=== PATIENT | female | born 1935 | race Caucasian/White ===

== ENCOUNTER 2020-07-27 14:02 | Outpatient (REF) | payer MEDICARE, SELFPAY ==
[2020-07-27 17:06] LABS: MANUAL DIFF FLAG NO
[2020-07-27 17:10] LABS: Basophils Absolute Auto 0.1 X10*3/uL (0.0-0.2); Eosinophils Absolute Auto 0.6 X10*3/uL (0.0-0.4); Eosinophils Percent Auto 7.6 % (0-4); Hematocrit 37.6 % (37-47); Hemoglobin 11.9 g/dl (12.0-16.0); Imm Gran Abs Auto 0.03 X10*3/uL (0.00-0.03); Imm Gran Pct Auto 0.4 % (0.0-0.4); Lymphocytes Percent Auto 25.4 % (20-40); Mean Corpuscular HGB Conc 31.6 g/dl (31.0-35.0); Mean Corpuscular Hemoglobin 30.4 pg (27.0-33.0); Mean Corpuscular Volume 95.9 fL (80-98); Mean Platelet Volume 11.3 fL (9.4-12.3); Monocytes Absolute Auto 0.5 X10*3/uL (0.1-1.2); Monocytes Percent Auto 6.5 % (2-11); Neutrophils Absolute Auto 4.6 X10*3/uL (2.0-8.3); Neutrophils Percent Auto 59.1 % (45-73); Platelet Count 238 X10*3/uL (160-400); Red Blood Count 3.92 X10*6/uL (4.20-5.50); Red Cell Distribution Width 14.9 % (11.0-16.0); White Blood Count 7.8 X10*3/uL (4.8-10.8)
[2020-07-27 17:48] LABS: Alanine Aminotransferase 14 U/L (0-31); Alkaline Phosphatase 100 U/L (39-117); Anion Gap 16 (12-20); Aspartate Amino Transferase 21 U/L (5-31); Bilirubin Total 0.4 mg/dL (0.0-1.0); Blood Urea Nitrogen 42 mg/dL (9-16); Calcium 9.7 mg/dL (8.4-10.2); Carbon Dioxide 25 mmol/L (22-29); Chloride 103 mmol/L (96-108); Estimated Glomerular Filt Rate 27; Glucose Random 85 mg/dL (60-115); Sodium 139 mmol/L (135-145); Total Protein 6.6 g/dL (6.5-8.0)
== END 2020-07-27 14:03 | disposition home or self-care (01) ==
LOC: HO.HMGCLDS 14:02
PROVIDERS: PCP Internal Medicine; Visit Provider Internal Medicine
DX: I12.9 Hypertensive chronic kidney disease with stage 1 through stage 4 chronic kidney disease, or unspecified chronic kidney disease (principal); N18.9 Chronic kidney disease, unspecified; N39.0 Urinary tract infection, site not specified
CPT/HCPCS: 36415; 80053; 85025

== ENCOUNTER 2020-08-24 08:43 | Outpatient (REF) | payer MEDICARE, SELFPAY ==
--- NOTE | 2020-08-24 10:39 | XR_ITS ---
EXAMINATION: XR CHEST CLINICAL INFORMATION: Pleural effusion COMPARISON: Chest x-ray the 2019 TECHNIQUE: 2 views of the chest were obtained. FINDINGS: Cardiac silhouette is not enlarged. Interval enlargement of now large right-sided pleural effusion. There is good aeration of the left hemithorax without left-sided pleural effusion. No pneumothorax. Surgical clips of the upper abdomen suggesting prior cholecystectomy. Degenerative changes of the spine. XR/XR chest 2V IMPRESSION: Interval enlargement of now large right-sided pleural effusion.
[2020-08-24 11:07] LABS: Prothrombin Time 12.3 SEC (10.8-13.0)
[2020-08-24 11:10] LABS: D Dimer 393 NG/ML
[2020-08-24 11:42] LABS: Alanine Aminotransferase 23 U/L (0-31); Albumin Level 3.9 g/dL (3.5-5.0); Alkaline Phosphatase 115 U/L (39-117); Aspartate Amino Transferase 21 U/L (5-31); Bilirubin Direct < 0.2 mg/dL (0.0-0.5); Bilirubin Total 0.3 mg/dL (0.0-1.0); Total Protein 6.1 g/dL (6.5-8.0)
[2020-08-24 12:03] LABS: Erythrocyte Sedimentation Rate 74 MM/HR (0-20)
[2020-08-24 12:04] LABS: Alanine Aminotransferase 24 U/L (0-31); Albumin Level 3.9 g/dL (3.5-5.0); Alkaline Phosphatase 116 U/L (39-117); Anion Gap 13 (12-20); Aspartate Amino Transferase 22 U/L (5-31); Bilirubin Total 0.3 mg/dL (0.0-1.0); Blood Urea Nitrogen 47 mg/dL (9-16); Calcium 9.4 mg/dL (8.4-10.2); Carbon Dioxide 28 mmol/L (22-29); Chloride 102 mmol/L (96-108); Estimated Glomerular Filt Rate 23; Glucose Random 113 mg/dL (60-115); Potassium 4.5 mmol/l (3.3-5.1); Sodium 138 mmol/L (135-145); Total Protein 6.1 g/dL (6.5-8.0)
[2020-08-24 12:35] LABS: Uric Acid 6.4 mg/dL (2.4-5.7)
[2020-08-25 07:44] LABS: SARS COV2 IgG Negative (Negative)
[2020-08-26 15:06] LABS: Anti Nuclear Antibody Screen POSITIVE (NEGATIVE); Anti Nuclear Antibody Titer 1:40 titer
[2020-08-28 19:10] LABS: Cyclic Citrullinated Peptide <16 UNITS
== END 2020-08-24 08:44 | disposition home or self-care (01) ==
LOC: HO.LAB 08:43
PROVIDERS: Absent Provider Internal Medicine; PCP Internal Medicine; Visit Provider Hospitalist
DX: J90 Pleural effusion, not elsewhere classified (principal); I12.9 Hypertensive chronic kidney disease with stage 1 through stage 4 chronic kidney disease, or unspecified chronic kidney disease; N18.9 Chronic kidney disease, unspecified; K21.9 Gastro-esophageal reflux disease without esophagitis; R06.00 Dyspnea, unspecified; R07.89 Other chest pain; R91.8 Other nonspecific abnormal finding of lung field; Z01.84 Encounter for antibody response examination
CPT/HCPCS: 36415; 71046; 80053; 80076; 82248; 84550; 85379; 85610; 85652; 86038; 86039; 86200; 86769; 99202

== ENCOUNTER 2020-08-25 07:28 | Day surgery (SDC) | payer MEDICARE, SELFPAY ==
--- NOTE | 2020-08-25 | XR_ITS ---
EXAMINATION: XR CHEST CLINICAL INFORMATION: Status post right thoracentesis. COMPARISON: 08/24/2020 TECHNIQUE: Frontal view of the chest was obtained. FINDINGS: Cardiac leads overlie the chest. Significant decrease in size of the right-sided pleural effusion. Small residual right-sided effusion with small amount of fluid tracking along the right minor fissure. The left lung is clear. No pneumothorax. The cardiomediastinal silhouette is normal in size with a calcified aorta. XR/XR chest 1V IMPRESSION: Decrease of the right-sided pleural effusion with small residual effusion. No pneumothorax.
--- NOTE | 2020-08-25 | CT_ITS ---
EXAMINATION: CT CHEST WITHOUT CONTRAST CLINICAL INFORMATION: COMPARISON: Previous chest x-rays most recent from yesterday and CT of the abdomen and pelvis June 2018 TECHNIQUE: Multidetector volumetric CT imaging of the chest was done. Axial MIP volume rendering provided. Sagittal and coronal reformatted images were obtained. This CT examination was performed using dose optimization techniques as appropriate, variously including the following: *Automated exposure control *Adjustment of mA and/or kV according to patient size (this includes techniques or standardized protocols for targeted exams where dose is matched to indication/reason for exam; i.e. extremities or head) *Use of iterative reconstruction technique DLP: 186 mGy-cm FINDINGS: [employer]: Right pleural effusion. LUNGS: There is compressive atelectasis of the right lower lobe due to the effusion. There is right upper lobe subsegmental atelectasis along the minor fissure. The lungs are otherwise clear. No pulmonary nodule is seen. No endobronchial or endotracheal lesion is seen. MEDIASTINUM: The thyroid gland is slightly prominent and lobulated in contour with question of focal nodules. Largest questioned nodule measures 1 x 1.5 cm. There are small mediastinal lymph nodes. There is slight infiltration of the epicardial fat and small right cardiophrenic angle or anterior diaphragmatic lymph nodes, largest measuring 6 mm axial image 43 series 2. The heart does not appear enlarged. There is no pericardial effusion. There is coronary artery calcification. The thoracic aorta is calcified but normal in caliber. Evaluation for hilar adenopathy is limited due to lack of IV contrast. There may be a small right hilar lymph nodes. PLEURA: There is a moderate to large right pleural effusion. There is no left pleural effusion. No pleural mass or thickening is seen. AXILLA: No chest wall mass or enlarged axillary lymph nodes are seen. UPPER ABDOMEN: There is a 1 cm low-attenuation lesion in the lateral segment of the left lobe axial image 52 series 2. Hounsfield units without contrast measure 15. This is similar to previous CT scan from June 2018 suggesting a benign process. The gallbladder has been removed. There is evidence of atherosclerotic disease of the upper abdominal aorta. OSSEOUS STRUCTURES: There is increased soft tissue seen surrounding the bilateral sternomanubrial joints, left greater than right. There is degenerative change seen at the joint spaces with joint space narrowing and osteophyte formation. No bone destruction is seen. There are degenerative changes of the spine. CT/CT chest wo con IMPRESSION: Moderate to large right pleural effusion. Compressive atelectasis of the right lower lobe and subsegmental atelectasis of the right upper lobe adjacent to the minor fissure. Slight infiltration of the right epicardial fat and small right cardiophrenic angle or anterior diaphragmatic lymph nodes. No enlarged lymph nodes. No pericardial effusion. Severe atherosclerotic disease and coronary artery calcification. Slightly enlarged lobulated thyroid gland with question thyroid nodules. This could be better assessed with thyroid ultrasound. 1 cm stable probable cyst in the left lobe of the liver. Increased soft tissue at the sternomanubrial joints. This may be related to arthritis. Clinical correlation recommended.
--- NOTE | 2020-08-25 09:00 | US_ITS ---
EXAMINATION: ULTRASOUND-GUIDED THORACENTESIS CLINICAL INFORMATION: Recurrent right pleural effusion COMPARISON: None TECHNIQUE: Procedure and risks and benefits including bleeding, infection and pneumothorax were discussed with the patient and informed consent was obtained. The right posterior lateral chest was prepped and draped in the usual sterile fashion. The skin and soft tissues were anesthetized with 1% lidocaine plain. Using ultrasound guidance and a 4 Yi rapid centesis catheter, access to the right pleural effusion was obtained. 1.1 L of dark serosanguineous/slightly bloody fluid was removed. Diagnostic specimen was sent. FINDINGS: There is a large right pleural effusion. US/US thoracentesis IMPRESSION: Ultrasound-guided right thoracentesis.
--- NOTE | 2020-08-25 09:33 | HO.RADPN ---
RADIOLOGY Narrative Narrative: Right thoracentesis performed using 4 fr angiocath. 1.1 L dark serosanguinous/slightly bloody fluid removed. Diagnostic specimen sent.
[2020-08-25 10:02] VITALS: BP 133/61; PULSE 70; RESP 16; TEMP 36.6; O2SAT 95
[2020-08-25] MEDS: Lidocaine HCl 1 % MPF 5 ML VIAL SUBCUT (10:04)
[2020-08-25 10:30] VITALS: BP 115/54; PULSE 70; RESP 16; O2SAT 95
[2020-08-25 11:09] VITALS: BP 108/64; PULSE 66; RESP 16; TEMP 36.6; O2SAT 97
[2020-08-25 11:41] LABS: MN% 29.4 %; PMN% 70.6 %
[2020-08-25 11:42] LABS: RBC Pleural Fluid 0.009 X10*3/uL; WBC Pleural Fluid 1.275 X10*3/uL
[2020-08-25 12:28] LABS: Neutrophils Pleural Fluid 70 %
[2020-08-25 12:29] LABS: BF Shift QC OK YES; Lymphocytes Pleural Fluid 6 %; Man Diluent Bkgrd OK YES; Monocytes Pleural Fluid 3 %; Other Cells Plerual Fl 21 %
[2020-08-25 13:51] LABS: pH Pleural Fluid 7.41
[2020-08-25 13:59] LABS: LDH Pleural Fluid 152; Total Protein Pleural Fluid 4.4
[2020-08-25 14:01] LABS: Glucose Pleural Fluid 105
== END 2020-08-25 12:00 | disposition home or self-care (01) ==
LOC: HO.SSS 07:29
PROVIDERS: PCP Internal Medicine; Visit Provider Radiology Diagnostic Radiology
DX: J90 Pleural effusion, not elsewhere classified (principal); J98.11 Atelectasis; Z87.891 Personal history of nicotine dependence; Z79.899 Other long term (current) drug therapy; Z88.7 Allergy status to serum and vaccine; Z91.09 Other allergy status, other than to drugs and biological substances
CPT/HCPCS: 32555; 71045; 71250; 82945; 83615; 83986; 84157; 87071; 87205; 88112; 88305; 88341; 88342; 89051

== ENCOUNTER 2020-08-30 10:47 | Outpatient (REF) | payer MEDICARE, SELFPAY | END 2020-08-30 10:48 | disposition home or self-care (01) | LOC: HO.XRAY 10:47 | PROVIDERS: PCP Internal Medicine; Visit Provider Internal Medicine | DX: J90 Pleural effusion, not elsewhere classified (principal); R06.02 Shortness of breath | CPT/HCPCS: 71046; 99212 ==

== ENCOUNTER → 2020-09-01 08:18 | Outpatient (BNVA) | payer MEDICARE, SELFPAY | PROVIDERS: PCP Internal Medicine; Visit Provider Surgery | DX: R06.00 Dyspnea, unspecified (principal); J90 Pleural effusion, not elsewhere classified | CPT/HCPCS: 99205 ==

== ENCOUNTER 2020-09-14 05:49 | Inpatient (IN) | payer MEDICARE, SELFPAY ==
--- NOTE | 2020-09-11 11:46 | HO.ANESPROP2 ---
HPI - Anesthesia Eval Consult details Narrative: 85yo F for Right VATS recurring R side pleural effusion, s/p thoracentesis x 2 - last 08/25/20 drained 1.1L fluid PMFSH Past Medical History Medical History (Updated 09/15/20 @ 08:40 by DEREK Maradiaga) (atherosclerosis) Chest pain Chronic renal insufficiency Diabetes mellitus Difficulty swallowing Dyspnea Elevated cholesterol GERD (gastroesophageal reflux disease) History of cystocele History of femoral angiogram History of thyroid nodule HTN (hypertension) IBS (irritable bowel syndrome) Lung mass Peripheral neuropathy Pleural effusion Polymyalgia rheumatica Sinusitis Trigeminus neuralgia Family History Family History Father No problems noted. Surgical History Surgical History (Updated 09/11/20 @ 12:21 by Ana Thomas) H/O carpal tunnel repair History of pubovaginal sling History of thoracentesis History of total replacement of right hip Hx of bilateral cataract extraction Hx of cholecystectomy Hx of colonoscopy History of Problems with Anesthesia: No (Reports lip injury after total hip surgery.) Social History Social History (Updated 09/11/20 @ 11:56 by Ana Thomas) Household Members: Family Housing: House Are you a primary director of home care hospice to a significant other at home: No Do you presently have visiting nurse or other home services: No Smoking Status: Former smoker Smoked in Last 30 Days: No Smoking Quit Date: 1969 Patient Interested in Nicotine Replacement: No Patient Given Instructions on How to Stop Smoking: No Second Hand Smoke Exposure: No Use of substances other than those prescribed or required for medical reasons: No Currently Displaying Signs/Symptoms of Drug Intoxication Withdrawal: No Any prior treatment program specific to substance use: No Have you been hit, kicked, punched, or otherwise hurt by someone within the past year? If so, by whom?: No Do you feel safe in your current relationship?: No Current Relationship Is there a partner from a previous relationship who is making you feel unsafe now?: No Are you made to feel afraid or neglected: No Advance Directives: No Advance Directives Information Provided: No Advance Directives on File: No Do you have thoughts of harming others: None Do you have a plan to hurt others: No Plan Recently lost weight without trying: Yes Narrative Narrative: Recent increase in Trigeminal neuralgia symptoms with L side facial numbness (baseline), some difficulty swallowing. +SOB, + cough r/t pleural effusion. Activity very limited. Mostly WC. Meds Allergies Allergy/AdvReac Type Severity Reaction Status Date / Time NSAIDS Allergy Severe kidney Verified 09/11/20 11:52 damage Psudaphed Allergy Severe kidney Verified 09/11/20 11:52 damage influenza virus vaccine, Allergy Intermediate LOCALIZED Verified 09/11/20 11:55 specific REACTION [Influenza Virus Vacc,Specific] thimerosal Allergy Intermediate Itching Verified 09/11/20 11:55 amitriptyline [From Elavil] AdvReac Severe Rash Verified 08/30/20 11:10 Home Medications Medication Instructions Recorded Confirmed Type albuterol sulfate 90 mcg/actuation INHALATION Q4-6H 08/24/20 09/01/20 History aerosol inhaler allopurinol 100 mg tablet 100 mg PO DAILY 08/24/20 09/11/20 History azelastine-fluticasone 137 mcg-50 1 spray INTRANASAL BID 08/24/20 09/14/20 History mcg/spray nasal spray bisoprolol fumarate 5 mg tablet 5 mg PO BID 08/24/20 09/14/20 History colchicine 0.6 mg tablet 0.6 mg PO DAILY PRN 08/24/20 09/11/20 History ezetimibe 10 mg tablet 10 mg PO DAILY 08/24/20 09/11/20 History flu vacc [id number](65yr up)-PF 240 ml IM 08/24/20 09/01/20 History mcg/0.7 mL intramuscular syringe furosemide 20 mg tablet 20 mg PO DAILY 08/24/20 09/11/20 History hydralazine 25 mg tablet 25 mg PO BID@0900,1700 08/24/20 09/14/20 History methylcellulose (laxative) 500 mg 500 mg PO BID 08/24/20 09/11/20 History tablet oxcarbazepine 300 mg tablet 300 mg PO BEDTIME 08/24/20 09/12/20 History losartan 50 mg tablet 50 mg PO BID tab 08/30/20 09/11/20 History acetaminophen 500 mg tablet 500 mg PO QID PRN 09/01/20 09/11/20 History aspirin 81 mg tablet,delayed 81 mg PO DAILY 09/01/20 09/11/20 History release cinnamon bark 500 mg capsule 500 mg PO DAILY 09/01/20 09/11/20 History coenzyme Q10 200 mg/gram oral 200 mg PO DAILY 09/01/20 09/11/20 History powder cranberry 400 mg capsule 400 mg PO DAILY 09/01/20 09/11/20 History diphenhydramine HCl 25 mg capsule 25 mg PO BEDTIME 09/01/20 09/11/20 History echinacea 380 mg capsule 380 mg PO DAILY 09/01/20 09/11/20 History evening primrose oil 500 mg capsule 500 mg PO TID 09/01/20 09/11/20 History flaxseed oil 1,000 mg capsule 1,000 mg PO DAILY 09/01/20 09/11/20 History garlic 1,000 mg capsule 1,000 mg PO DAILY 09/01/20 09/11/20 History loratadine 10 mg tablet 10 mg PO DAILY 09/01/20 09/14/20 History lutein 20 mg capsule 20 mg PO DAILY 09/01/20 09/11/20 History multivitamin 1 tab PO DAILY 09/01/20 09/11/20 History omega-3 fatty acids 1,000 mg 1,000 mg PO DAILY 09/01/20 09/11/20 History capsule selenium 200 mcg capsule 200 mcg PO DAILY 09/01/20 09/11/20 History zinc sulfate 110 mg (25 mg zinc) 110 mg PO DAILY 09/01/20 09/11/20 History tablet Exam Exam Date and Time: September 11, 2020 1146 Pertinent Lab Results Pertinent Lab Results: Laboratory Tests 07/27/20 08/24/20 14:22 10:30 WBC 7.8 Hgb 11.9 L Hct 37.6 Plt Count 238 Sodium 138 Potassium 4.5 Chloride 102 Carbon Dioxide 28 BUN 47 H Creatinine 2.04 H Patient and Renal aware of bump in creatinine. R/t extra doses of lasix recently in attempt to improve SOB, peripheral edema. Will repeat preop. Narrative Narrative: EKG: ECHO 07/20/20: LV size nml. borderline LVH. Over LV sys function is normal with an EF between 60-65%. Gr 1 DD with impaired relax and elevated LA pressures. No RWMA; LA size is upper limits of normal; RV sys function is at the low end of nml; RA area is upper limits of nml; Aoritc valve is trileaflet and appears to be minimally thickened. No or AR; mild MR; mild TR; borderline pulm htn; R pleural effusion; aortic root size is nml; no intracardiac shunt CXR 08/25/2020: Decrease of r-sided pleural effusion with small residual effusion. No pneumothorax CT/CT chest 08/25/20 IMPRESSION: Moderate to large right pleural effusion. Compressive atelectasis of the right lower lobe and subsegmental atelectasis of the right upper lobe adjacent to the minor fissure. Slight infiltration of the right epicardial fat and small right cardiophrenic angle or anterior diaphragmatic lymph nodes. No enlarged lymph nodes. No pericardial effusion. Severe atherosclerotic disease and coronary artery calcification. Slightly enlarged lobulated thyroid gland with question thyroid nodules. This could be better assessed with thyroid ultrasound. 1 cm stable probable cyst in the left lobe of the liver. Increased soft tissue at the sternomanubrial joints. This may be related to arthritis. Clinical correlation recommended. Airway Mallampati Class: I TM Dist: >3cm Neck ROM: Full Partial: Upper and Lower Heart: RRR Lungs: Expiratory wheezes throughout. Dim RUL Assessment and Plan Assessment Anesthesia Assessment: Anesthesia Plan Discussed and PAT Visit
[2020-09-11 12:03] VITALS: BP 161/68; PULSE 64; RESP 16; O2SAT 94; BMI 29.4
[2020-09-11 14:37] LABS: Hematocrit 37.1 % (37-47); Hemoglobin 11.7 g/dl (12.0-16.0); Mean Corpuscular HGB Conc 31.5 g/dl (31.0-35.0); Mean Corpuscular Hemoglobin 29.5 pg (27.0-33.0); Mean Corpuscular Volume 93.7 fL (80-98); Mean Platelet Volume 10.8 fL (9.4-12.3); Platelet Count 266 X10*3/uL (160-400); Red Blood Count 3.96 X10*6/uL (4.20-5.50); Red Cell Distribution Width 14.4 % (11.0-16.0); White Blood Count 7.2 X10*3/uL (4.8-10.8)
[2020-09-11 15:21] LABS: Blood Urea Nitrogen 34 mg/dL (9-16); Creatinine Clr Calc Pharmacy 21.9; Estimated Glomerular Filt Rate 26
[2020-09-14] VITALS (18 sets, daily range): BP systolic 86–171; BP diastolic 42–72; PULSE 65–82; RESP 10–20; TEMP 36.4–36.7; O2SAT 95–99
--- NOTE | 2020-09-14 | ECG_ITS ---
Test Reason : ANESTHESIA Blood Pressure : / mmHG Vent. Rate : 067 BPM Atrial Rate : 067 BPM P-R Int : 170 ms QRS Dur : 084 ms QT Int : 406 ms P-R-T Axes : 034 020 -02 degrees QTc Int : 429 ms Normal sinus rhythm Possible Anterior infarct , age undetermined Abnormal ECG No previous ECGs available Referred By: Nichelle Morrell Electronically Signed By:ALLA GALLEGOS MD
--- NOTE | 2020-09-14 | XR_ITS ---
EXAMINATION: XR CHEST CLINICAL INFORMATION: Pleural biopsy. Pleurx placement. COMPARISON: August 25, 2020 TECHNIQUE: AP portable view of the chest was obtained. FINDINGS: Since previous study a Pleurx catheter has been placed on the right. No significant right pleural effusion is identified. No pneumothorax is seen. There appears to be a small left pleural effusion with basilar disease likely related to atelectasis. Heart normal size. No evidence of pulmonary edema. There is a sclerotic marginated lucent density about the right humeral head with benign appearance. XR/XR chest 1V IMPRESSION: Right Pleurx catheter in place with resolution of right pleural effusion. No pneumothorax identified. Atelectasis with small left pleural effusion.
[2020-09-14 06:51] LABS: COVID-19 Test Negative (Negative); IDNOW Serial# 9DD0AD1C
[2020-09-14 07:01] LABS: Glucose, Whole Blood 92 mg/dL (60-115)
[2020-09-14] MEDS: Lactated Ringers 1,000 ML 50 ML IVCONT (07:11)
--- NOTE | 2020-09-14 07:18 | MHC.SHP ---
Pre-Procedural Eval Section B Chief Complaint: s/p right sided vats Allergies: Allergies Allergy/AdvReac Type Severity Reaction Status Date / Time NSAIDS Allergy Severe kidney Verified 09/11/20 11:52 damage Psudaphed Allergy Severe kidney Verified 09/11/20 11:52 damage influenza virus vaccine, Allergy Intermediate LOCALIZED Verified 09/11/20 11:55 specific REACTION [Influenza Virus Vacc,Specific] thimerosal Allergy Intermediate Itching Verified 09/11/20 11:55 amitriptyline [From Elavil] AdvReac Severe Rash Verified 08/30/20 11:10 Plan Patient has been examined and remains a candidate for the planned procedure. Risks, benefits and alternatives discussed in detail and patient agreed to proceed.
--- NOTE | 2020-09-14 10:26 | P.BOP_ITS ---
Brief Operative Note Date of Service: 09/14/20 Pre-op diagnosis: Recurrent right pleural effusion Post-op diagnosis: same Procedure: R VATS evacuation of pleural effusion, pleural biopsy x 3, partial decortication, Pleurx catheter placement Surgeon: Dr. Sanam Pham Anesthesia: GETA, local and other (multilevel paravertebral intercostal nerve block) Mammography Supervisor: Linsey Tse Estimated blood loss (mL): 10 Condition: stable Disposition: PACU
--- NOTE | 2020-09-14 11:18 | OP_ITS ---
SURGEON: Sanam Pham MD PREOPERATIVE DIAGNOSIS: Recurrent right pleural effusion. POSTOPERATIVE DIAGNOSIS: Recurrent right pleural effusion. PROCEDURE PERFORMED: Right VATS evacuation of pleural effusion, partial decortication, pleural biopsies x3, talc pleurodesis, and placement of PleurX cuffed tunneled catheter. ESTIMATED BLOOD LOSS: 10 mL. COMPLICATIONS: ANESTHESIA: General. ASSISTANTS: DEREK Maradiaga. SPECIMENS: Pleural biopsies and pleural fluid. DESCRIPTION OF PROCEDURE: On the day of the operation, the patient was brought to the operating room, placed supine on the operative table. Anesthesia and monitoring devices were placed. The patient was intubated with a double-lumen endotracheal tube. The tube position was confirmed with the video endotracheal tube. The patient was then turned on her left side with the right chest up and the chest was widely prepped and draped in standard sterile fashion and a time-out was performed confirming the correct patient, site and procedure. After injection of local anesthetic, a 5 mm incision was made over the 7th intercostal space posterior axillary line. The chest was entered without difficulty. First, the suction catheter was placed into the chest and 100 mL was collected and sent for culture, fungus, AFB, and cytology. Once this was sent off, the remainder of the effusion was drained, which we got more than 3 L out. Once the incision was done, we placed a 5 mm port through the incision and a 5 mm 45 degree camera was inserted and the chest was explored. There was a small amount of remaining fluid. There were small right pleural plaques on the chest wall and mediastinal pleura as well as the diaphragmatic pleura. There was also a different appearing yellow mass on the chest wall as well. We first excised several of the pleural plaques with electrocautery, placing them into a specimen bag for removing and sending them for permanent pathology. The pleural mass was also excised off the chest wall completely and sent also for permanent pathology. Next, the bedside bus assistant then did an intercostal paravertebral subpleural nerve block in each intercostal space along the entire length of the chest wall using a mixture of 0.25% Marcaine with epinephrine and Depo-Medrol. This was done under direct vision with thoracoscopy. Next, 4 g of talc was then inserted into the chest toward the apex and the CO2 insufflation was used to distributed evenly in the upper part of the chest. This was repeated toward the diaphragm with 4 g of talc again distributing it with CO2 insufflation evenly. We then under direct vision made a separate incision over the costal margin and the chest was entered under vision. The PleurX catheter was then tunneled from a site anteriorly on the abdomen after injection of local anesthetic and the PleurX catheter was inserted into the chest and directed posteriorly enough toward the apex. The cuff was positioned just distal to the abdominal incision. Once this was in place, it was secured with the nylon suture and connected to an atrium. The lung was then brought up under direct vision and did easily approximate the chest wall. The remaining incisions were closed with deep 0 Vicryl suture, followed by a running 3-0 Vicryl suture and Dermabond glue. The patient tolerated the procedure well, was extubated at the conclusion of the operation, and brought to the recovery room in stable condition. MD VELMA Harper/LYNDSEY / [phone]
[2020-09-14] MEDS: Acetaminophen 325 MG TABLET 975 MG PO ×3 (14:25→21:53)
[2020-09-14] MEDS: Heparin Sodium,Porcine 5,000 UNIT/ML VIAL 5000 UNIT SUBCUT (17:45)
[2020-09-14] MEDS: 0.9 % Sodium Chloride Flush 3 ML SYRINGE IVFLUSH (17:46)
[2020-09-14] MEDS: Docusate Sodium 100 MG CAPSULE PO (21:52)
[2020-09-14] MEDS: Losartan Potassium 50 MG TABLET PO (21:53)
[2020-09-14] MEDS: Bisoprolol Fumarate 5 MG TABLET PO (21:53)
[2020-09-14] MEDS: Famotidine 20 MG TABLET PO (21:54)
[2020-09-15] VITALS (10 sets, daily range): BP systolic 96–139; BP diastolic 52–74; PULSE 70–83; RESP 16–18; TEMP 36.3–37; O2SAT 94–99
[2020-09-15] MEDS: 0.9 % Sodium Chloride Flush 3 ML SYRINGE IVFLUSH ×3 (00:23→15:37)
[2020-09-15] MEDS: Acetaminophen 325 MG TABLET 975 MG PO ×2 (04:14→15:36)
[2020-09-15] MEDS: Heparin Sodium,Porcine 5,000 UNIT/ML VIAL 5000 UNIT SUBCUT ×2 (04:15→10:41)
--- NOTE | 2020-09-15 06:00 | XR_ITS ---
EXAMINATION: XR CHEST CLINICAL INFORMATION: Postop day one status post VATS pleural biopsy, Pleurx placement COMPARISON: 09/14/2020 TECHNIQUE: Frontal view of the chest was obtained. FINDINGS: Redemonstrated right-sided Pleurx catheter. Lung volumes are symmetric. Trace right pleural effusion is suspected. Trace left pleural effusion cannot be excluded, and there is mild retrocardiac opacity which may represent atelectasis. No appreciable pneumothorax. The cardiomediastinal silhouette is stable. Calcification is present at the aortic arch. No acute osseous findings are seen. XR/XR chest 1V IMPRESSION: Trace right pleural effusion. No appreciable pneumothorax. Mild retrocardiac opacity may reflect atelectasis; attention on follow-up recommended.
--- NOTE | 2020-09-15 08:36 | P.PNTS_ITS ---
Subjective Subjective Date of Service: 09/15/20 Interval history: Patient had no issues overnight. This morning she is feeling well other than some minor discomfort over the lateral right chest. Has been taking Tylenol only for pain which has been helping. Has been voiding without issue. Ambulated within the room, but not in hallways as of yet. No F/C, nausea, abdominal pain/distention, SOB, CP/pressure, LE edema/pain. +cough, not productive but feels there is something that needs to come up . Physical Exam Vital Signs: Vital Signs: Last Vital Signs Temp 97.9 F 09/15/20 08:00 Pulse 71 09/15/20 08:00 Resp 18 09/15/20 08:00 BP 139/74 09/15/20 08:00 Pulse Ox 99 09/15/20 08:00 Body Mass Index 29.4 General: No acute distress, resting comfortably in bed, well developed Head: Normocephalic, atraumatic, symmetric Eyes: Sclera anicteric, eyelids without edema or erythema, +EOMS intact ENT: Oral mucosa and tongue are moist without lesions or exudates Neck: Soft, supple, symmetric, trachea midline, no crepitus Cardiovascular: Regular rate and rhythm, no murmur/rubs/gallops, BUE and BLE without edema, no calf tenderness bilaterally Respiratory: Lungs CTA B, breathing nonlabored, speaking in full sentences, on oxygen via NC. No use of accessory muscles. Multiple right sided chest incisions are C/D/I without erythema/drainage/open areas, no crepitus. R Pleurx catheter connected to [facility] on -20 wall suction, serosang drainage, no air leak. Gastrointestinal: Soft, non-tender, non-distended Skin: Warm and dry throughout, no rashes Neurological: Alert and oriented x 3, no focal neurological deficit noted Psychiatric: no agitation, appropriate affect Progress Note: A&P Assessment and plan (1) Pleural effusion: Status: Acute Assessment and Plan: 85 year old female with recurrent right pleural effusion. POD#1 s/p R VATS evacuation of pleural effusion, pleural biopsy x 3, chemical pleurodesis, and Pleurx catheter placement. * Pleurx will remain to At[facility] drainage on continuous wall suction x 48 hours postop to promote lung expansion for pleurodesis. * May be disconnected from suction for ambulation purposes. * Morning CXR ordered. * Pain management as needed. * Pulmonary toilet. * OOB ambulating in hallways at least 4 times daily. * Patient should be OOB to chair for all meals. * Mucinex and throat lozenge ordered. Fall Risk Details Current Medications: Current Medications Generic Name Dose Route Start Last Admin Trade Name Freq PRN Reason Stop Dose Admin Acetaminophen 975 mg 09/14/20 10:15 09/15/20 04:14 Acetaminophen 325 Mg Tablet PO 975 mg Q6H [facility] Administration Albuterol Sulfate 2 puff 09/14/20 10:24 Albuterol Sulfate 90 Mcg 8 Gm Inhaler INHALE RQ4H PRN Shortness of Breath/Wheezing Allopurinol 100 mg 09/15/20 09:00 Allopurinol 100 Mg Tablet PO DAILY [facility] Aspirin 81 mg 09/15/20 09:00 Aspirin Enteric Coated 81 Mg Tablet.Dr PO DAILY [facility] Benzocaine 1 lozenge 09/15/20 08:34 Throat Lozenge, Medicated Lozenge MUCOUS MEM Q2H PRN Sore Throat Bisoprolol Fumarate 5 mg 09/14/20 21:00 09/14/20 21:53 Bisoprolol Fumarate 5 Mg Tablet PO 5 mg BID [facility] Administration Docusate Sodium 100 mg 09/14/20 21:00 09/14/20 21:52 Docusate Sodium 100 Mg Capsule PO 100 mg BID [facility] Administration Ezetimibe 10 mg 09/15/20 09:00 Ezetimibe 10 Mg Tablet PO DAILY [facility] Famotidine 20 mg 09/14/20 21:00 09/14/20 21:54 Famotidine 20 Mg Tablet PO 20 mg BID [facility] Administration Furosemide 20 mg 09/15/20 09:00 Furosemide 20 Mg Tablet PO DAILY [facility] Protocol Guaifenesin 600 mg 09/15/20 09:00 Guaifenesin La 600 Mg Tab.Er.12h PO BID [facility] Heparin Sodium (Porcine) 5,000 unit 09/14/20 11:00 09/15/20 04:15 Heparin Sodium,Porcine 5,000 Unit/Ml Vial SUBCUT 5,000 unit Q8H [facility] Administration Hydralazine HCl 25 mg 09/14/20 17:00 09/14/20 17:44 Hydralazine Hcl 25 Mg Tablet PO Not Given BID@0900,1700 [facility] Protocol Loratadine 10 mg 09/15/20 09:00 Loratadine 10 Mg Tablet PO DAILY [facility] Losartan Potassium 50 mg 09/14/20 21:00 09/14/20 21:53 Losartan Potassium 50 Mg Tablet PO 50 mg BID [facility] Administration Protocol Naloxone HCl 0.04 mg 09/14/20 10:12 Naloxone Hcl 0.4 Mg/Ml Vial IVPUSH Q5M PRN Respiratory Rate < 10 Ondansetron HCl 4 mg 09/14/20 10:12 Ondansetron Hcl 4 Mg/2 Ml Vial IVPUSH Q8H PRN Nausea and Vomiting Oxcarbazepine 300 mg 09/14/20 21:00 09/14/20 22:40 Oxcarbazepine 300 Mg Tablet PO Not Given BEDTIME [facility] Oxycodone HCl 2.5 mg 09/14/20 10:12 Oxycodone Hcl Immed Release 5 Mg Tablet PO Q4H PRN Pain, Moderate (Pain Scale 4-6 Oxycodone HCl 5 mg 09/14/20 10:19 Oxycodone Hcl Immed Release 5 Mg Tablet PO Q4H PRN Pain, Severe (Pain Scale 7-10) Senna 17.2 mg 09/14/20 10:12 Sennosides 8.6 Mg Tablet PO BEDTIME PRN Constipation Sodium Chloride 3 ml 09/14/20 16:00 09/15/20 00:23 0.9 % Sodium Chloride Flush 3 Ml Syringe IVFLUSH 3 ml QSHIFT [facility] Administration Time Spent With Patient Time: Total time spent is greater than 50% in coordination of care (as documented) at patient's floor/unit and/or counseling patient: Time with patient: 15 - 24 minutes
[2020-09-15] MEDS: guaiFENesin LA 600 MG TAB.ER.12H PO ×2 (08:54→20:55)
[2020-09-15] MEDS: Loratadine 10 MG TABLET PO (08:54)
[2020-09-15] MEDS: Aspirin Enteric Coated 81 MG TABLET.DR PO (08:54)
[2020-09-15] MEDS: hydrALAZINE HCl 25 MG TABLET PO ×2 (08:55→17:50)
[2020-09-15] MEDS: Docusate Sodium 100 MG CAPSULE PO ×2 (08:55→20:58)
[2020-09-15] MEDS: Bisoprolol Fumarate 5 MG TABLET PO ×2 (08:55→20:55)
[2020-09-15] MEDS: Losartan Potassium 50 MG TABLET PO ×2 (08:56→20:58)
[2020-09-15] MEDS: Ezetimibe 10 MG TABLET PO (08:56)
[2020-09-15] MEDS: Furosemide 20 MG TABLET PO (08:56)
[2020-09-15] MEDS: allopurinoL 100 MG TABLET PO (08:56)
[2020-09-15] MEDS: Famotidine 20 MG TABLET PO ×2 (08:57→20:57)
--- NOTE | 2020-09-15 09:20 | HO.POSTANES ---
Post Anesthesia Evaluation Post Anesthesia Evaluation Vital Signs: Vital Signs Temp Pulse Resp BP Pulse Ox 09/15/20 08:56 71 139/74 09/15/20 08:55 71 139/74 09/15/20 08:00 97.9 F 71 18 139/74 99 09/15/20 03:45 97.3 F 79 16 119/62 98 09/15/20 00:00 97.8 F 83 16 128/60 97 09/14/20 21:53 80 108/55 L Anesthesia: General Endotracheal-GETA (NATHANIEL) Mental Status: Awake Pain Control: Satisfactory Nausea/Vomiting: None Hydration: Adequate Anesthesia-Related Issues: No Anes. Related Issues
[2020-09-15 09:33] LABS: Anion Gap 14 (12-20); Blood Urea Nitrogen 36 mg/dL (9-16); Calcium 8.4 mg/dL (8.4-10.2); Carbon Dioxide 23 mmol/L (22-29); Chloride 103 mmol/L (96-108); Creatinine Clr Calc Pharmacy 20.9; Estimated Glomerular Filt Rate 25; Glucose Random 148 mg/dL (60-115); Potassium 4.8 mmol/l (3.3-5.1); Sodium 135 mmol/L (135-145)
--- NOTE | 2020-09-15 15:00 | MHC.CM.PN ---
PT REPORTS SHE LIVES AT HOME AND TWO OF HER ADULT CHILDREN LIVE WITH HER AND PROVIDE ASSISTANCE IF NEEDED. SHE REPORTS SHE USES A CANE TO AMBULATE AND DOES NOT REQUIRE ANY OTHER DME. PT DID NOT HAVE HOME SERVICES [facility] BUT WILL NEED A [facility] AT [place]. PT REQUESTS A REFERRAL TO [facility]. CURRENT DC PLAN IS HOME WITH [facility] FAMILY WILL TRANSPORT
[2020-09-15] MEDS: OXcarbazepine 300 MG TABLET PO (20:57)
[2020-09-16] VITALS (12 sets, daily range): BP systolic 109–146; BP diastolic 55–70; PULSE 67–88; RESP 16–18; TEMP 36.4–37.1; O2SAT 95–98
[2020-09-16] MEDS: 0.9 % Sodium Chloride Flush 3 ML SYRINGE IVFLUSH ×3 (01:18→15:53)
[2020-09-16] MEDS: Heparin Sodium,Porcine 5,000 UNIT/ML VIAL 5000 UNIT SUBCUT ×3 (05:37→17:20)
[2020-09-16] MEDS: Acetaminophen 325 MG TABLET 975 MG PO ×2 (05:37→22:13)
--- NOTE | 2020-09-16 06:00 | XR_ITS ---
EXAMINATION: XR CHEST CLINICAL INFORMATION: Postop day 2 status post right VATS pleural biopsy, Pleurx placement COMPARISON: 09/15/2020 TECHNIQUE: Frontal view of the chest was obtained. FINDINGS: Redemonstrated right-sided Pleurx catheter. There is slight elevation of the right hemidiaphragm with adjacent basilar opacity suggesting atelectasis. Small amount of fluid is present along the right minor fissure. No definite pneumothorax. Trace pleural fluid redemonstrated at the right base. Minimal subsegmental atelectasis is suspected in the retrocardiac left lower lobe. No overt pulmonary edema. The cardiomediastinal silhouette is stable. Calcification is present at the aortic arch. Degenerative changes are noted in the spine. XR/XR chest 1V IMPRESSION: New small amount of fluid along the right minor fissure. Trace pleural effusion redemonstrated at the right base.
[2020-09-16] MEDS: Loratadine 10 MG TABLET PO (10:01)
[2020-09-16] MEDS: allopurinoL 100 MG TABLET PO (10:02)
[2020-09-16] MEDS: Aspirin Enteric Coated 81 MG TABLET.DR PO (10:02)
[2020-09-16] MEDS: Ezetimibe 10 MG TABLET PO (10:02)
[2020-09-16] MEDS: Famotidine 20 MG TABLET PO ×2 (10:02→20:49)
[2020-09-16] MEDS: Docusate Sodium 100 MG CAPSULE PO ×2 (10:02→20:49)
[2020-09-16] MEDS: guaiFENesin LA 600 MG TAB.ER.12H PO ×2 (10:02→20:53)
[2020-09-16] MEDS: Furosemide 20 MG TABLET PO (10:05)
--- NOTE | 2020-09-16 10:32 | P.PNTS_ITS ---
Subjective Subjective Date of Service: 09/17/20 Patient reports: no new complaints Interval history: Patient seen and examined this morning. Doing well overall. PleurX catheter remains to -20cm continuous LWS. No complaints. Sylvester respiratory distress, shortness of breath, or chest pains. Reports that Mucinex has been helping with promotion of sputum productive. Reports blood tinged sputum mixed with regular mucus yesterday. Walked x 1 yesterday. I/S up to 1000. Voiding without difficulty. Physical Exam Vital Signs: Vital Signs: Last Vital Signs Temp 97.9 F 09/16/20 08:22 Pulse 67 09/16/20 08:22 Resp 17 09/16/20 08:22 BP 109/55 L 09/16/20 10:08 Pulse Ox 97 09/16/20 08:22 Body Mass Index 29.4 Const: General: cooperative, healthy appearing, comfortable and no acute distress Nutritional Appearance: well nourished Orientation/consciousness: oriented to person, oriented to place, oriented to time and patient oriented x3 Limitations: no limitations HENMT: Head: Yes normal to inspection, Yes normocephalic and Yes atraumatic Mouth: Normal oral and palatal mucosa present Eyes: Visual Mccullough: normal visual mccullough by confrontation Alignment and Position: alignment normal Periorbital: periorbital findings normal Conjunctivae: conjunctivae normal Sclerae: sclerae normal Pupils: Equal, round and reactive pupils present and Pupil accommodation reflex normal EOM: EOMs intact bilaterally Neck: Neck: Yes normal visual inspection, Yes full ROM, Yes no lymphadenopathy, Yes trachea midline, Yes supple, No lymphadenopathy, No tender and No tracheal deviation Lymphatic: no lymphadenopathy noted Chest: Chest palpation & inspection: normal inspection of the chest and no crepitus Resp: Other: Right lateral PleurX chest tube to -20cm continuous LWS. No air leak. drained a total of 550cc serousanguinous drainage. appears to have drained 50cc overnight. Currently on 2L nasal cannula. No usually on home O2. Multiple chest incisions healing well without erythema, edema, or drainage. no chest crepitus. no visible air leak. Chest tube dressing is c/d/i. Effort & Inspection: normal respiratory effort, able to speak in complete sentences, normal respiratory pattern, no audible wheezes, no cough, no pursed lip breathing, no respiratory distress, no stridor, not tachypneic and no tracheal deviation Cardio: Jugular venous distension: no JVD Palpation: normal PMI Rate: regular rate Rhythm: regular rhythm Heart sounds: S1 normal heart sound present, S2 normal heart sound present, no click, no gallops, no murmurs and no rubs GI: Inspection: Yes normal to inspection Auscultation: normal bowel sounds : General: Yes no CVA tenderness Back/Spine/Pelvis: Back: no CVA tenderness Thoracic/Lumbar Spine: thoracic and lumbar spine normal to inspection Skin: General skin exam: no rashes or lesions noted and dry skin Lesions: no lesions Rashes: no rashes Neuro: General: oriented to person, oriented to place, oriented to time, patient oriented x3 and gait normal Cranial nerves: Yes Equal, round and reactive pupils present Extrem: General: Yes normal to inspection, Yes full ROM, Yes capillary refill normal, Yes no clubbing, cyanosis or edema, Yes no pedal edema and Yes normal gait Psych: Appearance: grossly normal and well kempt Mental Status: mental status grossly normal Speech and movement: Normal speech and movement present and Clear speech present Affect: normal affect Attitude: cooperative Thought process: Normal thought process present Thought content: Normal thought content present Progress Note: A&P Assessment and plan (1) Pleural effusion: Status: Acute Assessment and Plan: 85 year old female with recurrent right pleural effusion. POD#2 s/p R VATS evacuation of pleural effusion, pleural biopsy x 3, chemical pleurodesis, and Pleurx catheter placement. * Pleurx will remain to [facility] drainage on continuous wall suction x 48 hours postop to promote lung expansion for pleurodesis. * May be disconnected from suction for ambulation purposes. * Morning CXR showed new small amount of fluid along the right minor fissure. Trace pleural effusion redemonstrated at the right base. * Keep patient to -20cm continuous LWS today and place to waterseal at midnight. Will repeat CXR in am. Anticipate d/c tomorrow am. Will need VNA to assist with PleurX drainage every other day. Case management to set this up. * She will have a post-op appointment in 2 weeks at the [facility] office with Dr. Pham. The office will call her to set up an appointment and she will need a chest x-ray prior to this appointment. During this appointment, her pathology findings will be discussed * Pain management as needed. * Pulmonary toilet. * OOB ambulating in hallways at least 4 times daily. * Patient should be OOB to chair for all meals. * Mucinex and throat lozenge ordered. * CHE- Patient currently on 20mg Lasix. Baseline Cr appears to be between 1.6- 1.8 after reviewing previous labs. Encourage oral fluids. Avoid nephrotoxic medications. Fall Risk Details Current Medications: Current Medications Generic Name Dose Route Start Last Admin Trade Name Freq PRN Reason Stop Dose Admin Acetaminophen 975 mg 09/14/20 10:15 09/16/20 10:02 Acetaminophen 325 Mg Tablet PO Not Given Q6H [facility] Albuterol Sulfate 2 puff 09/14/20 10:24 Albuterol Sulfate 90 Mcg 8 Gm Inhaler INHALE RQ4H PRN Shortness of Breath/Wheezing Allopurinol 100 mg 09/15/20 09:00 09/16/20 10:02 Allopurinol 100 Mg Tablet PO 100 mg DAILY [facility] Administration Aspirin 81 mg 09/15/20 09:00 09/16/20 10:02 Aspirin Enteric Coated 81 Mg Tablet. PO 81 mg DAILY [facility] Administration Benzocaine 1 lozenge 09/15/20 08:34 Throat Lozenge, Medicated Lozenge MUCOUS MEM Q2H PRN Sore Throat Bisoprolol Fumarate 5 mg 09/14/20 21:00 09/16/20 10:07 Bisoprolol Fumarate 5 Mg Tablet PO Not Given BID [facility] Docusate Sodium 100 mg 09/14/20 21:00 09/16/20 10:02 Docusate Sodium 100 Mg Capsule PO 100 mg BID [facility] Administration Ezetimibe 10 mg 09/15/20 09:00 09/16/20 10:02 Ezetimibe 10 Mg Tablet PO 10 mg DAILY [facility] Administration Famotidine 20 mg 09/14/20 21:00 09/16/20 10:02 Famotidine 20 Mg Tablet PO 20 mg BID [facility] Administration Furosemide 20 mg 09/15/20 09:00 09/16/20 10:05 Furosemide 20 Mg Tablet PO 20 mg DAILY [facility] Administration Protocol Guaifenesin 600 mg 09/15/20 09:00 09/16/20 10:02 Guaifenesin La 600 Mg Tab.Er.12h PO 600 mg BID [facility] Administration Heparin Sodium (Porcine) 5,000 unit 09/14/20 11:00 09/16/20 05:37 Heparin Sodium,Porcine 5,000 Unit/Ml Vial SUBCUT 5,000 unit Q8H [facility] Administration Hydralazine HCl 25 mg 09/14/20 17:00 09/16/20 10:08 Hydralazine Hcl 25 Mg Tablet PO Not Given BID@0900,1700 [facility] Protocol Loratadine 10 mg 09/15/20 09:00 09/16/20 10:01 Loratadine 10 Mg Tablet PO 10 mg DAILY [facility] Administration Losartan Potassium 50 mg 09/14/20 21:00 09/16/20 10:08 Losartan Potassium 50 Mg Tablet PO Not Given BID [facility] Protocol Naloxone HCl 0.04 mg 09/14/20 10:12 Naloxone Hcl 0.4 Mg/Ml Vial IVPUSH Q5M PRN Respiratory Rate < 10 Ondansetron HCl 4 mg 09/14/20 10:12 Ondansetron Hcl 4 Mg/2 Ml Vial IVPUSH Q8H PRN Nausea and Vomiting Oxcarbazepine 300 mg 09/14/20 21:00 09/15/20 20:57 Oxcarbazepine 300 Mg Tablet PO 150 mg BEDTIME [facility] Administration Oxycodone HCl 2.5 mg 09/14/20 10:12 Oxycodone Hcl Immed Release 5 Mg Tablet PO Q4H PRN Pain, Moderate (Pain Scale 4-6 Oxycodone HCl 5 mg 09/14/20 10:19 Oxycodone Hcl Immed Release 5 Mg Tablet PO Q4H PRN Pain, Severe (Pain Scale 7-10) Senna 17.2 mg 09/14/20 10:12 Sennosides 8.6 Mg Tablet PO BEDTIME PRN Constipation Sodium Chloride 3 ml 09/14/20 16:00 09/16/20 10:06 0.9 % Sodium Chloride Flush 3 Ml Syringe IVFLUSH 3 ml QSHIFT [facility] Administration Time Spent With Patient Time: Total time spent is greater than 50% in coordination of care (as docum ented) at patient's floor/unit and/or counseling patient: Time with patient: 15 - 24 minutes
[2020-09-16] MEDS: hydrALAZINE HCl 25 MG TABLET PO (17:18)
[2020-09-16] MEDS: OXcarbazepine 300 MG TABLET PO (20:49)
[2020-09-16] MEDS: Losartan Potassium 50 MG TABLET PO (20:52)
[2020-09-16] MEDS: Bisoprolol Fumarate 5 MG TABLET PO (20:53)
[2020-09-17] MEDS: 0.9 % Sodium Chloride Flush 3 ML SYRINGE IVFLUSH ×2 (00:39→07:57)
[2020-09-17 03:52] VITALS: BP 115/63; PULSE 70; RESP 18; TEMP 37.1; O2SAT 94
[2020-09-17] MEDS: Heparin Sodium,Porcine 5,000 UNIT/ML VIAL 5000 UNIT SUBCUT (04:05)
[2020-09-17] MEDS: Acetaminophen 325 MG TABLET 975 MG PO (05:21)
--- NOTE | 2020-09-17 06:00 | XR_ITS ---
EXAMINATION: XR CHEST CLINICAL INFORMATION: Status post right VATS.] No pleural effusion and pleural biopsy. COMPARISON: Chest 09/16/2020 TECHNIQUE: Frontal view of the chest was obtained. FINDINGS: The left lung is expanded and clear. The right lung is hypoexpanded with a small amount of fluid in the right minor fissure. There is a right chest tube overlying the fourth posterior interspace. No visible pneumothorax seen. XR/XR chest 1V IMPRESSION: Hyperexpanded right lung likely postop with a right chest tube in the upper right hemithorax. Minimal fluid in the right minor fissure is stable. Opacity right lung base likely due to loss of right lung volume and elevated right hemidiaphragm. Overall no change from 09/16/2020
[2020-09-17 06:59] VITALS: BP 132/60; PULSE 68; RESP 18; TEMP 36.9; O2SAT 95
[2020-09-17 07:15] LABS: Glucose, Whole Blood 89 mg/dL (60-115)
[2020-09-17] MEDS: allopurinoL 100 MG TABLET PO (07:55)
[2020-09-17] MEDS: Aspirin Enteric Coated 81 MG TABLET.DR PO (07:55)
[2020-09-17] MEDS: guaiFENesin LA 600 MG TAB.ER.12H PO (07:55)
[2020-09-17] MEDS: Loratadine 10 MG TABLET PO (07:55)
[2020-09-17 07:56] VITALS: BP 132/60; PULSE 68
[2020-09-17] MEDS: Losartan Potassium 50 MG TABLET PO (07:56)
[2020-09-17] MEDS: Famotidine 20 MG TABLET PO (07:56)
[2020-09-17] MEDS: Bisoprolol Fumarate 5 MG TABLET PO (07:56)
[2020-09-17] MEDS: hydrALAZINE HCl 25 MG TABLET PO (07:56)
[2020-09-17] MEDS: Ezetimibe 10 MG TABLET PO (07:57)
[2020-09-17] MEDS: Furosemide 20 MG TABLET PO (07:57)
[2020-09-17] MEDS: Docusate Sodium 100 MG CAPSULE PO (07:57)
--- NOTE | 2020-09-17 10:28 | P.DS_ITS ---
DS: Providers Provider Date of admission: 09/14/20 05:49 Primary care physician: Kishor Fisher MD DS: Diagnosis Discharge Diagnosis (1) Pleural effusion: Status: Acute DS: Medications Discharge Medications Home Medications: Home Medications Medication Instructions Recorded Confirmed albuterol sulfate 90 mcg/actuation INHALATION Q4-6H 08/24/20 09/01/20 aerosol inhaler allopurinol 100 mg tablet 100 mg PO DAILY 08/24/20 09/11/20 azelastine-fluticasone 137 mcg-50 1 spray INTRANASAL BID 08/24/20 09/14/20 mcg/spray nasal spray bisoprolol fumarate 5 mg tablet 5 mg PO BID 08/24/20 09/14/20 colchicine 0.6 mg tablet 0.6 mg PO DAILY PRN 08/24/20 09/11/20 ezetimibe 10 mg tablet 10 mg PO DAILY 08/24/20 09/11/20 flu vacc [id number](65yr up)-PF 240 ml IM 08/24/20 09/01/20 mcg/0.7 mL intramuscular syringe furosemide 20 mg tablet 20 mg PO DAILY 08/24/20 09/11/20 hydralazine 25 mg tablet 25 mg PO BID@0900,1700 08/24/20 09/14/20 methylcellulose (laxative) 500 mg 500 mg PO BID 08/24/20 09/11/20 tablet oxcarbazepine 300 mg tablet 300 mg PO BEDTIME 08/24/20 09/12/20 losartan 50 mg tablet 50 mg PO BID tab 08/30/20 09/11/20 acetaminophen 500 mg tablet 500 mg PO QID PRN 09/01/20 09/11/20 aspirin 81 mg tablet,delayed 81 mg PO DAILY 09/01/20 09/11/20 release cinnamon bark 500 mg capsule 500 mg PO DAILY 09/01/20 09/11/20 coenzyme Q10 200 mg/gram oral 200 mg PO DAILY 09/01/20 09/11/20 powder cranberry 400 mg capsule 400 mg PO DAILY 09/01/20 09/11/20 diphenhydramine HCl 25 mg capsule 25 mg PO BEDTIME 09/01/20 09/11/20 echinacea 380 mg capsule 380 mg PO DAILY 09/01/20 09/11/20 evening primrose oil 500 mg capsule 500 mg PO TID 09/01/20 09/11/20 flaxseed oil 1,000 mg capsule 1,000 mg PO DAILY 09/01/20 09/11/20 garlic 1,000 mg capsule 1,000 mg PO DAILY 09/01/20 09/11/20 loratadine 10 mg tablet 10 mg PO DAILY 09/01/20 09/14/20 lutein 20 mg capsule 20 mg PO DAILY 09/01/20 09/11/20 multivitamin 1 tab PO DAILY 09/01/20 09/11/20 omega-3 fatty acids 1,000 mg 1,000 mg PO DAILY 09/01/20 09/11/20 capsule selenium 200 mcg capsule 200 mcg PO DAILY 09/01/20 09/11/20 zinc sulfate 110 mg (25 mg zinc) 110 mg PO DAILY 09/01/20 09/11/20 tablet Previous Rx's Medication Instructions Recorded famotidine 20 mg tablet 20 mg PO BID #180 tab 08/20/20 docusate sodium 100 mg PO BID 14 Days #28 cap 09/17/20 oxycodone 2.5 - 5 mg PO Q4H #30 tab 09/17/20 sennosides [Senna Lax] 17.2 mg PO BEDTIME PRN 14 Days tab 09/17/20 DS: Summary Hospital Course Hospital Course: Patient is a pleasant 85 year old female who was admitted for right loculated effusion. On 09/14/2020 patient had a right VATS evacuation of pleural effusion, partial decortication, pleural biopsies x3, talc pleurodesis, and placement of PleurX cuffed tunneled catheter with Dr. Sanam Pham. Post-operatively, she was extubated and remained stable. She was ultimately transferred to the floor in stable condition. Her right PleurX catheter remained to -20cm continuous LWS for 48 hours and serial CXR's performed. Her total output of drainage in the right PleurX was 570cc. She did have an elevated creatitinine which slowly downtrended. Oral fluids were encouraged and nephrotoxic medications were avoided. Vital signs remained stable and patient to be discharged home with VNA services for PleurX management. She will need every other day drainages until her 2 week post-op appointment at the [facility] office with Dr. Sanam Pham. Status at Discharge Functional status at discharge: independent ambulation Overall status at discharge: patient is back to baseline Time Spent with Patient Time attestation: Total time spent providing and/or coordinating discharge services: Discharge coordination time: Greater than 30 minutes Physical Exam Vital Signs: Vital Signs: Last Vital Signs Temp 98.5 F 09/17/20 06:59 Pulse 68 09/17/20 07:56 Resp 18 09/17/20 06:59 BP 132/60 09/17/20 07:56 Pulse Ox 95 09/17/20 06:59 Body Mass Index 29.4 Const: General: cooperative, healthy appearing, no acute distress, alert and awake Orientation/consciousness: oriented to person, oriented to place, oriented to time and patient oriented x3 HENMT: Head: Yes normal to inspection, Yes normocephalic and Yes atraumatic Eyes: General: appearance normal, both eyes and all related structures Neck: Neck: Yes normal visual inspection, Yes no lymphadenopathy, Yes trachea midline, Yes supple, No tracheal deviation and Yes no JVD Lymphatic: no lymphadenopathy noted Chest: Chest palpation & inspection: normal inspection of the chest and no crepitus Resp: Other: Lungs sounds clear to auscultation bilaterally. Right lateral pleurX in place to waterseal atrium. Placed to waterseal overnight at midnight. Drained 20cc overnight of serousanguinous drainage. Total of 570cc of serousanguinous drainage in atrium. No visible air leak. PleurX removed from atrium and capped. PleurX dressing applied. Multiple surgical incisions healing well without erythema, edema, or drainage. No chest crepitus on exam. Patient is speaking in full sentences on room air. NO respiratory distress noted. Effort & Inspection: normal respiratory effort, able to speak in complete sentences, no cough, no respiratory distress, no retractions, not tachypneic, no tracheal deviation, no use of accessory muscles and symmetric chest movement Auscultation: clear to auscultation bilaterally Cardio: Jugular venous distension: no JVD Palpation: normal PMI Rate: regular rate Rhythm: regular rhythm Heart sounds: S1 normal heart sound present, S2 normal heart sound present, no click, no gallops, no murmurs and no rubs Peripheral pulses: Peripheral pulses 2+ throughout GI: Inspection: Yes normal to inspection and No distended Palpation (GI): Soft to palpation, nontender, no guarding and not rigid Auscultation: normal bowel sounds Skin: General skin exam: no rashes or lesions noted and dry skin Neuro: General: oriented to person, oriented to place, oriented to time and patient oriented x3 Speech: No Abnormal speech present Extrem: General: Yes normal to inspection, Yes capillary refill normal, Yes no clubbing, cyanosis or edema and Yes no pedal edema Psych: Appearance: grossly normal and well kempt Mental Status: mental status grossly normal Speech and movement: Normal speech and movement present Affect: normal affect Attitude: cooperative Thought process: Normal thought process present Insight: Good insight present (Psych) DS: Data Data Completed and Pending Pending studies at discharge: Pending at discharge 09/14/20 08:50 Surgical [PTH] Routine 09/14/20 11:46 Cytology [PTH] Routine Labs on day of discharge: 09/11/20 13:08 Type and Screen Routine 09/11/20 13:32 Blood Urea Nitrogen Routine Complete Blood Count no Diff Routine Creatinine Routine 09/13/20 08:31 Routine Culture w Gram Stain Stat 09/14/20 ECG 12 lead EKG Stat XR chest 1V Stat 09/14/20 06:08 Glucose, blood poc AM PRE-OP 09/14/20 06:15 Lactated Ringers [Lr] 1,000 ml IVCONT 50 mls/hr 09/14/20 06:25 COVID-19 ID NOW (Cardenas) Stat 09/14/20 06:50 ceFAZolin Sodium/Dextrose,Iso [Ancef] 2 gm in 50 ml .ROUTE As directed 09/14/20 06:58 Glucose, Whole Blood Routine 09/14/20 07:02 Lidocaine HCl 2 % MPF [Xylocaine 2 % MPF] 5 ml .ROUTE .STK-MED ONE Phenylephrine HCL 10 mg .ROUTE .STK-MED ONE dexAMETHasone sod phosphate [Decadron] 4 mg .ROUTE .STK-MED ONE ePHEDrine sulfate 50 mg .ROUTE .STK-MED ONE ondansetron HCL [Zofran] 4 mg .ROUTE .STK-MED ONE propofoL [Diprivan] 200 mg IVPUSH .STK-MED ONE 09/14/20 07:11 Bupivacaine MPF 0.25 % [Sensorcaine-MPF 0.25% 10 ML] 10 ml .ROUTE .STK-MED ONE Talc, Sterile [Steritalc] 4 gm INTRAPLEUR .STK-MED ONE methylPREDNISolone acetate [DEPO-MedroL] 80 mg .ROUTE .STK-MED ONE 09/14/20 07:12 Ketamine HCl/NS 50 mg IVPUSH .STK-MED ONE 09/14/20 07:14 fentaNYL citrate/PF [Sublimaze] 50 mcg .ROUTE .STK-MED ONE 09/14/20 07:28 Bupivacaine MPF 0.25 % [Sensorcaine-MPF 0.25% 10 ML] 10 ml .ROUTE .STK-MED ONE 09/14/20 07:30 Lactated Ringers [Lr] 1,000 ml IVCONT 100 mls/hr 09/14/20 07:31 Acetaminophen [Tylenol] 650 mg PO ONCE PRN fentaNYL citrate/PF [Sublimaze] 25 mcg IVPUSH Q5M PRN ondansetron HCL [Zofran] 4 mg IVPUSH ONCE PRN oxyCODONE HCl Immed Release [Roxicodone] 5 mg PO ONCE PRN 09/14/20 07:32 Acetaminophen [Ofirmev] 1,000 mg in 100 ml IV As directed 09/14/20 08:49 Midazolam HCl/PF [Versed] 2 mg .ROUTE .STK-MED ONE 09/14/20 09:28 Talc, Sterile [Steritalc] 4 gm INTRAPLEUR .STK-MED ONE 09/14/20 09:44 Sugammadex Sodium [Bridion] 200 mg IVPUSH .STK-MED ONE 09/14/20 Breakfast NPO Diet 09/14/20 10:07 Intake and Output Q4HR 09/14/20 10:19 Transfer Order Routine 09/14/20 14:30 Acetaminophen [Tylenol] 325 mg .ROUTE .STK-MED ONE 09/15/20 06:00 XR chest 1V Routine 09/15/20 09:04 Basic Metabolic Panel Routine 09/16/20 06:00 XR chest 1V Routine 09/16/20 11:51 Communication Order NOW 09/16/20 13:01 Communication Order NOW 09/17/20 06:00 XR chest 1V Routine 09/17/20 07:05 Glucose, Whole Blood Routine Laboratory Last Values WBC 7.2 X10*3/uL (4.8-10.8) 09/11/20 13:32 RBC 3.96 X10*6/uL (4.20-5.50) L 09/11/20 13:32 Hgb 11.7 g/dl (12.0-16.0) L 09/11/20 13:32 Hct 37.1 % (37-47) 09/11/20 13:32 MCV 93.7 fL (80-98) 09/11/20 13:32 MCH 29.5 pg (27.0-33.0) 09/11/20 13:32 MCHC 31.5 g/dl (31.0-35.0) 09/11/20 13:32 RDW 14.4 % (11.0-16.0) 09/11/20 13:32 Plt Count 266 X10*3/uL (160-400) 09/11/20 13:32 MPV 10.8 fL (9.4-12.3) 09/11/20 13:32 Absolute Nucleated RBC 0.000 X10*3/uL (0.0-0.012) 09/11/20 13:32 Nucleated RBC % (auto) 0.0 /100WBC (0.0-0.2) 09/11/20 13:32 Sodium 135 mmol/L (135-145) 09/15/20 09:04 Potassium 4.8 mmol/l (3.3-5.1) 09/15/20 09:04 Chloride 103 mmol/L (96-108) 09/15/20 09:04 Carbon Dioxide 23 mmol/L (22-29) 09/15/20 09:04 Anion Gap 14 (-20) 09/15/20 09:04 BUN 36 mg/dL (9-16) H 09/15/20 09:04 Creatinine 1.91 mg/dL (0.5-1.4) H 09/15/20 09:04 Estim Creat Clear Calc 20.9 09/15/20 09:04 Estimated GFR 25 09/15/20 09:04 POC Glucose 89 mg/dL (60-115) 09/17/20 07:05 Random Glucose 148 mg/dL (60-115) H 09/15/20 09:04 Calcium 8.4 mg/dL (8.4-10.2) D 09/15/20 09:04 COVID-19 (KLAUDIA) Negative (Negative) 09/14/20 06:25 COVID-19 Clin Com See Note 09/14/20 06:25 Blood Type O Positive 09/11/20 13:08 Antibody Screen NEGATIVE 09/11/20 13:08 Discharge Plan Discharge Anticipated Discharge Date/Time: 09/17/20 10:16 Patient Disposition: Home Health Service Referrals: [facility] [Outside] Kishor Fisher MD [Primary Care Provider] - Discharge Medications: New docusate sodium 100 mg Capsule 100 mg PO BID 14 Days Qty: 28 RF: 0 oxycodone 5 mg Tablet 2.5 - 5 mg PO Q4H Qty: 30 RF: 0 sennosides [Senna Lax] 8.6 mg Tablet 17.2 mg PO BEDTIME PRN (Reason: Constipation) 14 Days RF: 0 oxycodone 5 mg tablet 2.5 mg PO Q4H PRN (Reason: pain) Qty: 30 RF: 0 Continued famotidine 20 mg tablet 20 mg PO BID Qty: 180 RF: 0 bisoprolol fumarate 5 mg tablet 5 mg PO BID RF: 0 allopurinol 100 mg tablet 100 mg PO DAILY RF: 0 furosemide 20 mg tablet 20 mg PO DAILY RF: 0 ezetimibe 10 mg tablet 10 mg PO DAILY RF: 0 hydralazine 25 mg tablet 25 mg PO BID@0900,1700 RF: 0 oxcarbazepine 300 mg tablet 300 mg PO BEDTIME RF: 0 albuterol sulfate 90 mcg/actuation HFA aerosol inhaler inhalation Q4-6H RF: 0 azelastine-fluticasone 137-50 mcg/spray spray,non-aerosol 1 spray intranasal BID RF: 0 Citrucel 500 mg tablet 500 mg PO BID RF: 0 colchicine 0.6 mg tablet 0.6 mg PO DAILY PRN (Reason: Pain) RF: 0 flu vacc [id number](65yr up)-PF 240 mcg/0.7 mL syringe IM RF: 0 losartan 50 mg tablet 50 mg PO BID RF: 0 aspirin [Adult Aspirin Regimen] 81 mg tablet,delayed release (DR/EC) 81 mg PO DAILY RF: 0 diphenhydramine HCl [Benadryl] 25 mg capsule 25 mg PO BEDTIME RF: 0 acetaminophen [Tylenol Extra Strength] 500 mg tablet 500 mg PO QID PRN (Reason: Pain) RF: 0 omega-3 fatty acids [Fish Oil Concentrate] 1,000 mg capsule 1,000 mg PO DAILY RF: 0 flaxseed oil 1,000 mg capsule 1,000 mg PO DAILY RF: 0 loratadine [Allergy Relief (loratadine)] 10 mg tablet 10 mg PO DAILY RF: 0 multivitamin [Daily Multi-Vitamin] Tablet 1 tab PO DAILY RF: 0 evening primrose oil 500 mg capsule 500 mg PO TID RF: 0 selenium 200 mcg capsule 200 mcg PO DAILY RF: 0 cinnamon bark [Cinnamon] 500 mg capsule 500 mg PO DAILY RF: 0 cranberry 400 mg capsule 400 mg PO DAILY RF: 0 lutein 20 mg capsule 20 mg PO DAILY RF: 0 H2Q CoQ10 200 mg/gram powder 200 mg PO DAILY RF: 0 Orazinc 110 mg (25 mg zinc) tablet 110 mg PO DAILY RF: 0 garlic [garlic oil] 1,000 mg capsule 1,000 mg PO DAILY RF: 0 echinacea 380 mg capsule 380 mg PO DAILY RF: 0 Discharge Orders: Discharge Order (Routine); Ordered 09/17/20 Ordered By: Ana Sierra Diet: regular diet Activity on Discharge: As tolerated Activity Restrictions/Additional Instructions: None. Do not drive while on narcotics. See below for further discharge instructions. Visit Report Forms: Patient Portal Discharge page Care Plan Goals: None Health Concerns: None Plan of Treatment: ACTIVITY: * Avoid lifting, pulling, or pushing anything > 10-15lbs * Do not drive until your follow-up appointment in 2 weeks * Continue to ambulate daily to promote lung expansion and avoid post-op deconditioning WOUND CARE: * Keep all incision clean and dry. * You may shower or sponge bath. No baths or soaking. * Assess for any signs of redness, warmth, or drainage from PleurX site. Call if you notice purulent thick drainage. * Assess incision sites daily to ensure they are healing well. Assess for redness, warmth, or pain. Call if this is noted. CHEST TUBE CARE: * VNA to perform PleurX drainage every other day * VNA will perform PleurX dressing changes following each drainage * Be sure to document amount, clarity, and color of drainage PAIN: * You will be sent home with a perscription for Oxycodone 2.5-5mg q4hr for pain. Use only if having severe pain. Otherwise, I encourage you to use Tylenol * No script for Tylenol given. May use home medication. Do not go over 4grams total of Tylenol in 24 hr. May take 1,000mg four times a day as needed. * It is normal to have sharp nerve pain. OTC lidocaine patches may help with this CONSTIPATION: * PRN stool softeners given RESPIRATORY: * Continue to use I/S daily * Perform deep breathing exercises to promote lung expansion * If you notice any severe shortness of breath, respiratory distress, or chest pain please call the office. If there is an emergency, call 911 or go to the Emergency Room FOLLOW-UP: * Follow-up with Dr. Sanam Pham in the [facility] office in 2 weeks: [address] [place] [address] * An appointment has been made for you and the office will call you to inform you of this date * A chest x-ray will be obtained at the time of your appointment.
--- NOTE | 2020-09-17 11:16 | MHC.CM.PN ---
pt being discharged home today with [facility] to manage Pleurx drain. NA requested pt be sent home with 2 or 3 extra Pleurx drains as it will take time for them to order supplies. Request forwarded to pts nurse. pts family will provide transport at [place]
[2020-10-03 14:07] LABS: B Cell IGH Result Negative
== END 2020-09-17 13:08 | disposition home health service (06) | DRG 168 ==
LOC: HO.SSSA 05:52 → HO.IMC 14:38
PROVIDERS: Nurse Practitioner; Physician Assistant; Admitting Provider Surgery; PCP Internal Medicine; Visit Provider Surgery
PROC: 3E0L4GC Introduction of Other Therapeutic Substance into Pleural Cavity, Percutaneous Endoscopic Approach (ICD-10-PCS; principal; 2020-09-14 07:30)
DX: J90 Pleural effusion, not elsewhere classified (principal); I10 Essential (primary) hypertension; M35.3 Polymyalgia rheumatica; K21.9 Gastro-esophageal reflux disease without esophagitis; Z87.891 Personal history of nicotine dependence; Z20.828 Contact with and (suspected) exposure to other viral communicable diseases; Z88.6 Allergy status to analgesic agent; Z79.899 Other long term (current) drug therapy
CPT/HCPCS: 36415; 71045; 80048; 81261; 82565; 82947; 84520; 84999; 85027; 86850; 86900; 86901; 87071; 87102; 87116; 87205; 87635; 88112; 88305; 88341; 88342; 88360; 93005; C1729; J0131; J0690; J1040; J1100; J2250; J2370; J2405; J3010

== ENCOUNTER 2020-09-29 08:51 | Outpatient (REF) | payer MEDICARE, SELFPAY ==
--- NOTE | 2020-09-29 08:57 | XR_ITS ---
EXAMINATION: XR CHEST CLINICAL INFORMATION: J90 - Pleural effusion. Atelectasis. Follow-up. COMPARISON: Chest radiographs 09/17/2020, 09/16/2020, 09/15/2020; CT chest 08/25/2020. TECHNIQUE: 2 views of the chest were obtained. FINDINGS: There is small bore right chest tube again seen. Small right effusion is present. Fluid in the minor fissure and adjacent darcy-fissural right upper lobe atelectasis have resolved since prior exam 09/17/2020. There is airspace opacity or atelectasis right infrahilar region similar to prior studies. There is no pneumothorax. The left lung is clear. The heart is normal in size. Chronic elevation right diaphragm stable. Visualized hilar and mediastinal contours and bony structures are stable. XR/XR chest 2V IMPRESSION: 1. Small right effusion. Fluid minor fissure with right upper lobe darcy-fissural atelectasis resolved. 2. Airspace opacity versus atelectasis right infrahilar region stable. 3. No pneumothorax. 4. Left lung clear.
[2020-09-29 11:37] LABS: Blood Urea Nitrogen 38 mg/dL (9-16); Estimated Glomerular Filt Rate 32
== END 2020-09-29 08:52 | disposition home or self-care (01) ==
LOC: HO.LAB 08:51
PROVIDERS: Absent Provider Surgery; PCP Internal Medicine; Visit Provider Nurse Practitioner Family
DX: J90 Pleural effusion, not elsewhere classified (principal); R07.89 Other chest pain
CPT/HCPCS: 71046; 82565; 84520; 99212

== ENCOUNTER → 2020-10-05 10:08 | Outpatient (BNVA) | payer MEDICARE, SELFPAY | PROVIDERS: PCP Internal Medicine; Visit Provider Nurse Practitioner | DX: Z13.89 Encounter for screening for other disorder (principal) | CPT/HCPCS: Q3014 ==

== ENCOUNTER 2020-10-17 09:39 | Outpatient (REF) | payer MEDICARE, SELFPAY ==
--- NOTE | 2020-10-17 09:05 | PE_ITS ---
EXAMINATION: Fluorine-18 FDG PET/CT Scan CLINICAL INDICATION: Initial treatment management. Mesothelioma, staging. PROCEDURE: 70 minutes following the intravenous administration of 15.9 mCi of fluorine 18 FDG, images from the base of the skull to the mid thighs were obtained using a combined PET/CT scanner with CT scan based attenuation correction. No intravenous contrast was administered. No oral contrast was administered. Transverse, coronal, sagittal, and volume reconstruction projections were obtained. The patient's blood glucose as determined by a finger stick, was 90 mg/dl immediately prior to injection. Total CT exam dose-length product 499.60 mGy-cm * These CT images were obtained using dose optimization techniques as appropriate, variously including the following: Automated exposure control * Adjustment of mA and/or kV according to patient size (this includes techniques or standardized protocols for targeted exams where dose is matched to indication/reason for exam; i.e. extremities or head) * Use of iterative reconstruction technique COMPARISON: No previous PET/CT scan is available for comparison. CT scan of the chest dated 08/25/[address] scan of the abdomen and pelvis dated 07/03/2018 are available for comparison. FINDINGS: (Slice numbers described in this report are numbered superiorly to inferiorly with slice #1 in the head) NECK AND VISUALIZED HEAD: No foci of abnormal FDG activity are noted. The distribution of FDG activity is physiological. There is no cervical lymphadenopathy. The thyroid gland is somewhat heterogeneous, but nodularity in the thyroid gland apparent on the 08/25/2020 CT scan is not as well delineated on these nondiagnostic CT images. There is no abnormal FDG activity in the thyroid gland. THORAX: There is diffuse FDG activity present throughout the right lung pleura. The FDG activity is somewhat heterogeneous with the most intense focus showing SUVmax 7.1, slice 61/267, in a focus laterally in the right lung apex adjacent to the right second rib. There is associated pleural thickening and pleural fluid some of which appears loculated. The pleural fluid shows only weak FDG activity in the moderately sized effusion which is significantly smaller than on the 08/25/2020 CT scan. A right-sided chest tube passes laterally through the right seventh interspace, new since 08/25/2020. No definite pulmonary nodules are visualized. There is some minimal scarring or atelectasis in the lung bases bilaterally, no associated abnormal FDG activity. A subcentimeter right costophrenic lymph node visualized on 08/25/2020 is not apparent on the CT images and there is no focal FDG activity in this region. ABDOMEN AND PELVIS: No foci of abnormal FDG activity are present in the abdomen or pelvis. There is a stable 1.7 cm hypodensity in liver Couinaud segment 2 with no associated abnormal FDG activity. The liver is otherwise unremarkable. The gallbladder has been resected and several metallic surgical clips are present in the gallbladder bed. The spleen is unremarkable. Some cortical thinning is probably present in the kidneys but these are otherwise unremarkable. The adrenal glands are unremarkable. There is some atrophy of the pancreas but this is otherwise unremarkable. There is mild FDG activity in the gastrointestinal tract without a suspicious focal component. There is diverticulosis without evidence of diverticulitis. The hollow viscera are otherwise unremarkable. There is a 5.6 cm hypodense right adnexal cyst which is markedly FDG photopenic. This does not appear significantly changed from 07/03/2018 CT scan. The pelvic organs are otherwise unremarkable. There is no retroperitoneal, mesenteric, pelvic or inguinal lymphadenopathy. MUSCULOSKELETAL: No foci of abnormal FDG activity are present in the osseous structures. There is a minimal thoracolumbar scoliosis with lumbar convexity to the right. There are degenerative changes in the spine but no suspicious sclerotic or lytic lesions are visualized. A right total hip prosthesis is present with no associated abnormal FDG activity. VASCULAR: Diffuse vascular calcifications including coronary are noted. PET/PET CT fusion skull to thigh IMPRESSION: 1. Diffuse abnormal FDG activity throughout the right pleura is consistent with the known diagnosis of mesothelioma. 2. A moderately sized right pleural effusion is present with weak FDG activity. This is significantly smaller than on 08/25/2020. A right-sided chest tube is in place, new since that date. 3. No additional abnormalities suspicious for other metastatic or malignant lesions are noted. 4. Diffuse vascular calcifications including coronary.
== END 2020-10-17 09:40 | disposition home or self-care (01) ==
LOC: HO.PET 09:39
PROVIDERS: Visit Provider Internal Medicine Medical Oncology
DX: Z13.89 Encounter for screening for other disorder (principal)

== ENCOUNTER 2020-10-27 08:22 | Outpatient (REF) | payer MEDICARE, SELFPAY ==
--- NOTE | 2020-10-27 08:29 | XR_ITS ---
EXAMINATION: XR CHEST CLINICAL INFORMATION: History of mesothelioma COMPARISON: PET CT imaging from 10/17/2020. CXR from 09/29/2020. TECHNIQUE: 2 views of the chest were obtained. FINDINGS: The tip of the right pleural drainage catheter projects over the upper third of the hemithorax. Small amount of pleural fluid is present at the base. The pleural effusion is increased in size compared to 09/29/2020. Passive/compressive atelectasis in the right lung base. Linear opacity of atelectasis is present in the left lateral base. No pulmonary edema or pneumothorax. No evidence of pulmonary nodules. Cardiac silhouette is normal in size. The hilar contours are normal. The visualized bones are intact. Multilevel discovertebral degenerative change of the spine. Cholecystectomy clips in the right upper abdomen. XR/XR chest 2V IMPRESSION: In this patient with history of mesothelioma, the right pleural effusion is small, but has increased in size compared to 09/29/2020.
== END 2020-10-27 08:23 | disposition home or self-care (01) ==
LOC: HO.XRAY 08:22
PROVIDERS: Visit Provider Surgery
DX: C45.0 Mesothelioma of pleura (principal); R91.8 Other nonspecific abnormal finding of lung field; I12.9 Hypertensive chronic kidney disease with stage 1 through stage 4 chronic kidney disease, or unspecified chronic kidney disease; E11.22 Type 2 diabetes mellitus with diabetic chronic kidney disease; N18.9 Chronic kidney disease, unspecified; Z87.891 Personal history of nicotine dependence; Z79.899 Other long term (current) drug therapy
CPT/HCPCS: 71046; 99212

== ENCOUNTER 2020-10-30 12:43 | Outpatient (REF) | payer MEDICARE, SELFPAY ==
--- NOTE | 2020-10-30 12:45 | MR_ITS ---
EXAMINATION: MR CHEST WITHOUT AND WITH CONTRAST CLINICAL INFORMATION: Mesothelioma. COMPARISON: Previous chest CT August 2020 and PET/CT October 2020 and chest x-ray most recent August 2020 TECHNIQUE: Sagittal, axial and coronal sequences through the chest with and without contrast. The patient received 7.5 mL intravenous Gadavist contrast. FINDINGS: There is a tunneled chest tube in the right pleural space. There is a loculated right moderate-sized pleural effusion. This extends along the right major fissure. This is heterogeneous in signal on T1- and T2-weighted sequences. No discrete soft tissue mass is seen. There is mild thin diffuse right pleural enhancement. There is slight infiltration of the right cardiophrenic angle/anterior diaphragmatic region and the fat. For example, axial image 33 series 15. This demonstrates increased enhancement, as well, although a discrete mass is not appreciated. No pulmonary nodule is seen. There is no left pleural effusion. The heart does not appear enlarged. There is no pericardial effusion. There are no enlarged hilar or mediastinal lymph nodes. The visualized thyroid gland is unremarkable. No chest wall mass or enlarged axillary lymph nodes are seen. There is a 2.3 x 1.3 cm cyst in the lateral segment of the left lobe of the liver. There is diverticulosis of the colon. There are degenerative changes of the spine. No bone lesion is seen. MR/MR chest wo/w con IMPRESSION: Moderate-sized heterogeneous in signal loculated right pleural effusion. There is diffuse thin pleural enhancement. A discrete mass is not appreciated. There is infiltration of the fat in the right cardiophrenic angle/anterior diaphragmatic region which demonstrates enhancement. Again, a discrete mass is not appreciated. There is a new tunneled right chest tube. No adenopathy. Small liver cysts. Diverticulosis.
== END 2020-10-30 12:44 | disposition home or self-care (01) ==
LOC: HO.MRI 12:43
PROVIDERS: Visit Provider Internal Medicine Medical Oncology
DX: C45.0 Mesothelioma of pleura (principal)
CPT/HCPCS: 71552; A9585

== ENCOUNTER 2020-11-24 09:05 | Outpatient (REF) | payer MEDICARE, SELFPAY ==
--- NOTE | ~2020-11-24 | XR_ITS ---
EXAMINATION: XR CHEST CLINICAL INFORMATION: Pleural effusion COMPARISON: Chest 10/27/2020 TECHNIQUE: 2 views of the chest were obtained. FINDINGS: There is persistent haziness along the right lung base from right pleural effusion and underlying atelectasis. Rest of lungs are well-expanded and clear. Heart size and vascularity is normal. No gross bony abnormality seen. XR/XR chest 2V IMPRESSION: Small right pleural effusion with underlying atelectasis. It is stable to last exam.
== END 2020-11-24 09:06 | disposition home or self-care (01) ==
LOC: HO.XRAY 09:05
PROVIDERS: PCP Internal Medicine; Visit Provider Surgery
DX: J90 Pleural effusion, not elsewhere classified (principal)
CPT/HCPCS: 71046; 99212

== ENCOUNTER 2020-12-08 14:01 | Outpatient (REF) | payer MEDICARE, SELFPAY ==
[2020-12-08 16:41] LABS: Anion Gap 15 (12-20); Blood Urea Nitrogen 41 mg/dL (9-16); Carbon Dioxide 24 mmol/L (22-29); Chloride 106 mmol/L (96-108); Estimated Glomerular Filt Rate 32; Sodium 141 mmol/L (135-145)
== END 2020-12-08 14:02 | disposition home or self-care (01) ==
LOC: HO.HMGCLDS 14:01
PROVIDERS: PCP Internal Medicine; Visit Provider Internal Medicine Hypertension Specialist
DX: I13.0 Hypertensive heart and chronic kidney disease with heart failure and stage 1 through stage 4 chronic kidney disease, or unspecified chronic kidney disease (principal); N18.30 Chronic kidney disease, stage 3 unspecified; I50.9 Heart failure, unspecified
CPT/HCPCS: 36415; 80051; 82565; 84520

== ENCOUNTER 2020-12-22 09:32 | Outpatient (REF) | payer MEDICARE, SELFPAY ==
--- NOTE | ~2020-12-22 | XR_ITS ---
EXAMINATION: XR CHEST CLINICAL INFORMATION: Pleural effusion. COMPARISON: Prior examinations most recent chest x-ray November 2020 TECHNIQUE: 2 views of the chest were obtained. FINDINGS: There is persistent opacification of the right lower lung compatible with combination of consolidation and effusion similar to prior. Left lung clear. Cardiac silhouette mediastinum and pulmonary vascularity normal. XR/XR chest 2V IMPRESSION: Stable appearance of the chest with persistent pleural-parenchymal opacity
== END 2020-12-22 09:33 | disposition home or self-care (01) ==
LOC: HO.XRAY 09:32
PROVIDERS: PCP Internal Medicine; Visit Provider Surgery
DX: C45.0 Mesothelioma of pleura (principal); J90 Pleural effusion, not elsewhere classified; Z79.899 Other long term (current) drug therapy; Z87.891 Personal history of nicotine dependence
CPT/HCPCS: 71046; 99212

== ENCOUNTER → 2021-01-02 08:39 | Outpatient (BNVA) | payer MEDICARE, SELFPAY | PROVIDERS: PCP Internal Medicine; Visit Provider Nurse Practitioner | DX: Z13.89 Encounter for screening for other disorder (principal) | CPT/HCPCS: Q3014 ==

== ENCOUNTER 2021-01-17 12:49 | Outpatient (REF) | payer MEDICARE, SELFPAY ==
--- NOTE | 2021-01-17 | EEG_ITS ---
The waking background activity consists of a moderate voltage 8-9 hertz posterior alpha frequency that is seen symmetrically and attenuates well with eye opening while low-voltage fast frequencies anteriorly. Photic stimulation is without activation. Hyperventilation was omitted. No sleep stages are identified. No focal, lateralizing, or paroxysmal discharges seen. IMPRESSION: This waking EEG is within normal limits. MD AMELIA De León/LYNDSEY / [id number]
== END 2021-01-17 12:50 | disposition home or self-care (01) ==
LOC: HO.NEURO 12:49
PROVIDERS: Visit Provider Internal Medicine
DX: R42 Dizziness and giddiness (principal); R41.9 Unspecified symptoms and signs involving cognitive functions and awareness; R25.1 Tremor, unspecified
CPT/HCPCS: 95816

== ENCOUNTER 2021-03-14 13:36 | Outpatient (REF) | payer MEDICARE, SELFPAY ==
[2021-03-14 16:25] LABS: MANUAL DIFF FLAG NO
[2021-03-14 16:27] LABS: Basophils Absolute Auto 0.1 X10*3/uL (0.0-0.2); Basophils Percent Auto 1.2 % (0-2); Eosinophils Absolute Auto 0.6 X10*3/uL (0.0-0.4); Eosinophils Percent Auto 8.2 % (0-4); Hematocrit 39.4 % (37-47); Hemoglobin 12.7 g/dl (12.0-16.0); Imm Gran Abs Auto 0.03 X10*3/uL (0.00-0.03); Imm Gran Pct Auto 0.4 % (0.0-0.4); Lymphocytes Absolute Auto 1.9 X10*3/uL (1.2-4.9); Lymphocytes Percent Auto 25.4 % (20-40); Mean Corpuscular HGB Conc 32.2 g/dl (31.0-35.0); Mean Corpuscular Hemoglobin 30.6 pg (27.0-33.0); Mean Corpuscular Volume 94.9 fL (80-98); Mean Platelet Volume 11.6 fL (9.4-12.3); Monocytes Absolute Auto 0.4 X10*3/uL (0.1-1.2); Monocytes Percent Auto 5.8 % (2-11); Neutrophils Absolute Auto 4.4 X10*3/uL (2.0-8.3); Platelet Count 227 X10*3/uL (160-400); Red Blood Count 4.15 X10*6/uL (4.20-5.50); White Blood Count 7.4 X10*3/uL (4.8-10.8)
[2021-03-14 16:49] LABS: Alanine Aminotransferase 18 U/L (0-31); Albumin Level 4.3 g/dL (3.5-5.0); Alkaline Phosphatase 98 U/L (39-117); Anion Gap 16 (12-20); Aspartate Amino Transferase 22 U/L (5-31); Bilirubin Total 0.5 mg/dL (0.0-1.0); Blood Urea Nitrogen 47 mg/dL (9-16); Calcium 9.4 mg/dL (8.4-10.2); Carbon Dioxide 22 mmol/L (22-29); Chloride 106 mmol/L (96-108); Estimated Glomerular Filt Rate 28; Glucose Random 91 mg/dL (60-115); Potassium 4.4 mmol/L (3.3-5.1); Sodium 140 mmol/L (135-145); Total Protein 6.8 g/dL (6.5-8.0)
== END 2021-03-14 13:37 | disposition home or self-care (01) ==
LOC: HO.HMGCLDS 13:36
PROVIDERS: PCP Internal Medicine; Visit Provider Internal Medicine Medical Oncology
DX: C45.0 Mesothelioma of pleura (principal)
CPT/HCPCS: 36415; 80053; 85025

== ENCOUNTER 2021-03-19 13:31 | Outpatient (REF) | payer MEDICARE, SELFPAY ==
--- NOTE | ~2021-03-19 | CT_ITS ---
EXAMINATION: CT CHEST WITHOUT CONTRAST CLINICAL INFORMATION: Follow-up mesothelioma COMPARISON: Previous chest CT most recent August 2020 and MRI of the chest October 2020 TECHNIQUE: Multidetector volumetric CT imaging of the chest was done. Axial MIP volume rendering provided. Sagittal and coronal reformatted images were obtained. This CT examination was performed using dose optimization techniques as appropriate, variously including the following: *Automated exposure control *Adjustment of mA and/or kV according to patient size (this includes techniques or standardized protocols for targeted exams where dose is matched to indication/reason for exam; i.e. extremities or head) *Use of iterative reconstruction technique DLP: 187 mGy-cm FINDINGS: LUNGS: The lungs are clear with no evidence of inflammation or nodules. MEDIASTINUM: There is a 1 x 1.6 cm lesion in the right tracheoesophageal groove axial image 5 series 3. This is similar in attenuation to the thyroid gland probably represents an exophytic thyroid nodule arising from the lower pole as opposed to a mediastinal lymph node. This appears unchanged. There are small pre and subcarinal mediastinal lymph nodes that appear unchanged. No enlarged hilar or mediastinal lymph nodes are seen. The heart does not appear enlarged. There is coronary artery calcification. There is calcification of the thoracic aorta. There is no pericardial effusion. There is slight infiltration of the right epicardial fat. This does not appear appreciably changed. PLEURA: There is a loculated right pleural effusion. This is partially loculated in the right major fissure. This has some linear areas of high attenuation. This may be related to previous talc pleurodesis. This appears decreased in size from previous chest CT August 2020 and slightly increased from previous chest MRI October 2020. The previously identified right chest tube seen on MRI October 2020 has been removed. There is no left pleural effusion. AXILLA: There is increased soft tissue seen surrounding the sternoclavicular joints. No chest wall mass or enlarged axillary lymph nodes are seen. UPPER ABDOMEN: There is a 2 cm low-attenuation lesion in the lateral segment of the left lobe of the liver that is stable and probably represents a cyst. The gallbladder has been removed. OSSEOUS STRUCTURES: There are degenerative changes of the spine and at the sternoclavicular joints.. CT/CT chest wo con IMPRESSION: Moderate-size loculated right pleural effusion. This is decreased in size compared to previous chest CT August 2020 and increased in size compared to previous chest MRI October 2020.
== END 2021-03-19 13:32 | disposition home or self-care (01) ==
LOC: HO.CT 13:31
PROVIDERS: Visit Provider Internal Medicine Medical Oncology
DX: C45.0 Mesothelioma of pleura (principal)
CPT/HCPCS: 71250

== ENCOUNTER → 2021-05-04 08:23 | Outpatient (BNVA) | payer MEDICARE, SELFPAY | PROVIDERS: PCP Internal Medicine; Visit Provider Surgery | DX: J90 Pleural effusion, not elsewhere classified (principal); C45.0 Mesothelioma of pleura; Z79.899 Other long term (current) drug therapy | CPT/HCPCS: 99212 ==

== ENCOUNTER 2021-05-11 13:09 | Outpatient (REF) | payer MEDICARE, SELFPAY ==
--- NOTE | 2021-05-14 14:07 | MHC.AU.AHA ---
Adult Audiological Evaluation Date of Visit: 05/11/21 Reason for Appointment: History of hearing loss. Patient suspects her hearing has decreased since her last evaluation in 2018. Since her last visit at our clinic, she has been diagnosed with mesothelioma. She is not receiving chemotherapy due to the state of her kidneys. She also reports that her ears have felt blocked because of allergies. Previous Hearing Test Results: At [facility] on 08/14/2018- Normal sloping to profound sensorineural hearing loss bilaterally Ear History: Recent Ear Drainage: None Reported Recent Ear Pain: None Reported Family History of Hearing Loss?: Yes Recent Ear Infections: None Reported Ear Infections in Childhood: None Reported History of Ear Wax Buildup: None Reported Previous Ear Surgery: None Reported Bothersome Tinnitus/Ringing/Noises in Ears: None Reported Blocked/Full Sensation in Ear(s): Both Ears Medical History: Medical History: Mesothelioma, Chronic Renal Insufficiency, Hypertension, GERD, Sinus/Allergy Problems Hearing Instrument History- Right Ear: Material Stress Tester: Model: [employer] Power Battery Size: 13 Repair Warranty: Loss and Damage Warranty: Dispensed By: [facility] Date of Fitting: Unknown Hearing Instrument History- Left Ear: Material Stress Tester: [employer] Model: [employer] Pro BTE Serial Number: [id number] Battery Size: 13 Warranty: Loss and Damage Warranty: Dispensed By: [facility] Date of Fitting: Unknown Otoscopy: Right Ear: Small fluid bubbles visible behind tympanic membrane Left Ear: Small fluid bubbles visible behind tympanic membrane Tympanometry: Tympanometry performed due to: To assess integrity of the middle ear system Right Ear: Non-compliant Middle Ear System (Type B) Left Ear: Non-compliant Middle Ear System (Type B) Hearing Evaluation: Transducer(s) Used: Insert Earphones Method: Conventional Audiometry Stimuli Used: Pure Tones Right Ear: Description of Hearing: Mild to severe sensorineural hearing loss Left Ear: Description of Hearing: Mild to severe sensorineural hearing loss Speech Recognition Threshold (SRT): Method Used: Recorded Lists Stimuli Used: Spondee Words Right Ear: 55 dBHL Left Ear: 50 dBHL Word Discrimination: Method: Recorded Lists Word Lists Used: W-22 Right Ear: 72% at 85 dBHL Left Ear: 84% at 80 dBHL Most Comfortable Level (MCL): Right Ear: 85 dBHL Left Ear: 80 dBHL Comparison: Compared to the most recent evaluation: Thresholds have decreased bilaterally. Recommendations: Audiological re-evaluation in one year. Hearing aid maintenance performed today. Hearing aid(s) reprogrammed with updated test results. Follow-up with PCP or ENT regarding middle ear dysfunction/allergies. Diagnosis: Primary Diagnosis: H90.3 Bilateral Sensorineural Hearing Loss Signature: Provider: Roslyn Watson CCC-A
== END 2021-05-11 13:10 | disposition home or self-care (01) ==
LOC: HO.SH 13:09
PROVIDERS: Visit Provider Internal Medicine
DX: H90.3 Sensorineural hearing loss, bilateral (principal)
CPT/HCPCS: 92557; 92567

== ENCOUNTER 2021-06-11 09:59 | Outpatient (REF) | payer MEDICARE, SELFPAY ==
--- NOTE | ~2021-06-11 | CT_ITS ---
EXAMINATION: CT CHEST WITHOUT CONTRAST CLINICAL INFORMATION: Follow up malignant mesothelioma COMPARISON: Previous chest x-ray most recent April [address] March [address] October 2020 TECHNIQUE: Multidetector volumetric CT imaging of the chest was done. Axial MIP volume rendering provided. Sagittal and coronal reformatted images were obtained. This CT examination was performed using dose optimization techniques as appropriate, variously including the following: *Automated exposure control *Adjustment of mA and/or kV according to patient size (this includes techniques or standardized protocols for targeted exams where dose is matched to indication/reason for exam; i.e. extremities or head) *Use of iterative reconstruction technique DLP: 207 mGy-cm FINDINGS: PRODUCT TRANSFER PUMPER: Loculated right pleural effusion LUNGS: There is a peripheral or subpleural right lower lobe nodule that measures 5 mm axial image 33 series 6 that appears new or increased. There is compressive atelectasis of the right middle and right lower lobe and anterior to the right pleural effusion. The left lung is clear. MEDIASTINUM: The heart does not appear enlarged. There is coronary artery and aortic valve calcification. The thoracic aorta is calcified but normal in caliber. There is no pericardial effusion. There is some infiltration of the right epicardial fat. This does not appear appreciably changed. There are no enlarged hilar or mediastinal lymph nodes. There is probable exophytic thyroid nodule adjacent to the lower pole the right lobe of the tracheoesophageal groove that is unchanged. PLEURA: There is a loculated moderate-sized right pleural effusion. This appears increased in size from March 2021 exam. There are areas of linear increased attenuation along the pleural surface questionable for changes from previous pleurodesis. A discrete pleural-based soft tissue mass is not seen. There is some infiltration of the extrapleural fat. There is eventration of the right hemidiaphragm. AXILLA: There is increased soft tissue seen in the anterior midline upper chest adjacent to the bilateral sternoclavicular joints. This is unchanged. There are small bilateral axillary lymph nodes. UPPER ABDOMEN: There is a 1.5 cm low-attenuation lesion in the left lobe of the liver that is stable and probably represents a small cyst. The gallbladder has been removed. OSSEOUS STRUCTURES: There are degenerative changes of the spine. There is heterogeneous attenuation of the bones, particularly the L1 vertebral body. A focal bone lesion is not appreciated. CT/CT chest wo con IMPRESSION: Interval increase in size in the loculated right pleural effusion. Mild infiltration of the extrapleural fat and right epicardial fat. No pericardial effusion seen. New or increasing peripheral or subpleural 5 mm right lower lobe nodule.
[2021-06-11 11:28] LABS: Alanine Aminotransferase 16 U/L (0-31); Albumin Level 4.2 g/dL (3.5-5.0); Alkaline Phosphatase 88 U/L (39-117); Anion Gap 16 (12-20); Aspartate Amino Transferase 22 U/L (5-31); Bilirubin Total 0.5 mg/dL (0.0-1.0); Blood Urea Nitrogen 45 mg/dL (9-16); Calcium 9.4 mg/dL (8.4-10.2); Carbon Dioxide 22 mmol/L (22-29); Chloride 107 mmol/L (96-108); Estimated Glomerular Filt Rate 25; Glucose Random 103 mg/dL (60-115); Phosphorus 3.9 mg/dL (2.7-4.5); Potassium 4.6 mmol/L (3.3-5.1); Sodium 140 mmol/L (135-145); Total Protein 6.6 g/dL (6.5-8.0)
== END 2021-06-11 10:00 | disposition home or self-care (01) ==
LOC: HO.CT 09:59
PROVIDERS: Absent Provider Surgery; PCP Internal Medicine; Referring Provider Internal Medicine Hypertension Specialist; Visit Provider Internal Medicine Medical Oncology
DX: C45.0 Mesothelioma of pleura (principal); N18.32 Chronic kidney disease, stage 3b
CPT/HCPCS: 36415; 71250; 80053; 84100

== ENCOUNTER 2021-09-12 12:51 | Outpatient (REF) | payer MEDICARE, SELFPAY ==
--- NOTE | ~2021-09-12 | CT_ITS ---
EXAMINATION: CT CHEST WITHOUT CONTRAST CLINICAL INFORMATION: Follow-up pleural effusion COMPARISON: Previous chest CT most recent May 2021 TECHNIQUE: Multidetector volumetric CT imaging of the chest was done. Axial MIP volume rendering provided. Sagittal and coronal reformatted images were obtained. This CT examination was performed using dose optimization techniques as appropriate, variously including the following: *Automated exposure control *Adjustment of mA and/or kV according to patient size (this includes techniques or standardized protocols for targeted exams where dose is matched to indication/reason for exam; i.e. extremities or head) *Use of iterative reconstruction technique DLP: 174 mGy-cm FINDINGS: LUNGS: The 5 mm peripheral or subpleural right lower lobe nodule axial image 34 series 3 is stable. There is compressive atelectasis of the right middle and right lower lobes due to the right pleural effusion. There is new subsegmental atelectasis at the left lung base. MEDIASTINUM: There is question of exophytic right lower pole thyroid nodule in the tracheoesophageal groove axial image 2 series 3 that is stable. There are small mediastinal lymph nodes. No enlarged hilar or mediastinal lymph nodes are seen. The heart does not appear enlarged. There is coronary artery and aortic valve calcification. The thoracic aorta is normal in caliber. There is mild infiltration of the right inferior lateral epicardial fat. Stable. PLEURA: There is a large multiloculated right pleural effusion. This is slightly increased anterior medially adjacent to the right middle lobe. There is right pleural high attenuation suggestive of calcification. No left pleural effusion is seen. AXILLA: There is soft tissue thickening at the bilateral sternomanubrial joints. This is stable. UPPER ABDOMEN: There is a 1.5 cm low-attenuation lesion in the lateral segment of the left lobe of the liver axial image 51 series 3 that is stable. The gallbladder is been removed. There is evidence of severe atherosclerotic disease. There is diverticulosis of the colon. OSSEOUS STRUCTURES: There are degenerative changes of the spine. CT/CT chest wo con IMPRESSION: Minimal increase in the loculated right pleural effusion adjacent to the right middle lobe. Otherwise no change from May 2021 exam. Fleischner guidelines were followed.
== END 2021-09-12 12:52 | disposition home or self-care (01) ==
LOC: HO.CT 12:51
PROVIDERS: Visit Provider Internal Medicine Medical Oncology
DX: Z01.818 Encounter for other preprocedural examination (principal); C45.0 Mesothelioma of pleura
CPT/HCPCS: 36415; 71250; 80053; 80061; 83036; 85025; 85652

== ENCOUNTER → 2021-10-26 09:29 | Outpatient (BNVA) | payer MEDICARE, SELFPAY | PROVIDERS: PCP Internal Medicine; Visit Provider Surgery | DX: C45.0 Mesothelioma of pleura (principal); J90 Pleural effusion, not elsewhere classified; Z79.899 Other long term (current) drug therapy | CPT/HCPCS: 99212 ==

== ENCOUNTER 2021-12-11 11:33 | Outpatient (REF) | payer MEDICARE, SELFPAY ==
[2021-12-11 14:24] LABS: Cholesterol 225 mg/dL; HDL Cholesterol 35 mg/dL; LDL Cholesterol Calculated 114 mg/dl; Triglycerides 384 mg/dL
[2021-12-11 14:29] LABS: Anion Gap 13 (12-20); Blood Urea Nitrogen 36 mg/dL (9-16); Calcium 9.6 mg/dL (8.4-10.2); Carbon Dioxide 23 mmol/L (22-29); Chloride 107 mmol/L (96-108); Estimated Glomerular Filt Rate 29; Sodium 139 mmol/L (135-145)
== END 2021-12-11 11:34 | disposition home or self-care (01) ==
LOC: HO.HMGCLDS 11:33
PROVIDERS: Absent Provider Internal Medicine Cardiovascular Disease; PCP Internal Medicine; Visit Provider Internal Medicine Hypertension Specialist
DX: I12.9 Hypertensive chronic kidney disease with stage 1 through stage 4 chronic kidney disease, or unspecified chronic kidney disease (principal); N18.32 Chronic kidney disease, stage 3b
CPT/HCPCS: 36415; 80051; 80061; 82310; 82565; 84520

== ENCOUNTER 2021-12-12 14:04 | Outpatient (REF) | payer MEDICARE, SELFPAY ==
--- NOTE | ~2021-12-12 | XR_ITS ---
EXAMINATION: XR CHEST CLINICAL INFORMATION: Pleural effusion COMPARISON: May 03, 2021 TECHNIQUE: 2 views of the chest were obtained. FINDINGS: There is again noted to be a loculated right pleural effusion without significant change from prior study of May 03, 2021. Heart normal size. No evidence of pulmonary edema. No pneumothorax. XR/XR chest 2V IMPRESSION: Loculated right pleural effusion without significant change. No acute disease.
== END 2021-12-12 14:05 | disposition home or self-care (01) ==
LOC: HO.HMGCX 14:04
PROVIDERS: PCP Internal Medicine; Visit Provider Surgery
DX: J90 Pleural effusion, not elsewhere classified (principal); C45.0 Mesothelioma of pleura
CPT/HCPCS: 71046

== ENCOUNTER → 2021-12-14 08:58 | Outpatient (BNVA) | payer MEDICARE, SELFPAY | PROVIDERS: PCP Internal Medicine; Visit Provider Surgery | DX: C45.0 Mesothelioma of pleura (principal); J90 Pleural effusion, not elsewhere classified; Z79.899 Other long term (current) drug therapy | CPT/HCPCS: 99212 ==

== ENCOUNTER 2022-01-04 | Outpatient (REF) | payer MEDICARE, SELFPAY | END 2022-01-04 00:01 | LOC: CF | PROVIDERS: PCP Internal Medicine; Visit Provider Surgery | DX: J90 Pleural effusion, not elsewhere classified (principal); C45.9 Mesothelioma, unspecified | CPT/HCPCS: 99212 ==

== ENCOUNTER → 2022-02-08 09:52 | Outpatient (BNVA) | payer MEDICARE, SELFPAY | PROVIDERS: PCP Internal Medicine; Visit Provider Surgery | DX: J90 Pleural effusion, not elsewhere classified (principal); C45.0 Mesothelioma of pleura | CPT/HCPCS: 99212 ==

== ENCOUNTER → 2022-03-08 09:58 | Outpatient (BNVA) | payer MEDICARE, SELFPAY | PROVIDERS: PCP Internal Medicine; Visit Provider Surgery | DX: J90 Pleural effusion, not elsewhere classified (principal) | CPT/HCPCS: 99212 ==

== ENCOUNTER 2022-04-04 14:33 | Outpatient (REF) | payer MEDICARE, SELFPAY ==
--- NOTE | ~2022-04-04 | XR_ITS ---
EXAMINATION: XR CHEST CLINICAL INFORMATION: J90 - Pleural effusion, not elsewhere classified COMPARISON: Chest radiographs 12/12/2021, 05/03/2021, CT chest noncontrast 09/12/2021; remote chest radiographs 11/12/2012. MRI abdomen 06/14/2016. TECHNIQUE: Frontal and lateral views of the chest are obtained. FINDINGS: There is a drainage catheter overlying right lower zone. The right effusion is substantially decreased since prior exam 12/12/2021. There is small residual blunting right lateral costophrenic angle and some trace fluid lateral minor fissure. There is lobular convexity at the right diaphragm which is similar to the remote chest radiograph 2012, MR abdomen 2015, and sagittal CT 2020 suggesting mamillated anterior right diaphragm rather than loculated fluid. Heart is within normal size. The vascularity is normal. There is no pneumothorax. No lobar segmental airspace consolidation. XR/XR chest 2V IMPRESSION: Right effusion substantially decreased since prior study 12/12/2021.
== END 2022-04-04 14:34 | disposition home or self-care (01) ==
LOC: HO.HMGCX 14:33
PROVIDERS: PCP Internal Medicine; Visit Provider Surgery
DX: J90 Pleural effusion, not elsewhere classified (principal)
CPT/HCPCS: 71046

== ENCOUNTER → 2022-04-05 08:44 | Outpatient (BNVA) | payer MEDICARE, SELFPAY | PROVIDERS: PCP Internal Medicine; Visit Provider Surgery | DX: J90 Pleural effusion, not elsewhere classified (principal); C45.0 Mesothelioma of pleura | CPT/HCPCS: 99212 ==

== ENCOUNTER 2022-04-16 10:00 | Outpatient (REF) | payer MEDICARE, SELFPAY ==
--- NOTE | ~2022-04-16 | CT_ITS ---
EXAMINATION: CT CHEST WITHOUT CONTRAST CLINICAL INFORMATION: Pleural effusion COMPARISON: Previous chest x-ray most recent March [address] most recent September 2021 TECHNIQUE: Multidetector volumetric CT imaging of the chest was done. Axial MIP volume rendering provided. Sagittal and coronal reformatted images were obtained. This CT examination was performed using dose optimization techniques as appropriate, variously including the following: *Automated exposure control *Adjustment of mA and/or kV according to patient size (this includes techniques or standardized protocols for targeted exams where dose is matched to indication/reason for exam; i.e. extremities or head) *Use of iterative reconstruction technique DLP: 183 mGy-cm FINDINGS: LUNGS: There is scarring or subsegmental atelectasis at the right lung base in the right middle and right lower lobes. MEDIASTINUM: Small stable right thyroid nodule. Prominent right subcarinal lymph node measuring 1.5 cm in short axis. Prominent right infrahilar lymph node that is upper normal in size measuring 1 cm in short axis. There are additional smaller paratracheal and precarinal mediastinal lymph nodes. Evaluation for hilar adenopathy is limited without contrast. Normal heart size. Coronary artery calcification. There is mild pericardial thickening and infiltration of the epicardial fat. This appears unchanged. PLEURA: There is a tunneled right chest tube. There is diffuse right pleural thickening. There are scattered high attenuation areas questionable for changes from previous pleurodesis. There is a very small right pleural effusion. There is a small oval-shaped cystic or fluid containing structure at the left medial lung base questionable for loculated fluid or cyst axial image 47 series 3 measuring 1 x 1.5 cm that in retrospect is stable.. There is no pneumothorax. AXILLA: There is increased soft tissue seen surrounding the clavicular manubrial joints. This is similar to previous exam. No enlarged axillary lymph nodes are seen. UPPER ABDOMEN: Stable 1 x 2 cm low-attenuation lesion in the lateral segment of the left lobe of the liver. Post: DEXA made. Severe atherosclerotic disease and question small aneurysm. Question mild hydronephrosis. Diverticulosis of the colon. OSSEOUS STRUCTURES: There are degenerative changes of the spine. CT/CT chest wo con IMPRESSION: Tunneled right chest tube. Interval decrease in the right pleural effusion. Diffuse pleural thickening. Prominent mediastinal lymph nodes in the right subcarinal region. Stable pericardial thickening and infiltration of the epicardial fat and the right cardiophrenic angle region. Coronary artery calcification and severe atherosclerotic disease of the aorta. Fleischner guidelines were followed.
== END 2022-04-16 10:01 | disposition home or self-care (01) ==
LOC: HO.CT 10:00
PROVIDERS: Visit Provider Surgery
DX: J90 Pleural effusion, not elsewhere classified (principal)
CPT/HCPCS: 71250

== ENCOUNTER → 2022-05-03 09:30 | Outpatient (BNVA) | payer MEDICARE, SELFPAY | PROVIDERS: PCP Internal Medicine; Visit Provider Surgery | DX: J90 Pleural effusion, not elsewhere classified (principal); C45.0 Mesothelioma of pleura | CPT/HCPCS: 99212 ==

== ENCOUNTER 2022-05-30 14:38 | Outpatient (REF) | payer MEDICARE, SELFPAY ==
--- NOTE | ~2022-05-30 | XR_ITS ---
EXAMINATION: XR CHEST CLINICAL INFORMATION: Pleural effusion. COMPARISON: Multiple prior studies including CT chest 04/16/2022. Chest x-ray 04/04/2022 TECHNIQUE: 2 views of the chest were obtained. FINDINGS: Chronic asymmetric anterior eventration of right diaphragm. Linear atelectasis right lung base. Right-sided chest tube at the right lung base. Slight blunting of right costophrenic angle due to small residual pleural effusion. Significant reduction in volume of the pleural effusion since chest x-ray 12/12/2021.. Small peripheral linear scarring in the right lung.. There is no pneumothorax. No focal consolidation. No pulmonary vascular congestion. XR/XR chest 2V IMPRESSION: Right chest tube remains in place. Small residual pleural effusion blunting costophrenic angle.
== END 2022-05-30 14:39 | disposition home or self-care (01) ==
LOC: HO.HMGCX 14:38
PROVIDERS: PCP Internal Medicine; Visit Provider Surgery
DX: J90 Pleural effusion, not elsewhere classified (principal)
CPT/HCPCS: 71046

== ENCOUNTER → 2022-05-31 08:51 | Outpatient (BNVA) | payer MEDICARE, SELFPAY | PROVIDERS: PCP Internal Medicine; Visit Provider Surgery | DX: Z48.02 Encounter for removal of sutures (principal) | CPT/HCPCS: 99212 ==

== ENCOUNTER → 2022-06-07 09:11 | Outpatient (BNVA) | payer MEDICARE, SELFPAY | PROVIDERS: PCP Internal Medicine; Visit Provider Surgery | DX: Z48.03 Encounter for change or removal of drains (principal); J90 Pleural effusion, not elsewhere classified | CPT/HCPCS: 32552; 99212 ==

== ENCOUNTER 2022-06-18 14:33 | Outpatient (REF) | payer MEDICARE, SELFPAY ==
[2022-06-18 16:30] LABS: Hematocrit 37.1 % (37.0-47.0); Mean Corpuscular HGB Conc 32.3 g/dl (31.0-35.0); Mean Corpuscular Hemoglobin 30.8 pg (27.0-33.0); Mean Corpuscular Volume 95.1 fL (80.0-98.0); Mean Platelet Volume 12.2 fL (9.4-12.3); Platelet Count 194 X10*3/uL (160-400); Red Cell Distribution Width 14.2 % (11.0-16.0); White Blood Count 6.7 X10*3/uL (4.8-10.8)
[2022-06-18 16:48] LABS: Anion Gap 17 (12-20); Blood Urea Nitrogen 49 mg/dL (9-16); Calcium 9.1 mg/dL (8.4-10.2); Carbon Dioxide 20 mmol/L (22-29); Chloride 108 mmol/L (96-108); Estimated Glomerular Filt Rate 33; Potassium 4.8 mmol/L (3.3-5.1); Sodium 140 mmol/L (135-145)
[2022-06-19 14:46] LABS: Calcium (PTHI) 9.5 mg/dL (8.6-10.4); PTHI 75 pg/mL (16-77)
== END 2022-06-18 14:34 | disposition home or self-care (01) ==
LOC: HO.HMGCLDS 14:33
PROVIDERS: PCP Internal Medicine; Visit Provider Internal Medicine Hypertension Specialist
DX: N18.4 Chronic kidney disease, stage 4 (severe) (principal)
CPT/HCPCS: 36415; 80051; 82310; 82565; 83970; 84520; 85027

== ENCOUNTER 2022-08-18 07:47 | Emergency (ER) | payer MEDICARE, SELFPAY ==
--- NOTE | ~2022-08-18 | XR_ITS ---
EXAMINATION: XR CHEST CLINICAL INFORMATION: Complication COMPARISON: Multiple prior examinations including chest x-ray May [address] April 2022 TECHNIQUE: 2 views of the chest were obtained. FINDINGS: Chronic asymmetric anterior eventration right hemidiaphragm unchanged. Persistent blunting of right costophrenic angle compatible with chronic pleural thickening unchanged. Slightly thickened minor fissure unchanged. Calcification of the dorsal aorta. Cardiomediastinal silhouette otherwise unremarkable. Spondylosis of the dorsal spine. XR/XR chest 2V IMPRESSION: 1. No acute disease. 2. Chronic changes as described.
[2022-08-18 07:52] VITALS: BP 207/82; PULSE 80; RESP 20; TEMP 36.6; O2SAT 99; BMI 29.5
--- NOTE | 2022-08-18 07:58 | ECG_ITS ---
Test Reason : HYPERTENSION Blood Pressure : / mmHG Vent. Rate : 071 BPM Atrial Rate : 071 BPM P-R Int : 190 ms QRS Dur : 086 ms QT Int : 384 ms P-R-T Axes : 028 -09 -08 degrees QTc Int : 417 ms Normal sinus rhythm Possible Anterior infarct (cited on or before 14-SEP-2020) Abnormal ECG When compared with ECG of 14-SEP-2020 06:52, Nonspecific T wave abnormality no longer evident in Lateral leads Referred By: Generic ED Physician Electronically Signed By:MARCIA BEDOLLA MD
[2022-08-18 08:17] LABS: MANUAL DIFF FLAG NO
[2022-08-18 08:18] LABS: Basophils Absolute Auto 0.1 X10*3/uL (0.0-0.2); Basophils Percent Auto 1.2 % (0-2); Eosinophils Absolute Auto 0.4 X10*3/uL (0.0-0.4); Eosinophils Percent Auto 8.3 % (0-4); Hematocrit 36.7 % (37.0-47.0); Hemoglobin 11.8 g/dl (12.0-16.0); Imm Gran Abs Auto 0.02 X10*3/uL (0.00-0.03); Imm Gran Pct Auto 0.4 % (0.0-0.4); Lymphocytes Absolute Auto 1.3 X10*3/uL (1.2-4.9); Lymphocytes Percent Auto 24.6 % (20-40); Mean Corpuscular HGB Conc 32.2 g/dl (31.0-35.0); Mean Corpuscular Hemoglobin 30.3 pg (27.0-33.0); Mean Corpuscular Volume 94.3 fL (80.0-98.0); Mean Platelet Volume 10.5 fL (9.4-12.3); Monocytes Absolute Auto 0.3 X10*3/uL (0.1-1.2); Neutrophils Absolute Auto 3.1 x10*3/uL (2.0-8.3); Neutrophils Percent Auto 59.5 % (45-73); Platelet Count 156 X10*3/uL (160-400); Red Blood Count 3.89 X10*6/uL (4.20-5.50); Red Cell Distribution Width 13.5 % (11.0-16.0); White Blood Count 5.2 X10*3/uL (4.8-10.8)
[2022-08-18 08:36] LABS: Troponin-I High Sensitivity 8.7 ng/L (<3.5-17.0)
[2022-08-18 08:41] LABS: Alanine Aminotransferase 16 U/L (0-31); Albumin Level 4.1 g/dL (3.5-5.0); Alkaline Phosphatase 76 U/L (39-117); Anion Gap 17 (12-20); Aspartate Amino Transferase 22 U/L (5-31); Bilirubin Direct < 0.2 mg/dL (0.0-0.5); Bilirubin Total 0.3 mg/dL (0.0-1.0); Blood Urea Nitrogen 54 mg/dL (9-16); Calcium 9.3 mg/dL (8.4-10.2); Carbon Dioxide 21 mmol/L (22-29); Chloride 106 mmol/L (96-108); Creatinine Clr Calc Pharmacy 20.8; Estimated Glomerular Filt Rate 26; Glucose Random 98 mg/dL (60-115); Lipase 31 U/L (8-78); Potassium 4.2 mmol/L (3.3-5.1); Sodium 140 mmol/L (135-145); Total Protein 6.4 g/dL (6.5-8.0)
[2022-08-18 11:02] VITALS: BP 170/69; PULSE 63; RESP 18; TEMP 37; O2SAT 97
== END 2022-08-18 14:04 | disposition left against medical advice (07) ==
LOC: HO.ED 12:38
PROVIDERS: Emergency Provider Emergency Medicine; PCP Internal Medicine
DX: R00.2 Palpitations (principal); Z79.899 Other long term (current) drug therapy
CPT/HCPCS: 36415; 71046; 80048; 80076; 83690; 84484; 85025; 93005; 99282

== ENCOUNTER 2022-08-23 13:11 | Outpatient (REF) | payer MEDICARE, SELFPAY ==
--- NOTE | ~2022-08-23 | XR_ITS ---
EXAMINATION: XR HIP, LEFT CLINICAL INFORMATION: Left hip pain. COMPARISON: PET/CT 10/17/2020. TECHNIQUE: Two views of the left hip. FINDINGS: Some minimal degenerative changes are present in the left hip with some mild supra-acetabular sclerosis and some marginal acetabular osteophytes. No fractures, dislocations or bony destructive lesions are seen. Changes are not significantly different when compared to 10/17/2020. XR/XR hip LT min 2V IMPRESSION: Mild degenerative changes in the left hip.
[2022-08-23 14:19] LABS: C Reactive Protein 2.46 mg/dL (< or = 0.50)
[2022-08-23 14:46] LABS: Erythrocyte Sedimentation Rate 48 MM/HR (0-20)
== END 2022-08-23 13:12 | disposition home or self-care (01) ==
LOC: HO.HMGCX 13:11
PROVIDERS: PCP Internal Medicine; Visit Provider Internal Medicine
DX: M25.552 Pain in left hip (principal)
CPT/HCPCS: 36415; 73502; 85652; 86140

== ENCOUNTER 2022-10-16 10:14 | Outpatient (REF) | payer MEDICARE, SELFPAY ==
--- NOTE | ~2022-10-16 | US_ITS ---
EXAMINATION: NONINVASIVE ASSESSMENT OF THE ARTERIES OF BOTH LOWER EXTREMITIES INCLUDING PVR EXAM AND BILATERAL LOWER EXTREMITY DUPLEX CLINICAL INFORMATION: Atherosclerosis. Technologist notes a history of a left popliteal stent. COMPARISON: Ultrasound 10/26/2019 TECHNIQUE: Ankle pulse volume recordings, ankle pressure measurements and ankle brachial indices were obtained of the lower extremity arterial system bilaterally in addition to duplex Doppler techniques with wave form analysis and measurement of velocities in the common femoral, profunda femoral, superficial femoral, popliteal, tibial and peroneal arteries. The study was performed only at rest. FINDINGS: RIGHT LEG 1. Right Ankle-Brachial Index: 0.93 (higher of the DP/PT) >0.97-1.25 = normal - no significant arterial disease 0.75-0.96 = mild peripheral arterial disease 0.5-0.74 = moderate peripheral arterial disease <0.50 = severe peripheral arterial disease <0.30 = critical arterial disease 2. Segmental Pressures (mmHg): Brachial: 127 Ankle: PT 123, DP 96 3. PVR Waveforms: Ankle: Low amplitude, no dicrotic notch 4. Direct Duplex: Common femoral artery: 163 cm/s, Multiphasic Profunda femoris artery: 112 cm/s, multiphasic Superficial femoral artery (proximal): 136 cm/s, Multiphasic Superficial femoral artery (mid): 116 cm/s, Multiphasic Superficial femoral artery (distal): 69.1 cm/s, Multiphasic There is a collateral vessel of the distal SFA with peak systolic velocity 225 cm/s and a multiphasic waveform. Proximal Popliteal artery: 154 cm/s, Multiphasic Mid posterior tibial artery: 47.1 cm/s, multiphasic Peroneal artery: 37.7 cm/s, Multiphasic Incidental note of a Ivory's cyst which measures 5.7 x 1.3 x 3.8 cm LEFT LE. Left Ankle-Brachial Index: 0.83 (higher of the DP/PT) >0.97-1.25 = normal - no significant arterial disease 0.75-0.96 = mild peripheral arterial disease 0.5-0.74 = moderate peripheral arterial disease <0.50 = severe peripheral arterial disease <0.30 = critical arterial disease 2. Segmental Pressures: Brachial: 132 Ankle: PT 109, DP 94 3. PVR Waveforms: Ankle: Low amplitude, no dicrotic notch 4. Direct Duplex: Common femoral artery: 123 cm/s, Multiphasic Profunda femoris artery: 79.2 cm/s, Multiphasic Superficial femoral artery (proximal): 108 cm/s, Multiphasic Superficial femoral artery (mid): 65.2 cm/s, Multiphasic Superficial femoral artery (distal): 65.6 cm/s, Multiphasic There is a collateral artery at the distal superficial femoral artery with peak systolic velocity 430 cm/s and a multiphasic waveform There is a stent within the popliteal artery. Popliteal artery proximal to stent: 462 cm/s, monophasic Proximal stent: 79.4 cm/s cm/s, monophasic There is narrowing within the proximal stent just distal to this point where peak systolic velocity measures up to 519 cm/s and there is a high resistance monophasic waveform. Visualization of the mid to distal portion of the stent is somewhat limited. At the midportion of the stent peak systolic velocity measures 94.3 cm/s with a monophasic waveform at the distal aspect of the stent peak systolic velocity is 221 cm/s, monophasic waveform. Just distal to the stents, likely at site of anastomosis with the previously noted collateral there is a high resistance waveform with peak systolic velocity 244 cm/s. Mid posterior tibial artery: 29.9 cm/s, monophasic Peroneal artery: 27.3 cm/s, monophasic US/US arterial duplex LE BI IMPRESSION: The right NORMA is 0.93. At the ankle PVR is low amplitude and lacks of dicrotic notch. On Doppler evaluation there is no evidence of inflow disease. The left NORMA is 0.83, previously 0.94. PVR is low amplitude and laxity dicrotic notch. There is a stent within the distal popliteal artery with multifocal severe narrowing along its length. While there is flow within the runoff vessels, waveforms are monophasic.
== END 2022-10-16 10:15 | disposition home or self-care (01) ==
LOC: HO.US 10:14
PROVIDERS: Visit Provider Surgery Vascular Surgery
DX: I70.213 Atherosclerosis of native arteries of extremities with intermittent claudication, bilateral legs (principal)
CPT/HCPCS: 93923; 93925

== ENCOUNTER 2022-10-25 12:52 | Outpatient (REF) | payer MEDICARE, SELFPAY ==
[2022-10-25 14:13] LABS: MANUAL DIFF FLAG NO
[2022-10-25 14:19] LABS: Basophils Absolute Auto 0.1 X10*3/uL (0.0-0.2); Eosinophils Absolute Auto 0.4 X10*3/uL (0.0-0.4); Hematocrit 35.7 % (37.0-47.0); Hemoglobin 11.2 g/dl (12.0-16.0); Imm Gran Abs Auto 0.03 X10*3/uL (0.00-0.03); Imm Gran Pct Auto 0.4 % (0.0-0.4); Lymphocytes Absolute Auto 1.4 X10*3/uL (1.2-4.9); Lymphocytes Percent Auto 19.6 % (20-40); Mean Corpuscular HGB Conc 31.4 g/dl (31.0-35.0); Mean Corpuscular Hemoglobin 30.3 pg (27.0-33.0); Mean Corpuscular Volume 96.5 fL (80.0-98.0); Monocytes Absolute Auto 0.5 X10*3/uL (0.1-1.2); Monocytes Percent Auto 7.2 % (2-11); Neutrophils Absolute Auto 4.6 x10*3/uL (2.0-8.3); Neutrophils Percent Auto 65.8 % (45-73); Platelet Count 233 X10*3/uL (160-400)
[2022-10-25 14:35] LABS: Anion Gap 15 (12-20); Blood Urea Nitrogen 44 mg/dL (9-16); Calcium 9.3 mg/dL (8.4-10.2); Carbon Dioxide 23 mmol/L (22-29); Chloride 107 mmol/L (96-108); Estimated Glomerular Filt Rate 25; Glucose Random 80 mg/dL (60-115); Potassium 4.4 mmol/L (3.3-5.1); Sodium 141 mmol/L (135-145)
== END 2022-10-25 12:53 | disposition home or self-care (01) ==
LOC: HO.HMGCLDS 12:52
PROVIDERS: PCP Internal Medicine; Visit Provider Internal Medicine Hypertension Specialist
DX: N18.32 Chronic kidney disease, stage 3b (principal); C45.0 Mesothelioma of pleura
CPT/HCPCS: 36415; 80048; 85025

== ENCOUNTER 2022-10-31 07:25 | Outpatient (REF) | payer MEDICARE, SELFPAY ==
--- NOTE | ~2022-10-31 | CT_ITS ---
EXAMINATION: CT CHEST WITHOUT CONTRAST CLINICAL INFORMATION: Mesothelioma of pleura. COMPARISON: CT chest dated 04/16/2022. TECHNIQUE: Multidetector volumetric CT imaging of the chest was done. Axial MIP volume rendering provided. Sagittal and coronal reformatted images were obtained. This CT examination was performed using dose optimization techniques as appropriate, variously including the following: *Automated exposure control *Adjustment of mA and/or kV according to patient size (this includes techniques or standardized protocols for targeted exams where dose is matched to indication/reason for exam; i.e. extremities or head) *Use of iterative reconstruction technique DLP: 169 mGy-cm FINDINGS: LUNGS: There is biapical pleural and parenchymal scarring, most pronounced on the left, where there are pleural calcifications. There is slight right apical paraseptal emphysematous change. There is persistent right middle and lower lobe scar/subsegmental atelectasis. MEDIASTINUM: At the lower pole of the right thyroid lobe posteriorly (3:6), a 1.8 x 1.2 cm nodule is seen. There are shotty mediastinal lymph nodes. There are right infrahilar lymph nodes, with short axis diameters of 1.5 cm and 1.1 cm (3:29 and 32). There is a subcarinal lymph node with short axis diameter of 10 mm (3:25). No thoracic aortic aneurysm is seen. There are moderate atherosclerotic calcifications of the great vessel origins and thoracic aorta. CORONARY ARTERY CALCIFICATION: Moderately severe. PLEURA: There is a very small right pleural effusion. There is mild right pleural thickening, with calcifications. No obvious pleural mass is noted. There is a trace pericardial effusion. AXILLA: No lymphadenopathy. Within the lateral left breast (3:32), there is a 9 mm nodule, for which correlation with the patient's most recent mammograms is recommended. UPPER ABDOMEN: Within the left hepatic lobe, a 1.6 cm ovoid cyst is seen, with postcontrast Hounsfield value of 4.9 units. There is a very small amount of perihepatic ascites. OSSEOUS STRUCTURES: There is multi-level thoracolumbar degenerative disc disease and spondylosis. No acute or aggressive osseous abnormality is seen. CT/CT chest wo IV con IMPRESSION: 1. There is persistent right middle and lower lobe scar/subsegmental atelectasis. 2. There is a very small right pleural effusion. There is mild right base pleural thickening, with calcifications. No obvious pleural mass lesion is noted. 3. There is a trace pericardial effusion. 4. There is a very small amount of perihepatic ascites. 5. There are multi-level degenerative changes of the thoracolumbar spine. No aggressive osseous lesion is seen. Fleischner guidelines were followed.
== END 2022-10-31 07:26 | disposition home or self-care (01) ==
LOC: HO.CT 07:25
PROVIDERS: PCP Internal Medicine; Visit Provider Surgery
DX: C45.0 Mesothelioma of pleura (principal); J90 Pleural effusion, not elsewhere classified; R91.8 Other nonspecific abnormal finding of lung field; I73.9 Peripheral vascular disease, unspecified
CPT/HCPCS: 71250; 99212

== ENCOUNTER 2022-12-02 14:52 | Outpatient (REF) | payer MEDICARE, SELFPAY ==
[2022-12-02 16:50] LABS: Anion Gap 17 (12-20); Blood Urea Nitrogen 35 mg/dL (9-16); Calcium 8.9 mg/dL (8.4-10.2); Carbon Dioxide 19 mmol/L (22-29); Chloride 109 mmol/L (96-108); Estimated Glomerular Filt Rate 31; Glucose Random 136 mg/dL (60-115); Potassium 5.1 mmol/L (3.3-5.1); Sodium 140 mmol/L (135-145)
== END 2022-12-02 14:53 | disposition home or self-care (01) ==
LOC: HO.HMGCLDS 14:52
PROVIDERS: PCP Internal Medicine; Visit Provider Internal Medicine Hypertension Specialist
DX: M86.9 Osteomyelitis, unspecified (principal)
CPT/HCPCS: 36415; 80048

== ENCOUNTER 2023-01-06 14:22 | Outpatient (REF) | payer MEDICARE, SELFPAY ==
[2023-01-06 16:40] LABS: MANUAL DIFF FLAG NO
[2023-01-06 16:41] LABS: Basophils Absolute Auto 0.1 X10*3/uL (0.0-0.2); Basophils Percent Auto 0.7 % (0-2); Eosinophils Absolute Auto 0.3 X10*3/uL (0.0-0.4); Eosinophils Percent Auto 3.2 % (0-4); Hematocrit 31.2 % (37.0-47.0); Hemoglobin 9.8 g/dl (12.0-16.0); Imm Gran Abs Auto 0.04 X10*3/uL (0.00-0.03); Imm Gran Pct Auto 0.5 % (0.0-0.4); Lymphocytes Absolute Auto 1.2 X10*3/uL (1.2-4.9); Lymphocytes Percent Auto 14.5 % (20-40); Mean Corpuscular HGB Conc 31.4 g/dl (31.0-35.0); Mean Corpuscular Hemoglobin 29.5 pg (27.0-33.0); Mean Platelet Volume 11.6 fL (9.4-12.3); Monocytes Absolute Auto 0.6 X10*3/uL (0.1-1.2); Monocytes Percent Auto 6.8 % (2-11); Neutrophils Absolute Auto 6.3 x10*3/uL (2.0-8.3); Neutrophils Percent Auto 74.3 % (45-73); Platelet Count 245 X10*3/uL (160-400); Red Blood Count 3.32 X10*6/uL (4.20-5.50); Red Cell Distribution Width 13.5 % (11.0-16.0); White Blood Count 8.5 X10*3/uL (4.8-10.8)
[2023-01-06 16:55] LABS: Estimated Average Glucose 103 mg/dL; Hemoglobin A1c % 5.2 %
[2023-01-06 16:57] LABS: Alanine Aminotransferase 10 U/L (0-31); Albumin Level 3.4 g/dL (3.5-5.0); Alkaline Phosphatase 89 U/L (39-117); Anion Gap 16 (12-20); Aspartate Amino Transferase 17 U/L (5-31); Bilirubin Total 0.4 mg/dL (0.0-1.0); Blood Urea Nitrogen 22 mg/dL (9-16); Calcium 9.2 mg/dL (8.4-10.2); Carbon Dioxide 21 mmol/L (22-29); Chloride 105 mmol/L (96-108); Estimated Glomerular Filt Rate 43; Glucose Random 97 mg/dL (60-115); Potassium 4.2 mmol/L (3.3-5.1); Sodium 138 mmol/L (135-145); Total Protein 5.6 g/dL (6.5-8.0); Uric Acid 5.3 mg/dL (2.4-5.7)
== END 2023-01-06 14:23 | disposition home or self-care (01) ==
LOC: HO.HMGCLDS 14:22
PROVIDERS: PCP Internal Medicine; Visit Provider Internal Medicine
DX: I73.9 Peripheral vascular disease, unspecified (principal); I12.9 Hypertensive chronic kidney disease with stage 1 through stage 4 chronic kidney disease, or unspecified chronic kidney disease; N18.9 Chronic kidney disease, unspecified; R73.03 Prediabetes; M10.9 Gout, unspecified
CPT/HCPCS: 36415; 80053; 83036; 84550; 85025

== ENCOUNTER 2023-01-30 14:25 | Outpatient (REF) | payer MEDICARE, SELFPAY ==
[2023-01-30 16:19] LABS: MANUAL DIFF FLAG NO
[2023-01-30 16:21] LABS: Basophils Absolute Auto 0.1 X10*3/uL (0.0-0.2); Basophils Percent Auto 1.3 % (0-2); Eosinophils Absolute Auto 0.2 X10*3/uL (0.0-0.4); Eosinophils Percent Auto 4.5 % (0-4); Hematocrit 30.7 % (37.0-47.0); Hemoglobin 9.6 g/dl (12.0-16.0); Imm Gran Abs Auto 0.02 X10*3/uL (0.00-0.03); Imm Gran Pct Auto 0.4 % (0.0-0.4); Lymphocytes Percent Auto 17.7 % (20-40); Mean Corpuscular HGB Conc 31.3 g/dl (31.0-35.0); Mean Corpuscular Hemoglobin 29.8 pg (27.0-33.0); Mean Corpuscular Volume 95.3 fL (80.0-98.0); Monocytes Absolute Auto 0.4 X10*3/uL (0.1-1.2); Monocytes Percent Auto 7.6 % (2-11); Neutrophils Absolute Auto 3.7 x10*3/uL (2.0-8.3); Neutrophils Percent Auto 68.5 % (45-73); Platelet Count 256 X10*3/uL (160-400); Red Blood Count 3.22 X10*6/uL (4.20-5.50); Red Cell Distribution Width 14.2 % (11.0-16.0); White Blood Count 5.4 X10*3/uL (4.8-10.8)
[2023-01-30 16:32] LABS: Estimated Average Glucose 100 mg/dL; Hemoglobin A1c % 5.1 %
[2023-01-30 16:57] LABS: Alanine Aminotransferase 9 U/L (0-31); Albumin Level 3.9 g/dL (3.5-5.0); Alkaline Phosphatase 78 U/L (39-117); Anion Gap 15 (12-20); Aspartate Amino Transferase 16 U/L (5-31); Bilirubin Total 0.4 mg/dL (0.0-1.0); Blood Urea Nitrogen 53 mg/dL (9-16); Calcium 9.5 mg/dL (8.4-10.2); Carbon Dioxide 25 mmol/L (22-29); Chloride 109 mmol/L (96-108); Estimated Glomerular Filt Rate 35; Glucose Random 76 mg/dL (60-115); Iron 79 mcg/dL (30-160); Percent Iron Saturation 36 % (15-50); Sodium 144 mmol/L (135-145); Total Iron Binding Capacity 221 mcg/dL (228-428); Unsaturated Iron Binding 142 ug/dL
== END 2023-01-30 14:26 | disposition home or self-care (01) ==
LOC: HO.HMGCLDS 14:25
PROVIDERS: Absent Provider Internal Medicine Hypertension Specialist; PCP Internal Medicine; Visit Provider Internal Medicine
DX: I12.9 Hypertensive chronic kidney disease with stage 1 through stage 4 chronic kidney disease, or unspecified chronic kidney disease (principal); D63.1 Anemia in chronic kidney disease; E11.22 Type 2 diabetes mellitus with diabetic chronic kidney disease; N18.9 Chronic kidney disease, unspecified
CPT/HCPCS: 36415; 80053; 83036; 83540; 85025

== ENCOUNTER → 2023-04-18 09:58 | Outpatient (BNVA) | payer MEDICARE, SELFPAY | PROVIDERS: PCP Internal Medicine; Visit Provider Surgery | DX: J90 Pleural effusion, not elsewhere classified (principal); C45.0 Mesothelioma of pleura | CPT/HCPCS: 99212 ==

== ENCOUNTER 2023-04-30 09:11 | Outpatient (REF) | payer MEDICARE, SELFPAY | END 2023-04-30 09:12 | disposition home or self-care (01) | LOC: HO.SH 09:11 | PROVIDERS: Visit Provider Internal Medicine | DX: H90.3 Sensorineural hearing loss, bilateral (principal) | CPT/HCPCS: 92557; 92567 ==

== ENCOUNTER 2023-04-30 10:41 | Outpatient (REF) | payer SELFPAY ==
--- NOTE | 2023-04-30 11:37 | MHC.AU.HAS ---
Hearing Aid Evaluation Date of Visit: 04/30/23 Historical Information: Description of Hearing: Mild to severe sensorineural hearing loss bilaterally. Current personal amplification information, if applicable: ~2011 [employer] Go Pro BTEs Summary: Dona was seen for an updated hearing evaluation today. She notes that her current hearing aids are no longer working and she has been using [id number] amplifiers. She would like to pursue updated amplification through our clinic. Discussed hearing aid options and pricing today. She decided to go with level 2 technology DEVAN hearing aids with rechargeable batteries and custom earmolds. She opted out of the service agreement. Hearing Aid Prescription: Based on the individual?s shared listening needs, communication environments, dexterity, desire for connectivity, and personal preferences, the following prescription for amplification has been made: Right ear: Building Maintenance Engineer: Phonak Model: Audeo L50-R Battery Size: Rechargeable Color: P5 Poker Manager: Size 2P Type of Mold: Silicone canal lock slim tips Left ear: Left ear prescription to be same as Right Hearing Aid above: Building Maintenance Engineer: Phonak Model: Audeo L50-R Battery Size: Rechargeable Color: P5 Poker Manager: Size 2P Type of Mold: Silicone canal lock slim tips Plan of Care: Patient wishes to purchase hearing aids as prescribed. Earmold Impressions Taken. Hearing Instrument Fitting to be scheduled when materials arrive Comments: Hearing aids were ordered today. She paid the $350 HAE fee today and was quoted $3508.00 due at the time of fitting. Primary Diagnosis: H90.3 Bilateral Sensorineural Hearing Loss Signature: Provider: Augustine Kang, CCC-A
== END 2023-04-30 10:42 | disposition home or self-care (01) ==
LOC: HO.HAP 10:41
PROVIDERS: Visit Provider Internal Medicine
DX: Z46.1 Encounter for fitting and adjustment of hearing aid (principal); H90.3 Sensorineural hearing loss, bilateral
CPT/HCPCS: 92590

== ENCOUNTER 2023-05-28 09:18 | Outpatient (REF) | payer SELFPAY | END 2023-05-28 09:19 | disposition home or self-care (01) | LOC: HO.HAP 09:18 | PROVIDERS: Visit Provider Internal Medicine | DX: H90.3 Sensorineural hearing loss, bilateral (principal) | CPT/HCPCS: 92595; V5011; V5020; V5261; V5264; V5299 ==

== ENCOUNTER 2023-06-17 13:35 | Outpatient (REF) | payer MEDICARE, SELFPAY ==
[2023-06-17 16:00] LABS: MANUAL DIFF FLAG NO
[2023-06-17 16:27] LABS: Basophils Absolute Auto 0.1 X10*3/uL (0.0-0.2); Basophils Percent Auto 1.1 % (0-2); Eosinophils Absolute Auto 0.2 X10*3/uL (0.0-0.4); Eosinophils Percent Auto 4.2 % (0-4); Hemoglobin 11.4 g/dl (12.0-16.0); Imm Gran Abs Auto 0.01 X10*3/uL (0.00-0.03); Imm Gran Pct Auto 0.2 % (0.0-0.4); Lymphocytes Absolute Auto 1.1 X10*3/uL (1.2-4.9); Mean Corpuscular HGB Conc 32.6 g/dl (31.0-35.0); Mean Corpuscular Hemoglobin 30.6 pg (27.0-33.0); Mean Corpuscular Volume 94.1 fL (80.0-98.0); Mean Platelet Volume 11.7 fL (9.4-12.3); Monocytes Absolute Auto 0.5 X10*3/uL (0.1-1.2); Monocytes Percent Auto 7.9 % (2-11); Neutrophils Absolute Auto 3.8 x10*3/uL (2.0-8.3); Neutrophils Percent Auto 67.6 % (45-73); Platelet Count 205 X10*3/uL (160-400); Red Blood Count 3.72 X10*6/uL (4.20-5.50); Red Cell Distribution Width 14.7 % (11.0-16.0); White Blood Count 5.7 X10*3/uL (4.8-10.8)
[2023-06-17 16:31] LABS: Estimated Average Glucose 100 mg/dL; Hemoglobin A1c % 5.1 % (<6.0)
[2023-06-17 17:00] LABS: Alanine Aminotransferase 19 U/L (0-31); Alkaline Phosphatase 76 U/L (39-117); Anion Gap 13 (12-20); Aspartate Amino Transferase 18 U/L (5-31); Bilirubin Total 0.3 mg/dL (0.0-1.0); Blood Urea Nitrogen 55 mg/dL (9-16); Calcium 10.1 mg/dL (8.4-10.2); Carbon Dioxide 21 mmol/L (22-29); Chloride 113 mmol/L (96-108); Estimated Glomerular Filt Rate 24; Glucose Random 104 mg/dL (60-115); Iron 113 mcg/dL (30-160); Percent Iron Saturation 53 % (15-50); Potassium 4.5 mmol/L (3.3-5.1); Sodium 142 mmol/L (135-145); Total Iron Binding Capacity 212 mcg/dL (228-428); Total Protein 6.6 g/dL (6.5-8.0); Unsaturated Iron Binding 99 ug/dL
[2023-06-17 17:01] LABS: Creatinine Urine 88.12 mg/dL; Microalbum/Creatinine Ratio Ur 133.9 ug/mg cr (<30)
[2023-06-17 17:24] LABS: Vitamin B12 > 2000 pg/mL (200-900)
== END 2023-06-17 13:36 | disposition home or self-care (01) ==
LOC: HO.HMGCLDS 13:35
PROVIDERS: Absent Provider Internal Medicine Hypertension Specialist; PCP Internal Medicine; Visit Provider Internal Medicine
DX: I12.9 Hypertensive chronic kidney disease with stage 1 through stage 4 chronic kidney disease, or unspecified chronic kidney disease (principal); E11.22 Type 2 diabetes mellitus with diabetic chronic kidney disease; N18.9 Chronic kidney disease, unspecified; D64.9 Anemia, unspecified; K21.9 Gastro-esophageal reflux disease without esophagitis
CPT/HCPCS: 36415; 80053; 82043; 82570; 82607; 83036; 83540; 85025

== ENCOUNTER 2023-07-25 13:46 | Outpatient (AMB) | payer MEDICARE, SELFPAY ==
[2023-07-25 14:00] VITALS: PULSE 89; O2SAT 96; BMI 28.3
--- NOTE | 2023-07-25 14:00 | MHC.OFFVIS ---
Intake Vital Signs 07/25/23 14:00 Height 5 ft 3 in Weight 159 lb 13.362 oz BMI 28.3 Pulse 89 Pulse Source Pulse Oximeter Pulse Oximetry (%) 96 Oxygen Delivery Method Room Air Intake Visit Reasons: COPD School Principal Required: No Allergies NSAIDS (Non-Steroidal Anti-Inflamma Allergy (Severe, Verified 07/25/23 14:01) Kidney damage Psudaphed Allergy (Severe, Verified 07/25/23 14:01) kidney damage thimerosal Allergy (Intermediate, Verified 07/25/23 14:) Itching lansoprazole [From Prevacid] Allergy (Verified 07/25/23 14:) Rash amitriptyline [From Elavil] Adverse Reaction (Severe, Verified 07/25/23 14:01) Rash influenza virus vaccine, specific [Influenza Virus Vacc,Specific] Adverse Reaction (Intermediate, Verified 07/25/23 14:) LOCALIZED REACTION HPI HPI Comments History of Present Illness Details The patient is an 88-year-old woman with a known history hypertension in addition to 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 At the time she did have a chest x-ray demonstrating small pleural effusions bilaterally. The patient was treated at that time with antibiotics and she subsequently felt better. It was not until June when her symptoms started getting worse. She started developing with significant shortness of breath with minimal activity moderate severity. She also complained of pleuritic discomfort primarily to the right chest area. The patient was evaluated again and had a chest x-ray demonstrating a moderate pleural effusion. Subsequently she was set up to have a thoracentesis at [facility] which she had more than a L of fluid removed. The fluid appeared to be transudative in nature. Pathology and microbiology were both negative. The patient after the procedure if complained of some pleuritic discomfort. It took couple days for the symptoms to relief. After she felt better but then started developing shortness of breath again. Therefore she was referred to Pulmonary. On further questioning she denies any night sweats denies any weight loss. She has been complaining of significant shortness of breath. For that reason we have her go for 6 minutes walk test. The patient could not walk too far, but, she maintain a pulse ox in the low 90s. The patient did not qualify for oxygen. In the office we had her undergo blood work in addition to a repeat x-ray. It appears that now she has a large pleural effusion. I am concerned that she has some degree of lung entrapment/trapped lung. Also to note when she had the thoracentesis there was a question of masslike opacity on her x-ray. This is likely related to the event duration of the diaphragm although a malignancy is a concern at this time with recurrent pleural effusion. 07/25/2023 the patient is here for a pulmonary follow-up visit. Since we last spoke the patient has been following closely with thoracic surgery in addition to [facility]. She has a diagnosis of mesothelioma. She is status post surgery in a PleurX catheter that was removed in May 2022. she now has a residual small right-sided pleural effusion. Her breathing seems to be able to same. Denies any significant chest discomfort. After she met with [facility] They did not provide her with any therapies at this time. Right now is watching waiting. She develops any worsening symptoms prior to the next visit she is to call the office for an earlier assessment otherwise will follow-up after her CT scan in October. [facility] Medical History (atherosclerosis) Chest pain Chest tube in place Chronic renal insufficiency Diabetes mellitus Difficulty swallowing Dyspnea Elevated cholesterol GERD (gastroesophageal reflux disease) History of cystocele History of thyroid nodule HTN (hypertension) IBS (irritable bowel syndrome) Mesothelioma (pleural) Osteopenia (~2013) Peripheral neuropathy Pleural effusion Polymyalgia rheumatica Sinusitis Trigeminus neuralgia Surgical History H/O carpal tunnel repair History of bunionectomy (~2014) History of colonoscopy (~06/2012) History of femoral angiogram (~2013) History of pubovaginal sling History of thoracentesis History of total replacement of right hip (~01/2019) Hx of bilateral cataract extraction Hx of chest tube placement (~09/2020) Hx of cholecystectomy Family History Father Myocardial infarct Brother Skin cancer Heart problem Mother Congestive heart failure Kidney failure Skin cancer Maternal Grandfather Stomach cancer Paternal Uncle Stroke Daughter Uterine polyp Social History Household Members: Family and Children Housing: House Are you a primary home child care provider to a significant other at home: No Do you presently have visiting nurse or other home services: Yes Alcohol intake: current Alcohol intake frequency: holidays/special occasions only Patient Tobacco Use Status: Former Tobacco user Second Hand Smoke Exposure: No service: No Current occupational status: retired Review of Systems Const Denies night sweats ENT Denies change in voice, Denies lip swelling, Denies mouth pain, Reports nasal congestion, Reports nasal discharge and Denies tongue swelling Card Reports chest pain (right side) and Denies dyspnea on exertion Resp Reports cough, Denies hemoptysis, Denies pain on inspiration and Denies dyspnea on exertion GI Denies abdominal pain Musc Denies no additional complaints Neuro Denies Neuro-related abnormal movements Psych Denies no additional complaints Brandyn/Lymph Denies easy bleeding and Denies lymphadenopathy Aller/Immun Denies lip swelling and Denies tongue swelling Physical Exam Vital Signs: Last Vital Signs Pulse 89 07/25/23 14:00 Pulse Ox 96 07/25/23 14:00 Oxygen Delivery Method Room Air 07/25/23 14:00 BMI result Body Mass Index 28.3 Const General: alert HEENT General nose exam: Abnormal external nose present and Nasal discharge present Eyes Pupils: Equal, round and reactive pupils present Neck Neck: Yes normal visual inspection, Yes full ROM and Yes no lymphadenopathy Chest Chest palpation & inspection: normal inspection of the chest Resp Effort & Inspection: normal respiratory effort Auscultation: diminished lung sounds Cardio Rate: regular rate Rhythm: regular rhythm Heart sounds: S1 normal heart sound present and S2 normal heart sound present GI Palpation (GI): Soft to palpation and nontender Auscultation: normal bowel sounds General: Yes no CVA tenderness Back/Spine/Pelvis Back: no CVA tenderness Skin General skin exam: rashes and/or lesions noted Neuro Cranial nerves: Yes Equal, round and reactive pupils present Assessment & Plan Assessment & Plan (1) Pleural effusion: Comment: (s/p decortication & PleurX 09/14/20, removed on 12/22/2020 - persistent small/mod right-sided loculated pleural effusion. Followed at [facility]) Code(s): J90 - Pleural effusion, not elsewhere classified (2) Mesothelioma (pleural): Comment: (Followed at [facility]) Code(s): C45.0 - Mesothelioma of pleura Plan MACEY as needed repeat CT chest 10/2023 F/U 3-4 months Orders: Orders CT chest wo IV con 10/13/23 C45.0 - Mesothelioma of pleura Coding Level of Care Code Est Pt Level 4 (49882) Diagnoses Pleural effusion J90 Mesothelioma (pleural) C45.0 Time Spent (min) 25
== END 2023-07-25 14:40 | disposition home or self-care (01) ==
PROVIDERS: PCP Internal Medicine; Visit Provider Hospitalist
DX: J90 Pleural effusion, not elsewhere classified (principal); C45.0 Mesothelioma of pleura
CPT/HCPCS: 99214

== ENCOUNTER → 2023-07-25 13:46 | Outpatient (BNVA) | payer MEDICARE, SELFPAY | PROVIDERS: PCP Internal Medicine; Visit Provider Hospitalist | DX: J90 Pleural effusion, not elsewhere classified (principal); C45.0 Mesothelioma of pleura | CPT/HCPCS: 99212 ==

== ENCOUNTER 2023-09-01 08:38 | Outpatient (REF) | payer MEDICARE, SELFPAY ==
[2023-09-01 12:34] LABS: Anion Gap 12 (12-20); Blood Urea Nitrogen 45 mg/dL (9-16); Calcium 9.4 mg/dL (8.4-10.2); Carbon Dioxide 24 mmol/L (22-29); Chloride 109 mmol/L (96-108); Estimated Glomerular Filt Rate 31; Potassium 4.2 mmol/L (3.3-5.1); Sodium 141 mmol/L (135-145); Uric Acid 5.2 mg/dL (2.4-5.7)
[2023-09-03 15:54] LABS: Calcium (PTHI) 9.2 mg/dL (8.6-10.4); PTHI 13 pg/mL (16-77)
== END 2023-09-01 08:39 | disposition home or self-care (01) ==
LOC: HO.HMGCLDS 08:38
PROVIDERS: PCP Internal Medicine; Visit Provider Internal Medicine Hypertension Specialist
DX: N18.9 Chronic kidney disease, unspecified (principal)
CPT/HCPCS: 36415; 80051; 82310; 82565; 83970; 84520; 84550

== ENCOUNTER 2023-09-02 12:20 | Outpatient (AMB) | payer MEDICARE, SELFPAY ==
[2023-09-02 12:21] VITALS: BP 124/62; PULSE 61; O2SAT 99; BMI 27.6
--- NOTE | 2023-09-02 12:21 | HO.NEPHOV ---
HPI HPI Comments History of Present Illness Details 88 yr old woman with a h/o HTN and dyslipidemia , Mesothelioma and CKD is here for follow up She is dealing with multiple issues at present. She has decided to get care locally with rather than go to [place]. [facility] Medical History (Updated 09/10/23 @ 16:54 by Vern Buckley MD) Chest tube in place Osteopenia (~2013) Mesothelioma (pleural) Polymyalgia rheumatica Difficulty swallowing (atherosclerosis) Chronic renal insufficiency History of cystocele Trigeminus neuralgia History of thyroid nodule Peripheral neuropathy Elevated cholesterol HTN (hypertension) Diabetes mellitus IBS (irritable bowel syndrome) GERD (gastroesophageal reflux disease) Sinusitis Chest pain Dyspnea Pleural effusion Surgical History History of colonoscopy (~06/2012) History of bunionectomy (~2014) Hx of chest tube placement (~09/2020) History of femoral angiogram (~2013) Hx of bilateral cataract extraction History of pubovaginal sling Hx of cholecystectomy History of total replacement of right hip (~01/2019) H/O carpal tunnel repair History of thoracentesis Family History Father Myocardial infarct Brother Skin cancer Heart problem Mother Congestive heart failure Kidney failure Skin cancer Maternal Grandfather Stomach cancer Paternal Uncle Stroke Daughter Uterine polyp Social History Household Members: Family and Children Housing: House Are you a primary direct support professional caregiver to a significant other at home: No Do you presently have visiting nurse or other home services: Yes Alcohol intake: current Alcohol intake frequency: holidays/special occasions only Comment: aware of trip hazard Patient Tobacco Use Status: Former Tobacco user Second Hand Smoke Exposure: No service: No Current occupational status: retired Vital Signs 09/02/23 12:21 Height 5 ft 3 in Weight 156 lb BMI 27.6 BP 124/62 Pulse 61 Pulse Source Pulse Oximeter Pulse Oximetry (%) 99 Oxygen Delivery Method Room Air Physical Exam Vital Signs: Last Vital Signs Pulse 61 09/02/23 12:21 BP 124/62 09/02/23 12:21 Pulse Ox 99 09/02/23 12:21 Oxygen Delivery Method Room Air 09/02/23 12:21 BMI result Body Mass Index 27.6 Const General: comfortable; No acute distress Orientation/consciousness: patient oriented x3 Eyes General: appearance normal, both eyes and all related structures Visual Piedra: normal visual piedra by confrontation Neck Neck: Yes supple and Yes no JVD Resp Effort & Inspection: normal respiratory effort and respiratory effort not decreased Auscultation: rhonchi Cardio Palpation: no palpable S3 and no palpable S4 Heart sounds: no rubs GI Inspection: Yes normal to inspection Palpation (GI): Soft to palpation Percussion: Yes normal to percussion Auscultation: normal bowel sounds General: Yes no CVA tenderness Back/Spine/Pelvis Back: no CVA tenderness Skin General skin exam: no petechiae and no purpura Neuro General: patient oriented x3 and no focal motor deficits Extrem General: No clubbing and No edema Results Reviewed Results Reviewed: Labs reveiwed Cr 1.5 Assessment & Plan Assessment & Plan (1) CKD (chronic kidney disease) stage 3, GFR 30-59 ml/min: Code(s): N18.30 - Chronic kidney disease, stage 3 unspecified Plan: Chronic kidney disease in setting of longstanding hypertension. Renal function is stable. Goal is to slow the progression of renal disease Continue to avoid nephrotoxic agents including NSAIDs. (2) PAD (peripheral artery disease): Comment: 2019 left lower extremity endovascular intervention with DCB Code(s): I73.9 - Peripheral vascular disease, unspecified (3) Mesothelioma (pleural): Code(s): C45.0 - Mesothelioma of pleura Plan: Follow with Pulmonary. (4) Pleural effusion: Comment: (s/p decortication & PleurX 09/14/20, removed on 12/22/2020 - persistent small/mod right-sided loculated pleural effusion. Followed at [facility]) Code(s): J90 - Pleural effusion, not elsewhere classified (5) HTN (hypertension): Code(s): I10 - Essential (primary) hypertension Qualifiers: Hypertension type: primary hypertension Qualified Code(s): I10 - Essential (primary) hypertension Plan: Currently blood pressure is better controlled. No changes were made to the medication Will increase her to stand low-sodium diet. Orders: Orders Blood Urea Nitrogen 4 Months N18.30 - Chronic kidney disease, stage 3 unspecified Calcium 4 Months N18.30 - Chronic kidney disease, stage 3 unspecified Complete Blood Count no Diff 4 Months N18.30 - Chronic kidney disease, stage 3 unspecified Electrolytes 4 Months N18.30 - Chronic kidney disease, stage 3 unspecified Creatinine 4 Months N18.30 - Chronic kidney disease, stage 3 unspecified Coding Level of Care Code Est Pt Level 4 (79560) Diagnoses CKD (chronic kidney disease) stage 3, GFR 30-59 ml/min N18.30 PAD (peripheral artery disease) I73.9 Mesothelioma (pleural) C45.0 Pleural effusion J90 Primary hypertension I10 Hypertension type: primary hypertension
== END 2023-09-02 12:57 | disposition home or self-care (01) ==
PROVIDERS: PCP Internal Medicine; Visit Provider Internal Medicine Hypertension Specialist
DX: N18.30 Chronic kidney disease, stage 3 unspecified (principal); I73.9 Peripheral vascular disease, unspecified; C45.0 Mesothelioma of pleura; J90 Pleural effusion, not elsewhere classified; I10 Essential (primary) hypertension
CPT/HCPCS: 99214

== ENCOUNTER → 2023-09-02 12:20 | Outpatient (BNVA) | payer MEDICARE, SELFPAY | PROVIDERS: PCP Internal Medicine; Visit Provider Internal Medicine Hypertension Specialist | DX: I12.9 Hypertensive chronic kidney disease with stage 1 through stage 4 chronic kidney disease, or unspecified chronic kidney disease (principal); N18.30 Chronic kidney disease, stage 3 unspecified; I73.9 Peripheral vascular disease, unspecified; J90 Pleural effusion, not elsewhere classified; C45.0 Mesothelioma of pleura | CPT/HCPCS: 99212 ==

== ENCOUNTER 2023-10-03 13:34 | Outpatient (REF) | payer MEDICARE, SELFPAY ==
--- NOTE | ~2023-10-03 | US_ITS ---
EXAMINATION: US VENOUS ULTRASOUND WITH DOPPLER LOWER EXTREMITY, RIGHT CLINICAL INFORMATION: Right leg swelling COMPARISON: None available. TECHNIQUE: Ultrasound of the deep veins is performed from the hip to the calf with compression sonography and color and pulse Doppler assessment. Spectral analysis with color-flow imaging is performed. FINDINGS: There is normal venous compression and respiratory variation and augmented flow. The visualized common femoral vein, superficial femoral vein, profunda femoral vein, popliteal vein, and the trifurcation region shows no evidence of deep venous thrombosis. 5.5 x 1.4 x 4.0 cm avascular fluid collection seen. If the patient's symptoms persist, followup ultrasound in 5 days 7 days might be of value to exclude proximal propagation from a non-visualized calf vein. US/US venous duplex LE RT IMPRESSION: No DVT demonstrated in the right lower extremity. 5.5 cm Ivory's cyst.
== END 2023-10-03 13:35 | disposition home or self-care (01) ==
LOC: HO.HMGCX 13:34
PROVIDERS: PCP Internal Medicine; Visit Provider Internal Medicine
DX: R22.41 Localized swelling, mass and lump, right lower limb (principal); Z96.641 Presence of right artificial hip joint
CPT/HCPCS: 73502; 93971

== ENCOUNTER 2023-10-15 12:37 | Outpatient (REF) | payer MEDICARE, SELFPAY ==
--- NOTE | ~2023-10-15 | CT_ITS ---
EXAMINATION: CT CHEST WITHOUT CONTRAST CLINICAL INFORMATION: Mesothelioma of pleura. COMPARISON: 10/31/2022. TECHNIQUE: Multidetector volumetric CT imaging of the chest was done. Axial MIP volume rendering provided. Sagittal and coronal reformatted images were obtained. This CT examination was performed using dose optimization techniques as appropriate, variously including the following: *Automated exposure control *Adjustment of mA and/or kV according to patient size (this includes techniques or standardized protocols for targeted exams where dose is matched to indication/reason for exam; i.e. extremities or head) *Use of iterative reconstruction technique DLP: 178 mGy-cm FINDINGS: LUNGS AND PLEURA: No consolidation or worrisome lung masses. There is a rind of pleural thickening present in the right hemithorax which appears thicker than previously noted. For example, at the right lung base laterally, this had measured 0.6 cm and currently measures 1.4 cm (8:147 compare prior 5:415). There is pleural fluid present as well with the most at the right lung base in a subpulmonic position with associated extensive calcifications. No definite solid pleural mass is seen. This also appears increased in volume when compared to the prior study. Bibasilar scarring is present with some traction bronchiectasis on the left. No right-sided effusion. MEDIASTINUM: A precarinal 1.6 cm cluster of lymph nodes is unchanged. There are some hilar and infrahilar lymph nodes seen on the right, not optimally visualized because of lack of IV contrast, which appear about the same with the largest measuring 1.9 cm in the right infrahilar region (8:104 compare prior 3:29). No pericardial effusion. CORONARY ARTERY CALCIFICATION: Extensive. AXILLA: No lymphadenopathy. UPPER ABDOMEN: Status post cholecystectomy. Marked calcific atherosclerotic change present in the aorta. OSSEOUS STRUCTURES: Degenerative changes are present in the spine. No bony destructive lesions. CT/CT chest wo IV con IMPRESSION: 1. There is a rind of pleural thickening in the right hemithorax which appears thicker than previously noted along with pleural fluid with the most at the right lung base in a subpulmonic position with associated extensive calcifications. No definite solid pleural mass is seen. Given history of mesothelioma, worsening cannot be excluded. 2. Stable mediastinal and right hilar lymph nodes. 3. Other incidental findings, as described above. Fleischner guidelines were followed.
== END 2023-10-15 12:38 | disposition home or self-care (01) ==
LOC: HO.CT 12:37
PROVIDERS: PCP Internal Medicine; Visit Provider Hospitalist
DX: C45.0 Mesothelioma of pleura (principal)
CPT/HCPCS: 71250

== ENCOUNTER 2023-10-24 11:01 | Outpatient (REF) | payer MEDICARE, SELFPAY ==
[2023-10-24 13:19] LABS: MANUAL DIFF FLAG NO
[2023-10-24 13:29] LABS: Basophils Absolute Auto 0.1 X10*3/uL (0.0-0.2); Eosinophils Absolute Auto 0.3 X10*3/uL (0.0-0.4); Eosinophils Percent Auto 5.8 % (0-4); Hematocrit 37.5 % (37.0-47.0); Imm Gran Abs Auto 0.03 X10*3/uL (0.00-0.03); Imm Gran Pct Auto 0.5 % (0.0-0.4); Lymphocytes Absolute Auto 1.3 X10*3/uL (1.2-4.9); Lymphocytes Percent Auto 22.6 % (20-40); Mean Corpuscular Hemoglobin 30.5 pg (27.0-33.0); Mean Corpuscular Volume 95.2 fL (80.0-98.0); Mean Platelet Volume 11.5 fL (9.4-12.3); Monocytes Absolute Auto 0.4 X10*3/uL (0.1-1.2); Monocytes Percent Auto 6.9 % (2-11); Neutrophils Absolute Auto 3.7 x10*3/uL (2.0-8.3); Neutrophils Percent Auto 63.2 % (45-73); Platelet Count 197 X10*3/uL (160-400); Red Blood Count 3.94 X10*6/uL (4.20-5.50); Red Cell Distribution Width 14.1 % (11.0-16.0); White Blood Count 5.8 X10*3/uL (4.8-10.8)
[2023-10-24 13:59] LABS: Alanine Aminotransferase 18 U/L (0-31); Albumin Level 4.1 g/dL (3.5-5.0); Alkaline Phosphatase 86 U/L (39-117); Anion Gap 13 (12-20); Aspartate Amino Transferase 25 U/L (5-31); Bilirubin Total 0.3 mg/dL (0.0-1.0); Blood Urea Nitrogen 36 mg/dL (9-16); Calcium 9.6 mg/dL (8.4-10.2); Carbon Dioxide 22 mmol/L (22-29); Chloride 109 mmol/L (96-108); Cholesterol 210 mg/dL (<200); Estimated Glomerular Filt Rate 37; Glucose Fasting 104 mg/dL (60-99); HDL Cholesterol 28 mg/dL (>40); Potassium 4.1 mmol/L (3.3-5.1); Sodium 140 mmol/L (135-145); Total Protein 6.9 g/dL (6.5-8.0); Triglycerides 444 mg/dL (<150)
== END 2023-10-24 11:02 | disposition home or self-care (01) ==
LOC: HO.HMGCLDS 11:01
PROVIDERS: PCP Internal Medicine; Visit Provider Internal Medicine
DX: I73.9 Peripheral vascular disease, unspecified (principal); I12.9 Hypertensive chronic kidney disease with stage 1 through stage 4 chronic kidney disease, or unspecified chronic kidney disease; N18.9 Chronic kidney disease, unspecified; K21.9 Gastro-esophageal reflux disease without esophagitis
CPT/HCPCS: 36415; 80053; 80061; 85025

== ENCOUNTER 2023-10-31 14:00 | Outpatient (RCR) | payer MEDICARE, SELFPAY | END 2023-12-22 12:25 | disposition home or self-care (01) | LOC: HO.PT 14:00 | PROVIDERS: PCP Internal Medicine; Visit Provider Internal Medicine | DX: M25.551 Pain in right hip (principal); M54.9 Dorsalgia, unspecified | CPT/HCPCS: 97110; 97162 ==

== ENCOUNTER 2024-01-20 14:35 | Outpatient (AMB) | payer MEDICARE, SELFPAY ==
[2024-01-20 14:53] VITALS: PULSE 75; O2SAT 94; BMI 20.4
--- NOTE | 2024-01-20 14:53 | MHC.OFFVIS ---
Intake Vital Signs 01/20/24 14:53 Height 5 ft 3 in Weight 115 lb BMI 20.4 Pulse 75 Pulse Source Pulse Oximeter Pulse Oximetry (%) 94 Oxygen Delivery Method Room Air Intake Visit Reasons: copd Sizing Sprayer Required: No Allergies NSAIDS (Non-Steroidal Anti-Inflamma Allergy (Severe, Verified 01/20/24 14:54) Kidney damage Psudaphed Allergy (Severe, Verified 01/20/24 14:54) kidney damage thimerosal Allergy (Intermediate, Verified 01/20/24 14:54) Itching lansoprazole [From Prevacid] Allergy (Verified 01/20/24 14:54) Rash amitriptyline [From Elavil] Adverse Reaction (Severe, Verified 01/20/24 14:54) Rash influenza virus vaccine, specific [Influenza Virus Vacc,Specific] Adverse Reaction (Intermediate, Verified 01/20/24 14:54) LOCALIZED REACTION HPI HPI Comments History of Present Illness Details The patient is an 88-year-old woman with a known history hypertension in addition to 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 At the time she did have a chest x-ray demonstrating small pleural effusions bilaterally. The patient was treated at that time with antibiotics and she subsequently felt better. It was not until June when her symptoms started getting worse. She started developing with significant shortness of breath with minimal activity moderate severity. She also complained of pleuritic discomfort primarily to the right chest area. The patient was evaluated again and had a chest x-ray demonstrating a moderate pleural effusion. Subsequently she was set up to have a thoracentesis at [facility] which she had more than a L of fluid removed. The fluid appeared to be transudative in nature. Pathology and microbiology were both negative. The patient after the procedure if complained of some pleuritic discomfort. It took couple days for the symptoms to relief. After she felt better but then started developing shortness of breath again. Therefore she was referred to Pulmonary. On further questioning she denies any night sweats denies any weight loss. She has been complaining of significant shortness of breath. For that reason we have her go for 6 minutes walk test. The patient could not walk too far, but, she maintain a pulse ox in the low 90s. The patient did not qualify for oxygen. In the office we had her undergo blood work in addition to a repeat x-ray. It appears that now she has a large pleural effusion. I am concerned that she has some degree of lung entrapment/trapped lung. Also to note when she had the thoracentesis there was a question of masslike opacity on her x-ray. This is likely related to the event duration of the diaphragm although a malignancy is a concern at this time with recurrent pleural effusion. 07/25/2023 the patient is here for a pulmonary follow-up visit. Since we last spoke the patient has been following closely with thoracic surgery in addition to [facility]. She has a diagnosis of mesothelioma. She is status post surgery in a PleurX catheter that was removed in May 2022. she now has a residual small right-sided pleural effusion. Her breathing seems to be able to same. Denies any significant chest discomfort. After she met with [facility] They did not provide her with any therapies at this time. Right now is watching waiting. She develops any worsening symptoms prior to the next visit she is to call the office for an earlier assessment otherwise will follow-up after her CT scan in October. 01/20/2024 the patient is here for a pulmonary follow-up visit. She feels that she is having more dyspnea on exertion. Moderate severity. She is concerned about additional fluid buildup in the chest area. She did have a CT scan of the chest sometime in October 2023. We did review together and compared to her last CT scan there appears to be a progression of the pleural thickening which is concerning for progression of the mesothelioma. Although these CT scans are year part therefore whatever is going on is fairly slow. She does have some lymphadenopathy but has not changed in size. Again, the patient does carry a diagnosis of mesothelioma. She did not want to do any immune therapy. She really did want to do any interventions at all. The patient is aware that this condition will continue to progress. During the office visit we did go for a walking oximetry the patient did not qualify for oxygen although she was feeling dyspneic. Will go ahead and start her on a maintenance inhaler in order to see if we can improve her airway capacity. Her dyspnea may indeed be multifactorial. Will have her repeat a chest x-ray since already being a few months to make sure there has no fluid buildup. If there is any concerns fluid buildup we can always have her do an ultrasound or thoracentesis. I doubt that this can be the case. She likely has some degree of self pleurodesis after the PleurX catheter. The patient is still very active she still drives and fairly independent. [facility] [place] Medical History (Updated 09/10/23 @ 16:54 by Vern Buckley MD) Chest tube in place Osteopenia (~2013) Mesothelioma (pleural) Polymyalgia rheumatica Difficulty swallowing (atherosclerosis) Chronic renal insufficiency History of cystocele Trigeminus neuralgia History of thyroid nodule Peripheral neuropathy Elevated cholesterol HTN (hypertension) Diabetes mellitus IBS (irritable bowel syndrome) GERD (gastroesophageal reflux disease) Sinusitis Chest pain Dyspnea Pleural effusion Surgical History History of colonoscopy (~06/2012) History of bunionectomy (~2014) Hx of chest tube placement (~09/2020) History of femoral angiogram (~2013) Hx of bilateral cataract extraction History of pubovaginal sling Hx of cholecystectomy History of total replacement of right hip (~01/2019) H/O carpal tunnel repair History of thoracentesis Family History Father Myocardial infarct Brother Skin cancer Heart problem Mother Congestive heart failure Kidney failure Skin cancer Maternal Grandfather Stomach cancer Paternal Uncle Stroke Daughter Uterine polyp Social History Household Members: Family and Children Housing: House Are you a primary career guidance technician to a significant other at home: No Do you presently have visiting nurse or other home services: Yes Alcohol intake: current Alcohol intake frequency: holidays/special occasions only Comment: aware of trip hazard Patient Tobacco Use Status: Former Tobacco user Second Hand Smoke Exposure: No service: No Current occupational status: retired Review of Systems Const Denies night sweats ENT Denies change in voice, Denies lip swelling, Denies mouth pain, Reports nasal congestion, Reports nasal discharge and Denies tongue swelling Card Reports chest pain (right side) and Denies dyspnea on exertion Resp Reports cough, Denies hemoptysis, Denies pain on inspiration and Denies dyspnea on exertion GI Denies abdominal pain Musc Denies no additional complaints Neuro Denies Neuro-related abnormal movements Psych Denies no additional complaints Brandyn/Lymph Denies easy bleeding and Denies lymphadenopathy Aller/Immun Denies lip swelling and Denies tongue swelling Physical Exam Vital Signs: Last Vital Signs Pulse 75 01/20/24 14:53 Pulse Ox 94 01/20/24 14:53 Oxygen Delivery Method Room Air 01/20/24 14:53 BMI result Body Mass Index 20.4 Const General: alert HEENT General nose exam: Abnormal external nose present and Nasal discharge present Eyes Pupils: Equal, round and reactive pupils present Neck Neck: Yes normal visual inspection, Yes full ROM and Yes no lymphadenopathy Chest Chest palpation & inspection: normal inspection of the chest Resp Effort & Inspection: normal respiratory effort Auscultation: diminished lung sounds Cardio Rate: regular rate Rhythm: regular rhythm Heart sounds: S1 normal heart sound present and S2 normal heart sound present GI Palpation (GI): Soft to palpation and nontender Auscultation: normal bowel sounds General: Yes no CVA tenderness Back/Spine/Pelvis Back: no CVA tenderness Skin General skin exam: rashes and/or lesions noted Neuro Cranial nerves: Yes Equal, round and reactive pupils present Assessment & Plan Assessment & Plan (1) Pleural effusion: Comment: (s/p decortication & PleurX 09/14/20, removed on 12/22/2020 - persistent small/mod right-sided loculated pleural effusion. Followed at [facility]) Code(s): J90 - Pleural effusion, not elsewhere classified (2) Mesothelioma (pleural): Code(s): C45.0 - Mesothelioma of pleura Plan MACEY as needed start Anoro daily repeat CXR to monitor pleural effusion F/U 3-4 months Orders: Orders XR chest 2V Today J90 - Pleural effusion, not elsewhere classified Medications: New umeclidinium-vilanterol 62.5-25 mcg/actuation (Anoro Ellipta) 1 inh inhalation DAILY 60 ea 11RF J44.89 - Other specified chronic obstructive pulmonary disease Changed From albuterol sulfate 90 mcg/actuation 90 mcg inhalation Q4-6H To albuterol sulfate 90 mcg/actuation 90 mcg inhalation Q6H 8.5 grams 4RF 30 days Coding Level of Care Code Est Pt Level 4 (30678) Diagnoses Pleural effusion J90 Mesothelioma (pleural) C45.0 Time Spent (min) 17
== END 2024-01-20 15:33 | disposition home or self-care (01) ==
PROVIDERS: PCP Internal Medicine; Visit Provider Hospitalist
DX: J90 Pleural effusion, not elsewhere classified (principal); C45.0 Mesothelioma of pleura
CPT/HCPCS: 99214

== ENCOUNTER → 2024-01-20 14:35 | Outpatient (BNVA) | payer MEDICARE, SELFPAY | PROVIDERS: PCP Internal Medicine; Visit Provider Hospitalist | DX: J90 Pleural effusion, not elsewhere classified (principal); C45.0 Mesothelioma of pleura | CPT/HCPCS: 99212 ==

== ENCOUNTER 2024-01-27 11:37 | Outpatient (REF) | payer MEDICARE, SELFPAY ==
--- NOTE | ~2024-01-27 | XR_ITS ---
EXAMINATION: XR CHEST CLINICAL INFORMATION: Pleural effusion. COMPARISON: Multiple priors, most recent CT chest dated 10/15/2023. TECHNIQUE: 2 views of the chest were obtained. FINDINGS: Right-sided pleural thickening and subpleural scarring is redemonstrated, similar when compared to the most recent chest CT. A trace overlying right-sided pleural effusion cannot be excluded. No left-sided pleural effusion. No pneumothorax. Stable cardiomediastinal silhouette. No new airspace consolidation. XR/XR chest 2V IMPRESSION: Right-sided pleural thickening and subpleural scarring, similar when compared to the most recent chest CT. A trace overlying right-sided pleural effusion cannot be excluded.
[2024-01-27 14:01] LABS: Hematocrit 35.9 % (37.0-47.0); Hemoglobin 11.5 g/dl (12.0-16.0); Mean Corpuscular Hemoglobin 30.7 pg (27.0-33.0); Mean Corpuscular Volume 95.7 fL (80.0-98.0); Mean Platelet Volume 11.1 fL (9.4-12.3); Platelet Count 240 X10*3/uL (160-400); Red Blood Count 3.75 X10*6/uL (4.20-5.50); Red Cell Distribution Width 13.7 % (11.0-16.0); White Blood Count 7.4 X10*3/uL (4.8-10.8)
[2024-01-27 14:32] LABS: Anion Gap 14 (12-20); Blood Urea Nitrogen 43 mg/dL (9-16); Calcium 9.6 mg/dL (8.4-10.2); Carbon Dioxide 21 mmol/L (22-29); Chloride 107 mmol/L (96-108); Estimated Glomerular Filt Rate 27; Potassium 4.2 mmol/L (3.3-5.1); Sodium 138 mmol/L (135-145)
== END 2024-01-27 11:38 | disposition home or self-care (01) ==
LOC: HO.HMGCX 11:37
PROVIDERS: PCP Internal Medicine; Referring Provider Hospitalist; Visit Provider Internal Medicine Hypertension Specialist
DX: J90 Pleural effusion, not elsewhere classified (principal); N18.30 Chronic kidney disease, stage 3 unspecified
CPT/HCPCS: 36415; 71046; 80051; 82310; 82565; 84520; 85027

== ENCOUNTER 2024-02-03 13:07 | Outpatient (AMB) | payer MEDICARE, SELFPAY ==
[2024-02-03 13:13] VITALS: BP 152/52; PULSE 74; O2SAT 96; BMI 27.3
--- NOTE | 2024-02-03 13:13 | HO.NEPHOV ---
Vital Signs 02/03/24 13:13 02/03/24 13:35 Height 5 ft 3 in Weight 154 lb BMI 27.3 BP 152/52 H 150/50 H Blood Pressure Location Lt brachial Lt brachial Position Sitting Sitting Pulse 74 Pulse Source Pulse Oximeter Pulse Oximetry (%) 96 Oxygen Delivery Method Room Air Intake Visit Reasons: f/u from 09/02/23 visit/ LVM [employer] Required: No Accompanied by: Self / Same As Patient Allergies NSAIDS (Non-Steroidal Anti-Inflamma Allergy (Severe, Verified 02/03/24 13:15) Kidney damage Psudaphed Allergy (Severe, Verified 02/03/24 13:15) kidney damage thimerosal Allergy (Intermediate, Verified 02/03/24 13:15) Itching lansoprazole [From Prevacid] Allergy (Verified 02/03/24 13:15) Rash amitriptyline [From Elavil] Adverse Reaction (Severe, Verified 02/03/24 13:15) Rash influenza virus vaccine, specific [Influenza Virus Vacc,Specific] Adverse Reaction (Intermediate, Verified 02/03/24 13:15) LOCALIZED REACTION HPI Comments Details: 88 yr old woman with a h/o HTN and dyslipidemia , Mesothelioma and CKD is here for follow up She is dealing with multiple issues at present. She has decided to get care locally with rather than go to [place]. Still has dyspnea CXR unchanged Anoro has been added [facility] Medical History (Updated 09/10/23 @ 16:54 by Venr Buckley MD) Chest tube in place Osteopenia (~2013) Mesothelioma (pleural) Polymyalgia rheumatica Difficulty swallowing (atherosclerosis) Chronic renal insufficiency History of cystocele Trigeminus neuralgia History of thyroid nodule Peripheral neuropathy Elevated cholesterol HTN (hypertension) Diabetes mellitus IBS (irritable bowel syndrome) GERD (gastroesophageal reflux disease) Sinusitis Chest pain Dyspnea Pleural effusion Surgical History History of colonoscopy (~06/2012) History of bunionectomy (~2014) Hx of chest tube placement (~09/2020) History of femoral angiogram (~2013) Hx of bilateral cataract extraction History of pubovaginal sling Hx of cholecystectomy History of total replacement of right hip (~01/2019) H/O carpal tunnel repair History of thoracentesis Family History Father Myocardial infarct Brother Skin cancer Heart problem Mother Congestive heart failure Kidney failure Skin cancer Maternal Grandfather Stomach cancer Paternal Uncle Stroke Daughter Uterine polyp Social History Household Members: Family and Children Housing: House Are you a primary pet care worker to a significant other at home: No Do you presently have visiting nurse or other home services: Yes Alcohol intake: current Alcohol intake frequency: holidays/special occasions only Comment: aware of trip hazard Patient Tobacco Use Status: Former Tobacco user Second Hand Smoke Exposure: No service: No Current occupational status: retired Physical Exam Vital Signs: Last Vital Signs Pulse 74 02/03/24 13:13 BP 150/50 H 02/03/24 13:35 Pulse Ox 96 02/03/24 13:13 Oxygen Delivery Method Room Air 02/03/24 13:13 BMI result Body Mass Index 27.3 Const General: comfortable; No acute distress Orientation/consciousness: patient oriented x3 Eyes General: appearance normal, both eyes and all related structures Visual Piedra: normal visual piedra by confrontation Neck Neck: Yes supple and Yes no JVD Resp Effort & Inspection: normal respiratory effort and respiratory effort not decreased Auscultation: rhonchi Cardio Palpation: no palpable S3 and no palpable S4 Heart sounds: no rubs GI Inspection: Yes normal to inspection Palpation (GI): Soft to palpation Percussion: Yes normal to percussion Auscultation: normal bowel sounds General: Yes no CVA tenderness Back/Spine/Pelvis Back: no CVA tenderness Skin General skin exam: no petechiae and no purpura Neuro General: patient oriented x3 and no focal motor deficits Extrem General: No clubbing and No edema Results Reviewed Nephrology Results: Hgb 11.5 g/dl (12.0-16.0) L 01/27/24 WBC 7.4 X10*3/uL (4.8-10.8) 01/27/24 Plt Count 240 X10*3/uL (160-400) 01/27/24 Sodium 138 mmol/L (135-145) 01/27/24 Potassium 4.2 mmol/L (3.3-5.1) 01/27/24 Chloride 107 mmol/L (96-108) 01/27/24 Carbon Dioxide 21 mmol/L (22-29) L 01/27/24 BUN 43 mg/dL (9-16) H 01/27/24 Creatinine 1.75 mg/dL (0.5-1.4) H 01/27/24 Calcium 9.6 mg/dL (8.4-10.2) 01/27/24 PTH Intact 13 pg/mL (16-77) L 09/01/23 Assessment & Plan Assessment & Plan (1) CKD (chronic kidney disease) stage 3, GFR 30-59 ml/min: Code(s): N18.30 - Chronic kidney disease, stage 3 unspecified Category: Medical Plan: Chronic kidney disease in setting of longstanding hypertension. Renal function has been stable. Mild bump in creatinine to 1.7 Goal is to slow the progression of renal disease Continue to avoid nephrotoxic agents including NSAIDs. (2) PAD (peripheral artery disease): Comment: 2019 left lower extremity endovascular intervention with DCB Code(s): I73.9 - Peripheral vascular disease, unspecified Category: Medical Plan: Management per Dr. Bond (3) Mesothelioma (pleural): Code(s): C45.0 - Mesothelioma of pleura Category: Medical Plan: Follow with Pulmonary. (4) Pleural effusion: Comment: (s/p decortication & PleurX 09/14/20, removed on 12/22/2020 - persistent small/mod right-sided loculated pleural effusion. Followed at [facility]) Code(s): J90 - Pleural effusion, not elsewhere classified Category: Medical Plan: Management per Dr. Petersen (5) HTN (hypertension): Code(s): I10 - Essential (primary) hypertension Category: Medical Qualifiers: Hypertension type: primary hypertension Qualified Code(s): I10 - Essential (primary) hypertension Plan: No changes were made to the medication Encouraged her to stay low-sodium diet. Orders: Orders Comprehensive Met. Panel 4 Months N18.9 - Chronic kidney disease, unspecified Complete Blood Count Auto Diff 4 Months N18.30 - Chronic kidney disease, stage 3 unspecified Coding Level of Care Code Est Pt Level 4 (90334) Diagnoses CKD (chronic kidney disease) stage 3, GFR 30-59 ml/min N18.30 PAD (peripheral artery disease) I73.9 Mesothelioma (pleural) C45.0 Pleural effusion J90 Primary hypertension I10 Hypertension type: primary hypertension
[2024-02-03 13:35] VITALS: BP 150/50
== END 2024-02-03 13:52 | disposition home or self-care (01) ==
PROVIDERS: PCP Internal Medicine; Visit Provider Internal Medicine Hypertension Specialist
DX: N18.30 Chronic kidney disease, stage 3 unspecified (principal); I73.9 Peripheral vascular disease, unspecified; C45.0 Mesothelioma of pleura; J90 Pleural effusion, not elsewhere classified; I10 Essential (primary) hypertension
CPT/HCPCS: 99214

== ENCOUNTER → 2024-02-03 13:07 | Outpatient (BNVA) | payer MEDICARE, SELFPAY | PROVIDERS: PCP Internal Medicine; Visit Provider Internal Medicine Hypertension Specialist | DX: I12.9 Hypertensive chronic kidney disease with stage 1 through stage 4 chronic kidney disease, or unspecified chronic kidney disease (principal); E78.5 Hyperlipidemia, unspecified; C45.0 Mesothelioma of pleura; J90 Pleural effusion, not elsewhere classified; I73.9 Peripheral vascular disease, unspecified; N18.30 Chronic kidney disease, stage 3 unspecified | CPT/HCPCS: 99212 ==

== ENCOUNTER 2024-02-19 09:08 | Outpatient (AMB) | payer MEDICARE, SELFPAY ==
--- NOTE | 2024-02-19 09:12 | A.OFFVIS_ITS ---
Vital Signs 02/19/24 09:13 Height 5 ft 3 in Weight 154 lb 5.177 oz BMI 27.3 BP 176/72 H Blood Pressure Location Rt brachial Position Sitting Pulse 65 Intake Visit Reasons: Irritable bowel syndrome Intake Note: Patient presents to in office visit today for IBS. CC: Patient states that she undergo several surgeries since last visit in 2020. Patient states that she believes that the multiple anesthesias caused her IBS to flare up. She c/o nausea sometimes and feels like she is not emptying her bowels completely and her stools are pasty. She also c/o shortness of breath. Emergency Medical Dispatcher Required: No Accompanied by: Self / Same As Patient Allergies NSAIDS (Non-Steroidal Anti-Inflamma Allergy (Severe, Verified 02/19/24 09:25) Kidney damage Psudaphed Allergy (Severe, Verified 02/19/24 09:25) kidney damage thimerosal Allergy (Intermediate, Verified 02/19/24 09:25) Itching amitriptyline [From Elavil] Adverse Reaction (Severe, Verified 02/19/24 09:25) Rash influenza virus vaccine, specific [Influenza Virus Vacc,Specific] Adverse Reaction (Intermediate, Verified 02/19/24 09:25) LOCALIZED REACTION HPI HPI Irritable bowel syndrome: Details: Assessment & Plan (1) Chronic diarrhea: Code(s): K52.9 - Noninfective gastroenteritis and colitis, unspecified Category: Medical Plan - SAL Jaimes: She tells me that she feels well; but her test showed that she has mesothelioma and not lymphoma. She was referred by our oncology dept to [place] due to the rareness of the dx. They decided she was not a surgical candidate. Also, her renal fxn would not tolerate the chemotherapy. She just had her chest tube out. There is a test in the blood for this Ca-125 and Mesothelin (?). These were both high for her. There was some pet enhancement in the abdomen, but this was not a conclusive finding. She had some [facility] She has had trouble getting her bowels moving after surgery. She did not take any narcotics so she thinks it was the anesthesia. Her lower abdomen is puffy and she was told that it was from the surgery - she also has worsening neuralgia - and she was told this is r/t the nerve fxn. She still has trouble walking w/o a limp r/t her hip problems, she has a torn muscle in her hip with partial repair that is part of her stabilization of the hip. She feel she may have torn it again with all of the test and PT. She now uses a cane for balance. She tells me her bowels have been more irritable but she knows how to handle and has all the tools and does not feel she needs any additional help with this at this time. She continues on her Citrucel, senna, and famotidine with good control of these conditions. She did want keep the appointment because in case she needs more help she wanted me to have the full background context of what is going on with her. I totally appreciate that. Right now because she has so many medical things going on she would like to see me on a p.r.n. basis which is fine. (2) GERD (gastroesophageal reflux disease): Code(s): K21.9 - Gastro-esophageal reflux disease without esophagitis Category: Medical TODAY'S VISIT This patient has been lost to follow-up since 12/2020 She developed severe dyspnea and had surgery for mesothelioma. She had chest tubes a couple of times. Her renal system will not tolerate chemotherapy and surgery is not an option (pleurectomy) r/t her age. Her fluid is not loculated so tubes likely will not help. She was seen in [place] for a while, but nothing more is being done so she is seeing Dr. Petersen. She developed osteomyelitis of a foot bone and needed surgery to remove 2 bones on the right foot. She is using a walker now. She also has an orthotic brace. She also had a popliteal stent in the left leg r/t PAD and this has occluded and needs to be reopened. She is taking Citrucel now and in the past she used to take Activia for her loose stools but the fiber is possibly constipating her. She had a point where she thought she had a blockage as she has bloating and discomfort. She feel zenobia bowels are very sluggish. She is taking bisacodyl, prunes, colace and Miralax but she is still sluggish with all of this. We will start Linzess 145mcg and titrate. She fears peristalsis has quit and if this is the case we will consider Movantik. ROV 2 weeks. [facility] Medical History Chest tube in place Osteopenia (~2013) Mesothelioma (pleural) Polymyalgia rheumatica Difficulty swallowing (atherosclerosis) Chronic renal insufficiency History of cystocele Trigeminus neuralgia History of thyroid nodule Peripheral neuropathy Elevated cholesterol HTN (hypertension) Diabetes mellitus IBS (irritable bowel syndrome) GERD (gastroesophageal reflux disease) Sinusitis Chest pain Dyspnea Pleural effusion Surgical History History of colonoscopy (~06/2012) History of bunionectomy (~2014) Hx of chest tube placement (~09/2020) History of femoral angiogram (~2013) Hx of bilateral cataract extraction History of pubovaginal sling Hx of cholecystectomy History of total replacement of right hip (~01/2019) H/O carpal tunnel repair History of thoracentesis Family History Father Myocardial infarct Brother Skin cancer Heart problem Mother Congestive heart failure Kidney failure Skin cancer Maternal Grandfather Stomach cancer Paternal Uncle Stroke Daughter Uterine polyp Social History Household Members: Family and Children Housing: House Are you a primary home health care case manager to a significant other at home: No Do you presently have visiting nurse or other home services: Yes Alcohol intake: current Alcohol intake frequency: holidays/special occasions only Comment: aware of trip hazard Patient Tobacco Use Status: Former Tobacco user Second Hand Smoke Exposure: No service: No Current occupational status: retired Review of Systems Const Denies fatigue, Denies fever(s), Denies night sweats, Reports poor appetite and Reports weight loss Eyes Details: glasses Reports requires corrective lenses ENT Reports Normal hearing present, Denies dental pain, Denies dysphagia, Denies hearing loss, Denies mouth pain, Denies odynophagia, Denies throat swelling, Denies tongue swelling and Reports other (Dentition adequate) Card Reports no additional complaints Resp Reports no additional complaints GI Details: Denies abdominal pain, Denies melena, Reports bloating, Denies hematochezia, Reports constipation, Denies GI cramping, Denies dysphagia, Denies excessive flatus, Denies early satiety, Reports heartburn, Denies diarrhea, Denies nausea, Denies odynophagia, Denies vomiting and Denies hematemesis Musc Reports deformity and Reports arthralgias Skin/Breast Denies pruritus, Denies lesions, Denies rash and Denies jaundice Neuro Reports Normal hearing present and Denies Abnormal speech present Endo Denies fatigue Aller/Immun Denies throat swelling and Denies tongue swelling Physical Exam Vital Signs: Last Vital Signs Pulse 65 02/19/24 09:13 BP 176/72 H 02/19/24 09:13 BMI result Body Mass Index 27.3 Const General: cooperative, no acute distress, well developed and well groomed Nutritional Appearance: average body habitus and well nourished Orientation/consciousness: oriented to person, oriented to place and oriented to time Limitations: No language barrier and ambulation with walker HEENT Head: Yes normocephalic and Yes atraumatic Eyes General: appearance normal, both eyes and all related structures Pupils: Equal, round and reactive pupils present Neck Neck: Yes normal visual inspection and Yes no lymphadenopathy Thyroid: Thyroid normal Resp Effort & Inspection: normal respiratory effort and able to speak in complete sentences Auscultation: clear to auscultation bilaterally Cardio Rate: regular rate Rhythm: regular rhythm Heart sounds: Normal, physiologic split S2 sound present Peripheral pulses: radial pulses present and posterior tibial pulses present GI Inspection: Yes distended, No Abdominal panniculus present, Yes obesity and Yes striae Palpation (GI): Soft to palpation, nontender, no guarding, not rigid and No hepatosplenomegaly present Percussion: Yes normal to percussion Auscultation: normal bowel sounds Rectal Exam - Female: deferred Skin General skin exam: no rashes or lesions noted, turgor normal, skin not dry, no jaundice, No spider nevi and no striae Rashes: no rashes Nails: normal Neuro General: oriented to person, oriented to place and oriented to time Cranial nerves: Yes Equal, round and reactive pupils present and Yes Normal hearing present Speech: No Abnormal speech present Extrem General: Yes normal to inspection, No clubbing, No cyanosis and No edema Psych Appearance: grossly normal and well kempt Mental Status: mental status grossly normal Speech and movement: Normal speech and movement present Affect: normal affect Attitude: cooperative Thought process: Normal thought process present and not confabulating Thought content: Normal thought content present Insight: Fair insight present (Psych) Judgement: Fair judgement present (Psych) Assessment & Plan Assessment & Plan (1) GERD (gastroesophageal reflux disease): Code(s): K21.9 - Gastro-esophageal reflux disease without esophagitis Category: Medical (2) Chronic diarrhea: Code(s): K52.9 - Noninfective gastroenteritis and colitis, unspecified Category: Medical Plan This patient has been lost to follow-up since 12/2020 She developed severe dyspnea and had surgery for mesothelioma. She had chest tubes a couple of times. Her renal system will not tolerate chemotherapy and surgery is not an option (pleurectomy) r/t her age. Her fluid is not loculated so tubes likely will not help. She was seen in [place] for a while, but nothing more is being done so she is seeing Dr. Petersen. She developed osteomyelitis of a foot bone and needed surgery to remove 2 bones on the right foot. She is using a walker now. She also has an orthotic brace. She also had a popliteal stent in the left leg r/t PAD and this has occluded and needs to be reopened. She is taking Citrucel now and in the past she used to take Activia for her loose stools but the fiber is possibly constipating her. She had a point where she thought she had a blockage as she has bloating and discomfort. She feels her bowels are very sluggish. She is taking bisacodyl, prunes, colace and Miralax but she is still sluggish with all of this. We will start Linzess 145mcg and titrate. She fears peristalsis has quit and if this is the case we will consider Movantik. ROV 2 weeks. Medications: New linaclotide (Linzess) Take first thing in the morning with a full glass of water. 145 mcg PO QAM 30 caps 6RF K58.1 - Irritable bowel syndrome with constipation Coding Level of Care Code Est Pt Level 3 (06449) Diagnoses GERD (gastroesophageal reflux disease) K21.9 Chronic diarrhea K52.9
[2024-02-19 09:13] VITALS: BP 176/72; PULSE 65; BMI 27.3
== END 2024-02-19 10:14 | disposition home or self-care (01) ==
PROVIDERS: PCP Internal Medicine; Referring Provider Internal Medicine; Visit Provider Nurse Practitioner
DX: K21.9 Gastro-esophageal reflux disease without esophagitis (principal); K52.9 Noninfective gastroenteritis and colitis, unspecified
CPT/HCPCS: 99213

== ENCOUNTER → 2024-02-19 09:08 | Outpatient (BNVA) | payer MEDICARE, SELFPAY | PROVIDERS: PCP Internal Medicine; Referring Provider Internal Medicine; Visit Provider Nurse Practitioner | DX: K21.9 Gastro-esophageal reflux disease without esophagitis (principal); K52.9 Noninfective gastroenteritis and colitis, unspecified | CPT/HCPCS: 99212 ==

== ENCOUNTER 2024-03-04 08:30 | Outpatient (AMB) | payer MEDICARE, SELFPAY ==
[2024-03-04 08:38] VITALS: BP 195/79; PULSE 68; BMI 27.7
--- NOTE | 2024-03-04 08:38 | MHC.OFFVIS ---
Vital Signs 03/04/24 08:38 Height 5 ft 3 in Weight 156 lb 8.451 oz BMI 27.7 BP 195/79 H Blood Pressure Location Lt brachial Position Sitting Pulse 68 Intake Visit Reasons: 2 week follow up Intake Note: Dona presents in the office as a 2 week follow up. CC: She states that she is did have some issues with some constipation and changes in her irritable bowel. Allergies NSAIDS (Non-Steroidal Anti-Inflamma Allergy (Severe, Verified 03/04/24 08:38) Kidney damage Psudaphed Allergy (Severe, Verified 03/04/24 08:38) kidney damage thimerosal Allergy (Intermediate, Verified 03/04/24 08:38) Itching amitriptyline [From Elavil] Adverse Reaction (Severe, Verified 03/04/24 08:38) Rash influenza virus vaccine, specific [Influenza Virus Vacc,Specific] Adverse Reaction (Intermediate, Verified 03/04/24 08:38) LOCALIZED REACTION HPI HPI 2 week follow up: Details: Assessment & Plan (1) GERD (gastroesophageal reflux disease): Code(s): K21.9 - Gastro-esophageal reflux disease without esophagitis Category: Medical (2) Chronic diarrhea: Code(s): K52.9 - Noninfective gastroenteritis and colitis, unspecified Category: Medical Plan This patient has been lost to follow-up since 12/2020 She developed severe dyspnea and had surgery for mesothelioma. She had chest tubes a couple of times. Her renal system will not tolerate chemotherapy and surgery is not an option (pleurectomy) r/t her age. Her fluid is not loculated so tubes likely will not help. She was seen in [place] for a while, but nothing more is being done so she is seeing Dr. Petersen. She developed osteomyelitis of a foot bone and needed surgery to remove 2 bones on the right foot. She is using a walker now. She also has an orthotic brace. She also had a popliteal stent in the left leg r/t PAD and this has occluded and needs to be reopened. She is taking Citrucel now and in the past she used to take Activia for her loose stools but the fiber is possibly constipating her. She had a point where she thought she had a blockage as she has bloating and discomfort. She feels her bowels are very sluggish. She is taking bisacodyl, prunes, colace and Miralax but she is still sluggish with all of this. We will start Linzess 145mcg and titrate. She fears peristalsis has quit and if this is the case we will consider Movantik. ROV 2 weeks. Medications: New linaclotide (Linzess) Take first thing in the morning with a full glass of water. 145 mcg PO QAM 30 caps 6RF K58.1 - Irritable bowel syndrome with constipation TODAY'S VISIT She picked up the Linzess but found that it was a bit too strong causing cramping for her. Usually when there is a lot of cramping it means the doses in high enough. However she is unwilling to change the dose at this time because she paid 300 dollars for the prescription! I let her know never to do this I will not let her pay this much for medications on a usual basis. I will look and see if I have any vouchers for Medicare patients she wants to continue the rest of the month to evaluate the Linzess. Return office visit in 5 weeks [facility] Medical History (Updated 03/04/24 @ 16:18 by SAL Jaimes) Chronic diarrhea Chest tube in place Osteopenia (~2013) Mesothelioma (pleural) Polymyalgia rheumatica Difficulty swallowing (atherosclerosis) Chronic renal insufficiency History of cystocele Trigeminus neuralgia History of thyroid nodule Peripheral neuropathy Elevated cholesterol HTN (hypertension) Diabetes mellitus IBS (irritable bowel syndrome) GERD (gastroesophageal reflux disease) Sinusitis Chest pain Dyspnea Pleural effusion Surgical History History of colonoscopy (~06/2012) History of bunionectomy (~2014) Hx of chest tube placement (~09/2020) History of femoral angiogram (~2013) Hx of bilateral cataract extraction History of pubovaginal sling Hx of cholecystectomy History of total replacement of right hip (~01/2019) H/O carpal tunnel repair History of thoracentesis Family History Father Myocardial infarct Brother Skin cancer Heart problem Mother Congestive heart failure Kidney failure Skin cancer Maternal Grandfather Stomach cancer Paternal Uncle Stroke Daughter Uterine polyp Social History Household Members: Family and Children Housing: House Are you a primary workforce investment act career manager to a significant other at home: No Do you presently have visiting nurse or other home services: Yes Alcohol intake: current Alcohol intake frequency: holidays/special occasions only Comment: aware of trip hazard Patient Tobacco Use Status: Former Tobacco user Second Hand Smoke Exposure: No service: No Current occupational status: retired Review of Systems Const Denies fatigue, Denies fever(s), Denies night sweats, Denies poor appetite and Denies weight loss Eyes Details: glasses Reports requires corrective lenses ENT Reports Normal hearing present, Denies dysphagia, Denies odynophagia, Denies throat swelling and Denies tongue swelling Card Reports no additional complaints and Reports dyspnea on exertion Resp Reports dyspnea on exertion GI Details: Denies abdominal pain, Denies melena, Reports bloating, Denies hematochezia, Reports constipation, Denies GI cramping, Denies dysphagia, Denies excessive flatus, Denies early satiety, Denies heartburn, Denies diarrhea, Denies nausea, Denies odynophagia, Denies vomiting and Denies hematemesis Skin/Breast Denies pruritus, Denies lesions, Denies rash and Denies jaundice Neuro Reports Normal hearing present and Denies Abnormal speech present Endo Denies fatigue Aller/Immun Denies throat swelling and Denies tongue swelling Physical Exam Vital Signs: Last Vital Signs Pulse 68 03/04/24 08:38 BP 195/79 H 03/04/24 08:38 BMI result Body Mass Index 27.7 Const General: cooperative, no acute distress, well developed and well groomed Nutritional Appearance: average body habitus and well nourished Orientation/consciousness: oriented to person, oriented to place and oriented to time Limitations: No language barrier and ambulation with walker HEENT Head: Yes normocephalic and Yes atraumatic Eyes General: appearance normal, both eyes and all related structures Pupils: Equal, round and reactive pupils present Neck Neck: Yes normal visual inspection and Yes no lymphadenopathy Thyroid: Thyroid normal Resp Effort & Inspection: normal respiratory effort and able to speak in complete sentences Auscultation: clear to auscultation bilaterally Cardio Rate: regular rate Rhythm: regular rhythm Heart sounds: Normal, physiologic split S2 sound present Peripheral pulses: radial pulses present and posterior tibial pulses present GI Inspection: No distended and No Abdominal panniculus present Palpation (GI): Soft to palpation, nontender, no guarding, not rigid and No hepatosplenomegaly present Percussion: Yes normal to percussion Auscultation: normal bowel sounds Rectal Exam - Female: deferred Skin General skin exam: no rashes or lesions noted, turgor normal, skin not dry, no jaundice, No spider nevi and no striae Rashes: no rashes Nails: normal Neuro General: oriented to person, oriented to place and oriented to time Cranial nerves: Yes Equal, round and reactive pupils present and Yes Normal hearing present Speech: No Abnormal speech present Extrem General: Yes normal to inspection, No clubbing, No cyanosis and No edema Psych Appearance: grossly normal and well kempt Mental Status: mental status grossly normal Speech and movement: Normal speech and movement present Affect: normal affect Attitude: cooperative Thought process: Normal thought process present and not confabulating Thought content: Normal thought content present Insight: Fair insight present (Psych) Judgement: Fair judgement present (Psych) Assessment & Plan Assessment & Plan (1) Chronic idiopathic constipation: Code(s): K59.04 - Chronic idiopathic constipation Category: Medical (2) Abdominal bloating: Code(s): R14.0 - Abdominal distension (gaseous) Category: Medical Plan She picked up the Linzess but found that it was a bit too strong causing cramping for her. Usually when there is a lot of cramping it means the doses in high enough. However she is unwilling to change the dose at this time because she paid 300 dollars for the prescription! I let her know never to do this I will not let her pay this much for medications on a usual basis. I will look and see if I have any vouchers for Medicare patients she wants to continue the rest of the month to evaluate the Linzess. Return office visit in 5 weeks Coding Level of Care Code Est Pt Level 3 (35240) Diagnoses Chronic idiopathic constipation K59.04 Abdominal bloating R14.0
== END 2024-03-04 09:09 | disposition home or self-care (01) ==
PROVIDERS: PCP Internal Medicine; Visit Provider Nurse Practitioner
DX: K59.04 Chronic idiopathic constipation (principal); R14.0 Abdominal distension (gaseous)
CPT/HCPCS: 99213

== ENCOUNTER → 2024-03-04 08:30 | Outpatient (BNVA) | payer MEDICARE, SELFPAY | PROVIDERS: PCP Internal Medicine; Visit Provider Nurse Practitioner | DX: K59.04 Chronic idiopathic constipation (principal); R14.0 Abdominal distension (gaseous) | CPT/HCPCS: 99212 ==

== ENCOUNTER 2024-03-25 09:39 | Outpatient (AMB) | payer MEDICARE, SELFPAY ==
[2024-03-25 09:44] VITALS: BP 160/48; PULSE 77; O2SAT 96; BMI 27.3
--- NOTE | 2024-03-25 09:44 | HO.NEPHOV_ITS ---
Vital Signs 03/25/24 09:44 Height 5 ft 3 in Weight 154 lb BMI 27.3 BP 160/48 H Blood Pressure Location Lt brachial Position Sitting Pulse 77 Pulse Source Pulse Oximeter Pulse Oximetry (%) 96 Oxygen Delivery Method Room Air Intake Visit Reasons: Elevated Blood pressure/ Conf Infection Control Nurse Required: No Accompanied by: Self / Same As Patient Allergies NSAIDS (Non-Steroidal Anti-Inflamma Allergy (Severe, Verified 03/25/24 09:46) Kidney damage Psudaphed Allergy (Severe, Verified 03/25/24 09:46) kidney damage thimerosal Allergy (Intermediate, Verified 03/25/24 09:46) Itching amitriptyline [From Elavil] Adverse Reaction (Severe, Verified 03/25/24 09:46) Rash influenza virus vaccine, specific [Influenza Virus Vacc,Specific] Adverse Re action (Intermediate, Verified 03/25/24 09:46) LOCALIZED REACTION Medication List - Last Reconciled 03/25/24 by Vern Buckley MD acetaminophen (Tylenol Extra Strength) 500 mg PO QID PRN albuterol sulfate 90 mcg/actuation 90 mcg inhalation Q6H 30 days allopurinol 100 mg PO DAILY amlodipine 5 mg PO DAILY aspirin (Adult Aspirin Regimen) 81 mg PO DAILY azelastine 1 spray intranasal BID PRN bisacodyl 10 mg PO BEDTIME bisoprolol fumarate 5 mg PO BID 90 days cinnamon bark (Cinnamon) 500 mg PO DAILY coenzyme Q10 (H2Q CoQ10) 200 mg PO DAILY cranberry 400 mg PO DAILY docusate sodium (Colace) 100 mg PO BID echinacea 380 mg PO DAILY evening primrose oil 500 mg PO DAILY ezetimibe (Zetia) 10 mg PO DAILY famotidine 20 mg PO ONCE flaxseed oil 1,000 mg PO DAILY garlic (garlic oil) 1,000 mg PO DAILY hydralazine 100 mg PO TID linaclotide (Linzess) 145 mcg PO QAM loratadine (Allergy Relief (loratadine)) 10 mg PO DAILY lutein 20 mg PO DAILY methylcellulose (laxative) (Citrucel) 500 mg PO ONCE multivitamin (Daily Multi-Vitamin tablet) 1 tab PO DAILY omega-3 fatty acids (Fish Oil Concentrate) 1,000 mg PO DAILY oxcarbazepine 150 mg PO BEDTIME polyethylene glycol 3350 (Miralax) 17 grams PO DAILY selenium 200 mcg PO DAILY umeclidinium-vilanterol 62.5-25 mcg/actuation (Anoro Ellipta) 1 inh inhalation DAILY zinc sulfate (Orazinc) 110 mg PO DAILY HPI Comments Details: 88 yr old woman with a h/o HTN and dyslipidemia , Mesothelioma and CKD is here for follow up She is dealing with multiple issues at present. She has decided to get care locally with rather than go to [facility]. Still has dyspnea CXR unchanged 03/25/24 BP has been sub optimal She noticed this after changing hydralazine- ? different generic [facility] Medical History (Updated 03/04/24 @ 16:18 by SAL Jaimes) Chronic diarrhea Chest tube in place Osteopenia (~2013) Mesothelioma (pleural) Polymyalgia rheumatica Difficulty swallowing (atherosclerosis) Chronic renal insufficiency History of cystocele Trigeminus neuralgia History of thyroid nodule Peripheral neuropathy Elevated cholesterol HTN (hypertension) Diabetes mellitus IBS (irritable bowel syndrome) GERD (gastroesophageal reflux disease) Sinusitis Chest pain Dyspnea Pleural effusion Surgical History History of colonoscopy (~06/2012) History of bunionectomy (~2014) Hx of chest tube placement (~09/2020) History of femoral angiogram (~2013) Hx of bilateral cataract extraction History of pubovaginal sling Hx of cholecystectomy History of total replacement of right hip (~01/2019) H/O carpal tunnel repair History of thoracentesis Family History Father Myocardial infarct Brother Skin cancer Heart problem Mother Congestive heart failure Kidney failure Skin cancer Maternal Grandfather Stomach cancer Paternal Uncle Stroke Daughter Uterine polyp Social History Household Members: Family and Children Housing: House Are you a primary insurance healthcare consultant to a significant other at home: No Do you presently have visiting nurse or other home services: Yes Alcohol intake: current Alcohol intake frequency: holidays/special occasions only Comment: aware of trip hazard Patient Tobacco Use Status: Former Tobacco user Second Hand Smoke Exposure: No service: No Current occupational status: retired Physical Exam Vital Signs: Last Vital Signs Pulse 77 03/25/24 09:44 BP 160/48 H 03/25/24 09:44 Pulse Ox 96 03/25/24 09:44 Oxygen Delivery Method Room Air 03/25/24 09:44 BMI result Body Mass Index 27.3 Const General: comfortable; No acute distress Orientation/consciousness: patient oriented x3 Eyes General: appearance normal, both eyes and all related structures Visual Piedra: normal visual piedra by confrontation Neck Neck: Yes supple and Yes no JVD Resp Effort & Inspection: normal respiratory effort and respiratory effort not decreased Auscultation: rhonchi Cardio Palpation: no palpable S3 and no palpable S4 Heart sounds: no rubs GI Inspection: Yes normal to inspection Palpation (GI): Soft to palpation Percussion: Yes normal to percussion Auscultation: normal bowel sounds General: Yes no CVA tenderness Back/Spine/Pelvis Back: no CVA tenderness Skin General skin exam: no petechiae and no purpura Neuro General: patient oriented x3 and no focal motor deficits Extrem General: No clubbing and No edema Results Reviewed Nephrology Results: Hgb 11.5 g/dl (12.0-16.0) L 01/27/24 WBC 7.4 X10*3/uL (4.8-10.8) 01/27/24 Plt Count 240 X10*3/uL (160-400) 01/27/24 Sodium 138 mmol/L (135-145) 01/27/24 Potassium 4.2 mmol/L (3.3-5.1) 01/27/24 Chloride 107 mmol/L (96-108) 01/27/24 Carbon Dioxide 21 mmol/L (22-29) L 01/27/24 BUN 43 mg/dL (9-16) H 01/27/24 Creatinine 1.75 mg/dL (0.5-1.4) H 01/27/24 Calcium 9.6 mg/dL (8.4-10.2) 01/27/24 Assessment & Plan Assessment & Plan (1) CKD (chronic kidney disease) stage 3, GFR 30-59 ml/min: Code(s): N18.30 - Chronic kidney disease, stage 3 unspecified Category: Medical Plan: Chronic kidney disease in setting of longstanding hypertension. Mild bump in creatinine to 1.7 Goal is to slow the progression of renal disease Continue to avoid nephrotoxic agents including NSAIDs. (2) PAD (peripheral artery disease): Comment: 2019 left lower extremity endovascular intervention with DCB Code(s): I73.9 - Peripheral vascular disease, unspecified Category: Medical Plan: Management per Dr. Bond (3) Mesothelioma (pleural): Code(s): C45.0 - Mesothelioma of pleura Category: Medical Plan: Follow with Pulmonary. (4) Pleural effusion: Comment: (s/p decortication & PleurX 09/14/20, removed on 12/22/2020 - persistent small/mod right-sided loculated pleural effusion. Followed at [facility]) Code(s): J90 - Pleural effusion, not elsewhere classified Category: Medical Plan: Management per Dr. Petersen (5) HTN (hypertension): Code(s): I10 - Essential (primary) hypertension Category: Medical Qualifiers: Hypertension type: primary hypertension Qualified Code(s): I10 - Essential (primary) hypertension Plan: BP Sub optimal shall Increase Hydralazine to 100mg TID Titrate dose as needed Encouraged her to stay low-sodium diet. Orders: Orders Basic Metabolic Panel 2 Months I10 - Essential (primary) hypertension, N18.30 - Chronic kidney disease, stage 3 unspecified Coding Level of Care Code Est Pt Level 4 (05510) Diagnoses CKD (chronic kidney disease) stage 3, GFR 30-59 ml/min N18.30 PAD (peripheral artery disease) I73.9 Mesothelioma (pleural) C45.0 Pleural effusion J90 Primary hypertension I10 Hypertension type: primary hypertension
== END 2024-03-25 10:08 | disposition home or self-care (01) ==
PROVIDERS: PCP Internal Medicine; Visit Provider Internal Medicine Hypertension Specialist
DX: N18.30 Chronic kidney disease, stage 3 unspecified (principal); I73.9 Peripheral vascular disease, unspecified; C45.0 Mesothelioma of pleura; J90 Pleural effusion, not elsewhere classified; I10 Essential (primary) hypertension
CPT/HCPCS: 99214

== ENCOUNTER → 2024-03-25 09:39 | Outpatient (BNVA) | payer MEDICARE, SELFPAY | PROVIDERS: PCP Internal Medicine; Visit Provider Internal Medicine Hypertension Specialist | DX: I12.9 Hypertensive chronic kidney disease with stage 1 through stage 4 chronic kidney disease, or unspecified chronic kidney disease (principal); N18.30 Chronic kidney disease, stage 3 unspecified; I73.9 Peripheral vascular disease, unspecified; J90 Pleural effusion, not elsewhere classified; C45.0 Mesothelioma of pleura | CPT/HCPCS: 99212 ==

== ENCOUNTER 2024-04-08 09:01 | Outpatient (AMB) | payer MEDICARE, SELFPAY ==
[2024-04-08 09:10] VITALS: BP 183/72; PULSE 61; BMI 27.3
--- NOTE | 2024-04-08 09:10 | MHC.OFFVIS ---
Vital Signs 04/08/24 09:10 Height 5 ft 3 in Weight 153 lb 14.122 oz BMI 27.3 BP 183/72 H Blood Pressure Location Rt brachial Position Sitting Pulse 61 Intake Visit Reasons: 6 week follow up Intake Note: Dona presents to in office today in 6 weeks follow up of [facility]. CC: Patient states that that she can't take the Linzess all of the time because is too aggressive . Per patient she states that she is alternating with the Dulcolax, Miralax, prunes, and Colace. Per patient she is having some BP issues and they believed its related to a generic BP pill. Patient was referred to cardiology. Veterinary Surgery Technician Required: No Accompanied by: Self / Same As Patient Allergies NSAIDS (Non-Steroidal Anti-Inflamma Allergy (Severe, Verified 04/08/24 09:16) Kidney damage Psudaphed Allergy (Severe, Verified 04/08/24 09:16) kidney damage thimerosal Allergy (Intermediate, Verified 04/08/24 09:16) Itching amitriptyline [From Elavil] Adverse Reaction (Severe, Verified 04/08/24 09:16) Rash influenza virus vaccine, specific [Influenza Virus Vacc,Specific] Adverse Reaction (Intermediate, Verified 04/08/24 09:16) LOCALIZED REACTION HPI HPI 6 week follow up: Details: Assessment & Plan (1) Chronic idiopathic constipation: Code(s): K59.04 - Chronic idiopathic constipation Category: Medical (2) Abdominal bloating: Code(s): R14.0 - Abdominal distension (gaseous) Category: Medical Plan She picked up the Linzess but found that it was a bit too strong causing cramping for her. Usually when there is a lot of cramping it means the doses in high enough. However she is unwilling to change the dose at this time because she paid 300 dollars for the prescription! I let her know never to do this I will not let her pay this much for medications on a usual basis. I will look and see if I have any vouchers for Medicare patients she wants to continue the rest of the month to evaluate the Linzess. Return office visit in 5 weeks TODAY'S VISIT She has tried opening the Linzess with variable results. She asks about propulsid, which is currently off of the market. I suggest Motegrity as this is more of a motility agent. She will go back and forth between this and Linzess a decide which is best for her. She is struggled with constipation since her foot surgery and her mesothelioma diagnosis. Return office visit in 3 months [facility] Medical History Chronic diarrhea Chest tube in place Osteopenia (~2013) Mesothelioma (pleural) Polymyalgia rheumatica Difficulty swallowing (atherosclerosis) Chronic renal insufficiency History of cystocele Trigeminus neuralgia History of thyroid nodule Peripheral neuropathy Elevated cholesterol HTN (hypertension) Diabetes mellitus IBS (irritable bowel syndrome) GERD (gastroesophageal reflux disease) Sinusitis Chest pain Dyspnea Pleural effusion Surgical History History of colonoscopy (~06/2012) History of bunionectomy (~2014) Hx of chest tube placement (~09/2020) History of femoral angiogram (~2013) Hx of bilateral cataract extraction History of pubovaginal sling Hx of cholecystectomy History of total replacement of right hip (~01/2019) H/O carpal tunnel repair History of thoracentesis Family History Father Myocardial infarct Brother Skin cancer Heart problem Mother Congestive heart failure Kidney failure Skin cancer Maternal Grandfather Stomach cancer Paternal Uncle Stroke Daughter Uterine polyp Social History Household Members: Family and Children Housing: House Are you a primary healthcare administrator to a significant other at home: No Do you presently have visiting nurse or other home services: Yes Alcohol intake: current Alcohol intake frequency: holidays/special occasions only Comment: aware of trip hazard Patient Tobacco Use Status: Former Tobacco user Second Hand Smoke Exposure: No service: No Current occupational status: retired Review of Systems Const Denies fatigue, Denies fever(s), Denies night sweats, Denies poor appetite and Denies weight loss Eyes Details: Glasses Reports requires corrective lenses ENT Reports Normal hearing present, Denies dental pain, Denies dysphagia, Denies hearing loss, Denies mouth pain, Denies odynophagia, Denies throat swelling, Denies tongue swelling and Reports other (Dentition adequate) Card Reports palpitations and Reports dyspnea on exertion Resp Reports dyspnea on exertion GI Details: Denies abdominal pain, Denies melena, Denies bloating, Denies hematochezia, Reports constipation, Denies GI cramping, Denies dysphagia, Denies excessive flatus, Denies early satiety, Denies heartburn, Denies diarrhea, Denies nausea, Denies odynophagia, Denies vomiting and Denies hematemesis Musc Reports abnormal gait Skin/Breast Denies pruritus, Denies lesions, Denies rash and Denies jaundice Neuro Reports Normal hearing present, Denies Abnormal speech present and Reports abnormal gait Endo Denies fatigue and Reports palpitations Aller/Immun Denies throat swelling and Denies tongue swelling Physical Exam Vital Signs: Last Vital Signs Pulse 61 04/08/24 09:10 BP 183/72 H 04/08/24 09:10 BMI result Body Mass Index 27.3 Const General: cooperative, no acute distress, well developed and well groomed Nutritional Appearance: average body habitus and well nourished Orientation/consciousness: oriented to person, oriented to place and oriented to time Limitations: No language barrier and ambulation with walker HEENT Head: Yes normocephalic and Yes atraumatic Eyes General: appearance normal, both eyes and all related structures Pupils: Equal, round and reactive pupils present Neck Neck: Yes normal visual inspection and Yes no lymphadenopathy Thyroid: Thyroid normal Resp Effort & Inspection: normal respiratory effort and able to speak in complete sentences Auscultation: clear to auscultation bilaterally Cardio Rate: regular rate Rhythm: regular rhythm Heart sounds: Normal, physiologic split S2 sound present Peripheral pulses: radial pulses present and posterior tibial pulses present GI Inspection: No distended and No Abdominal panniculus present Palpation (GI): Soft to palpation, nontender, no guarding, not rigid and No hepatosplenomegaly present Percussion: Yes normal to percussion Auscultation: normal bowel sounds Rectal Exam - Female: deferred Skin General skin exam: no rashes or lesions noted, turgor normal, skin not dry, no jaundice, No spider nevi and no striae Rashes: no rashes Nails: normal Neuro General: oriented to person, oriented to place and oriented to time Cranial nerves: Yes Equal, round and reactive pupils present and Yes Normal hearing present Speech: No Abnormal speech present Extrem General: Yes normal to inspection, No clubbing, No cyanosis and No edema Psych Appearance: grossly normal and well kempt Mental Status: mental status grossly normal Speech and movement: Normal speech and movement present Affect: normal affect Attitude: cooperative Thought process: Normal thought process present and not confabulating Thought content: Normal thought content present Insight: Good insight present (Psych) Judgement: Good judgement present (Psych) Assessment & Plan Assessment & Plan (1) Chronic idiopathic constipation: Code(s): K59.04 - Chronic idiopathic constipation Category: Medical (2) Abdominal bloating: Code(s): R14.0 - Abdominal distension (gaseous) Category: Medical (3) GERD (gastroesophageal reflux disease): Code(s): K21.9 - Gastro-esophageal reflux disease without esophagitis Category: Medical Plan She has tried opening the Linzess with variable results. She asks about propulsid, which is currently off of the market. I suggest Motegrity as this is more of a motility agent. She will go back and forth between this and Linzess a decide which is best for her. She is struggled with constipation since her foot surgery and her mesothelioma diagnosis. Return office visit in 3 months Medications: New prucalopride (Motegrity) 2 mg PO DAILY 30 tabs 6RF K59.04 - Chronic idiopathic constipation On Hold linaclotide (Linzess) Hold Comment: Doctor's Order 145 mcg PO QAM 30 caps 6RF K58.1 - Irritable bowel syndrome with constipation Coding Level of Care Code Est Pt Level 3 (23377) Diagnoses Chronic idiopathic constipation K59.04 Abdominal bloating R14.0 GERD (gastroesophageal reflux disease) K21.9
== END 2024-04-08 10:03 | disposition home or self-care (01) ==
LOC: HO.HGI 09:01
PROVIDERS: PCP Internal Medicine; Visit Provider Nurse Practitioner
DX: K59.04 Chronic idiopathic constipation (principal); R14.0 Abdominal distension (gaseous); K21.9 Gastro-esophageal reflux disease without esophagitis
CPT/HCPCS: 99213

== ENCOUNTER → 2024-04-08 09:01 | Outpatient (BNVA) | payer MEDICARE, SELFPAY | PROVIDERS: PCP Internal Medicine; Visit Provider Nurse Practitioner | DX: K59.04 Chronic idiopathic constipation (principal); R14.0 Abdominal distension (gaseous); K21.9 Gastro-esophageal reflux disease without esophagitis | CPT/HCPCS: 99212 ==

== ENCOUNTER 2024-04-16 13:25 | Outpatient (REF) | payer MEDICARE, SELFPAY ==
[2024-04-16 15:52] LABS: MANUAL DIFF FLAG NO
[2024-04-16 16:12] LABS: Alanine Aminotransferase 12 U/L (0-31); Albumin Level 3.8 g/dL (3.5-5.0); Alkaline Phosphatase 75 U/L (39-117); Anion Gap 12 (12-20); Aspartate Amino Transferase 22 U/L (5-31); Basophils Absolute Auto 0.1 X10*3/uL (0.0-0.2); Basophils Percent Auto 0.8 % (0-2); Bilirubin Total 0.2 mg/dL (0.0-1.0); Blood Urea Nitrogen 43 mg/dL (9-16); Calcium 9.5 mg/dL (8.4-10.2); Carbon Dioxide 23 mmol/L (22-29); Chloride 110 mmol/L (96-108); Eosinophils Absolute Auto 0.2 X10*3/uL (0.0-0.4); Eosinophils Percent Auto 2.3 % (0-4); Estimated Glomerular Filt Rate 29; Glucose Random 107 mg/dL (60-115); Hematocrit 33.4 % (37.0-47.0); Imm Gran Abs Auto 0.03 X10*3/uL (0.00-0.03); Imm Gran Pct Auto 0.5 % (0.0-0.4); Lymphocytes Absolute Auto 0.9 X10*3/uL (1.2-4.9); Lymphocytes Percent Auto 13.8 % (20-40); Mean Corpuscular HGB Conc 32.9 g/dl (31.0-35.0); Mean Corpuscular Hemoglobin 30.9 pg (27.0-33.0); Mean Corpuscular Volume 93.8 fL (80.0-98.0); Monocytes Absolute Auto 0.3 X10*3/uL (0.1-1.2); Monocytes Percent Auto 5.2 % (2-11); Neutrophils Percent Auto 77.4 % (45-73); Platelet Count 187 X10*3/uL (160-400); Potassium 4.7 mmol/L (3.3-5.1); Red Blood Count 3.56 X10*6/uL (4.20-5.50); Red Cell Distribution Width 13.8 % (11.0-16.0); Sodium 140 mmol/L (135-145); Total Protein 6.5 g/dL (6.5-8.0); White Blood Count 6.4 X10*3/uL (4.8-10.8)
[2024-04-16 16:19] LABS: Estimated Average Glucose 108 mg/dL; Hemoglobin A1c % 5.4 % (<6.0)
[2024-04-16 16:25] LABS: Creatinine Urine 65.52 mg/dL; Microalbum/Creatinine Ratio Ur 424.2 ug/mg cr (<30)
== END 2024-04-16 13:26 | disposition home or self-care (01) ==
LOC: HO.HMGCLDS 13:25
PROVIDERS: PCP Internal Medicine; Visit Provider Internal Medicine
DX: I73.9 Peripheral vascular disease, unspecified (principal); E11.22 Type 2 diabetes mellitus with diabetic chronic kidney disease; I12.9 Hypertensive chronic kidney disease with stage 1 through stage 4 chronic kidney disease, or unspecified chronic kidney disease; N18.9 Chronic kidney disease, unspecified
CPT/HCPCS: 36415; 80053; 82043; 82570; 83036; 85025

== ENCOUNTER 2024-05-27 09:05 | Outpatient (REF) | payer MEDICARE, SELFPAY ==
[2024-05-27 13:07] LABS: MANUAL DIFF FLAG NO
[2024-05-27 13:11] LABS: Basophils Absolute Auto 0.1 X10*3/uL (0.0-0.2); Eosinophils Absolute Auto 0.3 X10*3/uL (0.0-0.4); Eosinophils Percent Auto 5.1 % (0-4); Hematocrit 34.3 % (37.0-47.0); Hemoglobin 10.9 g/dl (12.0-16.0); Imm Gran Abs Auto 0.03 X10*3/uL (0.00-0.03); Imm Gran Pct Auto 0.5 % (0.0-0.4); Lymphocytes Percent Auto 16.1 % (20-40); Mean Corpuscular HGB Conc 31.8 g/dl (31.0-35.0); Mean Corpuscular Hemoglobin 30.5 pg (27.0-33.0); Mean Corpuscular Volume 96.1 fL (80.0-98.0); Mean Platelet Volume 11.1 fL (9.4-12.3); Monocytes Absolute Auto 0.4 X10*3/uL (0.1-1.2); Monocytes Percent Auto 6.3 % (2-11); Neutrophils Absolute Auto 4.2 x10*3/uL (2.0-8.3); Platelet Count 194 X10*3/uL (160-400); Red Blood Count 3.57 X10*6/uL (4.20-5.50); Red Cell Distribution Width 14.5 % (11.0-16.0); White Blood Count 5.9 X10*3/uL (4.8-10.8)
[2024-05-27 13:45] LABS: Alanine Aminotransferase 14 U/L (0-31); Albumin Level 3.7 g/dL (3.5-5.0); Alkaline Phosphatase 73 U/L (39-117); Anion Gap 11 (12-20); Aspartate Amino Transferase 23 U/L (5-31); Bilirubin Total 0.3 mg/dL (0.0-1.0); Blood Urea Nitrogen 41 mg/dL (9-16); Calcium 9.4 mg/dL (8.4-10.2); Carbon Dioxide 24 mmol/L (22-29); Chloride 113 mmol/L (96-108); Estimated Glomerular Filt Rate 32; Glucose Random 133 mg/dL (60-115); Potassium 3.9 mmol/L (3.3-5.1); Sodium 144 mmol/L (135-145); Total Protein 6.3 g/dL (6.5-8.0)
[2024-05-27 13:49] LABS: TSH reflex Free T4 1.29 uIU/mL (0.32-4.0)
== END 2024-05-27 09:06 | disposition home or self-care (01) ==
LOC: HO.HMGCLDS 09:05
PROVIDERS: PCP Internal Medicine; Referring Provider Internal Medicine Endocrinology, Diabetes & Metabolism; Visit Provider Internal Medicine Hypertension Specialist
DX: N18.30 Chronic kidney disease, stage 3 unspecified (principal); N18.9 Chronic kidney disease, unspecified; E04.1 Nontoxic single thyroid nodule
CPT/HCPCS: 36415; 80053; 84443; 85025

== ENCOUNTER 2024-06-01 11:42 | Outpatient (AMB) | payer MEDICARE, SELFPAY ==
[2024-06-01 11:52] VITALS: BP 144/50; PULSE 59; O2SAT 98; BMI 26.7
--- NOTE | 2024-06-01 11:52 | HO.NEPHOV ---
Vital Signs 06/01/24 11:52 Height 5 ft 3 in Weight 151 lb BMI 26.7 BP 144/50 H Blood Pressure Location Lt brachial Position Sitting Pulse 59 Pulse Source Pulse Oximeter Pulse Oximetry (%) 98 Oxygen Delivery Method Room Air Intake Visit Reasons: CKD/ Conf Flying I Instructor Required: No Accompanied by: Self / Same As Patient Allergies NSAIDS (Non-Steroidal Anti-Inflamma Allergy (Severe, Verified 06/01/24 11:54) Kidney damage Psudaphed Allergy (Severe, Verified 06/01/24 11:54) kidney damage thimerosal Allergy (Intermediate, Verified 06/01/24 11:54) Itching amitriptyline [From Elavil] Adverse Reaction (Severe, Verified 06/01/24 11:54) Rash influenza virus vaccine, specific [Influenza Virus Vacc,Specific] Adverse Reaction (Intermediate, Verified 06/01/24 11:54) LOCALIZED REACTION Medication List - Last Reconciled 06/01/24 by Vern Buckley MD acetaminophen (Tylenol Extra Strength) 500 mg PO QID PRN albuterol sulfate 90 mcg/actuation 90 mcg inhalation Q6H 30 days allopurinol 100 mg PO DAILY amlodipine 10 mg PO .q PM aspirin (Adult Aspirin Regimen) 81 mg PO DAILY azelastine 1 spray intranasal BID PRN bisacodyl 10 mg PO BEDTIME bisoprolol fumarate 5 mg PO BID 90 days cinnamon bark (Cinnamon) 500 mg PO DAILY coenzyme Q10 (H2Q CoQ10) 200 mg PO DAILY cranberry 400 mg PO DAILY docusate sodium (Colace) 100 mg PO BID echinacea 380 mg PO DAILY evening primrose oil 500 mg PO DAILY ezetimibe (Zetia) 10 mg PO DAILY flaxseed oil 1,000 mg PO DAILY garlic (garlic oil) 1,000 mg PO DAILY loratadine (Allergy Relief (loratadine)) 10 mg PO DAILY lutein 20 mg PO DAILY methylcellulose (laxative) (Citrucel) 500 mg PO ONCE multivitamin (Daily Multi-Vitamin tablet) 1 tab PO DAILY omega-3 fatty acids (Fish Oil Concentrate) 1,000 mg PO DAILY oxcarbazepine 150 mg PO BEDTIME polyethylene glycol 3350 (Miralax) 17 grams PO DAILY prucalopride (Motegrity) 2 mg PO DAILY selenium 200 mcg PO DAILY umeclidinium-vilanterol 62.5-25 mcg/actuation (Anoro Ellipta) 1 inh inhalation DAILY zinc sulfate (Orazinc) 110 mg PO DAILY HPI Comments Details: 88 yr old woman with a h/o HTN and dyslipidemia , Mesothelioma and CKD is here for follow up She is dealing with multiple issues at present. She has decided to get care locally with rather than go to [place]. Still has dyspnea;CXR unchanged 03/25/24 BP has been sub optimal She noticed this after changing hydralazine- ? different generic 06/01/24 Now on Norvasc 10 mg !PM Still has vertigo after stopping Hydralazine Dyspnea on exertion- unchanged; No cough PFSH Medical History Chronic diarrhea Chest tube in place Osteopenia (~2013) Mesothelioma (pleural) Polymyalgia rheumatica Difficulty swallowing (atherosclerosis) Chronic renal insufficiency History of cystocele Trigeminus neuralgia History of thyroid nodule Peripheral neuropathy Elevated cholesterol HTN (hypertension) Diabetes mellitus IBS (irritable bowel syndrome) GERD (gastroesophageal reflux disease) Sinusitis Chest pain Dyspnea Pleural effusion Surgical History History of colonoscopy (~06/2012) History of bunionectomy (~2014) Hx of chest tube placement (~09/2020) History of femoral angiogram (~2013) Hx of bilateral cataract extraction History of pubovaginal sling Hx of cholecystectomy History of total replacement of right hip (~01/2019) H/O carpal tunnel repair History of thoracentesis Family History Father Myocardial infarct Brother Skin cancer Heart problem Mother Congestive heart failure Kidney failure Skin cancer Maternal Grandfather Stomach cancer Paternal Uncle Stroke Daughter Uterine polyp Social History Household Members: Family and Children Housing: House Are you a primary director of home care hospice to a significant other at home: No Do you presently have visiting nurse or other home services: Yes Alcohol intake: current Alcohol intake frequency: holidays/special occasions only Comment: aware of trip hazard Patient Tobacco Use Status: Former Tobacco user Second Hand Smoke Exposure: No service: No Current occupational status: retired Physical Exam Vital Signs: Last Vital Signs Pulse 59 06/01/24 11:52 BP 144/50 H 06/01/24 11:52 Pulse Ox 98 06/01/24 11:52 Oxygen Delivery Method Room Air 06/01/24 11:52 BMI result Body Mass Index 26.7 Const General: comfortable; No acute distress Orientation/consciousness: patient oriented x3 Eyes General: appearance normal, both eyes and all related structures Visual Piedra: normal visual piedra by confrontation Neck Neck: Yes supple and Yes no JVD Resp Effort & Inspection: normal respiratory effort and respiratory effort not decreased Auscultation: rhonchi Cardio Palpation: no palpable S3 and no palpable S4 Heart sounds: no rubs GI Inspection: Yes normal to inspection Palpation (GI): Soft to palpation Percussion: Yes normal to percussion Auscultation: normal bowel sounds General: Yes no CVA tenderness Back/Spine/Pelvis Back: no CVA tenderness Skin General skin exam: no petechiae and no purpura Neuro General: patient oriented x3 and no focal motor deficits Extrem General: No clubbing and No edema Results Reviewed Nephrology Results: Hgb 10.9 g/dl (12.0-16.0) L 05/27/24 WBC 5.9 X10*3/uL (4.8-10.8) 05/27/24 Plt Count 194 X10*3/uL (160-400) 05/27/24 Sodium 144 mmol/L (135-145) 05/27/24 Potassium 3.9 mmol/L (3.3-5.1) 05/27/24 Chloride 113 mmol/L (96-108) H 05/27/24 Carbon Dioxide 24 mmol/L (22-29) 05/27/24 BUN 41 mg/dL (9-16) H 05/27/24 Creatinine 1.54 mg/dL (0.5-1.4) H 05/27/24 Calcium 9.4 mg/dL (8.4-10.2) 05/27/24 Urine Creatinine 65.52 mg/dL 04/16/24 Assessment & Plan Assessment & Plan (1) CKD (chronic kidney disease) stage 3, GFR 30-59 ml/min: Code(s): N18.30 - Chronic kidney disease, stage 3 unspecified Category: Medical Plan: Chronic kidney disease in setting of longstanding hypertension. Mild bump in creatinine to 1.7 and now down to 1.5 Goal is to slow the progression of renal disease Continue to avoid nephrotoxic agents including NSAIDs. (2) PAD (peripheral artery disease): Comment: 2019 left lower extremity endovascular intervention with DCB Code(s): I73.9 - Peripheral vascular disease, unspecified Category: Medical Plan: Management per Dr. Bond (3) Mesothelioma (pleural): Code(s): C45.0 - Mesothelioma of pleura Category: Medical Plan: Follow with Pulmonary. (4) Pleural effusion: Comment: (s/p decortication & PleurX 09/14/20, removed on 12/22/2020 - persistent small/mod right-sided loculated pleural effusion. Was Followed at [facility]- No longer wants to go there) Code(s): J90 - Pleural effusion, not elsewhere classified Category: Medical Plan: Management per Dr. Petersen (5) HTN (hypertension): Code(s): I10 - Essential (primary) hypertension Category: Medical Qualifiers: Hypertension type: primary hypertension Qualified Code(s): I10 - Essential (primary) hypertension Plan: BP better controlled Off Hydralazine On Norvasc 10 mg Q PM Encouraged her to stay low-sodium diet. Medications: Changed From amlodipine 10 mg PO DAILY 90 tabs 4RF To amlodipine 10 mg PO .q PM Coding Level of Care Code Est Pt Level 4 (76053) Diagnoses CKD (chronic kidney disease) stage 3, GFR 30-59 ml/min N18.30 PAD (peripheral artery disease) I73.9 Mesothelioma (pleural) C45.0 Pleural effusion J90 Primary hypertension I10 Hypertension type: primary hypertension
== END 2024-06-01 12:09 | disposition home or self-care (01) ==
PROVIDERS: PCP Internal Medicine; Visit Provider Internal Medicine Hypertension Specialist
DX: N18.30 Chronic kidney disease, stage 3 unspecified (principal); I73.9 Peripheral vascular disease, unspecified; C45.0 Mesothelioma of pleura; J90 Pleural effusion, not elsewhere classified; I10 Essential (primary) hypertension
CPT/HCPCS: 99214

== ENCOUNTER → 2024-06-01 11:42 | Outpatient (BNVA) | payer MEDICARE, SELFPAY | PROVIDERS: PCP Internal Medicine; Visit Provider Internal Medicine Hypertension Specialist | DX: I12.9 Hypertensive chronic kidney disease with stage 1 through stage 4 chronic kidney disease, or unspecified chronic kidney disease (principal); N18.30 Chronic kidney disease, stage 3 unspecified; I73.9 Peripheral vascular disease, unspecified; J90 Pleural effusion, not elsewhere classified; C45.0 Mesothelioma of pleura | CPT/HCPCS: 99212 ==

== ENCOUNTER 2024-06-25 12:45 | Outpatient (AMB) | payer MEDICARE, SELFPAY ==
[2024-06-25 13:02] VITALS: BP 126/60; PULSE 57; O2SAT 96; BMI 26.7
--- NOTE | 2024-06-25 13:02 | A.OFFVIS_ITS ---
Vital Signs 06/25/24 13:02 Height 5 ft 3 in Weight 151 lb BMI 26.7 BP 126/60 Blood Pressure Location Rt brachial Position Sitting Pulse 57 Pulse Source Pulse Oximeter Pulse Oximetry (%) 96 Oxygen Delivery Method Room Air Intake Visit Reasons: COPD Automobile Upholsterer Required: No Allergies NSAIDS (Non-Steroidal Anti-Inflamma Allergy (Severe, Verified 06/25/24 13:04) Kidney damage Psudaphed Allergy (Severe, Verified 06/25/24 13:04) kidney damage thimerosal Allergy (Intermediate, Verified 06/25/24 13:04) Itching amitriptyline [From Elavil] Adverse Reaction (Severe, Verified 06/25/24 13:04) Rash influenza virus vaccine, specific [Influenza Virus Vacc,Specific] Adverse Reaction (Intermediate, Verified 06/25/24 13:04) LOCALIZED REACTION HPI Comments Details: The patient is an 88-year-old woman with a known history hypertension in addition to 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 At the time she did have a chest x-ray demonstrating small pleural effusions bilaterally. The patient was treated at that time with antibiotics and she subsequently felt better. It was not until June when her symptoms started getting worse. She started developing with significant shortness of breath with minimal activity moderate severity. She also complained of pleuritic discomfort primarily to the right chest area. The patient was evaluated again and had a chest x-ray demonstrating a moderate pleural effusion. Subsequently she was set up to have a thoracentesis at [facility] which she had more than a L of fluid removed. The fluid appeared to be transudative in nature. Pathology and microbiology were both negative. The patient after the procedure if complained of some pleuritic discomfort. It took couple days for the symptoms to relief. After she felt better but then started developing shortness of breath again. Therefore she was referred to Pulmonary. On further questioning she denies any night sweats denies any weight loss. She has been complaining of significant shortness of breath. For that reason we have her go for 6 minutes walk test. The patient could not walk too far, but, she maintain a pulse ox in the low 90s. The patient did not qualify for oxygen. In the office we had her undergo blood work in addition to a repeat x-ray. It appears that now she has a large pleural effusion. I am concerned that she has some degree of lung entrapment/trapped lung. Also to note when she had the thoracentesis there was a question of masslike opacity on her x-ray. This is likely related to the event duration of the diaphragm although a malignancy is a concern at this time with recurrent pleural effusion. 07/25/2023 the patient is here for a pulmonary follow-up visit. Since we last spoke the patient has been following closely with thoracic surgery in addition to [facility]. She has a diagnosis of mesothelioma. She is status post surgery in a PleurX catheter that was removed in May 2022. she now has a residual small right-sided pleural effusion. Her breathing seems to be able to same. Denies any significant chest discomfort. After she met with [facility] They did not provide her with any therapies at this time. Right now is watching waiting. She develops any worsening symptoms prior to the next visit she is to call the office for an earlier assessment otherwise will follow-up after her CT scan in October. 01/20/2024 the patient is here for a pulmonary follow-up visit. She feels that she is having more dyspnea on exertion. Moderate severity. She is concerned about additional fluid buildup in the chest area. She did have a CT scan of the chest sometime in October 2023. We did review together and compared to her last CT scan there appears to be a progression of the pleural thickening which is concerning for progression of the mesothelioma. Although these CT scans are year part therefore whatever is going on is fairly slow. She does have some lymphadenopathy but has not changed in size. Again, the patient does carry a diagnosis of mesothelioma. She did not want to do any immune therapy. She really did want to do any interventions at all. The patient is aware that this condition will continue to progress. During the office visit we did go for a walking oximetry the patient did not qualify for oxygen although she was feeling dyspneic. Will go ahead and start her on a maintenance inhaler in order to see if we can improve her airway capacity. Her dyspnea may indeed be multifactorial. Will have her repeat a chest x-ray since already being a few months to make sure there has no fluid buildup. If there is any concerns fluid buildup we can always have her do an ultrasound or thoracentesis. I doubt that this can be the case. She likely has some degree of self pleurodesis after the PleurX catheter. The patient is still very active she still drives and fairly independent. 06/25/2024 the patient is here for a pulmonary follow-up visit. She continues exertion. Moderate severity. The patient has been deconditioned she has not been doing much activity. She denies any significant chest pain. Does not feel like her shortness of breath is related to her underlying cancer. She has had multiple surgeries as x-rays without any significant worsening of disease. She will need an x-ray at this time. Specially to make sure that the effusion does not come back. The patient will undergo pulmonary function studies in order to get to pulmonary rehabilitation. Right now she is not getting any care for the malignancy as there is no therapy that is reasonable for her this time. [facility] Medical History (Reviewed 04/08/24 @ 09:13 by Frank Cornejo [facility] [place]) Chronic diarrhea Chest tube in place Osteopenia (~2013) Mesothelioma (pleural) Polymyalgia rheumatica Difficulty swallowing (atherosclerosis) Chronic renal insufficiency History of cystocele Trigeminus neuralgia History of thyroid nodule Peripheral neuropathy Elevated cholesterol HTN (hypertension) Diabetes mellitus IBS (irritable bowel syndrome) GERD (gastroesophageal reflux disease) Sinusitis Chest pain Dyspnea Pleural effusion Surgical History History of colonoscopy (~06/2012) History of bunionectomy (~2014) Hx of chest tube placement (~09/2020) History of femoral angiogram (~2013) Hx of bilateral cataract extraction History of pubovaginal sling Hx of cholecystectomy History of total replacement of right hip (~01/2019) H/O carpal tunnel repair History of thoracentesis Family History Father Myocardial infarct Brother Skin cancer Heart problem Mother Congestive heart failure Kidney failure Skin cancer Maternal Grandfather Stomach cancer Paternal Uncle Stroke Daughter Uterine polyp Social History Household Members: Family and Children Housing: House Are you a primary nurse behavioral health care to a significant other at home: No Do you presently have visiting nurse or other home services: Yes Alcohol intake: current Alcohol intake frequency: holidays/special occasions only Comment: aware of trip hazard Patient Tobacco Use Status: Former Tobacco user Second Hand Smoke Exposure: No service: No Current occupational status: retired Review of Systems Const Denies night sweats ENT Denies change in voice, Denies lip swelling, Denies mouth pain, Reports nasal congestion, Reports nasal discharge and Denies tongue swelling Card Reports chest pain (right side) and Denies dyspnea on exertion Resp Reports cough, Denies hemoptysis, Denies pain on inspiration and Denies dyspnea on exertion GI Denies abdominal pain Musc Denies no additional complaints Neuro Denies Neuro-related abnormal movements Psych Denies no additional complaints Brandyn/Lymph Denies easy bleeding and Denies lymphadenopathy Aller/Immun Denies lip swelling and Denies tongue swelling Physical Exam Vital Signs: Last Vital Signs Pulse 57 06/25/24 13:02 BP 126/60 06/25/24 13:02 Pulse Ox 96 06/25/24 13:02 Oxygen Delivery Method Room Air 06/25/24 13:02 BMI result Body Mass Index 26.7 Const General: alert HEENT General nose exam: Abnormal external nose present and Nasal discharge present Eyes Pupils: Equal, round and reactive pupils present Neck Neck: Yes normal visual inspection, Yes full ROM and Yes no lymphadenopathy Chest Chest palpation & inspection: normal inspection of the chest Resp Effort & Inspection: normal respiratory effort Auscultation: diminished lung sounds Cardio Rate: regular rate Rhythm: regular rhythm Heart sounds: S1 normal heart sound present and S2 normal heart sound present GI Palpation (GI): Soft to palpation and nontender Auscultation: normal bowel sounds General: Yes no CVA tenderness Back/Spine/Pelvis Back: no CVA tenderness Skin General skin exam: rashes and/or lesions noted Neuro Cranial nerves: Yes Equal, round and reactive pupils present Assessment & Plan Assessment & Plan (1) Pleural effusion: Comment: (s/p decortication & PleurX 09/14/20, removed on 12/22/2020 - persistent small/mod right-sided loculated pleural effusion. Was Followed at [facility]- No longer wants to go there) Code(s): J90 - Pleural effusion, not elsewhere classified Category: Medical (2) Mesothelioma (pleural): Code(s): C45.0 - Mesothelioma of pleura Category: Medical (3) Dyspnea: Code(s): R06.00 - Dyspnea, unspecified Category: Medical Qualifiers: Dyspnea type: dyspnea on exertion Qualified Code(s): R06.00 - Dyspnea, unspecified Plan MACEY as needed Anoro daily repeat CXR to monitor pleural effusion PFTs Pulmonary rehab F/U 3-4 months Orders: Orders PFT pulmonary function test 06/25/24 C45.0 - Mesothelioma of pleura, J90 - Pleural effusion, not elsewhere classified, R91.8 - Other nonspecific abnormal finding of lung field Pulmonary Rehab 06/25/24 C45.0 - Mesothelioma of pleura, J90 - Pleural effusion, not elsewhere classified, R91.8 - Other nonspecific abnormal finding of lung field XR chest 2V 06/25/24 C45.0 - Mesothelioma of pleura, J90 - Pleural effusion, not elsewhere classified, R91.8 - Other nonspecific abnormal finding of lung field Coding Level of Care Code Est Pt Level 4 (95119) Complex EM visit Add On G2211 Diagnoses Pleural effusion J90 Mesothelioma (pleural) C45.0 Dyspnea on exertion R06.00 Dyspnea type: dyspnea on exertion Time Spent (min) 16
== END 2024-06-25 15:53 | disposition home or self-care (01) ==
PROVIDERS: PCP Internal Medicine; Visit Provider Hospitalist
DX: J90 Pleural effusion, not elsewhere classified (principal); C45.0 Mesothelioma of pleura; R06.00 Dyspnea, unspecified
CPT/HCPCS: 99214; G2211

== ENCOUNTER → 2024-06-25 12:45 | Outpatient (BNVA) | payer MEDICARE, SELFPAY | PROVIDERS: PCP Internal Medicine; Visit Provider Hospitalist | DX: J90 Pleural effusion, not elsewhere classified (principal); C45.0 Mesothelioma of pleura; R06.00 Dyspnea, unspecified; R91.8 Other nonspecific abnormal finding of lung field | CPT/HCPCS: 99212 ==

== ENCOUNTER 2024-07-01 10:35 | Outpatient (AMB) | payer MEDICARE, SELFPAY ==
--- NOTE | 2024-07-01 10:45 | MHC.OFFVIS ---
Vital Signs 07/01/24 10:49 Height 5 ft 3 in Weight 147 lb 11.355 oz BMI 26.2 BP 198/80 H Blood Pressure Location Lt brachial Position Sitting Pulse 64 Intake Visit Reasons: 3 month follow up Intake Note: Patient presents to in office 3 months follow up of CIC and GERD. CC: Patient reports doing well and denies having any GI symptoms today. Patient states that she is no longer taking Linzess or Motegrity, she is now taking Lactulose prescribed to Dr. Fisher. Allergies NSAIDS (Non-Steroidal Anti-Inflamma Allergy (Severe, Verified 07/01/24 10:59) Kidney damage Psudaphed Allergy (Severe, Verified 07/01/24 10:59) kidney damage thimerosal Allergy (Intermediate, Verified 07/01/24 10:59) Itching amitriptyline [From Elavil] Adverse Reaction (Severe, Verified 07/01/24 10:59) Rash influenza virus vaccine, specific [Influenza Virus Vacc,Specific] Adverse Reaction (Intermediate, Verified 07/01/24 10:59) LOCALIZED REACTION HPI HPI 3 month follow up: Details: Assessment & Plan (1) Chronic idiopathic constipation: Code(s): K59.04 - Chronic idiopathic constipation Category: Medical (2) Abdominal bloating: Code(s): R14.0 - Abdominal distension (gaseous) Category: Medical (3) GERD (gastroesophageal reflux disease): Code(s): K21.9 - Gastro-esophageal reflux disease without esophagitis Category: Medical Plan She has tried opening the Linzess with variable results. She asks about propulsid, which is currently off of the market. I suggest Motegrity as this is more of a motility agent. She will go back and forth between this and Linzess a decide which is best for her. She is struggled with constipation since her foot surgery and her mesothelioma diagnosis. Return office visit in 3 months Medications: New prucalopride (Motegrity) 2 mg PO DAILY 30 tabs 6RF K59.04 - Chronic idiopathic constipation On Hold linaclotide (Linzess) Hold Comment: Doctor's Order 145 mcg PO QAM 30 caps 6RF K58.1 - Irritable bowel syndrome with constipation TODAY'S VISIT The mottalonrity was too expensive, and she has been trying a variety of OTC's including lactulose which was suggested by Dr. Fisher. We will have to continue with her use and titration of these due to financial constraints. She has been having a lot of personal stress with her family, her son was very ill recently with a bad back wound, new niddm and ETOH and opiate withdrawal. Her dtr also has been ill with joint pain, was using tumeric but then this upset her stomach. She then presented to an ER and was told she had a GB polyp - she was sent to Dr. Lambert who declines surgery. She will call her dtr and see if she wants to see me. She will be going to pulmonary rehab soon. ROV yearly per pt request [facility] Medical History (Reviewed 07/01/24 @ 11:08 by Frank Cornejo [facility]) Chronic renal insufficiency Lung mass Chest pain Pleural effusion Chronic diarrhea Chest tube in place Osteopenia (~2013) Mesothelioma (pleural) Polymyalgia rheumatica Difficulty swallowing (atherosclerosis) History of cystocele Trigeminus neuralgia History of thyroid nodule Peripheral neuropathy Elevated cholesterol HTN (hypertension) Diabetes mellitus IBS (irritable bowel syndrome) GERD (gastroesophageal reflux disease) Sinusitis Dyspnea Surgical History History of colonoscopy (~06/2012) History of bunionectomy (~2014) Hx of chest tube placement (~09/2020) History of femoral angiogram (~2013) Hx of bilateral cataract extraction History of pubovaginal sling Hx of cholecystectomy History of total replacement of right hip (~01/2019) H/O carpal tunnel repair History of thoracentesis Family History Father Myocardial infarct Brother Skin cancer Heart problem Mother Congestive heart failure Kidney failure Skin cancer Maternal Grandfather Stomach cancer Paternal Uncle Stroke Daughter Uterine polyp Social History Household Members: Family and Children Housing: House Are you a primary health care facilities inspector to a significant other at home: No Do you presently have visiting nurse or other home services: Yes Alcohol intake: current Alcohol intake frequency: holidays/special occasions only Comment: aware of trip hazard Patient Tobacco Use Status: Former Tobacco user Second Hand Smoke Exposure: No service: No Current occupational status: retired Review of Systems Const Denies fatigue, Denies fever(s), Denies night sweats, Denies poor appetite and Denies weight loss Eyes Details: glasses Reports requires corrective lenses ENT Reports Normal hearing present, Denies dental pain, Denies dysphagia, Denies hearing loss, Denies mouth pain, Denies odynophagia, Denies throat swelling, Denies tongue swelling and Reports other (Dentition adequate) Card Reports no additional complaints Resp Reports no additional complaints GI Details: Denies abdominal pain, Denies melena, Denies bloating, Denies hematochezia, Reports constipation, Denies GI cramping, Denies dysphagia, Denies excessive flatus, Denies early satiety, Reports heartburn, Denies diarrhea, Denies nausea, Denies odynophagia, Denies vomiting and Denies hematemesis Skin/Breast Denies pruritus, Denies lesions, Denies rash and Denies jaundice Neuro Reports Normal hearing present and Denies Abnormal speech present Psych Reports anxiety Endo Denies fatigue Aller/Immun Denies throat swelling and Denies tongue swelling Physical Exam Vital Signs: Last Vital Signs Pulse 64 07/01/24 10:49 BP 198/80 H 07/01/24 10:49 BMI result Body Mass Index 26.2 Const General: cooperative, no acute distress, well developed and well groomed Nutritional Appearance: average body habitus and well nourished Orientation/consciousness: oriented to person, oriented to place and oriented to time Limitations: No language barrier and ambulation with walker HEENT Head: Yes normocephalic and Yes atraumatic Eyes General: appearance normal, both eyes and all related structures Pupils: Equal, round and reactive pupils present Neck Neck: Yes normal visual inspection and Yes no lymphadenopathy Thyroid: Thyroid normal Resp Effort & Inspection: normal respiratory effort and able to speak in complete sentences Auscultation: clear to auscultation bilaterally Cardio Rate: regular rate Rhythm: regular rhythm Heart sounds: Normal, physiologic split S2 sound present Peripheral pulses: radial pulses present and posterior tibial pulses present GI Inspection: No distended and No Abdominal panniculus present Palpation (GI): Soft to palpation, nontender, no guarding, not rigid and No hepatosplenomegaly present Percussion: Yes normal to percussion Auscultation: normal bowel sounds Rectal Exam - Female: deferred Skin General skin exam: no rashes or lesions noted, turgor normal, skin not dry, no jaundice, No spider nevi and no striae Rashes: no rashes Nails: normal Neuro General: oriented to person, oriented to place and oriented to time Cranial nerves: Yes Equal, round and reactive pupils present and Yes Normal hearing present Speech: No Abnormal speech present Extrem General: Yes normal to inspection, No clubbing, No cyanosis and No edema Psych Appearance: grossly normal and well kempt Mental Status: mental status grossly normal Speech and movement: Normal speech and movement present Affect: normal affect Attitude: cooperative Thought process: Normal thought process present and not confabulating Thought content: Normal thought content present Insight: Fair insight present (Psych) and Limited insight present (Psych) Judgement: Fair judgement present (Psych) and Limited judgement present (Psych) Assessment & Plan Assessment & Plan (1) Chronic idiopathic constipation: Code(s): K59.04 - Chronic idiopathic constipation Category: Medical (2) Abdominal bloating: Code(s): R14.0 - Abdominal distension (gaseous) Category: Medical (3) GERD (gastroesophageal reflux disease): Code(s): K21.9 - Gastro-esophageal reflux disease without esophagitis Category: Medical Plan The motegrity was too expensive, and she has been trying a variety of OTC's including lactulose which was suggested by Dr. Fisher. We will have to continue with her use and titration of these due to financial constraints. She has been having a lot of personal stress with her family, her son was very ill recently with a bad back wound, new niddm and ETOH and opiate withdrawal. Her dtr also has been ill with joint pain, was using tumeric but then this upset her stomach. She then presented to an ER and was told she had a GB polyp - she was sent to Dr. Lambert who declines surgery. She will call her dtr and see if she wants to see me. She will be going to pulmonary rehab soon. ROV yearly per pt request Coding Level of Care Code Est Pt Level 3 (52997) Diagnoses Chronic idiopathic constipation K59.04 Abdominal bloating R14.0 GERD (gastroesophageal reflux disease) K21.9
[2024-07-01 10:49] VITALS: BP 198/80; PULSE 64; BMI 26.2
== END 2024-07-01 12:25 | disposition home or self-care (01) ==
PROVIDERS: PCP Internal Medicine; Visit Provider Nurse Practitioner
DX: K59.04 Chronic idiopathic constipation (principal); R14.0 Abdominal distension (gaseous); K21.9 Gastro-esophageal reflux disease without esophagitis
CPT/HCPCS: 99213

== ENCOUNTER → 2024-07-01 10:35 | Outpatient (BNVA) | payer MEDICARE, SELFPAY | PROVIDERS: PCP Internal Medicine; Visit Provider Nurse Practitioner | DX: K21.9 Gastro-esophageal reflux disease without esophagitis (principal); K58.1 Irritable bowel syndrome with constipation; K59.04 Chronic idiopathic constipation; R14.0 Abdominal distension (gaseous) | CPT/HCPCS: 99212 ==

== ENCOUNTER 2024-07-13 12:33 | Outpatient (AMB) | payer MEDICARE, SELFPAY ==
[2024-07-13 12:57] VITALS: BP 156/56; PULSE 68; BMI 25.9
--- NOTE | 2024-07-13 12:57 | MHC.OFFVIS ---
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 Required: No Accompanied by: Self / Same As Patient Allergies NSAIDS (Non-Steroidal Anti-Inflamma Allergy (Severe, Verified 07/01/24 10:59) Kidney damage Psudaphed Allergy (Severe, Verified 07/01/24 10:59) kidney damage thimerosal Allergy (Intermediate, Verified 07/01/24 10:59) Itching amitriptyline [From Elavil] Adverse Reaction (Severe, Verified 07/01/24 10:59) Rash influenza virus vaccine, specific [Influenza Virus Vacc,Specific] Adverse Reaction (Intermediate, Verified 07/01/24 10:59) LOCALIZED REACTION Medication List - Last Reconciled 07/13/24 by Bautista Tom MD acetaminophen (Tylenol Extra Strength) 500 mg PO QID PRN albuterol sulfate 90 mcg/actuation 90 mcg inhalation Q6H 30 days allopurinol 100 mg PO DAILY amlodipine 10 mg PO .q PM aspirin (Adult Aspirin Regimen) 81 mg PO DAILY azelastine 1 spray intranasal BID PRN bisacodyl 10 mg PO BEDTIME PRN bisoprolol fumarate 5 mg PO BID 90 days cinnamon bark (Cinnamon) 500 mg PO DAILY coenzyme Q10 (H2Q CoQ10) 200 mg PO DAILY cranberry 400 mg PO DAILY docusate sodium (Colace) 100 mg PO BID echinacea 380 mg PO DAILY evening primrose oil 500 mg PO DAILY ezetimibe (Zetia) 10 mg PO DAILY famotidine 20 mg PO DAILY flaxseed oil 1,000 mg PO DAILY garlic (garlic oil) 1,000 mg PO DAILY lactulose PO PRN loratadine (Allergy Relief (loratadine)) 10 mg PO DAILY lutein 20 mg PO DAILY meclizine 25 mg PO BID PRN methylcellulose (laxative) (Citrucel) 500 mg PO DAILY PRN multivitamin (Daily Multi-Vitamin tablet) 1 tab PO DAILY omega-3 fatty acids (Fish Oil Concentrate) 1,000 mg PO DAILY oxcarbazepine 150 mg PO BEDTIME polyethylene glycol 3350 (Miralax) 17 grams PO DAILY prucalopride (Motegrity) 2 mg PO DAILY selenium 200 mcg PO DAILY zinc sulfate (Orazinc) 110 mg PO DAILY HPI Comments Details: Dona has been referred for evaluation of an abnormal EKG. Patient states she has seen Dr. Kaiser many years ago, but not recently. Denies any history of coronary disease but apparently has lower extremity vascular disease. No prior myocardial infarction or cardiomyopathy. She has a history of pleural effusion and mesothelioma. With regard to symptoms, may get short of breath with activity. No clear-cut angina. EKG was performed at primary care physician's office and she was referred here. She states she is told to have PVCs previously. [facility] Medical History Chronic renal insufficiency Lung mass Chest pain Pleural effusion Chronic diarrhea Chest tube in place Osteopenia (~2013) Mesothelioma (pleural) Polymyalgia rheumatica Difficulty swallowing (atherosclerosis) History of cystocele Trigeminus neuralgia History of thyroid nodule Peripheral neuropathy Elevated cholesterol HTN (hypertension) Diabetes mellitus IBS (irritable bowel syndrome) GERD (gastroesophageal reflux disease) Sinusitis Dyspnea Surgical History History of colonoscopy (~06/2012) History of bunionectomy (~2014) Hx of chest tube placement (~09/2020) History of femoral angiogram (~2013) Hx of bilateral cataract extraction History of pubovaginal sling Hx of cholecystectomy History of total replacement of right hip (~01/2019) H/O carpal tunnel repair History of thoracentesis Family History Father Myocardial infarct Brother Skin cancer Heart problem Mother Congestive heart failure Kidney failure Skin cancer Maternal Grandfather Stomach cancer Paternal Uncle Stroke Daughter Uterine polyp Social History Household Members: Family and Children Housing: House Are you a primary prompt care rn to a significant other at home: No Do you presently have visiting nurse or other home services: Yes Alcohol intake: current Alcohol intake frequency: holidays/special occasions only Comment: aware of trip hazard Patient Tobacco Use Status: Former Tobacco user Second Hand Smoke Exposure: No service: No Current occupational status: retired Review of Systems Const Denies chills, Denies fatigue, Denies fever(s), Denies weight gain and Denies weight loss ENT Denies dizziness Card Denies chest pain, Denies leg edema, Denies lightheadedness, Reports palpitations, Reports dyspnea on exertion, Denies orthopnea and Denies other Resp Denies cough and Reports dyspnea on exertion GI Denies hematochezia and Denies change in stool character Musc Denies abnormal gait, Denies muscle weakness, Denies numbness, Denies radiating pain into limb and Denies tingling Neuro Denies abnormal gait, Denies dizziness, Denies numbness and Denies tingling Endo Denies fatigue and Reports palpitations Physical Exam Vital Signs: Last Vital Signs Pulse 68 07/13/24 12:57 BP 156/56 H 07/13/24 12:57 BMI result Body Mass Index 25.9 Const General: comfortable and no acute distress Orientation/consciousness: patient oriented x3 HEENT Other: Unremarkable Head: Yes normal to inspection Neck Neck: Yes normal visual inspection Chest Chest palpation & inspection: normal inspection of the chest Resp Auscultation: clear to auscultation bilaterally Cardio Palpation: normal PMI Heart sounds: S1 normal heart sound present, S2 normal heart sound present, no gallops, Murmur heart sound present systolic II/ and at the right sternal border and no rubs GI Palpation (GI): Soft to palpation Back/Spine/Pelvis Other: unremarkable Skin General skin exam: no rashes or lesions noted Neuro General: patient oriented x3 Extrem General: Yes normal to inspection Psych Mental Status: mental status grossly normal Office Procedures EKG Details: EKG with underlying sinus rhythm at 65/Min; PVCs; cannot exclude old septal infarct; [place] [id number], Complete Assessment & Plan Assessment & Plan (1) SOB (shortness of breath): Code(s): R06.02 - Shortness of breath Category: Medical (2) PVC (premature ventricular contraction): Code(s): I49.3 - Ventricular premature depolarization Category: Medical Plan Essentially her EKG showing some PVCs and possible septal infarct versus related to body habitus. She has some shortness of breath but has known pulmonary issues. We discussed about further workup including echocardiogram and other testing including stress test as well as Holter. However, after a long discussion, she felt that due to her age she would rather hold off on anything. That seems quite reasonable. If she changes her mind at least an echocardiogram is reasonable for cardiac function but she believes that a prior study from [facility] was within acceptable limits and hence should avoid any further testing at this time. She will contact us if she has any other concerns. Coding Level of Care Code New Pt Level 3 (42433) Diagnoses SOB (shortness of breath) R06.02 PVC (premature ventricular contraction) I49.3 CPT Codes EKG - CPT: 25750-[id number], Complete ([id number])
== END 2024-07-13 13:42 | disposition home or self-care (01) ==
PROVIDERS: PCP Internal Medicine; Visit Provider Internal Medicine
DX: R06.02 Shortness of breath (principal); I49.3 Ventricular premature depolarization
CPT/HCPCS: 93010; 99203

== ENCOUNTER → 2024-07-13 12:33 | Outpatient (BNVA) | payer MEDICARE, SELFPAY | PROVIDERS: PCP Internal Medicine; Visit Provider Internal Medicine | DX: R06.02 Shortness of breath (principal); I49.3 Ventricular premature depolarization | CPT/HCPCS: 93005; 99202 ==

== ENCOUNTER 2024-08-16 09:55 | Outpatient (REF) | payer MEDICARE, SELFPAY | END 2024-08-16 09:56 | disposition home or self-care (01) | LOC: HO.HMGCX 09:55 | PROVIDERS: PCP Internal Medicine; Visit Provider Hospitalist | DX: R91.8 Other nonspecific abnormal finding of lung field (principal); J90 Pleural effusion, not elsewhere classified; C45.0 Mesothelioma of pleura | CPT/HCPCS: 71046 ==

== ENCOUNTER 2024-09-23 10:53 | Outpatient (REF) | payer MEDICARE, SELFPAY ==
--- OUTSIDE RECORDS SUMMARY | 2024-09-23 10:57 | XMS_ITS ---
Author Organization [facility] jamia WrenRoly Address [address] [place] [address] Care Team Providers Care Marriage Therapist Name Role Phone Kishor Fisher MD Primary Care Provider Teo Vann Unavailable [phone] Allergies Allergen (clinical drug ingredient) Drug/Non Drug Allergy documented on EMR Reaction Allergy Type Onset Date Status Elavil rash Drug Allergy Active shrimp allergenic extract Shrimp (Diagnostic) itchy Drug Allergy Active Non-steroidal anti-inflammatory agent (FN) NSAIDs kidney problems Drug Allergy Active Shellfish (FN) Shellfish-derived Products itchy Drug Allergy Active REASON FOR VISIT Painful nail(s) aggrevated by shoes and causing difficulty standing/walking. Medications Medication SIG (Take, Route, Frequency, Duration) Notes Start Date End Date Status Physical Therapy . . .post -op edema right foot form surgery 07/13/15 2-3x/week for 3-4 weeks 08/10/2015 Not-Taking Atenolol 50 MG 1 tablet Orally twic e a day Not-Taking Doxycycline (Rosacea) Not-Taking Clindamycin HCl Not- Taking Tylenol Not-Taking Colchicine 0.6 MG Orally PRN No t-Taking metroNIDAZOLE Not-Ta ezra Niacin Not-Taking Losartan Potassium 50 MG 1 tablet Orally Once a day Not-Taking Keflex 500 500 MG 1 capsule Orally every 12 hrs for 10 day(s) 09/11/2022 Not-Taking ProAir HFA Active Selenium Active Trileptal 150 MG Orally Act lyndsey Zetia 10 MG Orally Active Zinc Active Loratadine Active Lutein Active Lasix Active Glucosamine Chondroitin Joint Active hydrALAZINE HCl 50 MG as directed Orally Twice a day 3 times a day Active Evening Glenhaven Oil Active Famotidine Active Fish Oil Active Flaxseed Oil Active Garlic Oil Active Extra Depth Orthopedic Shoes (1 Pair) with Customized Heat Molded Multidensity Innersoles (3 Pair) as directed Dx: NIDDM/Polyneuropathy (E11.42), Hammertoe Foot Deformity (M20.41,M20.42), Preulcerative Skin Lesion(s) (L85.1 Active Cranberry Active CoQ-10 Active Citrucel Active Cinnamon Active Aspirin 81G Orally Once a day Active Astelin Active Biotin Active Bisoprolol Fumarate Active Benadryl Active Allopurinol Active amLODIPine Besylate 5 MG Orally Active Social History Tobacco Use: Social History Observation Description Date Details (start date - stop date) Former Smoker NA - NA Tobacco Use/Smoking Question Answer Notes Are you a: former smoker Additional Findings: Tobacco Non-User Current no n-smoker Alcohol Screen Question Answer Notes Did you have a drink containing alcohol in the p ast year? No Points 0 Interpretation Negative Tobacco use other than smoking: Question Answer Notes Are you an other tobacco user? No Vital Signs Height 5 ft 4 in in 03/22/2024 Weight 155 lbs 03/22/2024 BMI 26.60 kg/m2 03/22/2024 Encounters Encounter Location Date Provider Diagnosis [facility] [address] [address] 03/22/2024 Teo Jaeger Tinea unguium B35.1 ; Pain in left foot M79.672 ; Pain in right foot M79.671 ; Type 2 diabetes mellitus with diabetic polyneuropathy E11.42 ; Pain in right toe(s) M79.674 ; Pain in left toe(s) M79.675 and Metatarsalgia, right foot M77.41 Assessments Encounter Date Diagnosis (ICD Code) Assessment Notes Treatment Notes Treatment Clinical Notes Section Notes 03/22/2024 Tinea unguium (ICD-10 - B35.1) 03/22/2024 Pain in left foot (ICD-10 - M79.672) 03/22/2024 Pain in right foot (ICD-10 - M79.671) 03/22/2024 Type 2 diabetes mellitus with diabetic polyneuropathy (ICD-10 - E11.42) 03/22/2024 Pain in right toe(s) (ICD-10 - M79.674) 03/22/2024 Pain in left toe(s) (ICD-10 - M79.675) 03/22/2024 Metatarsalgia, right foot (ICD-10 - M77.41) Plan Of Treatment Medication Medication Name Sig Start Date Stop Date Notes Extra Depth Orthopedic Shoes (1 Pair) with Customized Heat Molded Multidensity Innersoles (3 Pair) as directed Dx: NIDDM/Polyneuropathy (E11.42), Hammertoe Foot Deformity (M20.41,M20.42), Preulcerative Skin Lesion(s) (L85.1 Next Appt Details Follow Up: 3 Months, 4 Month s, Reason: Procedure Notes * Category Sub-Category Detail [...] as necessary. Patient chooses, no pharmaceutical tx (70147) Keratoma Treatment Parring or Cutting o f Benign Hyperkeratotic Lesion(s) 86635 ( 2-4 Lesions ) - The Benign hyperkeratotic lesions, as described above were pared, and/or cut utilizing a sterile 15 blade, tissue nippers, and/or dremel Progress Notes * SARABurt Nelsonine LDOB:[birth year] (88 yo F)Acc No.[id number]:03/22/2024 Progress Note Patient:?Dona York Provider:?Teo Jaeger DPM :1935???Age:88 Y???Sex:Female D ate:03/22/2024 Address:[address] [place], [place] [id number] Pcp:Kishor Fisher MD Subjective: * Chief Complaints: * ??? Painful nail(s) aggrevat ed by shoes and causing difficulty standing/walking. * HPI: ???Painful Nails:?Pt States Last PCP Visit:?Date:?11/13/2023 ?Misc:?pt being tx for mesothioma.?Foot Pain:?Nature:?dull, aching, sharp.?Location:?Top, Bottom, Forefoot, RIGHT.?Duration:?several years.?Course:?intermittent.?Aggrevated:?standing, walking.?Treatments:?pt had recent angioplasty left leg with Dr. New.?Severity/Quality:?States pain 4 on a scale to max of 10.? * ROS:?General/Constitutional:?Nausea?denies.?Vomiting?denies.?Hunger Thirst?denies.?Loss appetite?denies.?Chills?denies.?Fatigue?denies.?Fever?denies.?Night Sweats?denies.?Unexplained weight loss?denies.?Unexplained weight gain?denies.?HEENTM:?Dentures?denies.?Dizziness?denies.?Glasses/contacts?admits.?Retinopathy?de nies.?Blurred/double vision?denies.?TMJ?denies.?Discharge/drainage?denies.?Implants?denies.?Sore throat?denies.?Dental implants?denies.?Hard of hearing ?denies.?Difficulty chewing/swallowing/speaking?denies.?Nose bleeds?denies.?Sore mouth?denies.?Respiratory:?On Oxygen?denies.?Pneumonia/pleurisy?denies.?Bronchitis?denies.?Emphysema?denies.?C oughing?denies.?Cough blood?denies.?Shortness of breath?admits.?Wheezing?denies.?Cardiovascular:?Pacemaker?denies.?MVP?denies.?WPW?denies.?CHF?denies.?Heart attack?denies.?Septal defect?denies.?Rapid beat?denies.?Chest pain ?denies.?Atrial Fib.?denies.?Murmur/Palpitations?denies.?Gastrointestinal:?Hemorrhoids?denies.?Stomach/Abdominal pain?denies.?Dark blood stool?denies.?Irritable bowel ?denies.?Constipation?denies.?Diarrhea?denies.?Hematology:?Swelling?denies.?Clots?denies.?Varicose Veins?denies.?Bruising?denies.?Bleeding problem?denies.?Genitourinary:?Blood urine?denies.?Frequent/Painfu/urination/bladder control?denies.?Kidney stones?denies.?Infection (UTI)?denies.?Nephropathy?denies.?sex trans dis (STD)?denies.?Prostate?denies.?Musculoskeletal:?Hammertoes?denies.?Bunions?admits.?Back Pain?denies.?Muscle Cramps/ Resting?denies.?Muscle cramps / walking?denies.?Generalized aches and pains?denies.?Weakness?denies.?Integ.:?Carlton?denies.?Scars?denies.?Corns/calluses?admits.?Ingrown nails?denies.?Painful nails?denies.?Open Sores?denies.?Rashes?denies.?Neurologic:?Difficulty sleeping?denies.?Brain disorder?denies.?Numbness?denies.?Balance trouble?denies.?Confusion?denies.?Fainting/blackouts?denies.?Tingling?denies.?Tr emors?denies.? * Medical History:? * Surgical History:?cystocele repair 1997/1999trigeminal neuralgia 1988carpal tunnel right 2004cataracts OU 2007cholecystectomy 2010radio frequency ablation at [facility] thyroid/goiter guided needle biopsy 2004Bun/Exc Sesa/Exc MT head right 07/13/2015Stent popliteal artery 03/2016hip replacement 01/2019lung surgery 09/14/20chest tube drain fluid in lungs 2020,12/2021 * Hospitalization/Major Diagno stic Procedure:?[facility] for Arteriogram 04/08/2016[facility]- Fluid removed from lung 07/2020[facility] - Lung Sx 3 days Fluid in lungs 09/14/20,09/02 * Family History:?Mother: dece ased, diagnosed with Family history of arthritis.?Father: .?Spouse: .?Children: kidney/liver disease, diagnosed with Family history of arthritis, Diabetic - NIDDM.?Maternal Grand Father: diagnosed with Other malignant neoplasm of unspecified site.?Siblings: diagnosed with Other malignant neoplasm of unspecified site.? * Social History:?Tobacco Use:?Tobacco Use/Smoking?Are you a:?former smoker ?Additional Findings: Tobacco Non-User?Current non-smoker ?Tobacco use other than smoking?Are you an other tobacco user??No ???Drugs/Alcohol:?Drugs?Have you used drugs other than those for medical reasons in the past 12 months??No ?Alcohol Screen?Did you have a drink containing alcohol in the past year??No ?Points?0 ?Interpretation?Negative ???Miscellaneous:?Caffeine: yes, frequency: sometimes. ?Children: yes, 5. ?no Exercise. ?Marital status: . ?Occupation: Retired-RN. * Medications:?TakingAllopurin ol amLODIPine Besylate 5 MG Tablet Orally Aspirin 81G Tablet Orally Once a dayAstelin Biotin Bisoprolol Fumarate Benadryl Cinnamon Cranberry CoQ-10 Citrucel Evening Glenhaven Oil Famotidine Fish Oil Flaxseed Oil Garlic Oil Glucosamine Chondroitin Joint hydrALAZINE HCl 50 MG Tablet as directed Orally Twice a day, Notes: 3 times a dayLoratadine Lutein Lasix ProAir HFA Selenium Trileptal 150 MG Tablet Orally Zetia 10 MG Tablet Orally Zinc Extra Depth Orthopedic Shoes (1 Pair) with Customized Heat Molded Multidensity Innersoles (3 Pair) as directed Dx: NIDDM/Polyneuropathy (E11.42), Hammertoe Foot Deformity (M20.41,M20.42), Preulcerative Skin Lesion(s) (L85.1Taking Allopurinol Taking amLODIPine Besylate 5 MG Tablet Orally Taking Aspirin 81G Tablet Orally Once a dayTaking Astelin Taking Biotin Taking Bisoprolol Fumarate Taking Benadryl Taking Cinnamon Taking Cranberry Taking CoQ-10 Taking Citrucel Taking Evening Glenhaven Oil Taking Famotidine Taking Fish Oil Taking Flaxseed Oil Taking Garlic Oil Taking Glucosamine Chondroitin Joint Taking hydrALAZINE HCl 50 MG Tablet as directed Orally Twice a day, Notes: 3 times a dayTaking Loratadine Taking Lutein Taking Lasix Taking ProAir HFA Taking Selenium Taking Trileptal 150 MG Tablet Orally Taking Zetia 10 MG Tablet Orally Taking Zinc Taking Extra Depth Orthopedic Shoes (1 Pair) with Customized Heat Molded Multidensity Innersoles (3 Pair) as directed Dx: NIDDM/Polyneuropathy (E11.42), Hammertoe Foot Deformity (M20.41,M20.42), Preulcerative Skin Lesion(s) (L85.1Not- Taking/PRNKeflex 500 500 MG Capsule 1 capsule Orally every 12 hrsColchicine 0.6 MG Tablet Orally , Notes: PRNmetroNIDAZOLE Niacin Losartan Potassium 50 MG Tablet 1 tablet Orally Once a dayPhysical Therapy . . . .post -op edema right foot form surgery 07/13/15 2-3x/weekAtenolol 50 MG Tablet 1 tablet Orally twice a dayDoxycycline (Rosacea) Clindamycin HCl Tylenol Medication List reviewed and reconciled with the patientNot-Taking/PRN Keflex 500 500 MG Capsule 1 capsule Orally every 12 hrsNot-Taking/PRN Colchicine 0.6 MG Tablet Orally , Notes: PRNNot-Taking/PRN metroNIDAZOLE Not-Taking/PRN Niacin Not-Taking/PRN Losartan Potassium 50 MG Tablet 1 tablet Orally Once a dayNot-Taking/PRN Physical Therapy . . . .post -op edema right foot form surgery 07/13/15 2-3x/weekNot-Taking/PRN Atenolol 50 MG Tablet 1 tablet Orally twice a dayNot-Taking/PRN Doxycycline (Rosacea) Not-Taking/PRN Clindamycin HCl Not-Taking/PRN Tylenol Medication List reviewed and reconciled with the patient * Allergies:?Shrimp (Diagnosti c): itchyShellfish-derived Products: itchyElavil: rashNSAIDs: kidney problemsyes[Allergies Verified] Objective: * Vitals:?Ht: 5 ft 4 in, Wt:15 5, BMI:26.60, Shoe size:9.5, BS:not taken. * Examination: ???Dermatologic: ?SKIN FINDINGS:?Skin exam reveals Keratotic lesion(s) located at , Medial plantar , IPJ , TA , SUB MTH (s) , 1 , Left.?General Examination: ?GENERAL APPEARANCE:?pleasant, alert, well nourished, well developed, well hydrated, with good attention to hygene/body habitus, and in no acute distress.?ORIENTED:?person,place, and time.?FOOT EXAM:?Neurological: ?SENSORY:? Neurological exam demonstrates, reduced light touch sensation, reduced vibration sensation, B/L, at Forefoot, 5.07 monofilament test performed at plantar aspects of 5 varied sites per foot shows sensation, reduced, , Neurological exam demonstrates mild pop right 4th mtpj plantar and dorsum mt.?Vascular: ?DP PULSES:? 0/4, B/L.?PT PULSES:? 0/4, B/L.?CAPILLARY FILL TIME:?3 secs. per digit. B/L .?SKIN TEMPERTURE GRADIENT OF THE LOWER EXTERMITIES:?normal, B/L .?HAIR GROWTH/TEXTURE/ELASTICITY/TURGOR:?normal, B/L .?PIGMENTATION:?normal, B/L .?EDEMA:? 1/4, B/L, Foot, Ankle(s), Leg(s).?TELANGECTASIA:?absent, B/L .?Orthopedic: ?MUSCLE STRENGTH:?5/5 all groups in a symmetrical fashion , B/L.?BUNION:?Medially prominent 1st MPJ, Dorsally prominent 1st MPJ , LEFT, Lateral tracking 1st MPJ incompletely reducable.?Nails: ?NAILS are:?Elongated, overgrown, dystrophic, lytic, greater than 3mm thick, discolored and friable with crumbly malodorous subungual debris, with dull to no pain on palpation due to neuropathy, 1-5 B/L?.?Ophthalmology Referral: ?DIABETES EYE EXAM? Assessment: * Assessment: 1.?Tinea unguium - B35.1 (Pr imary)?2.?Pain in left foot - M79.672?3.?Pain in right foot - M79.671?4.?Type 2 diabetes mellitus with diabetic polyneuropathy - E11.42?5.?Pain in right toe(s) - M79.674?6.?Pain in left toe(s) - M79.675?7.?Metatarsalgia, right foot - M77.41? Plan: * Treatment: * Procedures:?Debride Nail 6-10:?Nail debridement?Nail debridement performed extensively to reduce/remove overall nail length and girth, subungual debris, and necrotic tissue, by manual and electrical means with use of a nail nipper and/or dremel, to more viable healthy nail plate or bed tissue 6-10. Silver nitrate used for any petechial bleeding as necessary. Patient chooses, no pharmaceutical tx (88664).?Keratoma Treatment:?Parring or Cutting of Benign Hyperkeratotic Lesion(s)?31046 ( 2-4 Lesions ) - The Benign hyperkeratotic lesions, as described above were pared, and/or cut utilizing a sterile 15 blade, tissue nippers, and/or dremel.? * Procedure Codes:?73058 DEBRI DE NAIL, 6 OR MORE, Modifiers: XS 05552 TRIM SKIN LESIONS, 2 TO 4, Modifiers: XS * Preventive Medicine:? ??Counseling:?Discussion:?-13: Office or other outpatient visit for the evaluation and management of an established patient, which required a medically appropriate history and/or examination and LOW level of DECISION MAKING for: 1 STABLE ACUTE UNCOMPLICATED PROBLEM, 2 OR MORE MINOR PROBLEMS, OR 1 STABLE CHRONIC PROBLEM, THAT POSE(S) A LOW RISK FOR MORBIDITY/MORTALITY. The visit on the day of the encounter encompassed interpreting the data and educating the patient as to the nature of their condition, treatment options available according to their individual PMH, meds, allergies, and overall health/living conditions, as well as any potential risks or complications that may occur from a failure to adhere to, and participate in, the recommended course of therapy. The discussion included a complete verbal, and/or written explanation of the examination results, any x-rays taken, the proposed diagnosis, and outline of the treatment plan. A schedule for future care needs was also explained. The patient verbalized an understanding of the instructions at this time and agreed to be an active participant in their treatment. If the patient should think of any questions or concerns after the visit, I have encouraged the patient to call the office--pt to conitnue with protected activity level and use of dm shoes and insoles, walker, wheelchair.? * Follow Up:?3 Months, 4 Month s * Images: * Sign off status: Completed true * Provider:?Teo Jaeger DPM Date:? 024 Generated for Marcin hancock/Chanelle/Cashitting on:?09/23/2024 10:57 AM EST History and Physical Notes * HPI (History of Present Illness) Category Sub-Category Detail Notes Category Not es Painful Nails Misc: pt being tx for mesothioma Pt States Last PCP Visit: Date:: 11/13/2023 Foot Pain Nature: dull, aching, sharp Location: Top, Bottom, Forefoo t, RIGHT Duration: several years Course: intermittent Aggravated: standing, walking Treatments: pt had recent angiop lasty left leg with Dr. New Severity/Quality: States pain 4 on a s sundar to max of 10 Examination Category Sub-Category Detail Notes Category Not es Neurological SENSORY: Neurological exa m demonstrates, reduced light touch sensation, reduced vibration sensation, B/L, at Forefoot, 5.07 monofilament test performed at plantar aspects of 5 varied sites per foot shows sensation, reduced, , Neurological exam demonstrates mild pop right 4th mtpj plantar and dorsum mt Dermatologic SKIN FINDINGS: Skin exam reveal s [...] Visual exam of foot performed:: Yes Date: 03/22/2024 Sensory testing performed:: sensations d iminished Pedal pulse taking performed:: absent ORIENTED: person,place, and ti me Ophthalmology Referral DIABETES EYE EXAM Diabeti c Retinopathy Screening:: Yes 08/2022 Findings of Diabetic Eye Exam:: no retin opathy Vascular DP PULSES(B): 0/4, B/L PT PULSES(B): 0/4, B/L CAPILLARY FILL TIME: 3 secs. per digit. B/L TEMPERTURE GRADIENT(C): normal, B/L TROPHIC CONDITION-TEXTURE/EL ASTICITY/TURGOR/HAIR GROWTH(B): normal, B/L EDEMA(C): 1/4, B/L, Foot, Ankl e(s), Leg(s) TELANGECTASIA: absent, B/L PIGMENTATION: normal, B/L Nails NAILS are: Elongated, overg rown, dystrophic, lytic, greater than 3mm thick, discolored and friable with crumbly malodorous subungual debris, with dull to no pain on palpation due to neuropathy, 1-5 B/L
--- OUTSIDE RECORDS SUMMARY | 2024-09-23 10:57 | XMS_ITS ---
Author Organization [facility] Address [address] [place] [address] Care Team Providers Care Knowledge Management Advisor Name Role Phone Kishor Fisher MD Primary Care Provider Teo Vann [phone] REASON FOR VISIT NS 03/10/24 Encounters Encounter Location Date Provider Diagnosis [facility] [address] [place] [address] 03/10/2024 Teo Jaeger Plan Of Treatment No Information Progress Notes * Dona RUIZ LDOB:[birth year] (88 yo F)Acc No.[id number]:03/10/2024 Patient:?Dona Ruiz :1935???Age:88 Y???Sex:Female Address:[address] [place] [id number] * true * Date:? Generated for Printi ng/Fagregoriog/eTransmitting on:?09/23/2024 10:57 AM EST
--- OUTSIDE RECORDS SUMMARY | 2024-09-23 10:57 | XMS_ITS ---
Author Organization [facility] jamia WrenRoly Address [address] [place] [address] Care Team Providers Care Manager Laboratory Name Role Phone Kishor Fisher MD Primary Care Provider Teo Vann Unavailable [phone] Allergies Allergen (clinical drug ingredient) Drug/Non Drug [...] Duration) Notes Start Date End Date Status Doxycycline (Rosacea) Not-Taking Atenolol 50 MG 1 tablet Orally twic e a day Not-Taking Tylenol Not-Taking Clindamycin HCl Not- Taking Physical Therapy . . .post -op edema right foot form surgery 07/13/15 2-3x/week for 3-4 weeks 08/10/2015 Not-Taking Losartan Potassium 50 MG 1 tablet Orally Once a day Not-Taking Niacin Not-Taking Keflex 500 500 MG 1 capsule Orally every 12 hrs for 10 day(s) 09/11/2022 Not-Taking metroNIDAZOLE Not-Ta ezra Colchicine 0.6 MG Orally PRN No t-Taking Selenium Active ProAir HFA Active Zetia 10 MG Orally Active Trileptal 150 MG Orally Act lyndsey Zinc Active Lasix Active Lutein Active Loratadine Active hydrALAZINE HCl 50 MG as directed Orally Twice a day 3 times a day Not-Taking Glucosamine Chondroitin Joint Active Evening [place] Oil Active Fish Oil Active Famotidine Active Garlic Oil Active Flaxseed Oil Active Citrucel Active Cranberry Active Cinnamon Active CoQ-10 Active Benadryl Active Aspirin 81G Orally Once a day Active amLODIPine Besylate 10 MG as directed Orally Once a day Active Biotin Active Astelin Active Bisoprolol Fumarate Active Allopurinol Active Extra Depth Orthopedic Shoes (1 Pair) with Customized Heat Molded Multidensity Innersoles (3 Pair) as directed Dx: NIDDM/Polyneuropathy (E11.42), Hammertoe Foot Deformity (M20.41,M20.42), Preulcerative Skin Lesion(s) (L85.1 Active Social History Tobacco Use: Social History [...] user? No Vital Signs Height 5 ft 3 in in 07/14/2024 Weight 154 lbs 07/14/2024 BMI 27.28 kg/m2 07/14/2024 Blood pressure systolic 126 mm Hg 07/14/20 24 Blood pressure diastolic 70 mm Hg 024 Encounters Encounter Location Date Provider Diagnosis [facility] [address] [address] 07/14/2024 Teo Jaeger Tinea unguium B35.1 ; Pain in left foot M79.672 ; Pain in right foot M79.671 ; Type 2 diabetes mellitus with diabetic polyneuropathy E11.42 ; Pain in right toe(s) M79.674 ; Pain in left toe(s) M79.675 and Metatarsalgia, right foot M77.41 Assessments Encounter Date Diagnosis (ICD Code) Assessment Notes Treatment Notes Treatment Clinical Notes Section Notes 07/14/2024 Tinea unguium (ICD-10 - B35.1) 07/14/2024 Pain in left foot (ICD-10 - M79.672) 07/14/2024 Pain in right foot (ICD-10 - M79.671) 07/14/2024 Type 2 diabetes mellitus with diabetic polyneuropathy (ICD-10 - E11.42) 07/14/2024 Pain in right toe(s) (ICD-10 - M79.674) 07/14/2024 Pain in left toe(s) (ICD-10 - M79.675) 07/14/2024 Metatarsalgia, right foot (ICD-10 - M77.41) Plan [...] as necessary. Patient chooses, no pharmaceutical tx (31343) Keratoma Treatment Parring or Cutting o f Benign Hyperkeratotic Lesion(s) 88328 ( 2-4 Lesions ) - The Benign hyperkeratotic lesions, as described above were pared, and/or cut utilizing a sterile 15 blade, tissue nippers, and/or dremel Progress Notes * Dona RUIZ LDOB:[birth year] (89 yo F)Acc No.[id number]:07/14/2024 Progress Note Patient:?Dona Ruiz Diego Provider:?Teo Jaeger DPM :1935???Age:89 Y???Sex:Female D ate:07/14/2024 Address:[address] [place], [place] [address] Pcp:Kishor Fisher MD Subjective: * Chief Complaints: * ??? Painful nail(s) aggrevat ed by shoes and causing difficulty standing/walking. * HPI: ???Painful Nails:?Pt States Last PCP Visit:?Date:?04/12/2024 ?Misc:?pt being tx for mesothioma.?Foot Pain:?Nature:?dull, aching, sharp.?Location:?Top, Bottom, Forefoot, RIGHT.?Duration:?several years.?Course:?intermittent.?Aggravated:?standing, walking.? * ROS:?General/Constitutional:?Nausea?denies.?Vomiting?denies.?Hunger Thirst?denies.?Loss appetite?denies.?Chills?denies.?Fatigue?denies.?Fever?denies.?Night Sweats?denies.?Unexplained weight loss?denies.?Unexplained weight gain?denies.?HEENTM:?Dentures?denies.?Dizziness?denies.?Glasses/contacts?admits.?Retinopathy?de nies.?Blurred/double vision?denies.?TMJ?denies.?Discharge/drainage?denies.?Implants?denies.?Sore throat?denies.?Dental implants?denies.?Hard of hearing ?denies.?Difficulty chewing/swallowing/speaking?denies.?Nose bleeds?denies.?Sore mouth?denies.?Respiratory:?On Oxygen?denies.?Pneumonia/pleurisy?denies.?Bronchitis?denies.?Emphysema?denies.?C oughing?denies.?Cough blood?denies.?Shortness of breath?admits.?Wheezing?denies.?Cardiovascular:?Pacemaker?denies.?MVP?denies.?WPW?denies.?CHF?denies.?Heart attack?denies.?Septal defect?denies.?Rapid beat?denies.?Chest pain ?denies.?Atrial Fib.?denies.?Murmur/Palpitations?denies.?Gastrointestinal:?Hemorrhoids?denies.?Stomach/Abdominal pain?denies.?Dark blood stool?denies.?Irritable bowel ?denies.?Constipation?denies.?Diarrhea?denies.?Hematology:?Swelling?admits.?Clots?denies.?Varicose Veins?denies.?Bruising?denies.?Bleeding problem?denies.?Genitourinary:?Blood urine?denies.?Frequent/Painfu/urination/bladder control?denies.?Kidney stones?denies.?Infection (UTI)?denies.?Nephropathy?denies.?sex trans dis (STD)?denies.?Prostate?denies.?Musculoskeletal:?Hammertoes?denies.?Bunions?admits.?Back Pain?denies.?Muscle Cramps/ Resting?denies.?Muscle cramps / walking?denies.?Generalized aches and pains?denies.?Weakness?denies.?Integ.:?Carlton?denies.?Scars?denies.?Corns/calluses?admits.?Ingrown nails?denies.?Painful nails?denies.?Open Sores?denies.?Rashes?denies.?Neurologic:?Difficulty sleeping?denies.?Brain disorder?denies.?Numbness?denies.?Balance trouble?denies.?Confusion?denies.?Fainting/blackouts?denies.?Tingling?denies.?Tr emors?denies.? * Medical History:? * Surgical History:?cystocele repair 1997/1999trigeminal neuralgia 1988carpal tunnel right 2004cataracts OU 2007cholecystectomy 2010[facility] ablation at [facility] thyroid/goiter guided needle biopsy 2004Bun/Exc Sesa/Exc MT head right 10/1/2015Stent popliteal artery 03/2016hip replacement 01/2019lung surgery 09/14/20chest tube drain fluid in lungs 2020,12/2021foot surgery- infection -Dr Jericho Jaeger 12/05angioplasty 01/02 * Hospitalization/Major Diagno stic Procedure:?[facility] Fluid [facility] from [...] Exercise. ?Marital status: . ?Occupation: Retired-RN. * Medications:?TakingExtra Dep th Orthopedic Shoes (1 Pair) with Customized Heat Molded Multidensity Innersoles (3 Pair) as directed Dx: NIDDM/Polyneuropathy (E11.42), Hammertoe Foot Deformity (M20.41,M20.42), Preulcerative Skin Lesion(s) (L85.1Allopurinol amLODIPine Besylate 10 MG Tablet as directed Orally Once a dayAspirin 81G Tablet Orally Once a dayAstelin Biotin Bisoprolol Fumarate Benadryl Cinnamon Cranberry CoQ-10 Citrucel Evening [place] Oil Famotidine Fish Oil Flaxseed Oil Garlic Oil Glucosamine Chondroitin Joint Loratadine Lutein Lasix ProAir HFA Selenium Trileptal 150 MG Tablet Orally Zetia 10 MG Tablet Orally Zinc Taking Extra Depth Orthopedic Shoes (1 Pair) with Customized Heat Molded Multidensity Innersoles (3 Pair) as directed Dx: NIDDM/Polyneuropathy (E11.42), Hammertoe Foot Deformity (M20.41,M20.42), Preulcerative Skin Lesion(s) (L85.1Taking Allopurinol Taking amLODIPine Besylate 10 MG Tablet as directed Orally Once a dayTaking Aspirin 81G Tablet Orally Once a dayTaking Astelin Taking Biotin Taking Bisoprolol Fumarate Taking Benadryl Taking Cinnamon Taking Cranberry Taking CoQ-10 Taking Citrucel Taking Evening [place] Oil Taking Famotidine Taking Fish Oil Taking Flaxseed Oil Taking Garlic Oil Taking Glucosamine Chondroitin Joint Taking Loratadine Taking Lutein Taking Lasix Taking ProAir HFA Taking Selenium Taking Trileptal 150 MG Tablet Orally Taking Zetia 10 MG Tablet Orally Taking Zinc Not-Taking/PRNhydrALAZINE HCl 50 MG Tablet as directed Orally Twice a day, Notes: 3 times a dayKeflex 500 500 MG Capsule 1 capsule Orally every 12 hrsColchicine 0.6 MG Tablet Orally , Notes: PRNmetroNIDAZOLE Niacin Losartan Potassium 50 MG Tablet 1 tablet Orally Once a dayPhysical Therapy . . . .post -op edema right foot form surgery 07/13/15 2-3x/weekAtenolol 50 MG Tablet 1 tablet Orally twice a dayDoxycycline (Rosacea) Clindamycin HCl Tylenol Medication List reviewed and reconciled with the patientNot-Taking/PRN hydrALAZINE HCl 50 MG Tablet as directed Orally Twice a day, Notes: 3 times a dayNot-Taking/PRN Keflex 500 500 MG Capsule 1 capsule [...] problemsyes[Allergies Verified] Objective: * Vitals:?Ht: 5 ft 3 in, Wt: 1 54, BMI: 27.28, Shoe size: 9.5, BP: 126/70 mm Hg, BS: not taken, Ht-cm: 160.02 cm, Wt-k.85 kg. * ???Past Orders: ???Lab:HEMOGLOBIN A1C (GLYCO HEMOGLOBIN) (Order Date - 04/12/2024) (Collection Date - 04/12/2024) ? Value Reference Range ?TOTAL HEMOGLOBIN (HGBA1C) 5.3 * Examination: ???Dermatologic: ?SKIN FINDINGS:?Skin exam reveals [...] 4th mtpj plantar and dorsum mt.?Vascular: ?DP PULSES(B):? 0/4, B/L.?PT PULSES(B):? 0/4, B/L.?CAPILLARY FILL TIME:?3 secs. per digit. B/L .?TROPHIC CONDITION-TEXTURE/ELASTICITY/TURGOR/HAIR GROWTH(B):?normal, B/L .?TEMPERTURE GRADIENT(C):?normal, B/L .?PIGMENTATION:?normal, B/L .?EDEMA(C):? 1/4, B/L, Foot, Ankle(s), Leg(s).?TELANGECTASIA:?absent, B/L .?Orthopedic: [...] as necessary. Patient chooses, no pharmaceutical tx (49893).?Keratoma Treatment:?Parring or Cutting of Benign Hyperkeratotic Lesion(s)?64360 ( 2-4 Lesions ) - The Benign hyperkeratotic lesions, as described above were pared, and/or cut utilizing a sterile 15 blade, tissue nippers, and/or dremel.? * Procedure Codes:?45664 DEBRI DE NAIL, 6 OR MORE, Modifiers: XS 11968 TRIM SKIN LESIONS, 2 TO 4, Modifiers: XS * Follow Up:?3 Months, 4 Month s * Images: * Sign off status: Completed true * Provider:?Teo Jaeger DPM Date:? 024 Generated for Marcin hancock/Chanelle/eTransmitting on:?09/23/2024 10:57 AM EST History and Physical Notes * HPI (History of Present Illness) Category Sub-Category Detail Notes Category Not es Painful Nails Misc: pt being tx for mesothioma Pt States Last PCP Visit: Date:: 04/12/2024 Foot Pain Nature: dull, aching, sharp Location: Top, Bottom, Forefoo t, RIGHT Duration: several years Course: intermittent Aggravated: standing, walking Examination Category Sub-Category Detail Notes Category Not [...] ti me Ophthalmology Referral DIABETES EYE EXAM Diabetic Reti nopathy Screening:: Yes 2023 Findings of Diabetic Eye Exam:: no retin [...]
--- OUTSIDE RECORDS SUMMARY | 2024-09-23 10:58 | XMS_ITS | Patient Health Record ---
Author Organization [facility] jamia WrenLinden Address [address] [place] [address] Care Team Providers Care Supervisor Sanding Name Role Phone Kishor Fisher MD Primary Care Provider Teo Vann Unavailable [phone] Allergies Allergen (clinical drug ingredient) Drug/Non Drug Allergy documented on EMR Reaction Allergy Type Onset Date Status Elavil rash Drug Allergy Active shrimp allergenic extract Shrimp (Diagnostic) itchy Drug Allergy Active Non-steroidal anti-inflammatory agent (FN) NSAIDs kidney problems Drug Allergy Active Shellfish (FN) Shellfish-derived Products itchy Drug Allergy Active Results Component Value Reference Range Notes HEMOGLOBIN A1C (GLYCOHEMOGLO BIN) Reviewed date:07/14/2024 01:25:14 PM Interpretation: Performing Lab: Notes/Report: TOTAL HEMOGLOBIN (HGBA1C) 5.3 Reason For Referral No Information Medications Medication SIG (Take, Route, Frequency, Duration) Notes Start Date End Date Status Allopurinol Active Selenium Active ProAir HFA Active Aspirin 81G Orally Once a day Active Zetia 10 MG Orally Active amLODIPine Besylate 10 MG as directed Orally Once a day Active Trileptal 150 MG Orally Act lyndsey Lasix Active Cranberry Active Cinnamon Active Niacin Not-Taking CoQ-10 Active Biotin Active Keflex 500 500 MG 1 capsule Orally every 12 hrs for 10 day(s) 09/11/2022 Not-Taking Astelin Active Zinc Active Benadryl Active metroNIDAZOLE Not-Ta ezra Bisoprolol Fumarate Active Colchicine 0.6 MG Orally PRN No t-Taking Evening [place] Oil Active Doxycycline (Rosacea) Not-Taking Extra Depth Orthopedic Shoes (1 Pair) with Customized Heat Molded Multidensity Innersoles (3 Pair) as directed Dx: NIDDM/Polyneuropathy (E11.42), Hammertoe Foot Deformity (M20.41,M20.42), Preulcerative Skin Lesion(s) (L85.1 Active Citrucel Active Atenolol 50 MG 1 tablet Orally twic e a day Not-Taking Fish Oil Active Tylenol Not-Taking Famotidine Active Clindamycin HCl Not- Taking Physical Therapy . . .post -op edema right foot form surgery 07/13/15 2-3x/week for 3-4 weeks 08/10/2015 Not-Taking Losartan Potassium 50 MG 1 tablet Orally Once a day Not-Taking Lutein Active Loratadine Active Garlic Oil Active Flaxseed Oil Active hydrALAZINE HCl 50 MG as directed Orally Twice a day 3 times a day Not-Taking Glucosamine Chondroitin Joint Active Immunizations Vaccine Route Administration Date Status Comme nts COVID-19 Moderna Vaccine Unknown 07/20/2022 Administere d 1st 12/08/20 4th 01/19/2022 2nd 12/11/20 3rd 08/09/21 Influenza Unknown 07/02/2016 Administered Influenza Unknown 07/03/2016 Administered Influenza Unknown 08/17/2018 Administered Influenza Unknown 05/27/2022 Administered Pneumococcal Unknown 07/27/2020 Administered Social History Tobacco Use: Social History Observation [...] Are you an other tobacco user? No Problems Problem Type SNOMED Code ICD Code Onset Dates Problem Status W/U Status Risk Notes Problem Non-pressure chronic ulcer of other part of right foot with fat layer exposed (L97.512) Active confirmed Problem Type 2 diabetes mellitus with other skin complications (E11.628) Active confirmed Problem Localized, primary osteoarthritis of the ankle and/or foot (262447204) Primary osteoarthritis, right ankle and foot (M19.071) Active confirmed Problem Localized, primary osteoarthritis of the ankle and/or foot (285157598) Primary osteoarthritis, left ankle and foot (M19.072) Active confirmed Problem Acquired hallux valgus (93278784) Hallux valgus (acquired), right foot (M20.11) Active confirmed Problem Polyneuropathy due to type 2 diabetes mellitus (613200793) Type 2 diabetes mellitus with diabetic polyneuropathy (E11.42) Active confirmed Problem Primary gout (27817313) Idiopathic gout, right ankle and foot (M10.071) Active confirmed Vital Signs Blood pressure diastolic 70 mm Hg 07/14/2024 Height 5 ft 3 in in 07/14/2024 Blood pressure systolic 126 mm Hg 07/14/2024 Weight 154 lbs 07/14/2024 BMI 27.28 kg/m2 07/14/2024 Encounters Encounter Location Date Provider Diagnosis [address] [address] 12/11/2023 Teo Jaeger Tinea unguium B35.1 ; Pain in left foot M79.672 ; Pain in right foot M79.671 ; Type 2 diabetes mellitus with diabetic polyneuropathy E11.42 ; Pain in right toe(s) M79.674 ; Pain in left toe(s) M79.675 and Metatarsalgia, right foot M77.[address] [address] 03/22/2024 Teo Jaeger Tinea unguium B35.1 ; Pain in left foot M79.672 ; Pain in right foot M79.671 ; Type 2 diabetes mellitus with diabetic polyneuropathy E11.42 ; Pain in right toe(s) M79.674 ; Pain in left toe(s) M79.675 and Metatarsalgia, right foot M77.[address] [address] 07/14/2024 Teo Jaeger Tinea unguium B35.1 ; Pain in left foot M79.672 ; Pain in right foot M79.671 ; Type 2 diabetes mellitus with diabetic polyneuropathy E11.42 ; Pain in right toe(s) M79.674 ; Pain in left toe(s) M79.675 and Metatarsalgia, right foot M77.[address] [address] 03/10/2024 Teo Jaeger Assessments Encounter Date Diagnosis (ICD Code) Assessment Notes Treatment Notes Treatment Clinical Notes Section Notes 12/11/2023 Tinea unguium (ICD-10 - B35.1) 03/22/2024 Tinea unguium (ICD-10 - B35.1) 03/22/2024 Pain in left foot (ICD-10 - M79.672) 07/14/2024 Tinea unguium (ICD-10 - B35.1) 07/14/2024 Pain in left foot (ICD-10 - M79.672) 07/14/2024 Pain in right foot (ICD-10 - M79.671) 03/22/2024 Pain in right foot (ICD-10 - M79.671) 12/11/2023 Pain in left foot (ICD-10 - M79.672) 12/11/2023 Pain in right foot (ICD-10 - M79.671) 03/22/2024 Type 2 diabetes mellitus with diabetic polyneuropathy (ICD-10 - E11.42) 07/14/2024 Type 2 diabetes mellitus with diabetic polyneuropathy (ICD-10 - E11.42) 07/14/2024 Pain in right toe(s) (ICD-10 - M79.674) 03/22/2024 Pain in right toe(s) (ICD-10 - M79.674) 12/11/2023 Type 2 diabetes mellitus with diabetic polyneuropathy (ICD-10 - E11.42) 12/11/2023 Pain in right toe(s) (ICD-10 - M79.674) 03/22/2024 Pain in left toe(s) (ICD-10 - M79.675) 07/14/2024 Pain in left toe(s) (ICD-10 - M79.675) 07/14/2024 Metatarsalgia, right foot (ICD-10 - M77.41) 03/22/2024 Metatarsalgia, right foot (ICD-10 - M77.41) 12/11/2023 Pain in left toe(s) (ICD-10 - M79.675) 12/11/2023 Metatarsalgia, right foot (ICD-10 - M77.41) Plan Of Treatment Pending Test Test Name Order Date X ray : Foot, left 2V 06/05/2015 X ray : Foot, right 2V 07/17/2015 X ray : Foot, right 2V 07/26/2015 X ray : Foot, right 2V 08/10/2015 X ray : Foot, right 2V 09/13/2015 X ray : Foot, right 2V 12/13/2015 X ray : Foot, right 2V 06/05/2015 *Uric Acid, Serum 02/21/2016 *Uric Acid, Serum 08/18/2015 *CBC With Differential/Platelet 08/18/20 15 *CBC With Differential/Platelet 02/21/20 16 *Sedimentation Rate-Westergren 6 *Sedimentation Rate-Westergren 5 X ray : Foot, left 3V 02/21/2016 X ray : Foot, left 3V 05/13/2016 X ray : Foot, right 3V 08/24/2015 X ray : Foot, right 3V 08/18/2015 X ray : Foot, right 3V 10/21/2022 X ray : Foot, right 3V 06/05/2023 70249-PFFTVQZ NAIL, 6 OR MORE 02/05/2018 03988-OAZYBBA NAIL, 6 OR MORE 05/14/2018 48891-QNPDAPJ NAIL, 6 OR MORE 05/15/2017 90370-WBANFBL NAIL, 6 OR MORE 07/28/2017 77909-USSOROP NAIL, 6 OR MORE 11/06/2017 22790-HJTSGYQ NAIL, 6 OR MORE 08/17/2018 64577-IQYIBGH NAIL, 6 OR MORE 01/26/2016 60985-PBDVLSF NAIL, 6 OR MORE 07/31/2016 04690-HNJHPOR NAIL, 6 OR MORE 10/17/2016 52395-AGQIVNF NAIL, 6 OR MORE 12/23/2016 49624-Nsrc Destruction, -07/31/2016 66579-Kzxj Destruction, -03/25/2016 22360-Hapf Destruction, -08/17/2018 89062-Krpr Destruction, -14 05/15/2017 55841- Debride <25 sq cm 08/26/2016 45997- Debride <25 sq cm 04/11/2016 81711- Debride <25 sq cm 05/29/2016 63104- Debride <25 sq cm 06/12/2016 49181- Debride <25 sq cm 06/21/2016 56333- Debride <25 sq cm 07/04/2016 39969- Debride <25 sq cm 07/31/2016 83466- Debride <25 sq cm 03/25/2016 23036- Debride <25 sq cm 02/12/2016 79913- Debride <25 sq cm 02/21/2016 65873-IRVPRDU SKIN/TISSUE 03/04/2016 55572-OMFIWAY SKIN/TISSUE 01/26/2016 52194-KCCSLTB SKIN/TISSUE 05/02/2016 95796-DPSKCUU SKIN/TISSUE 05/13/2016 16364-FGGVXEU SKIN/TISSUE 09/11/202252199, J0702- INJECT TENDON ORIGIN/INSER T 12/23/2016 59546-GJRQ SKIN LESIONS, OVER 4 11/11/19 19 79401-HNAL SKIN LESIONS, OVER 4 04/18/20 21 56600-XEEE SKIN LESIONS, OVER 4 09/24/20 21 45642-FOUL SKIN LESIONS, OVER 4 01/24/20 22 88776-XMNE SKIN LESIONS, OVER 4 08/17/20 18 20425-GIVH SKIN LESIONS, 2 TO 4 05/14/20 18 39478-SJOM SKIN LESIONS, 2 TO 4 12/14/19 21 52073-XMAC SKIN LESIONS, 2 TO 4 09/11/20 23 96598-HACB SKIN LESIONS, 2 TO 4 03/17/20 19 76421-JICQ SKIN LESIONS, 2 TO 4 06/24/20 19 02959-TXVW SKIN LESIONS, 2 TO 4 09/20/20 19 67760-YQMX SKIN LESIONS, 2 TO 4 12/20/19 20 29045-VLCJ SKIN LESIONS, 2 TO 4 08/14/20 20 88590-UTEU SKIN LESIONS, 2 TO 4 02/25/20 17 33091-QXTH SKIN LESIONS, 2 TO 4 05/15/20 17 98604-ZMSJ SKIN LESIONS, 2 TO 4 07/28/20 17 23735-UELU SKIN LESIONS, 2 TO 4 02/06/20 18 62418-XTPK SKIN LESIONS, 2 TO 4 11/06/19 18 74294-ICNG SKIN LESIONS, 2 TO 4 12/24/19 17 92086-CLQP SKIN LESIONS, 2 TO 4 10/17/19 17 32517-XYIH SKIN LESION 07/31/2016 72698-HRBCHERP OF HEMATOMA/FLUID 020 Insurance Providers Payer Name Payer Address Payer Phone Subscriber Number Group Number Insured Name Patient Relationship to Insured Coverage Start Date Coverage End Date Medicare National [facility] [employer] [address] [place] [address] [id number] Dona York Self - patient is the insured 0 [employer] [address] [place] [address] [id number] Dona York Self - patient is the insured Medical (General) History Medical History History ICD Code osteoarthritis asthma Back,Hip,and Knee pain Cholesterol type II diabetes Diverticulosis High blood pressure keloids Kidney disease Neuropathy Reflux chronic sinusitis Measles Mumps Chicken pox Mesothelioma Surgical History Surgery Date(Month/Year) cystocele repair 1997/1999 trigeminal neuralgia 1988 carpal tunnel right 2003 cataracts OU 2006 cholecystectomy 2009 radio frequency ablation at [facility] thyroid/goiter guided needle biopsy 2004 Bun/Exc Sesa/Exc MT head right 07/13/2015 Stent popliteal artery 03/2016 hip replacement 01/2019 lung surgery 09/14/20 chest tube drain fluid in lungs 2020,12/12 022 foot surgery- infection -Dr Jericho Jaeger 0 12/05 angioplasty 01/02 Hospitalization History Reason Date(Month/Year) [facility] - Lung Sx 3 days Fluid in lungs 09/14,09/02 [facility]- Fluid removed from lung 07/2020 [facility] 04/08/2016
[2024-09-23 13:20] LABS: MANUAL DIFF FLAG NO
[2024-09-23 13:26] LABS: Basophils Absolute Auto 0.1 X10*3/uL (0.0-0.2); Basophils Percent Auto 1.1 % (0-2); Eosinophils Absolute Auto 0.2 X10*3/uL (0.0-0.4); Eosinophils Percent Auto 2.4 % (0-4); Hemoglobin 12.8 g/dl (12.0-16.0); Imm Gran Abs Auto 0.04 X10*3/uL (0.00-0.03); Imm Gran Pct Auto 0.5 % (0.0-0.4); Lymphocytes Absolute Auto 1.2 X10*3/uL (1.2-4.9); Lymphocytes Percent Auto 13.8 % (20-40); Mean Corpuscular Hemoglobin 30.4 pg (27.0-33.0); Mean Platelet Volume 11.2 fL (9.4-12.3); Monocytes Absolute Auto 0.5 X10*3/uL (0.1-1.2); Monocytes Percent Auto 5.7 % (2-11); Neutrophils Absolute Auto 6.5 x10*3/uL (2.0-8.3); Neutrophils Percent Auto 76.5 % (45-73); Platelet Count 229 X10*3/uL (160-400); Red Blood Count 4.21 X10*6/uL (4.20-5.50); Red Cell Distribution Width 13.5 % (11.0-16.0); White Blood Count 8.5 X10*3/uL (4.8-10.8)
[2024-09-23 14:08] LABS: Alanine Aminotransferase 17 U/L (0-31); Alkaline Phosphatase 93 U/L (39-117); Anion Gap 13 (12-20); Aspartate Amino Transferase 27 U/L (5-31); Bilirubin Total 0.4 mg/dL (0.0-1.0); Blood Urea Nitrogen 55 mg/dL (9-16); Carbon Dioxide 25 mmol/L (22-29); Chloride 109 mmol/L (96-108); Estimated Glomerular Filt Rate 25; Glucose Random 95 mg/dL (60-115); Potassium 4.4 mmol/L (3.3-5.1); Sodium 143 mmol/L (135-145); Total Protein 7.1 g/dL (6.5-8.0)
== END 2024-09-23 10:54 | disposition home or self-care (01) ==
LOC: HO.HMGCLDS 10:53
PROVIDERS: PCP Internal Medicine; Referring Provider Internal Medicine Hypertension Specialist; Visit Provider Internal Medicine
DX: N18.9 Chronic kidney disease, unspecified (principal); K21.9 Gastro-esophageal reflux disease without esophagitis
CPT/HCPCS: 36415; 80053; 85025

== ENCOUNTER 2024-09-28 10:36 | Outpatient (AMB) | payer MEDICARE, SELFPAY ==
[2024-09-28 10:38] VITALS: BP 140/52; PULSE 70; O2SAT 97; BMI 26.2
--- NOTE | 2024-09-28 10:38 | HO.NEPHOV_ITS ---
Vital Signs 09/28/24 10:38 Height 5 ft 3 in Weight 148 lb BMI 26.2 BP 140/52 H Blood Pressure Location Lt brachial Position Sitting Pulse 70 Pulse Source Pulse Oximeter Pulse Oximetry (%) 97 Oxygen Delivery Method Room Air Intake Visit Reasons: CKD/ LVM Kinesiotherapist Required: No Accompanied by: Self / Same As Patient Allergies NSAIDS (Non-Steroidal Anti-Inflamma Allergy (Severe, Verified 09/28/24 10:40) Kidney damage Psudaphed Allergy (Severe, Verified 09/28/24 10:40) kidney damage thimerosal Allergy (Intermediate, Verified 09/28/24 10:40) Itching amitriptyline [From Elavil] Adverse Reaction (Severe, Verified 09/28/24 10:40) Rash influenza virus vaccine, specific [Influenza Virus Vacc,Specific] Adverse Reaction (Intermediate, Verified 09/28/24 10:40) LOCALIZED REACTION Medication List - Last Reconciled 09/28/24 by Vern Buckley MD acetaminophen (Tylenol Extra Strength) 500 mg PO QID PRN albuterol sulfate 90 mcg/actuation 90 mcg inhalation Q6H 30 days allopurinol 100 mg PO DAILY amlodipine 10 mg PO .q PM aspirin (Adult Aspirin Regimen) 81 mg PO DAILY azelastine 1 spray intranasal BID PRN bisacodyl 10 mg PO BEDTIME PRN bisoprolol fumarate 5 mg PO BID 90 days cinnamon bark (Cinnamon) 500 mg PO DAILY coenzyme Q10 (H2Q CoQ10) 200 mg PO DAILY cranberry 400 mg PO DAILY docusate sodium (Colace) 100 mg PO BID echinacea 380 mg PO DAILY evening primrose oil 500 mg PO DAILY ezetimibe (Zetia) 10 mg PO DAILY famotidine 20 mg PO DAILY flaxseed oil 1,000 mg PO DAILY garlic (garlic oil) 1,000 mg PO DAILY lactulose PO PRN loratadine (Allergy Relief (loratadine)) 10 mg PO DAILY lutein 20 mg PO DAILY meclizine 25 mg PO BID PRN methylcellulose (laxative) (Citrucel) 500 mg PO DAILY PRN multivitamin (Daily Multi-Vitamin tablet) 1 tab PO DAILY omega-3 fatty acids (Fish Oil Concentrate) 1,000 mg PO DAILY oxcarbazepine 150 mg PO BEDTIME polyethylene glycol 3350 (Miralax) 17 grams PO DAILY prucalopride (Motegrity) 2 mg PO DAILY selenium 200 mcg PO DAILY zinc sulfate (Orazinc) 110 mg PO DAILY HPI Comments Details: 88 yr old woman with a h/o HTN and dyslipidemia , Mesothelioma and CKD is here for follow up She is dealing with multiple issues at present. She has decided to get care locally with rather than go to [place]. Still has dyspnea;CXR unchanged 03/25/24 BP has been sub optimal ;She noticed this after changing hydralazine- ? different generic 06/01/24 Now on Norvasc 10 mg !PM; Still has vertigo after stopping Hydralazine ;Dyspnea on exertion- unchanged; No cough 09/28/24 Seen by cardiology No change in resp status Waiting for pulm rehab [facility] Medical History Chronic renal insufficiency Lung mass Chest pain Pleural effusion Chronic diarrhea Chest tube in place Osteopenia (~2013) Mesothelioma (pleural) Polymyalgia rheumatica Difficulty swallowing (atherosclerosis) History of cystocele Trigeminus neuralgia History of thyroid nodule Peripheral neuropathy Elevated cholesterol HTN (hypertension) Diabetes mellitus IBS (irritable bowel syndrome) GERD (gastroesophageal reflux disease) Sinusitis Dyspnea Surgical History History of colonoscopy (~06/2012) History of bunionectomy (~2014) Hx of chest tube placement (~09/2020) History of femoral angiogram (~2013) Hx of bilateral cataract extraction History of pubovaginal sling Hx of cholecystectomy History of total replacement of right hip (~01/2019) H/O carpal tunnel repair History of thoracentesis Family History Father Myocardial infarct Brother Skin cancer Heart problem Mother Congestive heart failure Kidney failure Skin cancer Maternal Grandfather Stomach cancer Paternal Uncle Stroke Daughter Uterine polyp Social History Household Members: Family and Children Housing: House Are you a primary home care physical therapist to a significant other at home: No Do you presently have visiting nurse or other home services: Yes Alcohol intake: current Alcohol intake frequency: holidays/special occasions only Comment: aware of trip hazard Patient Tobacco Use Status: Former Tobacco user Second Hand Smoke Exposure: No service: No Current occupational status: retired Physical Exam Vital Signs: Last Vital Signs Pulse 70 09/28/24 10:38 BP 140/52 H 09/28/24 10:38 Pulse Ox 97 09/28/24 10:38 Oxygen Delivery Method Room Air 09/28/24 10:38 BMI result Body Mass Index 26.2 Results Reviewed Nephrology Results: Hgb 12.8 g/dl (12.0-16.0) 09/23/24 WBC 8.5 X10*3/uL (4.8-10.8) 09/23/24 Plt Count 229 X10*3/uL (160-400) 09/23/24 Sodium 143 mmol/L (135-145) 09/23/24 Potassium 4.4 mmol/L (3.3-5.1) 09/23/24 Chloride 109 mmol/L (96-108) H 09/23/24 Carbon Dioxide 25 mmol/L (22-29) 09/23/24 BUN 55 mg/dL (9-16) H 09/23/24 Creatinine 1.89 mg/dL (0.5-1.4) H 09/23/24 Calcium 11.0 mg/dL (8.4-10.2) H 09/23/24 Assessment & Plan Assessment & Plan (1) CKD (chronic kidney disease) stage 3, GFR 30-59 ml/min: Code(s): N18.30 - Chronic kidney disease, stage 3 unspecified Category: Medical Plan: Chronic kidney disease in setting of longstanding hypertension. Mild bump in creatinine to 1.8 Goal is to slow the progression of renal disease Continue to avoid nephrotoxic agents including NSAIDs. (2) PAD (peripheral artery disease): Comment: 2019 left lower extremity endovascular intervention with DCB Code(s): I73.9 - Peripheral vascular disease, unspecified Category: Medical Plan: Management per Dr. Bond (3) Mesothelioma (pleural): Code(s): C45.0 - Mesothelioma of pleura Category: Medical Plan: Follow with Pulmonary. (4) Pleural effusion: Comment: (s/p decortication & PleurX 09/14/20, removed on 12/22/2020 - persistent small/mod right-sided loculated pleural effusion. Was Followed at [facility]- No longer wants to go there) Code(s): J90 - Pleural effusion, not elsewhere classified Category: Medical Plan: Management per Dr. Petersen (5) HTN (hypertension): Code(s): I10 - Essential (primary) hypertension Category: Medical Qualifiers: Hypertension type: primary hypertension Qualified Code(s): I10 - Essential (primary) hypertension Plan: BP better controlled Off Hydralazine On Norvasc 10 mg Q PM Encouraged her to stay low-sodium diet. . Orders: Orders Basic Metabolic Panel 4 Months I10 - Essential (primary) hypertension, N18.30 - Chronic kidney disease, stage 3 unspecified Complete Blood Count no Diff 4 Months I10 - Essential (primary) hypertension, N18.30 - Chronic kidney disease, stage 3 unspecified Coding Level of Care Code Est Pt Level 4 (58540) Diagnoses CKD (chronic kidney disease) stage 3, GFR 30-59 ml/min N18.30 PAD (peripheral artery disease) I73.9 Mesothelioma (pleural) C45.0 Pleural effusion J90 Primary hypertension I10 Hypertension type: primary hypertension
--- OUTSIDE RECORDS SUMMARY | 2024-09-28 10:46 | XMS_ITS ---
Author Organization [facility] jamia [facility]ren[facility] Address [address] [place] [address] Care Team Providers Care Devops Name Role Phone Kishor Fisher MD Primary Care Provider Teo Vann Unavailable [phone] Allergies Allergen (clinical drug ingredient) Drug/Non Drug [...] day 3 times a day Active Evening Paradis Oil Active Famotidine Active Fish Oil Active [...] 03/22/2024 Encounters Encounter Location Date Provider Diagnosis [facility] [address] [address] 03/22/2024 Teo Jaeger Tinea unguium B35.1 ; [...] as necessary. Patient chooses, no pharmaceutical tx (53016) Keratoma Treatment Parring or Cutting o f Benign Hyperkeratotic Lesion(s) 89946 ( 2-4 Lesions ) - The Benign hyperkeratotic lesions, as described above were pared, and/or cut utilizing a sterile 15 blade, tissue nippers, and/or dremel Progress Notes * SARABurt Nelsonine LDOB:[birth year] (88 yo F)Acc No.[id number]:03/22/2024 Progress Note Patient:?Dona York Provider:?Teo Jaeger DPM :1935???Age:88 Y???Sex:Female D ate:03/22/2024 Address:[address] [place], [place] [id number] Pcp:Kishor Fisher MD Subjective: * Chief Complaints: [...] in lungs 2020,12/2021 * Hospitalization/Major Diagno stic Procedure:?[facility] Fluid removed from [...] Fumarate Benadryl Cinnamon Cranberry CoQ-10 Citrucel Evening Paradis Oil Famotidine Fish Oil Flaxseed Oil Garlic [...] Cranberry Taking CoQ-10 Taking Citrucel Taking Evening Paradis Oil Taking Famotidine Taking Fish Oil Taking [...] as necessary. Patient chooses, no pharmaceutical tx (67679).?Keratoma Treatment:?Parring or Cutting of Benign Hyperkeratotic Lesion(s)?40908 ( 2-4 Lesions ) - The Benign hyperkeratotic lesions, as described above were pared, and/or cut utilizing a sterile 15 blade, tissue nippers, and/or dremel.? * Procedure Codes:?11528 DEBRI DE NAIL, 6 OR MORE, Modifiers: XS 01099 TRIM SKIN LESIONS, 2 TO 4, Modifiers: [...] DPM Date:? 024 Generated for Marcin hancock/Chanelle/Cashitting on:?09/28/2024 10:46 AM EST History and Physical Notes * [...]
--- OUTSIDE RECORDS SUMMARY | 2024-09-28 10:46 | XMS_ITS ---
Author Organization [facility] Address [address] [place] [address] Care Team Providers Care Car Repairer Apprentice Name Role Phone Kishor Fisher MD Primary Care Provider Teo Vann [phone] REASON FOR VISIT NS 03/10/24 Encounters Encounter Location Date Provider Diagnosis [facility] [address] [place] [address] 03/10/2024 Teo Jaeger Plan Of Treatment No Information Progress Notes * Dona RUIZ LDOB:[birth year] (88 yo F)Acc No.[id number]:03/10/2024 Patient:?Dona Ruiz :1935???Age:88 Y???Sex:Female Address:[address] [place] [address] * true * Date:? Generated for Printi ng/Fagregoriog/eTransmitting on:?09/28/2024 10:46 AM EST
--- OUTSIDE RECORDS SUMMARY | 2024-09-28 10:46 | XMS_ITS ---
Author Organization [facility] jamia WrenRoly Address [address] [place] [address] Care Team Providers Care Tow Boat Captain Name Role Phone Kishor Fisher MD Primary Care Provider Teo Vann Unavailable [phone] Allergies Allergen (clinical drug ingredient) Drug/Non Drug [...] day Not-Taking Glucosamine Chondroitin Joint Active Evening [place] Oil Active Fish Oil Active Famotidine Active [...] 024 Encounters Encounter Location Date Provider Diagnosis [facility] [address] [address] 07/14/2024 Teo Jaeger Tinea unguium B35.1 ; [...] as necessary. Patient chooses, no pharmaceutical tx (49621) Keratoma Treatment Parring or Cutting o f Benign Hyperkeratotic Lesion(s) 47679 ( 2-4 Lesions ) - The Benign hyperkeratotic lesions, as described above were pared, and/or cut utilizing a sterile 15 blade, tissue nippers, and/or dremel Progress Notes * Dona RUIZ LDOB:[birth year] (89 yo F)Acc No.[id number]:07/14/2024 Progress Note Patient:?Dona Ruiz Diego Provider:?eTo Jaeger DPM :1935???Age:89 Y???Sex:Female D ate:07/14/2024 Address:[address] [place], [place] [address] Pcp:Kishor Fisher MD Subjective: * Chief Complaints: [...] 2004cataracts OU 2007cholecystectomy 2010radio frequency ablation at [facility] thyroid/goiter guided needle biopsy 2004Bun/Exc Sesa/Exc MT head right 10/1/2015Stent popliteal artery 03/2016hip replacement 01/2019lung surgery 09/14/20chest tube drain fluid in lungs 2020,12/2021foot surgery- infection -Dr Jericho Jaeger 12/05angioplasty 01/02 * Hospitalization/Major Diagno stic Procedure:?[facility] for Arteriogram [facility]- Fluid removed [...] Fumarate Benadryl Cinnamon Cranberry CoQ-10 Citrucel Evening [place] Oil Famotidine Fish Oil Flaxseed Oil Garlic [...] Cranberry Taking CoQ-10 Taking Citrucel Taking Evening [place] Oil Taking Famotidine Taking Fish Oil Taking [...] as necessary. Patient chooses, no pharmaceutical tx (72728).?Keratoma Treatment:?Parring or Cutting of Benign Hyperkeratotic Lesion(s)?11360 ( 2-4 Lesions ) - The Benign hyperkeratotic lesions, as described above were pared, and/or cut utilizing a sterile 15 blade, tissue nippers, and/or dremel.? * Procedure Codes:?26408 DEBRI DE NAIL, 6 OR MORE, Modifiers: XS 68946 TRIM SKIN LESIONS, 2 TO 4, Modifiers: XS * Follow Up:?3 Months, 4 Month s * Images: * Sign off status: Completed true * Provider:?Teo Jaeger DPM Date:? 024 Generated for Marcin hancock/Chanelle/eTransmitting on:?09/28/2024 10:46 AM EST History and Physical [...]
--- OUTSIDE RECORDS SUMMARY | 2024-09-28 10:47 | XMS_ITS | Patient Health Record ---
Author Organization [facility] jamia WrenGarn[facility] Address [address] [place] [address] Care Team Providers Care Fish Hatchery Manager Name Role Phone Kishor Fisher MD Primary Care Provider Teo Vann Unavailable [phone] Allergies Allergen (clinical drug ingredient) Drug/Non Drug [...] 0.6 MG Orally PRN No t-Taking Evening Delta Oil Active Doxycycline (Rosacea) Not-Taking Extra Depth [...] primary osteoarthritis of the ankle and/or foot (239731240) Primary osteoarthritis, right ankle and foot (M19.071) Active confirmed Problem Localized, primary osteoarthritis of the ankle and/or foot (199186730) Primary osteoarthritis, left ankle and foot (M19.072) Active confirmed Problem Acquired hallux valgus (63342453) Hallux valgus (acquired), right foot (M20.11) Active confirmed Problem Polyneuropathy due to type 2 diabetes mellitus (929437782) Type 2 diabetes mellitus with diabetic polyneuropathy (E11.42) Active confirmed Problem Primary gout (74228105) Idiopathic gout, right ankle and foot (M10.071) Active confirmed Vital Signs Blood pressure diastolic 70 mm Hg 07/14/2024 Height 5 ft 3 in in 07/14/2024 Blood pressure systolic 126 mm Hg 07/14/2024 Weight 154 lbs 07/14/2024 BMI 27.28 kg/m2 07/14/2024 Encounters Encounter Location Date Provider Diagnosis [address] [address] 12/11/2023 Teo Jaeger Tinea unguium B35.1 ; Pain in left foot M79.672 ; Pain in right foot M79.671 ; Type 2 diabetes mellitus with diabetic polyneuropathy E11.42 ; Pain in right toe(s) M79.674 ; Pain in left toe(s) M79.675 and Metatarsalgia, right foot M77.[address] [address] 03/22/2024 Teo Jaeger Tinea unguium B35.1 ; Pain in left foot M79.672 ; Pain in right foot M79.671 ; Type 2 diabetes mellitus with diabetic polyneuropathy E11.42 ; Pain in right toe(s) M79.674 ; Pain in left toe(s) M79.675 and Metatarsalgia, right foot M77.[address] [address] 07/14/2024 Teo Jaeger Tinea unguium B35.1 ; Pain in left foot M79.672 ; Pain in right foot M79.671 ; Type 2 diabetes mellitus with diabetic polyneuropathy E11.42 ; Pain in right toe(s) M79.674 ; Pain in left toe(s) M79.675 and Metatarsalgia, right foot M77.[address] [address] 03/10/2024 Teo Jaeger Assessments Encounter Date Diagnosis [...] X ray : Foot, right 3V 06/05/2023 92168-BZOQMVH NAIL, 6 OR MORE 02/05/2018 61001-YCDGJCY NAIL, 6 OR MORE 05/14/2018 01166-XZQRIQB NAIL, 6 OR MORE 05/15/2017 00168-RDIUOCJ NAIL, 6 OR MORE 07/28/2017 17732-HRPAYOL NAIL, 6 OR MORE 11/06/2017 61990-WRKWYKJ NAIL, 6 OR MORE 08/17/2018 11852-RVZZRYQ NAIL, 6 OR MORE 01/26/2016 60528-AGBTOTO NAIL, 6 OR MORE 07/31/2016 72419-PEUKXBH NAIL, 6 OR MORE 10/17/2016 61955-DRMNSQT NAIL, 6 OR MORE 12/23/2016 02453-Pvao Destruction, -07/31/2016 85628-Kqjz Destruction, -03/25/2016 55158-Kilw Destruction, -08/17/2018 32625-Rgxt Destruction, -14 05/15/2017 25366- Debride <25 sq cm 08/26/2016 40910- Debride <25 sq cm 04/11/2016 15916- Debride <25 sq cm 05/29/2016 93068- Debride <25 sq cm 06/12/2016 77079- Debride <25 sq cm 06/21/2016 74546- Debride <25 sq cm 07/04/2016 33731- Debride <25 sq cm 07/31/2016 22668- Debride <25 sq cm 03/25/2016 15405- Debride <25 sq cm 02/12/2016 10651- Debride <25 sq cm 02/21/2016 83508-PLCCQKY SKIN/TISSUE 03/04/2016 61826-GXOZKAY SKIN/TISSUE 01/26/2016 59421-TRRCCVS SKIN/TISSUE 05/02/2016 36668-BDMQPYO SKIN/TISSUE 05/13/2016 57402-BDBAIUM SKIN/TISSUE 09/11/202238196, J0702- INJECT TENDON ORIGIN/INSER T 12/23/2016 88056-IYML SKIN LESIONS, OVER 4 11/11/19 19 68445-HWDC SKIN LESIONS, OVER 4 04/18/20 21 57484-JXSQ SKIN LESIONS, OVER 4 09/24/20 21 05915-BKVM SKIN LESIONS, OVER 4 01/24/20 22 46686-WXWD SKIN LESIONS, OVER 4 08/17/20 18 26517-RYAS SKIN LESIONS, 2 TO 4 05/14/20 18 27558-FJDV SKIN LESIONS, 2 TO 4 12/14/19 21 97606-YSAQ SKIN LESIONS, 2 TO 4 09/11/20 23 71221-UAIM SKIN LESIONS, 2 TO 4 03/17/20 19 48198-LZNN SKIN LESIONS, 2 TO 4 06/24/20 19 19552-RTBX SKIN LESIONS, 2 TO 4 09/20/20 19 96687-WBCX SKIN LESIONS, 2 TO 4 12/20/19 20 23873-CVQY SKIN LESIONS, 2 TO 4 08/14/20 20 71169-VHVI SKIN LESIONS, 2 TO 4 02/25/20 17 04269-NIUF SKIN LESIONS, 2 TO 4 05/15/20 17 35411-RSZA SKIN LESIONS, 2 TO 4 07/28/20 17 90245-FNFU SKIN LESIONS, 2 TO 4 02/06/20 18 69271-CCTU SKIN LESIONS, 2 TO 4 11/06/19 18 06966-FBVI SKIN LESIONS, 2 TO 4 12/24/19 17 15297-NLGZ SKIN LESIONS, 2 TO 4 10/17/19 17 70715-ZTIS SKIN LESION 07/31/2016 16275-LWLATMSK OF HEMATOMA/FLUID 020 Insurance Providers Payer Name Payer Address Payer Phone Subscriber Number Group Number Insured Name Patient Relationship to Insured Coverage Start Date Coverage End Date Medicare National [facility] [employer] [address] [place] [address] [id number] Dona York Self - patient is the insured 0 [employer] [address] [place] [address] [id number] Dona York Self - patient is the [...] 2006 cholecystectomy 2009 radio frequency ablation at [facility] thyroid/goiter guided needle biopsy 2004 Bun/Exc Sesa/Exc MT head right 07/13/2015 Stent popliteal artery 03/2016 hip replacement 01/2019 lung surgery 09/14/20 chest tube drain fluid in lungs 2020,12/12 022 foot surgery- infection -Dr Jericho Jaeger 0 12/05 angioplasty 01/02 Hospitalization History Reason Date(Month/Year) [facility] - Lung Sx 3 days Fluid in lungs 09/14,09/02 [facility]- Fluid removed from lung 07/2020 [facility] for Arteriogram 04/08/2016
== END 2024-09-28 10:55 | disposition home or self-care (01) ==
PROVIDERS: PCP Internal Medicine; Visit Provider Internal Medicine Hypertension Specialist
DX: I12.9 Hypertensive chronic kidney disease with stage 1 through stage 4 chronic kidney disease, or unspecified chronic kidney disease (principal); N18.30 Chronic kidney disease, stage 3 unspecified; I73.9 Peripheral vascular disease, unspecified; C45.0 Mesothelioma of pleura; J90 Pleural effusion, not elsewhere classified
CPT/HCPCS: 99214

== ENCOUNTER → 2024-09-28 10:36 | Outpatient (BNVA) | payer MEDICARE, SELFPAY | PROVIDERS: PCP Internal Medicine; Visit Provider Internal Medicine Hypertension Specialist | DX: I12.9 Hypertensive chronic kidney disease with stage 1 through stage 4 chronic kidney disease, or unspecified chronic kidney disease (principal); N18.30 Chronic kidney disease, stage 3 unspecified; C45.0 Mesothelioma of pleura; J90 Pleural effusion, not elsewhere classified; I73.9 Peripheral vascular disease, unspecified; E78.5 Hyperlipidemia, unspecified | CPT/HCPCS: 99212 ==

== ENCOUNTER 2025-01-21 14:42 | Outpatient (REF) | payer MEDICARE, OTHER, SELFPAY ==
--- OUTSIDE RECORDS SUMMARY | 2025-01-21 14:57 | XMS_ITS | Clinical Summary ---
Author Organization [facility] Address [address] [place] [address] Phone Care Team Providers Care Sketch Artist Name Role Phone Kishor Fisher MD Primary Care Provider [phone] Allergies Active Allergy Reactions Criticality Noted Date Comments Amitriptyline Rash Low 11/01/2020 Hydrochlorothiazide Other (see comments) 02/12/2016 Lansoprazole Rash Low 11/01/2020 Nsaids Other (see comments) 11/01/2020 Kidney damage Pseudoephedrine Other (see comments) 11/01/2020 Kidney damage Shellfish-Derived Products Other (see comments) 09/24/2021 Shrimp (Diagnostic) Other (see comments) 09/24/2021 Thimerosal (Thiomersal) Itching 11/01/2020 Medications Cranberry 475 MG capsule Take 1 capsule by mouth 1 (one) time each day Active Mountainside-3 Fatty Acids (Fish Oil Concentrate) 1000 MG capsule Take 1 capsule by mouth 2 (two) times a day Active Garlic Oil 1000 MG capsule Take 1 capsule by mouth 1 (one) time each day Active Glucosamine-Chondr oit-Vit C-Mn (GLUCOSAMINE 1500 COMPLEX PO) Take 1 capsule by mouth 2 (two) times a day Active Multiple Vitamin (Multivitamin) tablet Take 1 tablet by mouth 1 (one) time each day Active Evening [place] Oil 1000 MG capsule Take by mouth 1 (one) time each day Active Selenium 200 MCG capsule Take 1 capsule by mouth 1 (one) time each day Active Zinc 50 MG tablet Take 1 tablet by mouth 1 (one) time each day Active acetaminophen (TYLENOL) 500 MG tablet Take 1 tablet by mouth every night Active albuterol HFA (PROVENTIL HFA;VENTOLIN HFA) 108 (90 Base) MCG/ACT inhaler Acti ve aspirin (ST SHERRY) 81 MG EC tablet Take 1 tablet by mouth 1 (one) time each day Active bismuth subsalicylate (Pepto-Bismol) 262 MG/15ML suspension if needed Active cinnamon 500 MG capsule Take 500 mg by mouth 1 (one) time each day Active diphenhydrAMINE (BENADRYL) 25 MG capsule Take 1 capsule by mouth 1 (one) time each day Active ezetimibe (ZETIA) 10 MG tablet Take 1 tablet by mouth 1 (one) time each day 6 Active famotidine (PEPCID) 20 MG tablet Take 20 mg by mouth every night 0 Active Flaxseed, Linseed, (Flax Seed Oil) 1000 MG capsule Take 1 capsule by mouth 2 (two) times a day Active loperamide (IMODIUM A-D) 2 MG tablet Take 1 tablet by mouth if needed Active loratadine (CLARITIN) 10 MG tablet Take 1 tablet by mouth 1 (one) time each day 4 Active Lutein 6 MG capsule Take 1 capsule by mouth 1 (one) time each day Active Methylcellulose, Laxative, (Citrucel) 500 MG tablet Take 1 tablet by mouth in the morning and 1 tablet in the evening. Active niacin 250 MG tablet Take 1 tablet by mouth 1 (one) time each day Active azelastine (ASTELIN) 0.1 % nasal spray SPRAY 1 SPRAY INTO EACH NOSTRIL TWICE DAILY NEEDED 1 Active OXcarbazepine (TRILEPTAL) 300 MG tablet Take 300 mg by mouth 1 (one) time each day 1 Active hydrALAZINE 50 MG tabletIndications: Hypertensive chronic kidney disease, unspecified, with chronic kidney disease stage I through stage IV, or unspecified Take 1 tablet (50 mg total) by mouth in the morning and 1 tablet (50 mg total) in the evening and 1 tablet (50 mg total) before bedtime. 270 each 3 2 Active allopurinol (ZYLOPRIM) 100 MG tablet TAKE 1 TABLET(100 MG) BY MOUTH 1 TIME EACH DAY 30 tablet 3 3 Active gabapentin (NEURONTIN) 100 MG capsule Take 100 mg by mouth in the morning and 100 mg in the evening and 100 mg before bedtime. Active bisoprolol (ZEBETA) 5 MG tablet Take 1 tablet (5 mg total) by mouth in the morning and 1 tablet (5 mg total) in the evening. 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 Chronic kidney disease stage 3 12/15/2020 Chronic renal insufficiency 12/15/2020 Hypertension 12/15/2020 Hypertensive chronic kidney disease, unspecified, with chronic kidney disease stage I through stage IV, or unspecified 12/15/2020 Hypertensive heart and renal disease with (congestive) heart failure 12/15/2020 Resolved Problems Problem Noted Date Diagnosed Date Resolved Date Atherosclerosis 12/15/2020 07/05/2021 Gastroesophageal reflux disease 12/15/2020 07/05/2021 Hyperlipidemia 12/15/2020 07/05/2021 Irritable bowel syndrome 12/15/2020 Peripheral neuropathy 12/15/20202020 Polymyalgia rheumatica 12/15/202007/05 Thyroid nodule 12/15/2020 07/05/2021 Mesothelioma 12/15/2020 12/15/2020 H/O Spinal surgery 11/03/2020 Malignant mesothelioma of pleura 11/03/2020 07/05/2021 Immunizations Immunization Administration Dates Next Due Influenza (IM) Preservative Free 07/27/2021,110 02/2018,07/03/2016,07/02/2016 Moderna SARS-COV-2 08/13/2021 Pneumococcal Polysaccharide 12/10/2013 Pneumococcal, Unspecified 07/27/2020 Family History Medical History Relation Comments Heart disease Father Gout Mother Kidney disease Mother Heart disease Sibling 1 Cancer Sibling 2 brother skin can cer Relation Status Comments Father Mother Sibling 1 Sibling 2 Social History Tobacco Use Types Packs/Day Years Used Date Smoking Tobacco: Former Cigarettes Q uit: 10/13/1974 Smokeless Tobacco: Former Tobacco Cessation:Counseling Given: Not Answered Alcohol Use Standard Drinks/Week Comments Yes 0 (1 standard drink = 0.6 oz pure alcohol) Alcoholic Drinks/day: Occasional social drink Comments Unknown Sex and Gender Information Value Date Recorded Sex Assigned at Not on file Legal Sex Female 5:14 PM EST Gender Identity Not on file Sexual Orientation Not on file Last Filed Vital Signs Vital Sign Reading Time Taken Comments Blood Pressure 134/80 06/19/2023 4:35 PM EDT Pulse 66 06/19/2023 4:35 PM EDT Temperature - - Respiratory Rate - - Oxygen Saturation 98% 12/30/2022 2:33 PM EDT Inhaled Oxygen Concentration - - Weight 70.8 kg (156 lb) 06/19/2023 4:35 PM EDT Height 162.6 cm (5' 4 ) 10/18/2019 12:01 PM EST Body Mass Index 26.78 10/18/2019 12:01 PM EST Plan of Treatment Health Maintenance Due Date Last Done Comments Pneumococcal Vaccine: 50+ Years (2 of 2 - PCV) 07/27/2021 07/27/2020, 12/10/2013 Diabetes: Hemoglobin A1C 06/24/2022 04/11/2020 Diabetes: Ophthalmology Exam 06/24/2022 Diabetes: Pedal Pulse Checked 06/24/2022 Diabetes: Sensory Foot Exam 06/24/2022 Diabetes: Visual Foot Exam 06/24/2022 Influenza Vaccine (Season Ended) 2025 07/27/2021, 08/17/2018, 07/03/2016, Additional history exists Hepatitis B Vaccine Aged Out No longe r eligible based on patient's age to complete this topic Procedures Procedure Name Priority Date/Time Associated Diagnosis Comments HEMOGLOBIN A1C Routine 04/11/2020 9:37 AM EDT from Last 3 Months or Most Recently Relevant to Health Maintenance Results * Hemoglobin A1c (04/11/2020 9:37 AM EDT) Estimated Average Glucose 105 MG/DL MIMI Comment: eAG = Estimated average glucose which is %A1C expressed as average glucose, using the formula of the Q5J-Agudqle Average Glucose study (ADAG), Diabetes Care, Vol.31,#8, May. 2007 Hemoglobin A1C 5.3 % [facility]I Comment: ?Hemoglobin A1C Reference Range ? Adults: ??4.8 - 6.0 % ? Non diabetic: ??< 6.0 % ? Goal: ??< 7.0 % Additional Action Suggested: ??> 8.0 % Note: ??Hemoglobin A1c results are invalid for patients ? with abnormal amounts of HbF. ??Blood transfusions ? may impact the HbA1c concentration in the patient ? sample. 04/11/2020 9:37 AM EDT Kishor Fisher MD LAB BLOOD ORDERABLES Final Resu lt Performing Organization Address [facility]/State/ZIP Co de Phone Number M[facility]I from Last 3 Months or Most Recently Relevant to Health Maintenance Insurance [facility] Medicare [facility] Medicare Care Teams Sketch Artist Relationship Specialty Start Date End Date Kishor Fisher MD [address] [place], [place] PCP - General 10/23/20
--- OUTSIDE RECORDS SUMMARY | 2025-01-21 14:57 | XMS_ITS | Encounter Summary ---
Author Organization [facility] Address [address] [place] [address] Phone Care Team Providers Care Director Digital Communications Name Role Phone Kishor Fisher MD Primary Care Provider [phone] Encounter Details Date Type Department Care Team (Late st Contact Info) Description 12/31/2021 Telephone [facility] [address] [place] [address] Vern Buckley MD Social History Tobacco Use Types Packs/Day Years Used Date Smoking Tobacco: Former Cigarettes Q uit: 10/13/1974 Smokeless Tobacco: Former Alcohol Use Standard Drinks/Week Comments Yes 0 (1 standard drink = 0.6 oz pure alcohol) Alcoholic Drinks/day: Occasional social drink Comments Unknown Sex and Gender Information Value Date Recorded Sex Assigned at Not on file Legal Sex Female 5:14 PM EST Gender Identity Not on file Sexual Orientation Not on file documented as of this encounter Miscellaneous Notes * Telephone Encounter - Marleny Barone - 01/01/2022 8:37 AM EDT Requested refilled send to provider for signature * Telephone Encounter - Rosa Neves - 12/31/2021 1:55 PM EDT Pt called, she needs a refill for allopurinol. She would like a 90 day refill. Please send to [facility] in [place]. Thank you documented in this encounter Plan of Treatment Not on file documented as of this encounter Visit Diagnoses Not on filedocumented in this encounter Care Teams Director Digital Communications Relationship Specialty Start Date End Date Kishor Fisher MD [address] [place] PCP - General 10/23/20 documented as of this encounter
--- OUTSIDE RECORDS SUMMARY | 2025-01-21 14:57 | XMS_ITS | Patient Health Record ---
Author Organization [facility] [place] Address [address] [place] [address] Care Team Providers Care Lieutenant Ballistics Name Role Phone Kishor Fisher MD Primary Care Provider Teo Vann Unavailable [phone] Allergies Allergen (clinical drug ingredient) Drug/Non Drug [...] 0.6 MG Orally PRN No t-Taking Evening [place] Oil Active Doxycycline (Rosacea) Not-Taking Extra Depth [...] primary osteoarthritis of the ankle and/or foot (028122809) Primary osteoarthritis, right ankle and foot (M19.071) Active confirmed Problem Localized, primary osteoarthritis of the ankle and/or foot (248987373) Primary osteoarthritis, left ankle and foot (M19.072) Active confirmed Problem Acquired hallux valgus (91579453) Hallux valgus (acquired), right foot (M20.11) Active confirmed Problem Polyneuropathy due to type 2 diabetes mellitus (161666891) Type 2 diabetes mellitus with diabetic polyneuropathy (E11.42) Active confirmed Problem Primary gout (26391736) Idiopathic gout, right ankle and foot (M10.071) Active confirmed Vital Signs Blood pressure diastolic 70 mm Hg 07/14/2024 Height 5 ft 3 in in 07/14/2024 Blood pressure systolic 126 mm Hg 07/14/2024 Weight 154 lbs 07/14/2024 BMI 27.28 kg/m2 07/14/2024 Encounters Encounter [facility] Date [facility] [address] [facility]/22/[facility]24 Teo Jaeger Tinea unguium B35.1 ; Pain in left foot M79.672 ; Pain in right foot M79.671 ; Type 2 diabetes mellitus with diabetic polyneuropathy E11.42 ; Pain in right toe(s) M79.674 ; Pain in left toe(s) M79.675 and Metatarsalgia, right foot M77.41 [facility] [address] 07/14/2024 Teo Jaeger Tinea unguium B35.1 ; Pain in left foot M79.672 ; Pain in right foot M79.671 ; Type 2 diabetes mellitus with diabetic polyneuropathy E11.42 ; Pain in right toe(s) M79.674 ; Pain in left toe(s) M79.675 and Metatarsalgia, right foot M77.41 [facility] [address] 03/10/2024 Teo Jaeger Assessments Encounter Date Diagnosis [...] 06/05/2015 X ray : Foot, right 2V 07/26/2015 X ray : Foot, right 2V 09/13/2015 X ray : Foot, right 2V 06/05/2015 X ray : Foot, right 2V 12/13/2015 X ray : Foot, right 2V 08/10/2015 X ray : Foot, right 2V 07/17/2015 *Uric Acid, Serum 08/18/2015 *Uric Acid, Serum 02/21/2016 *CBC With Differential/Platelet 02/21/20 16 *CBC With Differential/Platelet 08/18/20 15 *Sedimentation Rate-Westergren 6 *Sedimentation Rate-Westergren 5 X ray : Foot, left 3V 02/21/2016 X ray : Foot, left 3V 05/13/2016 X ray : Foot, right 3V 08/18/2015 X ray : Foot, right 3V 08/24/2015 X ray : Foot, right 3V 10/21/2022 X ray : Foot, right 3V 06/05/2023 16513-ZWODOJQ NAIL, 6 OR MORE 11/06/2017 84052-UCZKBLL NAIL, 6 OR MORE 02/05/2018 88064-BTKQLXD NAIL, 6 OR MORE 05/14/2018 78421-OXGNXRG NAIL, 6 OR MORE 07/28/2017 17438-WXOUOJS NAIL, 6 OR MORE 08/17/2018 93748-XDVRACN NAIL, 6 OR MORE 01/26/2016 91634-RGJJKUE NAIL, 6 OR MORE 05/15/2017 47195-YCCQLBA NAIL, 6 OR MORE 12/23/2016 86249-ADISUHC NAIL, 6 OR MORE 07/31/2016 44874-UOWERIG NAIL, 6 OR MORE 10/17/2016 20860-Eztl Destruction, 1-07/31/2016 38460-Sptl Destruction, -03/25/2016 73412-Bdgz Destruction, 1-14 08/17/2018 14619-Fmff Destruction, 1-14 05/15/2017 54378- Debride <25 sq cm 04/11/2016 37420- Debride <25 sq cm 03/25/2016 70710- Debride <25 sq cm 02/12/2016 47613- Debride <25 sq cm 02/21/2016 19142- Debride <25 sq cm 05/29/2016 76695- Debride <25 sq cm 06/12/2016 59607- Debride <25 sq cm 06/21/2016 97124- Debride <25 sq cm 07/04/2016 38206- Debride <25 sq cm 07/31/2016 35981- Debride <25 sq cm 08/26/2016 03886-ZEBIHEQ SKIN/TISSUE 01/26/2016 41413-LAIFFAD SKIN/TISSUE 03/04/2016 71174-SONAPFL SKIN/TISSUE 05/02/2016 05136-PZQTJZA SKIN/TISSUE 05/13/2016 01958-ZDGKBZV SKIN/TISSUE 09/11/2022 42652, J0702- INJECT TENDON ORIGIN/INSER T 12/23/2016 51909-EKTR SKIN LESIONS, OVER 4 08/17/20 18 39805-CLYS SKIN LESIONS, OVER 4 04/18/20 21 04584-UIKR SKIN LESIONS, OVER 4 09/24/20 21 03043-ODTF SKIN LESIONS, OVER 4 01/24/20 22 63253-WGLT SKIN LESIONS, OVER 4 11/11/19 19 08751-ZDUT SKIN LESIONS, 2 TO 4 03/17/20 19 05469-XPOY SKIN LESIONS, 2 TO 4 06/24/20 19 19213-KQWN SKIN LESIONS, 2 TO 4 09/20/20 19 51205-KDMA SKIN LESIONS, 2 TO 4 12/20/19 20 74251-KZPD SKIN LESIONS, 2 TO 4 08/14/20 20 61476-WIKS SKIN LESIONS, 2 TO 4 07/28/20 17 28080-DJLQ SKIN LESIONS, 2 TO 4 11/06/19 18 66158-AOMM SKIN LESIONS, 2 TO 4 05/14/20 18 45201-VDEK SKIN LESIONS, 2 TO 4 02/06/20 18 74756-EQAR SKIN LESIONS, 2 TO 4 12/14/19 21 43123-JDAD SKIN LESIONS, 2 TO 4 09/11/20 23 52744-YILF SKIN LESIONS, 2 TO 4 02/25/20 17 15714-DCBQ SKIN LESIONS, 2 TO 4 05/15/20 17 97451-DJYU SKIN LESIONS, 2 TO 4 12/24/19 17 62955-EZXA SKIN LESIONS, 2 TO 4 10/17/19 17 10392-QRNZ SKIN LESION 07/31/2016 29342-PQRGFUZO OF HEMATOMA/FLUID 020 Insurance Providers Payer Name Payer Address Payer Phone Subscriber Number Group Number Insured Name Patient Relationship to Insured Coverage Start Date Coverage End Date Medicare National Govt Sv[employer] [address] [place] [address] [id number] Dona York Self - patient is the insured 0 [employer] Blue [employer] [address] [place] [address] [id number] Dona York Self - patient is the insured Medical (General) History Medical History History ICD Code osteoarthritis asthma Back,Hip,and Knee pain Cholesterol type II diabetes Diverticulosis High blood pressure keloids Kidney disease Neuropathy Reflux chronic sinusitis Measles Mumps Chicken pox Mesothelioma Surgical History Surgery Date(Month/Year) cystocele repair 1997/1999 trigeminal neuralgia 1988 carpal tunnel right 2004 cataracts OU 2007 cholecystectomy 2010 radio frequency ablation at [facility] thyroid/goiter guided needle biopsy 2003 Bun/Exc Sesa/Exc MT head right 07/13/2015 Stent popliteal artery 03/2016 hip replacement 01/2019 lung surgery 09/14/20 chest tube drain fluid in lungs 2020,12/12 022 foot surgery- infection -Dr Jericho Jaeger 0 12/05 angioplasty 01/02 Hospitalization History Reason Date(Month/Year) [facility] - Lung Sx 3 days Fluid in lungs 09/14,09/02 [place]- Fluid removed from lung 07/2020 [facility] for Arteriogram 04/08/2016
--- OUTSIDE RECORDS SUMMARY | 2025-01-21 14:57 | XMS_ITS ---
Author [facility] [place] Address [address] [facility] [place] [address] Care Team Providers Care Quality Systems Manager Name Role Phone Kishor Fisher MD Primary Care Provider Teo Vann Unavailable [phone] Allergies Allergen (clinical drug ingredient) Drug/Non Drug [...] day Not-Taking Glucosamine Chondroitin Joint Active Evening [place] Oil Active Fish Oil Active Famotidine Active [...] 024 Encounters Encounter Location Date Provider Diagnosis [facility] [address] [address] 07/14/2024 Teo Jaeger Tinea unguium B35.1 ; [...] as necessary. Patient chooses, no pharmaceutical tx (64293) Keratoma Treatment Parring or Cutting o f Benign Hyperkeratotic Lesion(s) 48579 ( 2-4 Lesions ) - The Benign hyperkeratotic lesions, as described above were pared, and/or cut utilizing a sterile 15 blade, tissue nippers, and/or dremel Progress Notes * Dona RUIZ LDOB:[birth year] (89 yo F)Acc No.[id number]:07/14/2024 Progress Note Patient:?Dona Ruiz Diego Provider:?Teo Jaeger DPM :1935???Age:89 Y???Sex:Female D ate:07/14/2024 Address:[address] [place], [place] [id number] Pcp:Kishor Fisher MD Subjective: * Chief Complaints: [...] 2004cataracts OU 2007cholecystectomy 2010radio frequency ablation at [facility] thyroid/goiter guided needle biopsy 2004Bun/Exc Sesa/Exc MT head right 10/1/2015Stent popliteal artery 03/2016hip replacement 01/2019lung surgery 09/14/20chest tube drain fluid in lungs 2020,12/2021foot surgery- infection -Dr Jericho Jaeger 12/05angioplasty 01/02 * Hospitalization/Major Diagno stic Procedure:?[facility] for Arteriogram 04/08/2016[facility]- Fluid removed from [...] Fumarate Benadryl Cinnamon Cranberry CoQ-10 Citrucel Evening [place] Oil Famotidine Fish Oil Flaxseed Oil Garlic [...] Cranberry Taking CoQ-10 Taking Citrucel Taking Evening [place] Oil Taking Famotidine Taking Fish Oil Taking [...] and in no acute distress.?ORIENTED:?person,place, and time.?FOOT EXAM:?Lower Extremity Neurological Exam performed:?Yes ?Visual exam of foot performed:?Yes ?Date?03/22/2024 ?Sensory testing performed:?sensations diminished ?Pedal pulse taking performed:?absent?Neurological: ?SENSORY:? Neurological exam demonstrates, reduced light touch [...] to neuropathy, 1-5 B/L?.?Ophthalmology Referral: ?DIABETES EYE EXAM?Diabetic Retinopathy Screening:?Yes 2023 ?Findings of Diabetic Eye Exam:?no retinopathy??? Assessment: * Assessment: 1.?Tinea unguium - B35.1 [...] as necessary. Patient chooses, no pharmaceutical tx (27511).?Keratoma Treatment:?Parring or Cutting of Benign Hyperkeratotic Lesion(s)?88455 ( 2-4 Lesions ) - The Benign hyperkeratotic lesions, as described above were pared, and/or cut utilizing a sterile 15 blade, tissue nippers, and/or dremel.? * Procedure Codes:?19462 DEBRI DE NAIL, 6 OR MORE, Modifiers: XS 59717 TRIM SKIN LESIONS, 2 TO 4, Modifiers: XS * Follow Up:?3 Months, 4 Month s * Images: * Sign off status: Completed true * Provider:?Teo Jaeger DPM Date:? 024 Generated for Marcin hancock/Chanelle/Shiva on:?01/21/2025 02:57 PM EDT History and Physical Notes * [...]
--- OUTSIDE RECORDS SUMMARY | 2025-01-21 14:57 | XMS_ITS ---
Author Organization [facility] Address [address] [place] [address] Care Team Providers Care Test Desk Supervisor Name Role Phone Kishor Fisher MD Primary Care Provider Teo Vann [phone] REASON FOR VISIT NS 03/10/24 Encounters Encounter Location Date Provider Diagnosis [facility] [address] [place] [address] 03/10/2024 Teo Jaeger Plan Of Treatment No Information Progress Notes * Dona RUIZ LDOB:[birth year] (88 yo F)Acc No.[id number]:03/10/2024 Patient:?Dona Ruiz :1935???Age:88 Y???Sex:Female Address:[address] [place] [address] * true * Date:? Generated for Printi ng/Fagregoriog/eTransmitting on:?01/21/2025 02:57 PM EDT
--- OUTSIDE RECORDS SUMMARY | 2025-01-21 14:58 | XMS_ITS | Clinical Summary ---
Author Organization [address] [facility] Address [address] [place] [address] Phone Care Team Providers Care Appeals Court Associate Justice Name Role Phone Kishor Fisher MD Primary Care Provider [phone] Allergies Active Allergy Reactions Criticality Noted Date Comments Amitriptyline Hcl Rash 01/09/2022 Chlophedianol 01/09/2022 Pseudophed-Chlophediano l-Gg Kidney damage Influenza Virus Vaccines 01/09/2022 Localized reaction Lansoprazole Rash 01/09/2022 Nsaids (Non-Steroidal Anti-Inflammatory Drug) 01/09/2022 Kidney damage Thimerosal Itching 01/09/2022 Medications amLODIPine (NORVASC) 5 mg tablet Take 1 Tablet by mouth. 12/31/19 23 Active allopurinoL (ZYLOPRIM) 100 mg tablet Take 100 mg by mouth daily. Active echinacea 380 mg capsule Take 380 mg by mouth daily. Active OXcarbazepine (TRILEPTAL) 150 mg tablet Take 150 mg by mouth at bedtime. Active zinc sulfate 25 mg zinc (110 mg) tablet Take 110 mg by mouth daily. Active ACETAMINOPHEN ORAL Acetaminophen (TYLENOL EX ST ARTHRITIS PAIN OR) Patient sig: Take 500 mg by mouth 4 times daily as needed. Active aspirin ([place]) 81 mg capsule Take 81 mg by mouth daily. Active azelastine-fluti casone 137-50 mcg/spray spray,non-aeroso l 1 [place] by Nasal route 2 times daily. Active bisoprolol (ZEBETA) 5 mg tablet Take 5 mg by mouth 2 times daily. Active cinnamon bark extract 500 mg tablet Take 500 mg by mouth daily. Active cranberry fruit 400 mg tablet Take 400 mg by mouth daily. Active evening primrose oil 500 mg Take 500 mg by mouth 3 times daily. Active ezetimibe (ZETIA) 10 mg tablet Take 10 mg by mouth daily. Active hydrALAZINE (APRESOLINE) 25 mg tablet Take 25 mg by mouth 2 times daily. Active multivit-min/iro n/folic acid/K (ADULTS MULTIVITAMIN ORAL) Multiple Vitamins-Minerals (Multivitamin Adult) Chew Tab Patient sig: Take 1 Tablet by mouth daily. Active omega-3 acid ethyl esters (LOVAZA) 1 gram capsule Take 1,000 mg by mouth daily. Active coenzyme Q-10 200 mg capsule Take 200 mg by mouth daily. Active Active Problems Problem Noted Date Diagnosed Date PAD (peripheral artery disease) ([facility] V24) Mesothelioma (pleural) ([facility] V24, [facility] V28 ) 01/09/2022 Chronic renal insufficiency 01/09/2022 Diabetes mellitus ([facility] V24, [facility] V28) Atherosclerosis 01/09/2022 GERD (gastroesophageal reflux disease) Elevated cholesterol 01/09/2022 HTN (hypertension) 01/09/2022 IBS (irritable bowel syndrome) 01/09/2022 Malignant pleural effusion ([facility] V28) 022 Overview (07/28/2024): right Last Assessment & Plan: Ms. York is an 86 year old female with mesothelioma and a malignant right sided pleural effusion. Patient had a Pleurx catheter placed by IR at [facility] on 01/02/2022. ?? The patient's right-sided Pleurx catheter was drained for 650 cc as noted above. ?? Patient will have VNA services set up as an outpatient for weekly Pleurx drainages and dressing changes. Her next drainage should be scheduled for next Friday. ?? Patient educated to monitor for any worsening shortness of breath or chest discomfort that happens before her Pleurx is drained which may indicate the need for more frequent drainages. ?? Patient is educated to monitor her insertion sites for any signs or symptoms of infection such as increasing erythema, edema, wound dehiscence, or drainage. She educated monitor for any fevers, chills, worsening chest pain, or shortness of breath. ?? The patient will follow-up visit with Dr. Pham at the [facility] office as previously scheduled. Polymyalgia rheumatica ([facility] V24) 01/09/2022 Trigeminal neuralgia 01/09/2022 Osteopenia 01/09/2022 Peripheral neuropathy 01/09/2022 Encounters Date Type Department Care Team Description 12/22/2024 1:30 PM EDT Office Visit Orthopedic Surgery - [address] [address] Roberto Jaeger, DPM Metatarsalgia of both feet (Primary Dx); Dermatophytosis of nail; Pain in toe of right foot; Pain in toe of left foot; Diabetic mononeuropathy simplex ([facility] V24, [facility] V28) from Last 3 Months Surgical History Surgery Date Site/Laterality Comments CARPAL TUNNEL RELEASE PROCEDURE: HISTORICAL CARPAL TUNNEL REL CATARACT EXTRACTION PROCEDURE: HISTORICAL CATARACT REMOVAL CHOLECYSTECTOMY PROCEDURE: HISTORICAL CHOLECYSTECTOMY OTHER SURGICAL HISTORY 2014 PROCEDURE: HISTORY OTHER; COMMENT: history of bunionectomy OTHER SURGICAL HISTORY 2013 PROCEDURE: HISTORY OTHER; COMMENT: femoral angiogram OTHER SURGICAL HISTORY PROCEDURE: HISTORY OTHER; COMMENT: history of pubovaginal sling OTHER SURGICAL HISTORY Right PROCEDURE: HISTORY OTHER; COMMENT: Pleurx catheter placement by IR 01/02/2022 OTHER SURGICAL HISTORY 11/25/2022 PROCEDURE: [place] REVSC OPN/PRG FEM/POP W/ANGIOPLASTY UNI OTHER SURGICAL HISTORY 11/25/2022 PROCEDURE: ULTRASOUND GUIDANCE FOR VASCULAR AC OTHER SURGICAL HISTORY 01/11/2023 PROCEDURE: [place] REVSC OPN/PRG FEM/POP W/ANGIOPLASTY UNI OTHER SURGICAL HISTORY 01/11/2023 PROCEDURE: [place] INTRAVASCULAR US NONCORONARY RS&I INTIAL VESSEL OTHER SURGICAL HISTORY 01/11/2023 PROCEDURE: [place] INTRAVASCULAR US NONCORONARY RS&I ADDL VESSEL; COMMENT: x2 OTHER SURGICAL HISTORY 01/11/2023 PROCEDURE: ULTRASOUND GUIDANCE FOR VASCULAR AC OTHER SURGICAL HISTORY 02/24/2024 PROCEDURE: [place] SLCTV CATHJ 3RD+ ORD SLCTV ABDL PEL/LXTR BRNCH OTHER SURGICAL HISTORY 02/24/2024 PROCEDURE: X-RAY EXAM OF ARM/LEG ARTERY OTHER SURGICAL HISTORY 02/24/2024 PROCEDURE: ULTRASOUND GUIDANCE FOR VASCULAR AC Medical History Medical History Date Comments Mesothelioma (pleural) ([facility] V24, [facility] V28) DX:Mesothelioma (pleural) ([facility]) Chronic renal insufficiency DX:C hronic renal insufficiency Diabetes mellitus ([facility] V 24, [facility] V28) DX:Diabetes mellitus (HCC) Atherosclerosis DX:Atheroscleros is Dyspnea DX:Dyspnea Difficulty swallowing DX:Difficu lty swallowing Elevated cholesterol DX:Elevated cholesterol GERD (gastroesophageal reflux disease) DX:GERD (gastroesophageal reflux disease) History of cystocele DX:History of cystocele History of thyroid nodule DX:His tory of thyroid nodule HTN (hypertension) DX:HTN (hyper tension) IBS (irritable bowel syndrome) D X:IBS (irritable bowel syndrome) Osteopenia DX:Osteopenia Peripheral neuropathy DX:Periphe ral neuropathy Malignant pleural effusion ([facility] V28) DX:Malignant pleural effusion; COMMENT: right Polymyalgia rheumatica ([facility] V24) DX:Polymyalgia rheumatica ([facility]) Chronic sinusitis DX:Chronic sin usitis Trigeminal neuralgia DX:Trigemin al neuralgia Family History Medical History Relation Name Comments Other cancer Brother skin cancer Other: Other Daughter uterine polyp Heart attack Father Stomach cancer Maternal Grandfather Heart failure Mother Kidney failure Mother Relation Name Status Comments Brother Daughter Other Father Maternal Grandfather Mother Social History Tobacco Use Types Packs/Day Years Used Date Smoking Tobacco: Former Cigarettes Q uit: 10/13/1977 Comments Unknown Sex and Gender Information Value Date Recorded Sex Assigned at Not on file Legal Sex Female 1:07 PM EST Gender Identity Not on file Sexual Orientation Not on file Obstetrics History Last Filed Vital Signs Vital Sign Reading Time Taken Comments Blood Pressure 152/68 09/13/2024 1:03 PM EST Pulse 62 09/13/2024 1:03 PM EST Temperature - - Respiratory Rate - - Oxygen Saturation - - Inhaled Oxygen Concentration - - Weight 67.6 kg (149 lb) 12/22/2024 1:14 PM EDT Height 160 cm (5' 2.99 ) 12/22/2024 1:14 PM EDT Body Mass Index 26.4 12/22/2024 1:14 PM EDT Plan of Treatment Upcoming Encounters Date Type Department Care Team (Late st Contact Info) Description 02/15/2025 8:30 AM EDT Ancillary Procedure [facility] [address] [place] [address] 03/16/2025 1:00 PM EDT Office Visit Vascular Surgery - [place] [address] [place] [address] Mary Beth Krause PA [address] [place] [address] 06/23/2025 11:00 AM EDT Office Visit Orthopedic Surgery - [place] [address] [facility] [address] [place] [address] Roberto Jaeger DPM [address] [facility] [address] [place] [address] Health Maintenance Due Date Last Done Comments Diabetes: Annual Foot Exam 1945 Diabetes: Annual Retina Eye Exam 1945 DTaP,Tdap,and Td Vaccines (1 - Tdap) 1954 Cholesterol Screening (Lipid Panel) 09/10/2022 Depression Screening 09/10/2022 Falls Risk Assessment 09/10/2022 Medicare Annual Wellness Visit 09/10/2022 Osteoporosis Screening (Bone Density Screening) 09/10/2022 Social Influencers of Health Screening 09/10/2022 Diabetes: Blood Sugar Control Test (HGBA1C) 09/26/2022 04/11/2020 Hypertension/CHF/CAD Annual BMP Blood Test 09/26/2022 12/29/2020, 11/03/2020 Zoster Vaccines Completed 10/07/2018, 08/07/2018 Pneumococcal Vaccine: 50+ Years Completed 07/27/2020, 07/28/2017, 12/10/2013 RSV Immunization Adult Patients Completed 09/12/2023 COVID-19 Vaccine Completed 07/08/2024, 10/2022, 07/20/2022, Additional history exists Influenza Vaccine Completed 07/08/2024, , 07/27/2021, Additional history exists HIB Vaccines Aged Out No longer eligi ble based on patient's age to complete this topic HPV Vaccines Aged Out No longer eligi ble based on patient's age to complete this topic Hepatitis A Vaccines Aged Out No long er eligible based on patient's age to complete this topic Hepatitis B Vaccines Aged Out No long er eligible based on patient's age to complete this topic IPV Vaccines Aged Out No longer eligi ble based on patient's age to complete this topic MMR Vaccines Aged Out No longer eligi ble based on patient's age to complete this topic Meningococcal ACWY Vaccine Aged Out N o longer eligible based on patient's age to complete this topic Meningococcal B Vaccine Aged Out No l onger eligible based on patient's age to complete this topic RSV Immunization Patients Under 20 months Aged Out No longer eligible based on patient's age to complete this topic Varicella Vaccines Aged Out No longer eligible based on patient's age to complete this topic Insurance MEDICARE [facility] Care Teams Appeals Court Associate Justice Relationship Specialty Start Date End Date Kishor Fisher MD [address] [place] [address] Dr Leti [place] PCP - General 05/09/16
--- OUTSIDE RECORDS SUMMARY | 2025-01-21 14:58 | XMS_ITS ---
Author Organization [facility] Address [address] [facility] [place] [address] Care Team Providers Care Director Intelligence Analysis Programs Name Role Phone Kishor Fisher MD Primary Care Provider Teo Vann Unavailable [phone] Allergies Allergen (clinical drug ingredient) Drug/Non Drug [...] day 3 times a day Active Evening [place] Oil Active Famotidine Active Fish Oil Active [...] 03/22/2024 Encounters Encounter Location Date Provider Diagnosis [facility] [address] [address] 03/22/2024 Teo Jaeger Tinea unguium B35.1 ; [...] as necessary. Patient chooses, no pharmaceutical tx (99099) Keratoma Treatment Parring or Cutting o f Benign Hyperkeratotic Lesion(s) 92731 ( 2-4 Lesions ) - The Benign hyperkeratotic lesions, as described above were pared, and/or cut utilizing a sterile 15 blade, tissue nippers, and/or dremel Progress Notes * SARABurt Nelsonine LDOB:[birth year] (88 yo F)Acc No.[id number]:03/22/2024 Progress Note Patient:?Dona York Provider:?Teo Jaeger DPM :1935???Age:88 Y???Sex:Female D ate:03/22/2024 Address:[address] [place], [place] [address] Pcp:Kishor Fisher MD Subjective: * Chief Complaints: [...] in lungs 2020,12/2021 * Hospitalization/Major Diagno stic Procedure:?[facility] Fluid removed from [...] Fumarate Benadryl Cinnamon Cranberry CoQ-10 Citrucel Evening [place] Oil Famotidine Fish Oil Flaxseed Oil Garlic [...] Cranberry Taking CoQ-10 Taking Citrucel Taking Evening [place] Oil Taking Famotidine Taking Fish Oil Taking [...] B/L?.?Ophthalmology Referral: ?DIABETES EYE EXAM?Diabetic Retinopathy Screening:?Yes 08/2022 ?Findings of Diabetic Eye Exam:?no retinopathy??? Assessment: [...] as necessary. Patient chooses, no pharmaceutical tx (37490).?Keratoma Treatment:?Parring or Cutting of Benign Hyperkeratotic Lesion(s)?64459 ( 2-4 Lesions ) - The Benign hyperkeratotic lesions, as described above were pared, and/or cut utilizing a sterile 15 blade, tissue nippers, and/or dremel.? * Procedure Codes:?19528 DEBRI DE NAIL, 6 OR MORE, Modifiers: XS 87841 TRIM SKIN LESIONS, 2 TO 4, Modifiers: [...] Jaeger DPM Date:? 024 Generated for Marcin hancock/Chanelle/eTmc on:?01/21/2025 02:57 PM EDT History and Physical [...]
[2025-01-21 16:10] LABS: Hematocrit 38.5 % (37.0-47.0); Mean Corpuscular HGB Conc 33.8 g/dl (31.0-35.0); Mean Corpuscular Hemoglobin 31.3 pg (27.0-33.0); Mean Corpuscular Volume 92.8 fL (80.0-98.0); Mean Platelet Volume 10.5 fL (9.4-12.3); Platelet Count 235 X10*3/uL (160-400); Red Blood Count 4.15 X10*6/uL (4.20-5.50); Red Cell Distribution Width 13.9 % (11.0-16.0); White Blood Count 7.5 X10*3/uL (4.8-10.8)
[2025-01-21 16:30] LABS: Anion Gap 14 (12-20); Blood Urea Nitrogen 55 mg/dL (9-16); Carbon Dioxide 25 mmol/L (22-29); Chloride 109 mmol/L (96-108); Estimated Glomerular Filt Rate 28; Glucose Random 98 mg/dL (60-115); Potassium 4.7 mmol/L (3.3-5.1); Sodium 143 mmol/L (135-145)
== END 2025-01-21 14:43 | disposition home or self-care (01) ==
LOC: HO.HMGCLDS 14:42
PROVIDERS: PCP Internal Medicine; Visit Provider Internal Medicine Hypertension Specialist
DX: I12.9 Hypertensive chronic kidney disease with stage 1 through stage 4 chronic kidney disease, or unspecified chronic kidney disease (principal); N18.30 Chronic kidney disease, stage 3 unspecified
CPT/HCPCS: 36415; 80048; 85027

== ENCOUNTER 2025-01-27 10:45 | Outpatient (AMB) | payer MEDICARE, OTHER, SELFPAY ==
--- NOTE | 2025-01-27 10:45 | HO.NEPHOV ---
Vital Signs 01/27/25 10:46 Height 5 ft 3 in Weight 147 lb 6 oz BMI 26.1 BP 144/50 H Blood Pressure Location Lt brachial Position Sitting Pulse 75 Pulse Source Pulse Oximeter Pulse Oximetry (%) 96 Oxygen Delivery Method Room Air Intake Visit Reasons: CKD/LVM Jacquard Loom Heddles Tier Required: No Accompanied by: Self / Same As Patient Allergies NSAIDS (Non-Steroidal Anti-Inflamma Allergy (Severe, Verified 01/27/25 10:48) Kidney damage Psudaphed Allergy (Severe, Verified 01/27/25 10:48) kidney damage thimerosal Allergy (Intermediate, Verified 01/27/25 10:48) Itching amitriptyline [From Elavil] Adverse Reaction (Severe, Verified 01/27/25 10:48) Rash influenza virus vaccine, specific [Influenza Virus Vacc,Specific] Adverse Reaction (Intermediate, Verified 01/27/25 10:48) LOCALIZED REACTION Medication List - Last Reconciled 01/27/25 by Vern Buckley MD acetaminophen (Tylenol Extra Strength) 500 mg PO QID PRN albuterol sulfate 90 mcg/actuation 90 mcg inhalation Q6H 30 days allopurinol 100 mg PO DAILY amlodipine 10 mg PO .q PM aspirin (Adult Aspirin Regimen) 81 mg PO DAILY azelastine 1 spray intranasal BID PRN bisacodyl 10 mg PO BEDTIME PRN bisoprolol fumarate 5 mg PO BID cinnamon bark (Cinnamon) 500 mg PO DAILY coenzyme Q10 (H2Q CoQ10) 200 mg PO DAILY cranberry fruit 400 mg PO DAILY docusate sodium (Colace) 100 mg PO BID echinacea 380 mg PO DAILY evening primrose oil 500 mg PO DAILY ezetimibe (Zetia) 10 mg PO DAILY famotidine 20 mg PO DAILY flaxseed oil 1,000 mg PO DAILY garlic (garlic oil) 1,000 mg PO DAILY lactulose PO PRN loratadine (Allergy Relief (loratadine)) 10 mg PO DAILY lutein 20 mg PO DAILY meclizine 25 mg PO BID PRN methylcellulose (laxative) (Citrucel) 500 mg PO DAILY PRN multivitamin (Daily Multi-Vitamin tablet) 1 tab PO DAILY omega-3 fatty acids (Fish Oil Concentrate) 1,000 mg PO DAILY oxcarbazepine 150 mg PO BEDTIME polyethylene glycol 3350 (Miralax) 17 grams PO DAILY prucalopride (Motegrity) 2 mg PO DAILY selenium 200 mcg PO DAILY zinc sulfate (Orazinc) 110 mg PO DAILY Do you need a note to return to daycare/school/sports/work: No HPI Comments Details: 88 yr old woman with a h/o HTN and dyslipidemia , Mesothelioma and CKD is here for follow up She is dealing with multiple issues at present. She has decided to get care locally with rather than go to [place]. Still has dyspnea;CXR unchanged 03/25/24 ;BP has been sub optimal ;She noticed this after changing hydralazine- ? different generic 06/01/24 ;Now on Norvasc 10 mg !PM; Still has vertigo after stopping Hydralazine ;Dyspnea on exertion- unchanged; No cough 09/28/24 ;Seen by cardiology ;No change in resp status ;Waiting for pulm rehab 01/27/25 : Currently on antibiotics for UTI Episode of gout; [facility] Medical History Chronic renal insufficiency Lung mass Chest pain Pleural effusion Chronic diarrhea Chest tube in place Osteopenia (~2013) Mesothelioma (pleural) Polymyalgia rheumatica Difficulty swallowing (atherosclerosis) History of cystocele Trigeminus neuralgia History of thyroid nodule Peripheral neuropathy Elevated cholesterol HTN (hypertension) Diabetes mellitus IBS (irritable bowel syndrome) GERD (gastroesophageal reflux disease) Sinusitis Dyspnea Surgical History History of colonoscopy (~06/2012) History of bunionectomy (~2014) Hx of chest tube placement (~09/2020) History of femoral angiogram (~2013) Hx of bilateral cataract extraction History of pubovaginal sling Hx of cholecystectomy History of total replacement of right hip (~01/2019) H/O carpal tunnel repair History of thoracentesis Family History Father Myocardial infarct Brother Skin cancer Heart problem Mother Congestive heart failure Kidney failure Skin cancer Maternal Grandfather Stomach cancer Paternal Uncle Stroke Daughter Uterine polyp Social History Household Members: Family and Children Housing: House Are you a primary career coordinator to a significant other at home: No Do you presently have visiting nurse or other home services: Yes Alcohol intake: current Alcohol intake frequency: holidays/special occasions only Comment: aware of trip hazard Patient Tobacco Use Status: Former Tobacco user Second Hand Smoke Exposure: No service: No Current occupational status: retired Physical Exam Vital Signs: Last Vital Signs Pulse 75 01/27/25 10:46 BP 144/50 H 01/27/25 10:46 Pulse Ox 96 01/27/25 10:46 Oxygen Delivery Method Room Air 01/27/25 10:46 BMI result Body Mass Index 26.1 Const General: comfortable; No acute distress Orientation/consciousness: patient oriented x3 Eyes General: appearance normal, both eyes and all related structures Visual Piedra: normal visual piedra by confrontation Neck Neck: Yes supple and Yes no JVD Resp Effort & Inspection: normal respiratory effort and respiratory effort not decreased Auscultation: rhonchi Cardio Palpation: no palpable S3 and no palpable S4 Heart sounds: no rubs GI Inspection: Yes normal to inspection Palpation (GI): Soft to palpation Percussion: Yes normal to percussion Auscultation: normal bowel sounds General: Yes no CVA tenderness Back/Spine/Pelvis Back: no CVA tenderness Skin General skin exam: no petechiae and no purpura Neuro General: patient oriented x3 and no focal motor deficits Extrem General: No clubbing and No edema Results Reviewed Nephrology Results: Hgb 13.0 g/dl (12.0-16.0) 01/21/25 WBC 7.5 X10*3/uL (4.8-10.8) 01/21/25 Plt Count 235 X10*3/uL (160-400) 01/21/25 Sodium 143 mmol/L (135-145) 01/21/25 Potassium 4.7 mmol/L (3.3-5.1) 01/21/25 Chloride 109 mmol/L (96-108) H 01/21/25 Carbon Dioxide 25 mmol/L (22-29) 01/21/25 BUN 55 mg/dL (9-16) H 01/21/25 Creatinine 1.71 mg/dL (0.5-1.4) H 01/21/25 Calcium 10.0 mg/dL (8.4-10.2) 01/21/25 Assessment & Plan Assessment & Plan (1) CKD (chronic kidney disease) stage 3, GFR 30-59 ml/min: Code(s): N18.30 - Chronic kidney disease, stage 3 unspecified Category: Medical Plan: Chronic kidney disease in setting of longstanding hypertension. creatinine at 1.71 Goal is to slow the progression of renal disease Continue to avoid nephrotoxic agents including NSAIDs. (2) PAD (peripheral artery disease): Comment: 2019 left lower extremity endovascular intervention with DCB Code(s): I73.9 - Peripheral vascular disease, unspecified Category: Medical Plan: Management per Dr. Bond (3) Mesothelioma (pleural): Code(s): C45.0 - Mesothelioma of pleura Category: Medical Plan: Follow with Pulmonary. (4) Pleural effusion: Comment: (s/p decortication & PleurX 09/14/20, removed on 12/22/2020 - persistent small/mod right-sided loculated pleural effusion. Was Followed at [facility]- No longer wants to go there) Code(s): J90 - Pleural effusion, not elsewhere classified Category: Medical Plan: Management per Dr. Petersen (5) HTN (hypertension): Code(s): I10 - Essential (primary) hypertension Category: Medical Qualifiers: Hypertension type: primary hypertension Qualified Code(s): I10 - Essential (primary) hypertension Plan: BP better controlled Off Hydralazine On Norvasc 10 mg Q PM Encouraged her to stay low-sodium diet. . Plan Calcium normalized to 10.0 HgB is better now at 13gm/dL Coding Level of Care Code Est Pt Level 4 (37218) Diagnoses CKD (chronic kidney disease) stage 3, GFR 30-59 ml/min N18.30 PAD (peripheral artery disease) I73.9 Mesothelioma (pleural) C45.0 Pleural effusion J90 Primary hypertension I10 Hypertension type: primary hypertension
[2025-01-27 10:46] VITALS: BP 144/50; PULSE 75; O2SAT 96; BMI 26.1
--- OUTSIDE RECORDS SUMMARY | 2025-01-27 13:02 | XMS_ITS | Encounter Summary ---
Author Organization [facility] Address [address] [place] [address] Phone Care Team Providers Care Securities Trader Name Role Phone Kishor Fisher MD Primary Care Provider [phone] Encounter Details Date Type Department Care Team (Late st Contact Info) Description 12/31/2021 Telephone [facility] [address] [place] [address] Vern Buckley MD Social History [...] day refill. Please send to [facility] [place]. Thank you documented in this encounter Plan of Treatment Not on file documented as of this encounter Visit Diagnoses Not on filedocumented in this encounter Care Teams Securities Trader Relationship Specialty Start Date End Date Kishor Fisher MD [id number] [place] PCP - General 10/23/20 documented as of this encounter
--- OUTSIDE RECORDS SUMMARY | 2025-01-27 13:02 | XMS_ITS ---
Author Organization [facility] Address [address] [place] [address] Care Team Providers Care Construction Trades Contractor Name Role Phone Kishor Fisher MD Primary Care Provider Teo Vann [phone] REASON FOR VISIT NS 03/10/24 Encounters Encounter Location Date Provider Diagnosis [facility] [address] [place] [address] 03/10/2024 Teo Jaeger Plan Of Treatment No Information Progress Notes * Dona RUIZ LDOB:[birth year] (88 yo F)Acc No.[id number]:03/10/2024 Patient:?Dona Ruiz :1935???Age:88 Y???Sex:Female Address:[address] [place] [address] * true * Date:? Generated for Printi ng/Fagregoriog/eTransmitting on:?01/27/2025 01:02 PM EDT
--- OUTSIDE RECORDS SUMMARY | 2025-01-27 13:02 | XMS_ITS | Clinical Summary ---
Author Organization [facility] Address [address] [place] [address] Phone Care Team Providers Care Commercial Project Manager Name Role Phone Kishor Fisher MD Primary Care Provider [phone] Allergies Active Allergy Reactions Criticality Noted Date [...] mouth 1 (one) time each day Active [place]-3 Fatty Acids (Fish Oil Concentrate) 1000 MG [...] 1 (one) time each day Active Evening [place] Oil 1000 MG capsule Take by mouth [...] 2025 07/27/2021, 08/17/2018, 07/03/2016, Additional history exists Pneumococcal Vaccine: Peds (0 to 5 Years) and At-Risk Patients (6 to 49 Years) Discontinued 07/27/2020, 12/10/2013 Hepatitis B Vaccine Aged Out No longe r eligible based on patient's age to complete this topic Procedures Procedure Name Priority Date/Time Associated Diagnosis Comments HEMOGLOBIN A1C Routine 04/11/2020 9:37 AM EDT from Last 3 Months or Most Recently Relevant to Health Maintenance Results * Hemoglobin A1c (04/11/2020 9:37 AM EDT) [facility] Estimated Average Glucose 105 MG/DL MIMI Comment: eAG = Estimated average glucose which is %A1C expressed as average glucose, using the formula of the P4A-Diymptz Average Glucose study (ADAG), Diabetes Care, Vol.31,#8, 2007 Hemoglobin A1C 5.3 % MIMI Comment: [...] patient ? sample. 04/11/2020 9:37 AM EDT us Kishor Fisher MD LAB BLOOD ORDERABLES Final Resu lt MIMI from Last 3 Months or Most Recently Relevant to Health Maintenance Insurance [facility] Medicare [facility] Medicare Care Teams Commercial Project Manager Relationship Specialty Start Date End Date Kishor Fisher MD [address] [place] [address] [address] [place], [place] PCP - General 10/23/20
--- OUTSIDE RECORDS SUMMARY | 2025-01-27 13:03 | XMS_ITS | Clinical Summary ---
Author Organization [address] [facility] Address [address] [place] [address] Phone Care Team Providers Care Rn Progressive Care Name Role Phone Kishor Fisher MD Primary Care Provider [phone] Allergies Active Allergy Reactions Criticality Noted Date [...] azelastine-fluti casone 137-50 mcg/spray spray,non-aeroso l 1 [place] by Nasal route 2 times daily. Active [...] Date Diagnosed Date PAD (peripheral artery disease) ([facility] V24) Mesothelioma (pleural) ([facility] V24, [facility] V28 ) 01/09/2022 Chronic renal insufficiency 01/09/2022 Diabetes mellitus ([facility] V24, [facility] V28) Atherosclerosis 01/09/2022 GERD (gastroesophageal reflux disease) Elevated cholesterol 01/09/2022 HTN (hypertension) 01/09/2022 IBS (irritable bowel syndrome) 01/09/2022 Malignant pleural effusion ([facility] V28) 022 Overview (07/28/2024): right Last Assessment & Plan: Ms. York is an 86 year old female with mesothelioma and a malignant right sided pleural effusion. Patient had a Pleurx catheter placed by IR at [facility] on 01/02/2022. ?? The patient's right-sided Pleurx [...] follow-up visit with Dr. Pham at the [facility] office as previously scheduled. Polymyalgia rheumatica ([facility] V24) 01/09/2022 Trigeminal neuralgia 01/09/2022 Osteopenia 01/09/2022 Peripheral neuropathy 01/09/2022 Encounters Date Type Department Care Team Description 12/22/2024 1:30 PM EDT Office Visit Orthopedic Surgery - [address] [address] Roberto Jaeger, DPM Metatarsalgia of both feet (Primary Dx); Dermatophytosis of nail; Pain in toe of right foot; Pain in toe of left foot; Diabetic mononeuropathy simplex ([facility] V24, [facility] V28) from Last 3 Months Surgical History [...] IR 01/02/2022 OTHER SURGICAL HISTORY 11/25/2022 PROCEDURE: WI REVSC OPN/PRG FEM/POP W/ANGIOPLASTY UNI OTHER SURGICAL HISTORY 11/25/2022 PROCEDURE: ULTRASOUND GUIDANCE FOR VASCULAR AC OTHER SURGICAL HISTORY 01/11/2023 PROCEDURE: WI REVSC OPN/PRG FEM/POP W/ANGIOPLASTY UNI OTHER SURGICAL HISTORY 01/11/2023 PROCEDURE: WI INTRAVASCULAR US NONCORONARY RS&I INTIAL VESSEL OTHER SURGICAL HISTORY 01/11/2023 PROCEDURE: WI INTRAVASCULAR US NONCORONARY RS&I ADDL VESSEL; COMMENT: x2 OTHER SURGICAL HISTORY 01/11/2023 PROCEDURE: ULTRASOUND GUIDANCE FOR VASCULAR AC OTHER SURGICAL HISTORY 02/24/2024 PROCEDURE: WI SLCTV CATHJ 3RD+ ORD SLCTV ABDL PEL/LXTR BRNCH OTHER SURGICAL HISTORY 02/24/2024 PROCEDURE: X-RAY EXAM OF ARM/LEG ARTERY OTHER SURGICAL HISTORY 02/24/2024 PROCEDURE: ULTRASOUND GUIDANCE FOR VASCULAR AC Medical History Medical History Date Comments Mesothelioma (pleural) ([facility] V24, [facility] V28) DX:Mesothelioma (pleural) ([facility]) Chronic renal insufficiency DX:C hronic renal insufficiency Diabetes mellitus ([facility] V 24, [facility] V28) DX:Diabetes mellitus (HCC) Atherosclerosis DX:Atheroscleros is [...] neuropathy DX:Periphe ral neuropathy Malignant pleural effusion ([facility] V28) DX:Malignant pleural effusion; COMMENT: right Polymyalgia rheumatica ([facility] V24) DX:Polymyalgia rheumatica ([facility]) Chronic sinusitis DX:Chronic sin usitis Trigeminal neuralgia [...] Description 02/15/2025 8:30 AM EDT Ancillary Procedure [facility] [address] [place] [address] 03/16/2025 1:00 PM EDT Office Visit Vascular Surgery - [place] [address] [place] [address] Mary Beth Krause PA [address] [place] [address] 06/23/2025 11:00 AM EDT Office Visit Orthopedic Surgery - [place] [address] [facility] [address] [place] [address] Roberto Jaeger DPM [address] [facility] [address] [place] [address] Health Maintenance Due Date Last Done Comments [...] age to complete this topic Insurance MEDICARE [facility] Care Teams Rn Progressive Care Relationship Specialty Start Date End Date Kishor Fisher MD [address] [place] [address] Dr Leti [place] PCP - General 05/09/16
--- OUTSIDE RECORDS SUMMARY | 2025-01-27 13:03 | XMS_ITS ---
Author [facility] [place] Address [address] [place] [address] Care Team Providers Care Assisted Living Nursing Director Name Role Phone Kishor Fisher MD Primary Care Provider Teo Vann Unavailable [phone] Allergies Allergen (clinical drug ingredient) Drug/Non Drug [...] day Not-Taking Glucosamine Chondroitin Joint Active Evening [place] Oil Active Fish Oil Active Famotidine Active [...] 024 Encounters Encounter Location Date Provider Diagnosis [facility] [address] [address] 07/14/2024 Teo Jaeger Tinea unguium B35.1 ; [...] as necessary. Patient chooses, no pharmaceutical tx (80680) Keratoma Treatment Parring or Cutting o f Benign Hyperkeratotic Lesion(s) 59351 ( 2-4 Lesions ) - The Benign hyperkeratotic lesions, as described above were pared, and/or cut utilizing a sterile 15 blade, tissue nippers, and/or dremel Progress Notes * Dona RUIZ LDOB:[birth year] (89 yo F)Acc No.[id number]:07/14/2024 Progress Note Patient:?Dona Ruiz Diego Provider:?Teo Jaeger DPM :1935???Age:89 Y???Sex:Female D ate:07/14/2024 Address:[address] [place], [place] [id number] Pcp:Kishor Fisher MD Subjective: * Chief Complaints: [...] 2004cataracts OU 2007cholecystectomy 2010radio frequency ablation at [facility] thyroid/goiter guided needle biopsy 2004Bun/Exc Sesa/Exc MT head right 10/1/2015Stent popliteal artery 03/2016hip replacement 01/2019lung surgery 09/14/20chest tube drain fluid in lungs 2020,12/2021foot surgery- infection -Dr Jericho Jaeger 12/05angioplasty 01/02 * Hospitalization/Major Diagno stic Procedure:?[facility] for [facility]ter[facility] 04/08/2016[facility] Fluid removed from [...] Fumarate Benadryl Cinnamon Cranberry CoQ-10 Citrucel Evening [place] Oil Famotidine Fish Oil Flaxseed Oil Garlic [...] Cranberry Taking CoQ-10 Taking Citrucel Taking Evening [place] Oil Taking Famotidine Taking Fish Oil Taking [...] as necessary. Patient chooses, no pharmaceutical tx (34921).?Keratoma Treatment:?Parring or Cutting of Benign Hyperkeratotic Lesion(s)?37797 ( 2-4 Lesions ) - The Benign hyperkeratotic lesions, as described above were pared, and/or cut utilizing a sterile 15 blade, tissue nippers, and/or dremel.? * Procedure Codes:?76767 DEBRI DE NAIL, 6 OR MORE, Modifiers: XS 58454 TRIM SKIN LESIONS, 2 TO 4, Modifiers: XS * Follow Up:?3 Months, 4 Month s * Images: * Sign off status: Completed true * Provider:?Teo Jaeger DPM Date:? 024 Generated for Marcin hancock/Chanelle/Shiva on:?01/27/2025 01:02 PM EDT History and Physical Notes * [...]
== END 2025-01-27 11:03 | disposition home or self-care (01) ==
LOC: HO.HKA 10:46
PROVIDERS: PCP Internal Medicine; Visit Provider Internal Medicine Hypertension Specialist
DX: N18.30 Chronic kidney disease, stage 3 unspecified (principal); I73.9 Peripheral vascular disease, unspecified; C45.0 Mesothelioma of pleura; J90 Pleural effusion, not elsewhere classified; I10 Essential (primary) hypertension
CPT/HCPCS: 99214

== ENCOUNTER → 2025-01-27 10:45 | Outpatient (BNVA) | payer MEDICARE, OTHER, SELFPAY | PROVIDERS: PCP Internal Medicine; Visit Provider Internal Medicine Hypertension Specialist | DX: I12.9 Hypertensive chronic kidney disease with stage 1 through stage 4 chronic kidney disease, or unspecified chronic kidney disease (principal); N18.30 Chronic kidney disease, stage 3 unspecified; E78.5 Hyperlipidemia, unspecified; I73.9 Peripheral vascular disease, unspecified; J90 Pleural effusion, not elsewhere classified; C45.0 Mesothelioma of pleura | CPT/HCPCS: 99212 ==

== ENCOUNTER 2025-02-22 09:05 | Outpatient (AMB) | payer MEDICARE, OTHER, SELFPAY ==
--- NOTE | 2025-02-22 09:07 | MHC.PC.OV ---
Vital Signs 02/22/25 09:08 02/22/25 09:59 Height 5 ft 3 in Weight 67.585 kg BMI 26.4 BP 160/60 H 158/80 H Respiration 16 Pulse 60 Pulse Source Pulse Oximeter Temp 98.1 F Temp Source Temporal Artery Scan Pulse Oximetry (%) 99 Intake Visit Reasons: Routine Space Controller Required: No Accompanied by: Self / Same As Patient Allergies NSAIDS (Non-Steroidal Anti-Inflamma Allergy (Severe, Verified 02/22/25 09:08) Kidney damage Psudaphed Allergy (Severe, Verified 02/22/25 09:08) kidney damage thimerosal Allergy (Intermediate, Verified 02/22/25 09:08) Itching amitriptyline [From Elavil] Adverse Reaction (Severe, Verified 02/22/25 09:08) Rash influenza virus vaccine, specific [Influenza Virus Vacc,Specific] Adverse Reaction (Intermediate, Verified 02/22/25 09:08) LOCALIZED REACTION Medication List - Last Reconciled 02/22/25 by DEREK Jones acetaminophen (Tylenol Extra Strength) 500 mg PO QID PRN albuterol sulfate 90 mcg/actuation 90 mcg inhalation Q6H 30 days allopurinol 100 mg PO DAILY amlodipine 10 mg PO .q PM aspirin (Adult Aspirin Regimen) 81 mg PO DAILY azelastine 1 spray intranasal BID PRN bisacodyl 10 mg PO BEDTIME PRN bisoprolol fumarate 5 mg PO BID cetirizine (Zyrtec) 10 mg PO DAILY PRN cinnamon bark (Cinnamon) 500 mg PO DAILY coenzyme Q10 (H2Q CoQ10) 200 mg PO DAILY cranberry fruit 400 mg PO DAILY docusate sodium (Colace) 100 mg PO BID echinacea 380 mg PO DAILY evening primrose oil 500 mg PO DAILY ezetimibe (Zetia) 10 mg PO DAILY famotidine 20 mg PO DAILY flaxseed oil 1,000 mg PO DAILY garlic (garlic oil) 1,000 mg PO DAILY lactulose PO PRN lutein 20 mg PO DAILY meclizine 25 mg PO BID PRN methylcellulose (laxative) (Citrucel) 500 mg PO DAILY PRN multivitamin (Daily Multi-Vitamin tablet) 1 tab PO DAILY omega-3 fatty acids (Fish Oil Concentrate) 1,000 mg PO DAILY oxcarbazepine 150 mg PO BEDTIME polyethylene glycol 3350 (Miralax) 17 grams PO DAILY prucalopride (Motegrity) 2 mg PO DAILY selenium 200 mcg PO DAILY zinc sulfate (Orazinc) 110 mg PO DAILY HPI HPI Comments History of Present Illness Details 89 year old female with extensive and complex medical history including mesothelioma, peripheral arterial disease, CKD stage 4, hypertension, hyperlipidemia, controlled type 2 diabetes, chronic sinusitis among others presents to the office today for routine follow-up and to establish care. Extensive conversation and review of chart was performed with patient visit lasting 55 minutes and chart review and documentation 15 minutes. 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 Previously had been following with [facility] for follow up on malignant pleural effusion s/p thoracentesis at [facility] with more than 1L drained. There has been recurrence of mild-mod effusion. Symptomatically has increased SOB requiring the use of walker but using a transfer chair at home. Reports she recovers quickly from the SOB. She is also following with Dr. Petersen in pulmonology who recommended pulmonary rehab as well as PFT but there was a problem with equipment and never rescheduled. She does require the use of her inhaler occasionally. Chronic sinusitis- Following with ENT. Affects her breathing- wheezing which is managed. She was previously recommended for allergy shots but not have these done. Was using flonase as this resulted in epistaxis. Recently switched to zyrtec and using saline spray and astelin. She continue with congestion and cough with yellow sputum which has been ongoing for months. No fevers or chills. Feels managed overall Hypertension- BP in office today 160/60 and 158/80 on recheck. Compliant with amlodipine 10mg daily and busoprolol 5mg BID. Stopped taking hydralazine as she felt this was causing vertigo. Not checking at home. No h/a, vision changes, chest pain. 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 She wears orthotics and follows with Dr. Jaeger in podiatry. Type 2 diabetes- not checking sugars. Not on medication Trigeminal neuralgia- did undergo electrocautery at [facility] in the late s. Still with occasional dysphagia during flares but modifies diet without problem [facility] Medical History (Updated 02/25/25 @ 13:29 by DEREK Jones) CKD (chronic kidney disease) stage 4, GFR 15-29 ml/min Chronic renal insufficiency Lung mass Chest pain Pleural effusion Chronic diarrhea Chest tube in place Osteopenia (~2013) Mesothelioma (pleural) Polymyalgia rheumatica Difficulty swallowing (atherosclerosis) History of cystocele Trigeminus neuralgia History of thyroid nodule Peripheral neuropathy Elevated cholesterol HTN (hypertension) Diabetes mellitus IBS (irritable bowel syndrome) GERD (gastroesophageal reflux disease) Sinusitis Dyspnea Surgical History History of colonoscopy (~06/2012) History of bunionectomy (~2014) Hx of chest tube placement (~09/2020) History of femoral angiogram (~2013) Hx of bilateral cataract extraction History of pubovaginal sling Hx of cholecystectomy History of total replacement of right hip (~01/2019) H/O carpal tunnel repair History of thoracentesis Family History Father Myocardial infarct Brother Skin cancer Heart problem Mother Congestive heart failure Kidney failure Skin cancer Maternal Grandfather Stomach cancer Paternal Uncle Stroke Daughter Uterine polyp Social History Household Members: Family and Children Housing: House Are you a primary animal care taker to a significant other at home: No Do you presently have visiting nurse or other home services: Yes Alcohol intake: current Alcohol intake frequency: holidays/special occasions only Comment: aware of trip hazard Patient Tobacco Use Status: Former Tobacco user Second Hand Smoke Exposure: No service: No Current occupational status: retired Review of Systems Const All systems reviewed & are unremarkable except as noted in HPI and below Physical exam (Primary Care) Vital Signs: Last Vital Signs Temp 98.1 F 02/22/25 09:08 Pulse 60 02/22/25 09:08 Resp 16 02/22/25 09:08 BP 158/80 H 02/22/25 09:59 Pulse Ox 99 02/22/25 09:08 BMI result Body Mass Index 26.4 Tobacco/Smoking Status: Tobacco use Status Patient Tobacco Use Status Former Tobacco user 02/22/25 09:08 Advance Care Planning discussion: Completed/Scanned Date of discussion: 02/22/25 Forms completed: Health Care Proxy and MOLST Time spent: 1-15 minutes, not on file Actual minutes spent: 5 Const Other: Constitutional - Awake and Alert, No apparent distress Eyes - PERRLA, EOMI Cardiovascular - S1S2, RRR Respiratory - Normal lung expansion, Normal respiratory effort, No respiratory distress, CTA bilaterally Extremities - no calf tenderness bilaterally, no swelling Skin - Warm/Dry Neurological - Alert & oriented x3 Psychological - Appropriate affect Coding Level of Care Code New Pt Level 5 (00616) Complex EM visit Add On G2211 Diagnoses Primary hypertension I10 Hypertension type: primary hypertension PAD (peripheral artery disease) I73.9 CKD (chronic kidney disease) stage 4, GFR 15-29 ml/min N18.4 Mesothelioma (pleural) C45.0 Trigeminus neuralgia G50.0 Additional Codes Vital Signs *Quality* - Advance Care Planning discussion: Completed/Scanned ([id number]) Vital Signs *Quality* - Time spent: 1-15 minutes, not on file ([id number]) Assessment & Plan Assessment & Plan (1) HTN (hypertension): Code(s): I10 - Essential (primary) hypertension Category: Medical Qualifiers: Hypertension type: primary hypertension Qualified Code(s): I10 - Essential (primary) hypertension Plan: Uncontrolled. Increase bisoprolol to 10mg BID. Continue amlodipine 10mg daily. Low sodium diet. Follow up with nephrology as scheduled. (2) PAD (peripheral artery disease): Comment: 2018 left lower extremity endovascular intervention with DCB Code(s): I73.9 - Peripheral vascular disease, unspecified Category: Medical Plan: Stable. Continue asa. Overdue for follow up. Contact vascular surgery for appointment (3) CKD (chronic kidney disease) stage 4, GFR 15-29 ml/min: Code(s): N18.4 - Chronic kidney disease, stage 4 (severe) Category: Medical Plan: Stable. BMP ordered. Follow up with nephrology as scheduled (4) Mesothelioma (pleural): Code(s): C45.0 - Mesothelioma of pleura Category: Medical Plan: Progressive symptoms. Overdue to for pulmonology and PFT. Advised to call to reschedule PFT and schedule appt with Dr. Petersen. Will evaluate CXR today to review size of pleural effusion, on auscultation sounds stable. Continue use of inhalers (5) Trigeminus neuralgia: Comment: 1987 repair, chokes easily, Baseline is residual numbness left upper lip, cheek and left ear Code(s): G50.0 - Trigeminal neuralgia Category: Medical Plan: Stable overall. Still with occasional symptoms. Continue with diet modifications given ongoing dysphagia. Plan MOLST form completed in office today. Has appt this week with service technician copier to discuss POA, living will, and HCP. Follow up in 1 month for BP check. Increase bisoprolol. CXR to evaluation effusion and advised to contact specialists above for follow up appts. Orders: Orders XR chest 2V 02/23/25 C45.0 - Mesothelioma of pleura, R06.02 - Shortness of breath Medications: New bisoprolol fumarate 10 mg PO DAILY 90 tabs 1RF Discontinued bisoprolol fumarate Discontinued Reason: Doctor's Order 5 mg PO BID 180 tabs 3RF Patient Instructions: appt with associate store director for hcp and poa.
[2025-02-22 09:08] VITALS: BP 160/60; PULSE 60; RESP 16; TEMP 36.7; O2SAT 99; BMI 26.4
--- OUTSIDE RECORDS SUMMARY | 2025-02-22 09:31 | XMS_ITS | Patient Health Record ---
Author Organization [facility] jamia WrenRoly Address [address] [place] [address] Care Team Providers Care Tooling Specialist Name Role Phone Kishor Fisher MD Primary Care Provider Teo Vann Unavailable [phone] Allergies Allergen (clinical drug ingredient) Drug/Non Drug [...] 0.6 MG Orally PRN No t-Taking Evening [place] Oil Active Doxycycline (Rosacea) Not-Taking Extra Depth [...] primary osteoarthritis of the ankle and/or foot (652196147) Primary osteoarthritis, right ankle and foot (M19.071) Active confirmed Problem Localized, primary osteoarthritis of the ankle and/or foot (334527392) Primary osteoarthritis, left ankle and foot (M19.072) Active confirmed Problem Acquired hallux valgus (01778278) Hallux valgus (acquired), right foot (M20.11) Active confirmed Problem Polyneuropathy due to type 2 diabetes mellitus (566250524) Type 2 diabetes mellitus with diabetic polyneuropathy (E11.42) Active confirmed Problem Primary gout (39617382) Idiopathic gout, right ankle and foot (M10.071) Active confirmed Vital Signs Blood pressure diastolic 70 mm Hg 07/14/2024 Height 5 ft 3 in in 07/14/2024 Blood pressure systolic 126 mm Hg 07/14/2024 Weight 154 lbs 07/14/2024 BMI 27.28 kg/m2 07/14/2024 Encounters Encounter Location Date [facility] [address] 03/22/2024 Teo Jaeger Tinea unguium B35.1 ; Pain in left foot M79.672 ; Pain in right foot M79.671 ; Type 2 diabetes mellitus with diabetic polyneuropathy E11.42 ; Pain in right toe(s) M79.674 ; Pain in left toe(s) M79.675 and Metatarsalgia, right foot M77.[address] [facility] [address] 07/14/2024 Teo Jaeger Tinea unguium B35.1 ; Pain in left foot M79.672 ; Pain in right foot M79.671 ; Type 2 diabetes mellitus with diabetic polyneuropathy E11.42 ; Pain in right toe(s) M79.674 ; Pain in left toe(s) M79.675 and Metatarsalgia, right foot M77.[address] [facility] [address] 03/10/2024 Teo Jaeger Assessments Encounter Date Diagnosis [...] 07/17/2015 X ray : Foot, right 2V 09/13/2015 X ray : Foot, right 2V 06/05/2015 X ray : Foot, right 2V 12/13/2015 X ray : Foot, right 2V 08/10/2015 X ray : Foot, right 2V 07/26/2015 *Uric Acid, Serum 08/18/2015 *Uric Acid, Serum 02/21/2016 *CBC With Differential/Platelet 02/21/20 16 *CBC With Differential/Platelet 08/18/20 15 *Sedimentation Rate-Westergren 5 *Sedimentation Rate-Westergren 6 X ray : Foot, left 3V 02/21/2016 X ray : Foot, left 3V 05/13/2016 X ray : Foot, right 3V 08/24/2015 X ray : Foot, right 3V 08/18/2015 X ray : Foot, right 3V 10/21/2022 X ray : Foot, right 3V 06/05/2023 25356-HKQYAOQ NAIL, 6 OR MORE 08/17/2018 93206-GWOMAOA NAIL, 6 OR MORE 07/28/2017 70604-TUIKOOW NAIL, 6 OR MORE 11/06/2017 34816-LXQWLDZ NAIL, 6 OR MORE 02/05/2018 65008-IBJZTIQ NAIL, 6 OR MORE 05/14/2018 72935-MFUFNWK NAIL, 6 OR MORE 05/15/2017 85116-MNKLBID NAIL, 6 OR MORE 12/23/2016 17295-IAKRESI NAIL, 6 OR MORE 07/31/2016 62653-QIJGOBZ NAIL, 6 OR MORE 10/17/2016 63280-ENQNWBH NAIL, 6 OR MORE 01/26/2016 39153-Vwvh Destruction, 1-03/25/2016 10584-Wslk Destruction, -07/31/2016 94761-Ptpq Destruction, -05/15/2017 53413-Qtuu Destruction, 1-14 08/17/2018 19921- Debride <25 sq cm 05/29/2016 77539- Debride <25 sq cm 06/12/2016 96847- Debride <25 sq cm 06/21/2016 10079- Debride <25 sq cm 07/04/2016 98695- Debride <25 sq cm 07/31/2016 93923- Debride <25 sq cm 08/26/2016 79802- Debride <25 sq cm 04/11/2016 29153- Debride <25 sq cm 03/25/2016 34289- Debride <25 sq cm 02/12/2016 19177- Debride <25 sq cm 02/21/2016 42900-BMEFUCK SKIN/TISSUE 01/26/2016 78197-CCVMRQK SKIN/TISSUE 03/04/2016 48239-WJMNSJZ SKIN/TISSUE 05/02/2016 91236-QCDJSSA SKIN/TISSUE 05/13/2016 88273-WJTOEPQ SKIN/TISSUE 09/11/2022 46084, J0702- INJECT TENDON ORIGIN/INSER T 12/23/2016 91105-APPE SKIN LESIONS, OVER 4 04/18/20 21 44119-KOUX SKIN LESIONS, OVER 4 09/24/20 21 74216-PXJI SKIN LESIONS, OVER 4 01/24/20 22 88876-MJXY SKIN LESIONS, OVER 4 11/11/19 19 27304-HHJO SKIN LESIONS, OVER 4 08/17/20 18 38099-IDXB SKIN LESIONS, 2 TO 4 05/14/20 18 44326-EJSU SKIN LESIONS, 2 TO 4 02/06/20 18 95825-DKQX SKIN LESIONS, 2 TO 4 11/06/19 18 75082-RTZC SKIN LESIONS, 2 TO 4 07/28/20 17 76296-HTUO SKIN LESIONS, 2 TO 4 03/17/20 19 24611-DYZO SKIN LESIONS, 2 TO 4 06/24/20 19 28996-AJQF SKIN LESIONS, 2 TO 4 09/20/20 19 87083-JXSD SKIN LESIONS, 2 TO 4 12/20/19 20 57604-MLOU SKIN LESIONS, 2 TO 4 08/14/20 20 67808-BBJE SKIN LESIONS, 2 TO 4 12/14/19 21 41465-QYDD SKIN LESIONS, 2 TO 4 09/11/20 23 70201-UYGK SKIN LESIONS, 2 TO 4 02/25/20 17 40212-PNJQ SKIN LESIONS, 2 TO 4 05/15/20 17 43580-NMWM SKIN LESIONS, 2 TO 4 12/24/19 17 80893-ZQPJ SKIN LESIONS, 2 TO 4 10/17/19 17 58738-DZHX SKIN LESION 07/31/2016 61769-QLVFWMMU OF HEMATOMA/FLUID 020 Insurance Providers Payer Name Payer Address Payer Phone Subscriber Number Group Number Insured Name Patient Relationship to Insured Coverage Start Date Coverage End Date Medicare National Govt Svcs Inc [address] [place] [address] [id number] Dona York Self - patient is the insured 0 [employer] [address] [place] [address] [id number] Dona York Self - patient is the [...] 2007 cholecystectomy 2010 radio frequency ablation at [facility] thyroid/goiter guided needle biopsy 2003 Bun/Exc Sesa/Exc MT head right 07/13/2015 Stent popliteal artery 03/2016 hip replacement 01/2019 lung surgery 09/14/20 chest tube drain fluid in lungs 2020,12/12 022 foot surgery- infection -Dr Jericho Jaeger 0 12/05 angioplasty 01/02 Hospitalization History Reason Date(Month/Year) [facility] - Lung Sx 3 days Fluid in lungs 09/14,09/02 [facility]- Fluid removed from lung 07/2020 [facility] for Arteriogram 04/08/2016
--- OUTSIDE RECORDS SUMMARY | 2025-02-22 09:32 | XMS_ITS | Clinical Summary ---
Author Organization 175 [facility] Address [address] [place] [address] Phone Care Team Providers Care Tire Repairer Name Role Phone Kishor Fisher MD Primary Care Provider [phone] Allergies Active Allergy Reactions Criticality Noted Date [...] azelastine-fluti casone 137-50 mcg/spray spray,non-aeroso l 1 [place] by Nasal route 2 times daily. Active [...] Date Diagnosed Date PAD (peripheral artery disease) ([facility] V24) Mesothelioma (pleural) ([facility] V24, [facility] V28 ) 01/09/2022 Chronic renal insufficiency 01/09/2022 Diabetes mellitus ([facility] V24, [facility] V28) Atherosclerosis 01/09/2022 GERD (gastroesophageal reflux disease) Elevated cholesterol 01/09/2022 HTN (hypertension) 01/09/2022 IBS (irritable bowel syndrome) 01/09/2022 Malignant pleural effusion ([facility] V28) 022 Overview (07/28/2024): right Last Assessment & Plan: Ms. York is an 86 year old female with mesothelioma and a malignant right sided pleural effusion. Patient had a Pleurx catheter placed by IR at [facility] [place] [facility] on 01/02/2022. ?? The patient's right-sided [...] follow-up visit with Dr. Pham at the [facility] office as previously scheduled. Polymyalgia rheumatica ([facility] V24) 01/09/2022 Trigeminal neuralgia 01/09/2022 Osteopenia 01/09/2022 Peripheral neuropathy 01/09/2022 Encounters Date Type Department Care Team Description 02/15/2025 8:30 AM EDT Ancillary Procedure [facility] - [facility] [address] [facility] [address] [place] [phone] PAD (peripheral artery disease) ([facility] V24) 12/22/2024 1:30 PM EDT Office Visit Orthopedic Surgery - [place] [address] [facility] [address] [place] [phone] Roberto Jaeger, DPM Metatarsalgia of both feet (Primary Dx); Dermatophytosis of nail; Pain in toe of right foot; Pain in toe of left foot; Diabetic mononeuropathy simplex ([facility] V24, [facility] V28) from Last 3 Months Surgical History [...] IR 01/02/2022 OTHER SURGICAL HISTORY 11/25/2022 PROCEDURE: [place] REVSC OPN/PRG FEM/POP W/ANGIOPLASTY UNI OTHER SURGICAL HISTORY 11/25/2022 PROCEDURE: ULTRASOUND GUIDANCE FOR VASCULAR AC OTHER SURGICAL HISTORY 01/11/2023 PROCEDURE: [place] REVSC OPN/PRG FEM/POP W/ANGIOPLASTY UNI OTHER SURGICAL HISTORY 01/11/2023 PROCEDURE: [place] INTRAVASCULAR US NONCORONARY RS&I INTIAL VESSEL OTHER SURGICAL HISTORY 01/11/2023 PROCEDURE: [place] INTRAVASCULAR US NONCORONARY RS&I ADDL VESSEL; COMMENT: x2 OTHER SURGICAL HISTORY 01/11/2023 PROCEDURE: ULTRASOUND GUIDANCE FOR VASCULAR AC OTHER SURGICAL HISTORY 02/24/2024 PROCEDURE: [place] SLCTV CATHJ 3RD+ ORD SLCTV ABDL PEL/LXTR BRNCH OTHER SURGICAL HISTORY 02/24/2024 PROCEDURE: X-RAY EXAM OF ARM/LEG ARTERY OTHER SURGICAL HISTORY 02/24/2024 PROCEDURE: ULTRASOUND GUIDANCE FOR VASCULAR AC Medical History Medical History Date Comments Mesothelioma (pleural) ([facility] V24, [facility] V28) DX:Mesothelioma (pleural) (H CC) Chronic renal insufficiency DX:C hronic renal insufficiency Diabetes mellitus ([facility] V 24, [facility] V28) DX:Diabetes mellitus (HCC) Atherosclerosis DX:Atheroscleros is [...] neuropathy DX:Periphe ral neuropathy Malignant pleural effusion ([facility] V28) DX:Malignant pleural effusion; COMMENT: right Polymyalgia rheumatica ([facility] V24) DX:Polymyalgia rheumatica (HCC) Chronic sinusitis DX:Chronic sin usitis Trigeminal neuralgia [...] Care Team (Late st Contact Info) Description 03/16/2025 1:00 PM EDT Office Visit Vascular Surgery - [place] 300 [facility] [address] [place] [address] Mary Beth Krause PA [address] [facility] [address] [place] [address] 06/23/2025 11:00 AM EDT Office Visit Orthopedic Surgery - [place] 250 175 [facility] [address] [place] [phone] Roberto Jaeger DPM [address] [address] Health Maintenance Due Date Last Done Comments [...] Annual BMP Blood Test 09/26/2022 12/29/2020, 11/03/2020 COVID-19 Vaccine (8 - Moderna risk season) 2025 07/08/2024, 08/13/2023, 07/20/2022, Additional history exists Zoster Vaccines Completed 10/07/2018, 08/07/2018 Pneumococcal Vaccine: 50+ Years Completed 07/27/2020, 07/28/2017, 12/10/2013 RSV Immunization Adult Patients Completed 09/12/2023 Influenza Vaccine Completed 07/08/2024, , 07/27/2021, Additional [...] age to complete this topic Insurance MEDICARE HUMAN Care Teams Tire Repairer Relationship Specialty Start Date End Date Kishor Fisher MD [address] [place] [address] Dr Leti [place] PCP - General 05/09/16
--- OUTSIDE RECORDS SUMMARY | 2025-02-22 09:32 | XMS_ITS | Clinical Summary ---
Author Organization [facility] Address [address] [place] [address] Phone Care Team Providers Care Crutch Maker Name Role Phone Kishor Fisher MD Primary Care Provider [phone] Allergies Active Allergy Reactions Criticality Noted Date [...] mouth 1 (one) time each day Active [place]-3 Fatty Acids (Fish Oil Concentrate) 1000 MG [...] 1 (one) time each day Active Evening [place] Oil 1000 MG capsule Take by mouth [...] * Hemoglobin A1c (04/11/2020 9:37 AM EDT) [facility] Estimated Average Glucose 105 MG/DL MIMI Comment: eAG = Estimated average glucose which is %A1C expressed as average glucose, using the formula of the E9Z-Llblbud Average Glucose study (ADAG), Diabetes Care, Vol.31,#8, [...] Most Recently Relevant to Health Maintenance Insurance [facility] Medicare [facility] Medicare Care Teams Crutch Maker Relationship Specialty Start Date End Date Kishor Fisher MD [address] [place] [address] [address] [place], [place] PCP - General 10/23/20
--- OUTSIDE RECORDS SUMMARY | 2025-02-22 09:32 | XMS_ITS ---
Author Organization [facility] jamia WrenRoly Address [address] [facility] [place] [address] Care Team Providers Care Engine Test Cell Technician Name Role Phone Kishor Fisher MD Primary Care Provider Teo Vann Unavailable [phone] Allergies Allergen (clinical drug ingredient) Drug/Non Drug [...] day Not-Taking Glucosamine Chondroitin Joint Active Evening [place] Oil Active Fish Oil Active Famotidine Active [...] 024 Encounters Encounter Location Date Provider Diagnosis [facility] [address] [address] 07/14/2024 Teo Jaeger Tinea unguium B35.1 ; [...] as necessary. Patient chooses, no pharmaceutical tx (43089) Keratoma Treatment Parring or Cutting o f Benign Hyperkeratotic Lesion(s) 29741 ( 2-4 Lesions ) - The Benign hyperkeratotic lesions, as described above were pared, and/or cut utilizing a sterile 15 blade, tissue nippers, and/or dremel Progress Notes * Dona RUIZ LDOB:[birth year] (89 yo F)Acc No.[id number]:07/14/2024 Progress Note Patient:?Dona Ruiz Diego Provider:?Teo Jaeger DPM :1935???Age:89 Y???Sex:Female D ate:07/14/2024 Address:[address] [place], [place] [id number] Pcp:Kishor Fisher MD Subjective: * Chief Complaints: [...] 2004cataracts OU 2007cholecystectomy 2010[facility] ablation at [facility] thyroid/goiter guided needle biopsy 2004Bun/Exc Sesa/Exc MT head right 10/1/2015Stent popliteal artery 03/2016hip replacement 01/2019lung surgery 09/14/20chest tube drain fluid in lungs 2020,12/2021foot surgery- infection -Dr Jericho Jaeger 12/05angioplasty 01/02 * Hospitalization/Major Diagno stic Procedure:?[facility] Arteri[facility] 04[facility]08/2016[facility] Fluid [facility] from [...] Fumarate Benadryl Cinnamon Cranberry CoQ-10 Citrucel Evening [place] Oil Famotidine Fish Oil Flaxseed Oil Garlic [...] Cranberry Taking CoQ-10 Taking Citrucel Taking Evening [place] Oil Taking Famotidine Taking Fish Oil Taking [...] as necessary. Patient chooses, no pharmaceutical tx (59924).?Keratoma Treatment:?Parring or Cutting of Benign Hyperkeratotic Lesion(s)?86140 ( 2-4 Lesions ) - The Benign hyperkeratotic lesions, as described above were pared, and/or cut utilizing a sterile 15 blade, tissue nippers, and/or dremel.? * Procedure Codes:?86416 DEBRI DE NAIL, 6 OR MORE, Modifiers: XS 90792 TRIM SKIN LESIONS, 2 TO 4, Modifiers: XS * Follow Up:?3 Months, 4 Month s * Images: * Sign off status: Completed true * Provider:?Teo Jaeger DPM Date:? 024 Generated for Marcin hancock/Chanelle/Shiva on:?02/22/2025 09:32 AM EDT History and Physical Notes * HPI [...]
--- OUTSIDE RECORDS SUMMARY | 2025-02-22 09:32 | XMS_ITS | Encounter Summary ---
Author Organization [facility] Address [address] [place] [address] Phone Care Team Providers Care It Desktop Support Technician Name Role Phone Kishor Fisher MD Primary Care Provider [phone] Encounter Details Date Type Department Care Team (Late st Contact Info) Description 12/31/2021 Telephone [facility] [address] [place] [address] Vern Buckley MD Social History [...] day refill. Please send to [facility] [place]. Thank you documented in this encounter Plan of Treatment Not on file documented as of this encounter Visit Diagnoses Not on filedocumented in this encounter Care Teams It Desktop Support Technician Relationship Specialty Start Date End Date Kishor Fisher MD [address] [place] PCP - General 10/23/20 documented as of this encounter
--- OUTSIDE RECORDS SUMMARY | 2025-02-22 09:32 | XMS_ITS ---
Author Organization [facility] Address [address] [place] [address] Care Team Providers Care Coat Agent Name Role Phone Kishor Fisher MD Primary Care Provider Teo Vann [phone] REASON FOR VISIT NS 03/10/24 Encounters Encounter Location Date Provider Diagnosis [facility] [address] [place] [address] 03/10/2024 Teo Jaeger Plan Of Treatment No Information Progress Notes * Dona RUIZ LDOB:[birth year] (88 yo F)Acc No.[id number]:03/10/2024 Patient:?Dona Ruiz :1935???Age:88 Y???Sex:Female Address:[address] [place] [address] * true * Date:? Generated for Printi ng/Fagregoriog/eTransmitting on:?02/22/2025 09:31 AM EDT
--- OUTSIDE RECORDS SUMMARY | 2025-02-22 09:32 | XMS_ITS ---
Author Organization [facility] jamia WrenRoly Address [address] [facility] [place] [address] Care Team Providers Care Color Coater Name Role Phone Kishor Fisher MD Primary Care Provider Teo Vann Unavailable [phone] Allergies Allergen (clinical drug ingredient) Drug/Non Drug [...] day 3 times a day Active Evening [place] Oil Active Famotidine Active Fish Oil Active [...] 03/22/2024 Encounters Encounter Location Date Provider Diagnosis [facility] [address] [address] 03/22/2024 Teo Jaeger Tinea unguium B35.1 ; [...] as necessary. Patient chooses, no pharmaceutical tx (64800) Keratoma Treatment Parring or Cutting o f Benign Hyperkeratotic Lesion(s) 74759 ( 2-4 Lesions ) - The Benign hyperkeratotic lesions, as described above were pared, and/or cut utilizing a sterile 15 blade, tissue nippers, and/or dremel Progress Notes * SARABurt Nelsonine LDOB:[birth year] (88 yo F)Acc No.[id number]:03/22/2024 Progress Note Patient:?Dona York Provider:?Teo Jaeger DPM :1935???Age:88 Y???Sex:Female D ate:03/22/2024 Address:[address] [place], [place] [address] Pcp:Kishor Fisher MD Subjective: * Chief Complaints: [...] 2020,12/2021 * Hospitalization/Major Diagno stic Procedure:?[facility] Fluid [...] Fumarate Benadryl Cinnamon Cranberry CoQ-10 Citrucel Evening [place] Oil Famotidine Fish Oil Flaxseed Oil Garlic [...] Cranberry Taking CoQ-10 Taking Citrucel Taking Evening [place] Oil Taking Famotidine Taking Fish Oil Taking [...] as necessary. Patient chooses, no pharmaceutical tx (74447).?Keratoma Treatment:?Parring or Cutting of Benign Hyperkeratotic Lesion(s)?70553 ( 2-4 Lesions ) - The Benign hyperkeratotic lesions, as described above were pared, and/or cut utilizing a sterile 15 blade, tissue nippers, and/or dremel.? * Procedure Codes:?72401 DEBRI DE NAIL, 6 OR MORE, Modifiers: XS 41909 TRIM SKIN LESIONS, 2 TO 4, Modifiers: [...]
[2025-02-22 09:59] VITALS: BP 158/80
== END 2025-02-22 10:27 | disposition home or self-care (01) ==
LOC: HO.HMCHD 09:06
PROVIDERS: PCP Internal Medicine; Visit Provider Physician Assistant
DX: I12.9 Hypertensive chronic kidney disease with stage 1 through stage 4 chronic kidney disease, or unspecified chronic kidney disease (principal); I73.9 Peripheral vascular disease, unspecified; N18.4 Chronic kidney disease, stage 4 (severe); C45.0 Mesothelioma of pleura; G50.0 Trigeminal neuralgia; Z00.00 Encounter for general adult medical examination without abnormal findings

== ENCOUNTER → 2025-02-22 09:05 | Outpatient (BNVA) | payer MEDICARE, OTHER, SELFPAY | PROVIDERS: PCP Internal Medicine; Visit Provider Physician Assistant | DX: I12.9 Hypertensive chronic kidney disease with stage 1 through stage 4 chronic kidney disease, or unspecified chronic kidney disease (principal); N18.4 Chronic kidney disease, stage 4 (severe); I73.9 Peripheral vascular disease, unspecified; C45.0 Mesothelioma of pleura; G50.0 Trigeminal neuralgia; Z79.899 Other long term (current) drug therapy | CPT/HCPCS: 99202 ==

== ENCOUNTER 2025-02-23 10:32 | Outpatient (REF) | payer MEDICARE, OTHER, SELFPAY ==
--- NOTE | ~2025-02-23 | XR_ITS ---
EXAMINATION: XR CHEST CLINICAL INFORMATION: R06.02 - Shortness of breath COMPARISON: 08/16/2024, 01/27/2024. CT chest 10/15/2023. TECHNIQUE: 2 views of the chest were obtained. FINDINGS: There is eventration/elevation of the right hemidiaphragm. The cardiac, hilar, and mediastinal contours appear normal. Extensive aortic mural calcifications. Prominent epicardial fat pad. Right lung demonstrates diffuse similar rind of pleural thickening and subpleural scarring, better characterized on the CT chest of 10/15/2023. The left lung appears clear. No pneumothorax or effusion. There are spinal degenerative changes. No soft tissue abnormalities. XR/XR chest 2V IMPRESSION: 1. No active pulmonary disease. 2. 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 Overall these findings appear unchanged from 08/16/2024 and 01/27/2024. Electronically signed by: Joshua Fagan MD 02/23/2025 12:43 PM EDT
--- OUTSIDE RECORDS SUMMARY | 2025-02-23 11:35 | XMS_ITS | Clinical Summary ---
Author Organization 175 [facility] Address [address] [place] [address] Phone Care Team Providers Care Director Of Alumni Relations Name Role Phone Kishor Fisher MD Primary Care Provider [phone] Allergies Active Allergy Reactions Criticality Noted Date [...] azelastine-fluti casone 137-50 mcg/spray spray,non-aeroso l 1 [place] by Nasal route 2 times daily. Active [...] Date Diagnosed Date PAD (peripheral artery disease) ([facility] V24) Mesothelioma (pleural) ([facility] V24, [facility] V28 ) 01/09/2022 Chronic renal insufficiency 01/09/2022 Diabetes mellitus ([facility] V24, [facility] V28) Atherosclerosis 01/09/2022 GERD (gastroesophageal reflux disease) Elevated cholesterol 01/09/2022 HTN (hypertension) 01/09/2022 IBS (irritable bowel syndrome) 01/09/2022 Malignant pleural effusion ([facility] V28) 022 Overview (07/28/2024): right Last Assessment & Plan: Ms. York is an 86 year old female with mesothelioma and a malignant right sided pleural effusion. Patient had a Pleurx catheter placed by IR at [facility] on 01/02/2022. ?? The patient's right-sided [...] follow-up visit with Dr. Pham at the [facility] office as previously scheduled. Polymyalgia rheumatica ([facility] V24) 01/09/2022 Trigeminal neuralgia 01/09/2022 Osteopenia 01/09/2022 Peripheral neuropathy 01/09/2022 Encounters Date Type Department Care Team Description 02/15/2025 8:30 AM EDT Ancillary Procedure [facility] - [facility] [address] [facility] [address] [place] [phone] PAD (peripheral artery disease) ([facility] V24) 12/22/2024 1:30 PM EDT Office Visit Orthopedic Surgery - [place] 250 [address] [facility] 250 [place] [phone] Roberto Jaeger, DPM Metatarsalgia of both feet (Primary Dx); Dermatophytosis of nail; Pain in toe of right foot; Pain in toe of left foot; Diabetic mononeuropathy simplex ([facility] V24, [facility] V28) from Last 3 Months Surgical History [...] IR 01/02/2022 OTHER SURGICAL HISTORY 11/25/2022 PROCEDURE: [place] REVSC OPN/PRG FEM/POP W/ANGIOPLASTY UNI OTHER SURGICAL HISTORY 11/25/2022 PROCEDURE: ULTRASOUND GUIDANCE FOR VASCULAR AC OTHER SURGICAL HISTORY 01/11/2023 PROCEDURE: [place] REVSC OPN/PRG FEM/POP W/ANGIOPLASTY UNI OTHER SURGICAL HISTORY 01/11/2023 PROCEDURE: [place] INTRAVASCULAR US NONCORONARY RS&I INTIAL VESSEL OTHER SURGICAL HISTORY 01/11/2023 PROCEDURE: [place] INTRAVASCULAR US NONCORONARY RS&I ADDL VESSEL; COMMENT: x2 OTHER SURGICAL HISTORY 01/11/2023 PROCEDURE: ULTRASOUND GUIDANCE FOR VASCULAR AC OTHER SURGICAL HISTORY 02/24/2024 PROCEDURE: [place] SLCTV CATHJ 3RD+ ORD SLCTV ABDL PEL/LXTR BRNCH OTHER SURGICAL HISTORY 02/24/2024 PROCEDURE: X-RAY EXAM OF ARM/LEG ARTERY OTHER SURGICAL HISTORY 02/24/2024 PROCEDURE: ULTRASOUND GUIDANCE FOR VASCULAR AC Medical History Medical History Date Comments Mesothelioma (pleural) ([facility] V24, [facility] V28) DX:Mesothelioma (pleural) (H CC) Chronic renal insufficiency DX:C hronic renal insufficiency Diabetes mellitus ([facility] V 24, [facility] V28) DX:Diabetes mellitus (HCC) Atherosclerosis DX:Atheroscleros is [...] neuropathy DX:Periphe ral neuropathy Malignant pleural effusion ([facility] V28) DX:Malignant pleural effusion; COMMENT: right Polymyalgia rheumatica ([facility] V24) DX:Polymyalgia rheumatica (HCC) Chronic sinusitis DX:Chronic [...] PM EDT Office Visit Vascular Surgery - [place] [address] [facility] [address] [place] [address] Mary Beth Krause PA [address] [facility] 210 [place] [address] 06/23/2025 11:00 AM EDT Office Visit Orthopedic Surgery - [place] [address] [facility] 250 [place] [phone] Roberto Jaeger DPM [address] [address] Health Maintenance Due Date Last Done Comments [...] this topic Insurance MEDICARE HUMAN Care Teams Director Of Alumni Relations Relationship Specialty Start Date End Date Kishor Fisher MD [address] [place] [address] Dr Leti [place] PCP - General 05/09/16
--- OUTSIDE RECORDS SUMMARY | 2025-02-23 11:35 | XMS_ITS | Clinical Summary ---
Author Organization [facility] Address [address] [place] [address] Phone Care Team Providers Care Ginseng Farmer Name Role Phone Kishor Fisher MD Primary Care Provider [phone] Allergies Active Allergy Reactions Criticality Noted Date [...] mouth 1 (one) time each day Active Freedom-3 Fatty Acids (Fish Oil Concentrate) 1000 MG [...] 1 (one) time each day Active Evening [place] Oil 1000 MG capsule Take by mouth [...] * Hemoglobin A1c (04/11/2020 9:37 AM EDT) [facility] Estimated Average Glucose 105 MG/DL MIMI Comment: eAG = Estimated average glucose which is %A1C expressed as average glucose, using the formula of the B0O-Bvlidgw Average Glucose study (ADAG), Diabetes Care, Vol.31,#8, [...] Most Recently Relevant to Health Maintenance Insurance [facility] Medicare [facility] Medicare Care Teams Ginseng Farmer Relationship Specialty Start Date End Date Kishor Fisher MD [address] [place] [address] DR[address] [place], [place] PCP - General 10/23/20
--- OUTSIDE RECORDS SUMMARY | 2025-02-23 11:35 | XMS_ITS | Patient Health Record ---
Author Organization [facility] jamia [facility]ren[facility] Address [address] [facility] [place] [address] Care Team Providers Care Project Engineer Chemicals Name Role Phone Kishor Fisher MD Primary Care Provider Teo Vann Unavailable [phone] Allergies Allergen (clinical drug ingredient) Drug/Non Drug [...] 0.6 MG Orally PRN No t-Taking Evening [place] Oil Active Doxycycline (Rosacea) Not-Taking Extra Depth [...] primary osteoarthritis of the ankle and/or foot (536307069) Primary osteoarthritis, right ankle and foot (M19.071) Active confirmed Problem Localized, primary osteoarthritis of the ankle and/or foot (441939183) Primary osteoarthritis, left ankle and foot (M19.072) Active confirmed Problem Acquired hallux valgus (39614032) Hallux valgus (acquired), right foot (M20.11) Active confirmed Problem Polyneuropathy due to type 2 diabetes mellitus (112750998) Type 2 diabetes mellitus with diabetic polyneuropathy (E11.42) Active confirmed Problem Primary gout (92959937) Idiopathic gout, right ankle and foot (M10.071) Active confirmed Vital Signs Blood pressure diastolic 70 mm Hg 07/14/2024 Height 5 ft 3 in in 07/14/2024 Blood pressure systolic 126 mm Hg 07/14/2024 Weight 154 lbs 07/14/2024 BMI 27.28 kg/m2 07/14/2024 Encounters Encounter Location Date Provider Diagnosis [facility] [address] [address] 03/22/2024 Toe Jaeger Tinea unguium B35.1 ; Pain in left foot M79.672 ; Pain in right foot M79.671 ; Type 2 diabetes mellitus with diabetic polyneuropathy E11.42 ; Pain in right toe(s) M79.674 ; Pain in left toe(s) M79.675 and Metatarsalgia, right foot M77.41 [facility] [address] [address] 07/14/2024 Teo Jaeger Tinea unguium B35.1 ; Pain in left foot M79.672 ; Pain in right foot M79.671 ; Type 2 diabetes mellitus with diabetic polyneuropathy E11.42 ; Pain in right toe(s) M79.674 ; Pain in left toe(s) M79.675 and Metatarsalgia, right foot M77.41 [facility] [address] [address] 03/10/2024 Teo Jaeger Assessments Encounter Date Diagnosis [...] X ray : Foot, right 3V 06/05/2023 06790-OYGOLLN NAIL, 6 OR MORE 02/05/2018 19325-VOTTRYJ NAIL, 6 OR MORE 05/14/2018 12134-YCCRFQP NAIL, 6 OR MORE 05/15/2017 41892-FMWEYJH NAIL, 6 OR MORE 07/28/2017 30030-QGEQUMM NAIL, 6 OR MORE 11/06/2017 85790-JAKCLXQ NAIL, 6 OR MORE 08/17/2018 43380-LRTEKJW NAIL, 6 OR MORE 01/26/2016 18417-QOYDCDJ NAIL, 6 OR MORE 07/31/2016 67622-MUDKJMI NAIL, 6 OR MORE 10/17/2016 41247-UXXVQBS NAIL, 6 OR MORE 12/23/2016 27927-Teku Destruction, 1-14 07/31/2016 05291-Lpuj Destruction, -03/25/2016 17709-Qzwa Destruction, 1-14 08/17/2018 96393-Iakd Destruction, 1-14 05/15/2017 63031- Debride <25 sq cm 08/26/2016 91854- Debride <25 sq cm 04/11/2016 72971- Debride <25 sq cm 05/29/2016 72718- Debride <25 sq cm 06/12/2016 58127- Debride <25 sq cm 06/21/2016 06267- Debride <25 sq cm 07/04/2016 28498- Debride <25 sq cm 07/31/2016 87673- Debride <25 sq cm 03/25/2016 08955- Debride <25 sq cm 02/12/2016 51327- Debride <25 sq cm 02/21/2016 74951-LMWOLCC SKIN/TISSUE 03/04/2016 57939-SKGWSIK SKIN/TISSUE 01/26/2016 24569-VFEEBHX SKIN/TISSUE 05/02/2016 46451-PXOYGZF SKIN/TISSUE 05/13/2016 62774-TSICSZR SKIN/TISSUE 09/11/2022 76067, J0702- INJECT TENDON ORIGIN/INSER T 12/23/2016 24998-BEAD SKIN LESIONS, OVER 4 11/11/19 19 26115-QLQJ SKIN LESIONS, OVER 4 04/18/20 21 52959-HOJB SKIN LESIONS, OVER 4 09/24/20 21 67486-GNDL SKIN LESIONS, OVER 4 01/24/20 22 58530-RDRU SKIN LESIONS, OVER 4 08/17/20 18 63953-DVBH SKIN LESIONS, 2 TO 4 05/14/20 18 42947-NOFQ SKIN LESIONS, 2 TO 4 12/14/19 21 31597-KPSS SKIN LESIONS, 2 TO 4 09/11/20 23 19814-ZUDP SKIN LESIONS, 2 TO 4 03/17/20 19 85096-DPKC SKIN LESIONS, 2 TO 4 06/24/20 19 74298-FUXU SKIN LESIONS, 2 TO 4 09/20/20 19 83735-UHKH SKIN LESIONS, 2 TO 4 12/20/19 20 35549-XIUC SKIN LESIONS, 2 TO 4 08/14/20 20 93148-OESC SKIN LESIONS, 2 TO 4 02/25/20 17 04379-KILD SKIN LESIONS, 2 TO 4 05/15/20 17 88414-FDQP SKIN LESIONS, 2 TO 4 07/28/20 17 13841-ZWTP SKIN LESIONS, 2 TO 4 02/06/20 18 21081-ISLF SKIN LESIONS, 2 TO 4 11/06/19 18 05461-AYFT SKIN LESIONS, 2 TO 4 12/24/19 17 51028-XVGF SKIN LESIONS, 2 TO 4 10/17/19 17 23237-ZRNB SKIN LESION 07/31/2016 81322-MRNTWCSC OF HEMATOMA/FLUID 020 Insurance Providers Payer Name Payer Address Payer Phone Subscriber Number Group Number Insured Name Patient Relationship to Insured Coverage Start Date Coverage End Date Medicare National [employer]t S[employer] [address] [facility] [place] [address] [id number] Dona York Self - patient is the insured 0 [employer] Blue [employer] [address] [place] [address] [id number] Dona York Self - patient is the [...] 2007 cholecystectomy 2010 radio frequency ablation at [facility] General thyroid/goiter guided needle biopsy 2003 Bun/Exc Sesa/Exc MT head right 07/13/2015 Stent popliteal artery 03/2016 hip replacement 01/2019 lung surgery 09/14/20 chest tube drain fluid in lungs 2020,12/12 022 foot surgery- infection -Dr Jericho Jaeger 0 12/05 angioplasty 01/02 Hospitalization History Reason Date(Month/Year) [facility] - Lung Sx 3 days Fluid in lungs 09/14,09/02 [facility]- Fluid removed from lung 07/2020 [facility] 04/08/2016
--- OUTSIDE RECORDS SUMMARY | 2025-02-23 11:35 | XMS_ITS ---
Author Organization [facility] Address [address] [place] [address] Care Team Providers Care Communication Coordinator Name Role Phone Kishor Fisher MD Primary Care Provider Teo Vann [phone] REASON FOR VISIT NS 03/10/24 Encounters Encounter Location Date Provider Diagnosis [facility] [address] [place] [address] 03/10/2024 Teo Jaeger Plan Of Treatment No Information Progress Notes * Dona RUIZ LDOB:[birth year] (88 yo F)Acc No.[id number]:03/10/2024 Patient:?Dona Ruiz :1935???Age:88 Y???Sex:Female Address:[address] [place] [address] * true * Date:? Generated for Printi ng/Fagregoriog/eTransmitting on:?02/23/2025 11:34 AM EDT
--- OUTSIDE RECORDS SUMMARY | 2025-02-23 11:35 | XMS_ITS ---
Author Organization [facility] jamia WrenR[facility] Address [address] [place] [address] Care Team Providers Care Admissions Dean Name Role Phone Kishor Fisher MD Primary Care Provider Teo Vann Unavailable [phone] Allergies Allergen (clinical drug ingredient) Drug/Non Drug [...] day 3 times a day Active Evening [place] Oil Active Famotidine Active Fish Oil Active [...] 03/22/2024 Encounters Encounter Location Date Provider Diagnosis [facility] [address] [address] 03/22/2024 Teo Jaeger Tinea unguium B35.1 ; [...] as necessary. Patient chooses, no pharmaceutical tx (79361) Keratoma Treatment Parring or Cutting o f Benign Hyperkeratotic Lesion(s) 41350 ( 2-4 Lesions ) - The Benign hyperkeratotic lesions, as described above were pared, and/or cut utilizing a sterile 15 blade, tissue nippers, and/or dremel Progress Notes * SARABurt Nelsonine LDOB:[birth year] (88 yo F)Acc No.[id number]:03/22/2024 Progress Note Patient:?oDna York Provider:?Teo Jaeger DPM :1935???Age:88 Y???Sex:Female D ate:03/22/2024 Address:[address] [place], [place] [address] Pcp:Kishor Fisher MD Subjective: * Chief Complaints: [...] in lungs 2020,12/2021 * Hospitalization/Major Diagno stic Procedure:?[facility]- Fluid [...] Fumarate Benadryl Cinnamon Cranberry CoQ-10 Citrucel Evening [place] Oil Famotidine Fish Oil Flaxseed Oil Garlic [...] Cranberry Taking CoQ-10 Taking Citrucel Taking Evening [place] Oil Taking Famotidine Taking Fish Oil Taking [...] as necessary. Patient chooses, no pharmaceutical tx (06803).?Keratoma Treatment:?Parring or Cutting of Benign Hyperkeratotic Lesion(s)?08282 ( 2-4 Lesions ) - The Benign hyperkeratotic lesions, as described above were pared, and/or cut utilizing a sterile 15 blade, tissue nippers, and/or dremel.? * Procedure Codes:?85915 DEBRI DE NAIL, 6 OR MORE, Modifiers: XS 48457 TRIM SKIN LESIONS, 2 TO 4, Modifiers: [...] DPM Date:? 024 Generated for Marcin hancock/Chanelle/Shiva on:?02/23/2025 11:35 AM EDT History and Physical Notes * [...]
--- OUTSIDE RECORDS SUMMARY | 2025-02-23 11:35 | XMS_ITS | Encounter Summary ---
Author Organization [facility] Address [address] [place] [address] Phone Care Team Providers Care Charm Filter Operator Helper Name Role Phone Kishor Fisher MD Primary Care Provider [phone] Encounter Details Date Type Department Care Team (Late st Contact Info) Description 12/31/2021 Telephone [facility] [address] [place] [address] Vern Buckley MD Social History [...] day refill. Please send to [facility] [place]. Thank you documented in this encounter Plan of Treatment Not on file documented as of this encounter Visit Diagnoses Not on filedocumented in this encounter Care Teams Charm Filter Operator Helper Relationship Specialty Start Date End Date Kishor Fisher MD [address] [place] PCP - General 10/23/20 documented as of this encounter
--- OUTSIDE RECORDS SUMMARY | 2025-02-23 11:35 | XMS_ITS ---
Author Organization [facility] jamia Wren[facility] Address [address] [place] [address] Care Team Providers Care Machine Buffer Name Role Phone Kishor Fisher MD Primary Care Provider Teo Vann Unavailable [phone] Allergies Allergen (clinical drug ingredient) Drug/Non Drug [...] day Not-Taking Glucosamine Chondroitin Joint Active Evening [place] Oil Active Fish Oil Active Famotidine Active [...] 024 Encounters Encounter Location Date Provider Diagnosis [facility] [address] [address] 07/14/2024 Teo Jaeger Tinea unguium B35.1 ; [...] as necessary. Patient chooses, no pharmaceutical tx (23832) Keratoma Treatment Parring or Cutting o f Benign Hyperkeratotic Lesion(s) 57065 ( 2-4 Lesions ) - The Benign hyperkeratotic lesions, as described above were pared, and/or cut utilizing a sterile 15 blade, tissue nippers, and/or dremel Progress Notes * Dona RUIZ LDOB:[birth year] (89 yo F)Acc No.[id number]:07/14/2024 Progress Note Patient:?Dona Ruiz Diego Provider:?Teo Jaeger DPM :1935???Age:89 Y???Sex:Female D ate:07/14/2024 Address:[address] [place], [place] [address] Pcp:Kishor Fisher MD Subjective: * Chief Complaints: [...] 2004cataracts OU 2007cholecystectomy 2010radio frequency ablation at [facility] thyroid/goiter guided needle biopsy 2004Bun/Exc Sesa/Exc MT head right 10/1/2015Stent popliteal artery 03/2016hip replacement 01/2019lung surgery 09/14/20chest tube drain fluid in lungs 2020,12/2021foot surgery- infection -Dr Jericho Jaeger 12/05angioplasty 01/02 * Hospitalization/Major Diagno stic Procedure:?[facility] Fluid [facility] [...] Fumarate Benadryl Cinnamon Cranberry CoQ-10 Citrucel Evening [place] Oil Famotidine Fish Oil Flaxseed Oil Garlic [...] Cranberry Taking CoQ-10 Taking Citrucel Taking Evening [place] Oil Taking Famotidine Taking Fish Oil Taking [...] as necessary. Patient chooses, no pharmaceutical tx (54904).?Keratoma Treatment:?Parring or Cutting of Benign Hyperkeratotic Lesion(s)?28205 ( 2-4 Lesions ) - The Benign hyperkeratotic lesions, as described above were pared, and/or cut utilizing a sterile 15 blade, tissue nippers, and/or dremel.? * Procedure Codes:?94120 DEBRI DE NAIL, 6 OR MORE, Modifiers: XS 67144 TRIM SKIN LESIONS, 2 TO 4, Modifiers: XS * Follow Up:?3 Months, 4 Month s * Images: * Sign off status: Completed true * Provider:?Teo Jaeger DPM Date:? 024 Generated for Marcin hancock/Chanelle/eTpebblessmfelicia on:?02/23/2025 11:34 AM EDT History and Physical Notes * [...]
== END 2025-02-23 10:33 | disposition home or self-care (01) ==
LOC: HO.HMGCX 10:32
PROVIDERS: PCP Physician Assistant; Visit Provider Physician Assistant
DX: R06.02 Shortness of breath (principal); C45.0 Mesothelioma of pleura
CPT/HCPCS: 71046

== ENCOUNTER → 2025-02-23 10:55 | Outpatient (BNV) | payer MEDICARE, OTHER, SELFPAY | PROVIDERS: PCP Physician Assistant; Visit Provider Radiology Diagnostic Radiology | DX: R06.02 Shortness of breath (principal) | CPT/HCPCS: 71046 ==

== ENCOUNTER 2025-03-18 09:16 | Outpatient (AMB) | payer MEDICARE, OTHER, SELFPAY ==
--- NOTE | 2025-03-18 09:22 | MHC.PC.OV ---
Vital Signs 03/18/25 09:26 03/18/25 09:43 Height 5 ft 3 in Weight 68.946 kg BMI 26.9 BP 178/62 H 144/64 H Respiration 16 Pulse 61 Pulse Source Pulse Oximeter Temp 98.8 F Temp Source Temporal Artery Scan Pulse Oximetry (%) 95 Intake Visit Reasons: 3 week F/U Roller Painter Required: No Accompanied by: Self / Same As Patient Allergies NSAIDS (Non-Steroidal Anti-Inflamma Allergy (Severe, Verified 03/18/25 09:22) Kidney damage Psudaphed Allergy (Severe, Verified 03/18/25 09:22) kidney damage thimerosal Allergy (Intermediate, Verified 03/18/25 09:22) Itching amitriptyline [From Elavil] Adverse Reaction (Severe, Verified 03/18/25 09:22) Rash influenza virus vaccine, specific [Influenza Virus Vacc,Specific] Adverse Reaction (Intermediate, Verified 03/18/25 09:22) LOCALIZED REACTION HPI HPI Comments History of Present Illness Details 89 year old female with extensive and complex medical history including mesothelioma, peripheral arterial disease, CKD stage 4, hypertension, hyperlipidemia, controlled type 2 diabetes, chronic sinusitis among others presents to the office for follow up on hypertension. Hypertension- previously uncontrolled. Bisoprolol increased to 10mg BID in addition to her other antihypertensives. Unfortunately the bisoprolol increased has caused increased bothersome edema in the RLE. She has been wearing compression stockings which has been somewhat helpful however it is still bothersome Trigeminal neuralgia- longstanding and managed with oxcarbazepine. However, believes she is having a flarem has dry mouth/eyes, decreased hearing in the left ear, and tightness in the left side of the face from ear to mouth causing her to drool at times. Currently no neurologist Thyroid nodules- following with endo at [facility] Type2 dm- following with [facility] endo, controlled, not on meds Seborrhea- behind ears. Reports pruritus and lesions on L upper back. Ongoing over a year. Has been to Dermatology Mesothelioma-CXR ordered at last visit shows chronic pleural and subpleural abnormalities of the right lung but stable. She has not yet scheduled an appointment with pulmonology. She does report dyspnea on exertion which has been ongoing. Concerns: Seborrhea as above ROS: General: No fevers, malaise, unintentional weight loss HEENT: No blurred vision, diplopia. No sore throat, nasal congestion, rhinorrhea, sinus pain, ear pain Cardiovascular: No chest pain, palpitations. +edema Respiratory: No wheezing, cough. +ZAVALA, no orthopnea GI: No abdominal pain, nausea, vomiting, diarrhea, constipation, melena, hematochezia : No dysuria, hematuria, increased urinary frequency, decreased urinary output MSK: No myalgia, back pain Neuro: No headaches, weakness, paresthesias Skin: see hpi EXAM: Constitutional - Awake and Alert, No apparent distress Eyes - PERRLA, EOMI Cardiovascular - S1S2, RRR, 2+ edema RLE Respiratory - Normal lung expansion, Normal respiratory effort, No respiratory distress, CTA bilaterally Extremities - no calf tenderness bilaterally, no swelling Skin - Warm/Dry. Two tiny scabs on upper back. No vesicles or pustules. No excoriation. No other lesions Neurological - Alert & oriented x3 Psychological - Appropriate affect [facility] Medical History (Updated 03/18/25 @ 09:52 by DEREK Jones) CKD (chronic kidney disease) stage 4, GFR 15-29 ml/min Chronic renal insufficiency Lung mass Chest pain Pleural effusion Chronic diarrhea Chest tube in place Osteopenia (~2013) Mesothelioma (pleural) Polymyalgia rheumatica Difficulty swallowing (atherosclerosis) History of cystocele Trigeminus neuralgia History of thyroid nodule Peripheral neuropathy Elevated cholesterol HTN (hypertension) Diabetes mellitus IBS (irritable bowel syndrome) GERD (gastroesophageal reflux disease) Sinusitis Dyspnea Surgical History History of colonoscopy (~06/2012) History of bunionectomy (~2014) Hx of chest tube placement (~09/2020) History of femoral angiogram (~2013) Hx of bilateral cataract extraction History of pubovaginal sling Hx of cholecystectomy History of total replacement of right hip (~01/2019) H/O carpal tunnel repair History of thoracentesis Family History Father Myocardial infarct Brother Skin cancer Heart problem Mother Congestive heart failure Kidney failure Skin cancer Maternal Grandfather Stomach cancer Paternal Uncle Stroke Daughter Uterine polyp Social History Household Members: Family and Children Housing: House Are you a primary adult day care worker to a significant other at home: No Do you presently have visiting nurse or other home services: Yes Alcohol intake: current Alcohol intake frequency: holidays/special occasions only Comment: aware of trip hazard Patient Tobacco Use Status: Former Tobacco user Second Hand Smoke Exposure: No service: No Current occupational status: retired Physical exam (Primary Care) Vital Signs: Last Vital Signs Temp 98.8 F 03/18/25 09:26 Pulse 61 03/18/25 09:26 Resp 16 03/18/25 09:26 BP 144/64 H 03/18/25 09:43 Pulse Ox 95 03/18/25 09:26 BMI result Body Mass Index 26.9 Tobacco/Smoking Status: Tobacco use Status Patient Tobacco Use Status Former Tobacco user 03/18/25 09:29 Coding Level of Care Code Est Pt Level 4 (23654) Complex EM visit Add On G2211 Diagnoses Trigeminus neuralgia G50.0 Primary hypertension I10 Hypertension type: primary hypertension Mesothelioma (pleural) C45.0 ZAVALA (dyspnea on exertion) R06.09 Assessment & Plan Assessment & Plan (1) Trigeminus neuralgia: Comment: 1988 repair, chokes easily, Baseline is residual numbness left upper lip, cheek and left ear Code(s): G50.0 - Trigeminal neuralgia Category: Medical Plan: Continue trileptal. Gabapentin 100mg nightly prescribed for acute flare. Referral to neurology placed (2) HTN (hypertension): Code(s): I10 - Essential (primary) hypertension Category: Medical Qualifiers: Hypertension type: primary hypertension Qualified Code(s): I10 - Essential (primary) hypertension Plan: Improved to 144/64. Not tolerating increase in bisoprolol. Will discuss medication changes with nephrology as she has tried many medication classes with limited effect or intolerance. Considering spironolactone. (3) Mesothelioma (pleural): Code(s): C45.0 - Mesothelioma of pleura Category: Medical Plan: CXR reviewed. Chest CT reviewed given SOB/ZAVALA. Advised to schedule follow up with pulmomnology (4) ZAVALA (dyspnea on exertion): Code(s): R06.09 - Other forms of dyspnea Category: Medical Plan: Reporting ZAVALA ongoing, not overly limiting. No hypoxia. CXR negative for effusions/edema. ?underlying CHF without acute excacerbation. Echo ordered. Considering spironolactone pending discussion with nephrology Plan Follow up as scheduled Chest CT and echo ordered. referred to neuro. Antihypertensives to changes pending discussion with nephrology Orders: Orders CT chest wo IV con Today C45.0 - Mesothelioma of pleura, R06.09 - Other forms of dyspnea CA echo transthoracic complete Today C45.0 - Mesothelioma of pleura, R06.09 - Other forms of dyspnea, R60.0 - Localized edema Referrals Neurology Referral G50.0 - Trigeminal neuralgia Medications: New gabapentin 100 mg PO BEDTIME 90 caps 1RF
[2025-03-18 09:26] VITALS: BP 178/62; PULSE 61; RESP 16; TEMP 37.1; O2SAT 95; BMI 26.9
[2025-03-18 09:43] VITALS: BP 144/64
--- OUTSIDE RECORDS SUMMARY | 2025-03-18 09:49 | XMS_ITS ---
[facility] Address [address] [place] [address] Care Team Providers Care Public Safety Director Name Role Phone Kishor Fisher MD Primary Care Provider Teo Vann [phone] REASON FOR VISIT Painful nail(s) aggrevated by shoes and causing difficulty standing/walking. Medications Medication SIG (Take, Route, Frequency, Duration) Notes Start Date End Date Status Extra Depth Orthopedic Shoes (1 Pair) with Customized Heat Molded Multidensity Innersoles (3 Pair) as directed Dx: NIDDM/Polyneuropathy (E11.42), Hammertoe Foot Deformity (M20.41,M20.42), Preulcerative Skin Lesion(s) (L85.1 Active Encounters Encounter Location Date Provider Diagnosis [facility] [address] [place] [address] 03/10/2024 Teo Perez Tinea unguium B35.1 ; [...] as necessary. Patient chooses, no pharmaceutical tx (38914) Keratoma Treatment Parring or Cutting o f Benign Hyperkeratotic Lesion(s) 43299 ( 2-4 Lesions ) - The Benign hyperkeratotic lesions, as described above were pared, and/or cut utilizing a sterile 15 blade, tissue nippers, and/or dremel Progress Notes * Dona RUIZ LDOB:[birth year] (89 yo F)Acc No.[id number]:03/10/2024 Progress Note Patient:?Dona RUIZ Provider:?Teo Perez DPM :1935???Age:88 Y???Sex:Female D ate:03/10/2024 Address:[address] [place], [place] [id number] Pcp:Kishor Fisher MD Subjective: * Chief Complaints: * ???1. Painful nail(s) aggrev ated by shoes and causing difficulty standing/walking.. * HPI: ???Painful Nails:?Pt States Last PCP Visit:?Date:?06/13/2023 ?Misc:?pt being tx for mesothioma.?Foot Pain:?Nature:?dull, aching.?Location:?Bottom, Forefoot, RIGHT.?Course:?improved.?Aggravated:?standing, walking.?Treatments:?sx tx for severe dm foot infection with Dr. Luis perez at [facility] and just obtained new dm shoes and inserts from [facility].?Severity/Quality:?States pain 2 on a scale to max [...] sleeping?denies.?Brain disorder?denies.?Numbness?denies.?Balance trouble?denies.?Confusion?denies.?Fainting/blackouts?denies.?Tingling?denies.?Tr emors?denies.? * Medical History:? Objective: * Vitals:? * Examination: ???Dermatologic: ?SKIN FINDINGS:?Skin exam reveals Keratotic lesion(s) located at , Medial plantar , IPJ , TA , SUB MTH (s) , 1 , Left.?General Examination: ?GENERAL APPEARANCE:?pleasant, alert, well nourished, well developed, well hydrated, with good attention to hygene/body habitus, and in no acute distress.?ORIENTED:?person,place, and time.?FOOT EXAM:?Lower Extremity Neurological Exam performed:?Yes ?Visual exam of foot performed:?Yes ?Date?06/05/2023 ?Sensory testing performed:?sensations diminished ?Pedal pulse taking performed:?absent?Neurological: ?SENSORY:? Neurological exam demonstrates, reduced light touch sensation, reduced vibration sensation, B/L, at Forefoot, 5.07 monofilament test performed at plantar aspects of 5 varied sites per foot shows sensation, reduced, , Neurological exam demonstrates mild pop right 4th mtpj plantar.?Vascular: ?DP PULSES (B):? 0/4, B/L.?PT PULSES (B):? 0/4, B/L.?CAPILLARY FILL TIME:?3 secs. per digit. B/L.?TROPHIC CONDITION-TEXTURE/ELASTICITY/TURGOR/HAIR GROWTH (B):?normal, B/L.?TEMPERTURE GRADIENT (C):?normal, B/L.?PIGMENTATION:?normal, B/L.?EDEMA (C):? 1/4, B/L, Foot, Ankle(s), Leg(s).?TELANGECTASIA:?absent, B/L.?Orthopedic: ?MUSCLE STRENGTH:?5/5 all groups in a symmetrical [...] * Assessment: 1.?Tinea unguium - B35.1 (Pr imary)???2.?Pain in left foot - M79.672???3.?Pain in right foot - M79.671???4.?Type 2 diabetes mellitus with diabetic polyneuropathy - E11.42???5.?Pain in right toe(s) - M79.674? ?6.?Pain in left toe(s) - M79.675???7.?Metatarsalgia, right foot - M77.41??? Plan: * Treatment: * Procedures:?Debride Nail 6-10:?Nail debridement?Nail debridement performed extensively to reduce/remove overall nail length and girth, subungual debris, and necrotic tissue, by manual and electrical means with use of a nail nipper and/or dremel, to more viable healthy nail plate or bed tissue 6-10. Silver nitrate used for any petechial bleeding as necessary. Patient chooses, no pharmaceutical tx (88003).?Keratoma Treatment:?Parring or Cutting of Benign Hyperkeratotic Lesion(s)?97883 ( 2-4 Lesions ) - The Benign hyperkeratotic lesions, as described above were pared, and/or cut utilizing a sterile 15 blade, tissue nippers, and/or dremel.? * Procedure Codes:?06866 DEBRI DE NAIL, 6 OR MORE, Modifiers: XS , 16273 TRIM SKIN LESIONS, 2 TO 4, Modifiers: XS * Follow Up:?3 Months * Images: * The named appointment provid er may or may not be the originator of this progress note, and it is not deemed complete until electronically signed by the appointment provider. Sign off status: Pending * Provider:?Teo Perez DPM Date:? 024 Generated for Tiannai karissa/Chanelle/eTransmitting on:?03/18/2025 09:48 AM EDT History and Physical Notes * HPI (History of Present Illness) Category Sub-Category Detail Notes Category Not es Painful Nails Misc: pt being tx for mesothioma Pt States Last PCP Visit: Date:: 06/13/2023 Foot Pain Nature: dull, aching Location: Bottom, Forefoot, RI GHT Course: improved Aggravated: standing, walking Treatments: sx tx for severe dm foot infection with Dr. Luis perez at [facility] and just obtained new dm shoes and inserts from [facility] Severity/Quality: States pain 2 on [...]
== END 2025-03-18 10:11 | disposition home or self-care (01) ==
LOC: HO.HMCHD 09:17
PROVIDERS: PCP Internal Medicine; Visit Provider Physician Assistant
DX: G50.0 Trigeminal neuralgia (principal); I10 Essential (primary) hypertension; C45.0 Mesothelioma of pleura; R06.09 Other forms of dyspnea

== ENCOUNTER 2025-04-01 13:02 | Outpatient (AMB) | payer MEDICARE, OTHER, SELFPAY ==
--- OUTSIDE RECORDS SUMMARY | 2024-03-10 08:00 | XMS_ITS ---
Author Organization [facility] Address [address] [place] [address] Care Team Providers Care Adoption Worker Name Role Phone Kishor Fisher MD Primary Care Provider Teo Vann [phone] REASON FOR VISIT Painful nail(s) aggrevated by shoes and causing difficulty standing/walking. Medications Medication SIG (Take, Route, Frequency, Duration) Notes Start Date End Date Status Extra Depth Orthopedic Shoes (1 Pair) with Customized Heat Molded Multidensity Innersoles (3 Pair) as directed Dx: NIDDM/Polyneuropathy (E11.42), Hammertoe Foot Deformity (M20.41,M20.42), Preulcerative Skin Lesion(s) (L85.1 Active Encounters Encounter Location Date Provider Diagnosis [facility] [address] [place] [address] 03/10/2024 Teo Perez Tinea unguium B35.1 ; Pain in left foot M79.672 ; Pain in right foot M79.671 ; Type 2 diabetes mellitus with diabetic polyneuropathy E11.42 ; Pain in right toe(s) M79.674 ; Pain in left toe(s) M79.675 and Metatarsalgia, right foot M77.41 Assessments Encounter Date Diagnosis (ICD Code) Assessment Notes Treatment Notes Treatment Clinical Notes Section Notes 03/10/2024 Tinea unguium (ICD-10 - B35.1) 03/10/2024 Pain in left foot (ICD-10 - M79.672) 03/10/2024 Pain in right foot (ICD-10 - M79.671) 03/10/2024 Type 2 diabetes mellitus with diabetic polyneuropathy (ICD-10 - E11.42) 03/10/2024 Pain in right toe(s) (ICD-10 - M79.674) 03/10/2024 Pain in left toe(s) (ICD-10 - M79.675) 03/10/2024 Metatarsalgia, right foot (ICD-10 - M77.41) Plan Of Treatment Medication Medication Name Sig Start Date Stop Date Notes Extra Depth Orthopedic Shoes (1 Pair) with Customized Heat Molded Multidensity Innersoles (3 Pair) as directed Dx: NIDDM/Polyneuropathy (E11.42), Hammertoe Foot Deformity (M20.41,M20.42), Preulcerative Skin Lesion(s) (L85.1 Next Appt Details Follow Up: 3 Months, Reason: Procedure Notes * Category Sub-Category Detail Notes Debride Nail 6-10 Nail debridement Nail debridem ent performed extensively to reduce/remove overall nail length and girth, subungual debris, and necrotic tissue, by manual and electrical means with use of a nail nipper and/or dremel, to more viable healthy nail plate or bed tissue 6-10. Silver nitrate used for any petechial bleeding as necessary. Patient chooses, no pharmaceutical tx (03234) Keratoma Treatment Parring or Cutting o f Benign Hyperkeratotic Lesion(s) 49532 ( 2-4 Lesions ) - The Benign hyperkeratotic lesions, as described above were pared, and/or cut utilizing a sterile 15 blade, tissue nippers, and/or dremel Progress Notes * Dona RUIZ LDOB:[birth year] (89 yo F)Acc No.[id number]:03/10/2024 Progress Note Patient: Dona ARCE Provider: Quentin Perez DPM :1935 A ge:88 Y S ex:Female Date:03/10/2024 Address:[address] [place] [address] Pcp:Kishor Fisher MD Subjective: * Chief Complaints: * 1 . Painful nail(s) aggrevated by shoes and causing difficulty standing/walking.. * HPI: P ainful Nails: Pt States Last PCP Visit: D ate: 0 06/13/2023 Misc: p t being tx for mesothioma. F oot Pain: Nature: d ull, aching. Location: B ottom, Forefoot, RIGHT. Course: i mproved. Aggravated: s tanding, walking. Treatments: s x tx for severe dm foot infection with Dr. Luis perez at [facility] and just obtained new dm shoes and inserts from [facility]. Severity/Quality: S tates pain 2 on a scale to max of 10.? * ROS: G eneral/Constitutional: Nausea d enies. V omiting d enies. H jenny Thirst d enies. L oss appetite d enies. C hills d enies. F atigue d enies.?Fever d enies. N ight Sweats d enies. U nexplained weight loss d enies. U nexplained weight gain d enies. H EENTM: Dentures d enies. D izziness d enies. G lasses/contacts a dmits. R etinopathy d enies. B lurred/double vision d enies. T MJ?denies. D ischarge/drainage d enies. I mplants d enies. S ore throat d enies. D ental implants d enies. H jocelin of hearing d enies. D ifficulty chewing/swallowing/speaking d enies. N ose bleeds d enies. S ore mouth d enies. ? R espiratory: On Oxygen d enies. P neumonia/pleurisy d enies.?Bronchitis d enies. E mphysema d enies. C oughing d enies. C ough blood?denies. S hortness of breath a dmits. W heezing d enies. C ardiovascular: Pacemaker d enies. M COURT OFFICER d enies. W PW d enies. C HF d enies. H eart attack d enies. S eptal defect d enies. R apid beat d enies. C hest pain d enies. A trial Fib. d enies. M urmur/Palpitations d enies. G astrointestinal: Hemorrhoids d enies. S tomach/Abdominal pain d enies. D ark blood stool d enies. I rritable bowel d enies. C onstipation d enies. D iarrhea d enies. H ematology: Swelling d enies. C lots d enies. V aricose Veins d enies. B ruising d enies. B leeding problem d enies. G enitourinary: Blood urine d enies. F requent/Painfu/urination/bladder control d enies. K idney stones d enies. I nfection (UTI) d enies. N ephropathy d enies. s ex trans dis (STD) d enies. P rostate d enies. M usculoskeletal: Hammertoes d enies. B unions a dmits. B ack Pain d enies. M uscle Cramps/ Resting d enies. M uscle cramps / walking d enies.?Generalized aches and pains d enies. W eakness d enies. I nteg.: [place] d enies. S cars d enies. C orns/calluses?admits. I ngrown nails d enies. P ainful nails d enies. O pen Sores d enies. R ashes d enies. N eurologic: Difficulty sleeping d enies. B rain disorder d enies. N umbness d enies. B alance trouble d enies. C onfusion d enies. F ainting/blackouts d enies. T ingling d enies. T remors d enies. * Medical History: Objective: * Vitals: * Examination: D ermatologic: SKIN FINDINGS: S kin exam reveals Keratotic lesion(s) located at , Medial plantar , IPJ , TA , SUB MTH (s) , 1 , Left. G eneral Examination: GENERAL APPEARANCE: p leasant, alert, well nourished, well developed, well hydrated, with good attention to hygene/body habitus, and in no acute distress. ORIENTED: p erson,place, and time. FOOT EXAM: L ower Extremity Neurological Exam performed:?Yes V isual exam of foot performed: Y es D ate 0 06/05/2023 S ensory testing performed: s ensations diminished P edal pulse taking performed: a bsent N eurological: SENSORY: Neurological exam demonstrates, reduced light touch sensation, reduced vibration sensation, B/L, at Forefoot, 5.07 monofilament test performed at plantar aspects of 5 varied sites per foot shows sensation, reduced, , Neurological exam demonstrates mild pop right 4th mtpj plantar. V ascular: DP PULSES (B): 0/4, B/L. PT PULSES (B): 0/4, B/L. CAPILLARY FILL TIME: 3 secs. per digit. B/L. TROPHIC CONDITION-TEXTURE/ELASTICITY/TURGOR/HAIR GROWTH (B):?normal, B/L. TEMPERTURE GRADIENT (C): n ormal, B/L. PIGMENTATION: n ormal, B/L. EDEMA (C): 1/4, B/L, Foot, Ankle(s), Leg(s). TELANGECTASIA: a bsent, B/L. O rthopedic: MUSCLE STRENGTH: 5 /5 all groups in a symmetrical fashion , B/L. BUNION: M edially prominent 1st MPJ, Dorsally prominent 1st MPJ , LEFT, Lateral tracking 1st MPJ incompletely reducable. N ails: NAILS are: E longated, overgrown, dystrophic, lytic, greater than 3mm thick, discolored and friable with crumbly malodorous subungual debris, with dull to no pain on palpation due to neuropathy, 1-5 B/L . O phthalmology Referral: DIABETES EYE EXAM D iabetic Retinopathy Screening: Y es 08/2022 F indings of Diabetic Eye Exam: n o retinopathy Assessment: * Assessment: 1. T inea unguium - B35.1 (Primary) 2 . P ain in left foot - M79.672 ? 3 . P ain in right foot - M79.671 4 . T ype 2 diabetes mellitus with diabetic polyneuropathy - E11.42 5 . P ain in right toe(s) - M79.674 & #160; 6 . P ain in left toe(s) - M79.675 7 . M etatarsalgia, right foot - M77.41 Plan: * Treatment: * Procedures: D ebride Nail 6-10: Nail debridement N ail debridement performed extensively to reduce/remove overall nail length and girth, subungual debris, and necrotic tissue, by manual and electrical means with use of a nail nipper and/or dremel, to more viable healthy nail plate or bed tissue 6-10. Silver nitrate used for any petechial bleeding as necessary. Patient chooses, no pharmaceutical tx (33942). K eratoma Treatment: Parring or Cutting of Benign Hyperkeratotic Lesion(s) 1 1056 ( 2-4 Lesions ) - The Benign hyperkeratotic lesions, as described above were pared, and/or cut utilizing a sterile 15 blade, tissue nippers, and/or dremel. * Procedure Codes: 1 1721 DEBRIDE NAIL, 6 OR MORE, Modifiers: XS , 47004 TRIM SKIN LESIONS, 2 TO 4, Modifiers: XS * Follow Up: 3 Months * Images: * The named appointment provid er may or may not be the originator of this progress note, and it is not deemed complete until electronically signed by the appointment provider. Sign off status: Pending * Provider: Quentin Perez DPM Date: 0 03/10/2024 Generated for Marcin hancock/Chanelle/Andreesmitting on: 0 04/01/2025 01:04 PM EDT History and Physical Notes * HPI (History of Present Illness) Category Sub-Category Detail Notes Category Not es Painful Nails Misc: pt being tx for mesothioma Pt States Last PCP Visit: Date:: 06/13/2023 Foot Pain Nature: dull, aching Location: Bottom, Forefoot, RI GHT Course: improved Aggravated: standing, walking Treatments: sx tx for severe dm foot infection with Dr. Luis perez at [facility] and just obtained new dm shoes and inserts from [facility] Severity/Quality: States pain 2 on a s sundar to max of 10 Examination Category Sub-Category Detail Notes Category Not es Neurological SENSORY: Neurological exa m demonstrates, reduced light touch sensation, reduced vibration sensation, B/L, at Forefoot, 5.07 monofilament test performed at plantar aspects of 5 varied sites per foot shows sensation, reduced, , Neurological exam demonstrates mild pop right 4th mtpj plantar Dermatologic SKIN FINDINGS: Skin exam reveal s Keratotic lesion(s) located at , Medial plantar , IPJ , TA , SUB MTH (s) , 1 , Left Orthopedic BUNION: Medially promine nt 1st MPJ, Dorsally prominent 1st MPJ , LEFT, Lateral tracking 1st MPJ incompletely reducable MUSCLE STRENGTH: 5/5 all groups in a symmetrical fashion , B/L General Examination GENERAL APPEARANCE: pleasant , alert, well nourished, well developed, well hydrated, with good attention to hygene/body habitus, and in no acute distress FOOT EXAM: Lower Extremity Neurological Exa m performed:: Yes Visual exam of foot performed:: Yes Date: 06/05/2023 Sensory testing performed:: sensations d iminished Pedal pulse taking performed:: absent ORIENTED: person,place, and ti me Ophthalmology Referral DIABETES EYE EXAM Diabeti c Retinopathy Screening:: Yes 08/2022 Findings of Diabetic Eye Exam:: no retin opathy Vascular DP PULSES (B): 0/4, B/L PT PULSES (B): 0/4, B/L CAPILLARY FILL TIME: 3 secs. per digit. B/L TEMPERTURE GRADIENT (C): normal, B/L TROPHIC CONDITION-TEXTURE/EL ASTICITY/TURGOR/HAIR GROWTH (B): normal, B/L EDEMA (C): 1/4, B/L, Foot, Ankl e(s), Leg(s) TELANGECTASIA: absent, B/L PIGMENTATION: normal, B/L Nails NAILS are: Elongated, overg rown, dystrophic, lytic, greater than 3mm thick, discolored and friable with crumbly malodorous subungual debris, with dull to no pain on palpation due to neuropathy, 1-5 B/L
--- NOTE | 2025-04-01 13:12 | MHC.PC.OV ---
Vital Signs 04/01/25 13:16 04/01/25 13:23 Height 5 ft 3 in BP 130/42 L 126/46 L Respiration 16 Pulse 56 Pulse Source Pulse Oximeter Temp 97.5 F Temp Source Temporal Artery Scan Pulse Oximetry (%) 96 Oxygen Delivery Method Room Air Intake Visit Reasons: Routine/ BP Tools And Parts Attendant Required: No Accompanied by: Self / Same As Patient Allergies NSAIDS (Non-Steroidal Anti-Inflamma Allergy (Severe, Verified 04/01/25 13:12) Kidney damage Psudaphed Allergy (Severe, Verified 04/01/25 13:12) kidney damage thimerosal Allergy (Intermediate, Verified 04/01/25 13:12) Itching amitriptyline (From Elavil) Adverse Reaction (Severe, Verified 04/01/25 13:12) Rash influenza virus vaccine, specific (Influenza Virus Vacc,Specific) Adverse Reaction (Intermediate, Verified 04/01/25 13:12) LOCALIZED REACTION HPI HPI Comments History of Present Illness Details 89 year old female with extensive and complex medical history including mesothelioma, peripheral arterial disease, CKD stage 4, hypertension, hyperlipidemia, controlled type 2 diabetes, chronic sinusitis among others presents to the office for follow up on hypertension. She was last seen 2 weeks ago after bisoprolol had been increased to 10 mg twice daily and after meeting with insurance licensing supervisor, decision was made to add spironolactone 25 mg daily which she has been taking. Today in the office, have achieved good blood pressure control. She is tolerating the medication well. ROS: General: No fevers, malaise, unintentional weight loss HEENT: No blurred vision, diplopia. No sore throat, nasal congestion, rhinorrhea, sinus pain, ear pain Cardiovascular: No chest pain, palpitations. +edema Respiratory: No wheezing, cough. +ZAVALA, no orthopnea MSK: No myalgia, back pain Neuro: No headaches, weakness, paresthesias Skin: see hpi EXAM: Constitutional - Awake and Alert, No apparent distress Eyes - PERRLA, EOMI Cardiovascular - S1S2, RRR, 2+ edema RLE Respiratory - Normal lung expansion, Normal respiratory effort, No respiratory distress, CTA bilaterally Extremities - no calf tenderness bilaterally, no swelling Skin - Warm/Dry. Two tiny scabs on upper back. No vesicles or pustules. No excoriation. No other lesions Neurological - Alert & oriented x3 Psychological - Appropriate affect [facility] Medical History (Updated 03/18/25 @ 09:52 by DEREK Jones) CKD (chronic kidney disease) stage 4, GFR 15-29 ml/min Chronic renal insufficiency Lung mass Chest pain Pleural effusion Chronic diarrhea Chest tube in place Osteopenia (~2013) Mesothelioma (pleural) Polymyalgia rheumatica Difficulty swallowing (atherosclerosis) History of cystocele Trigeminus neuralgia History of thyroid nodule Peripheral neuropathy Elevated cholesterol HTN (hypertension) Diabetes mellitus IBS (irritable bowel syndrome) GERD (gastroesophageal reflux disease) Sinusitis Dyspnea Surgical History History of colonoscopy (~06/2012) History of bunionectomy (~2014) Hx of chest tube placement (~09/2020) History of femoral angiogram (~2013) Hx of bilateral cataract extraction History of pubovaginal sling Hx of cholecystectomy History of total replacement of right hip (~01/2019) H/O carpal tunnel repair History of thoracentesis Family History Father Myocardial infarct Brother Skin cancer Heart problem Mother Congestive heart failure Kidney failure Skin cancer Maternal Grandfather Stomach cancer Paternal Uncle Stroke Daughter Uterine polyp Social History Household Members: Family and Children Housing: House Are you a primary foster care case manager to a significant other at home: No Do you presently have visiting nurse or other home services: Yes Alcohol intake: current Alcohol intake frequency: holidays/special occasions only Comment: aware of trip hazard Patient Tobacco Use Status: Former Tobacco user Second Hand Smoke Exposure: No service: No Current occupational status: retired Questionnaire PHQ-9 Over the last 2 weeks, how often have you been bothered by any of the following problems? 1. Little interest or pleasure in doing things: not at all 2. Feeling down, depressed, or hopeless: not at all 3. Trouble falling or staying asleep, or sleeping too much: not at all 4. Feeling tired or having little energy: several days 5. Poor appetite or overeating: not at all 6. Feeling bad about yourself - or that you are a failure or have let yourself or your family down: not at all 7. Trouble concentrating on things, such as reading the newspaper or watching television: not at all 8. Moving or speaking so slowly that other people could have noticed. Or the opposite - being so fidgety or restless that you have been moving around a lot more than usual: not at all 9. Thoughts that you would be better off or of hurting yourself in some way: not at all Total score: 1 Source: Developed by Drs. Kali Chatterjee, Sailaja Rodas, Francis Redmond and colleagues, with an educational dolly from [employer]. Thrive Questionnaire Date Thrive assessed: 04/01/25 I am a: Patient What is your living situation today?: I have a steady place to live Within the past 12 months, did the food you bought not last and you didn't have the money to get more?: Never true Within the past 12 months, did you worry whether your food would run out before you got money to buy more?: Never true Do you have trouble paying for medicines?: No Do you have trouble getting transportation to medical appointments?: No Do you have trouble paying your heating and electricity bill?: No Do you have trouble taking care of your child, family member or friend?: No Do you have trouble with day-to-day activities such as bathing, preparing meals, shopping, managing finances, etc.?: No Are you currently unemployed and looking for a job?: No Are you interested in more education?: No Please select the resources that you would like help with: None THRIVE Score: 0 MCKAYLA-7 AMB Questionnaire MCKAYLA-7 Date MCKAYLA - 7 assessed: 04/01/25 Feeling nervous, anxious, or on edge: 0 = Not at all Not being able to stop or control worryin = Not at all Worrying too much about different things: 0 = Not at all Trouble relaxin = Not at all Being so restless that it is hard to sit still: 0 = Not at all Becoming easily annoyed or irritable: 0 = Not at all Feeling afraid as if something awful might happen: 0 = Not at all Total MCKAYLA-7 score (0-4 normal; 5-9 mild; 10-14 moderate; 15-21 severe): 0 Source: Developed by Drs. Kali Chatterjee, Sailaja Rodas, Francis Redmond and colleagues, with an educational dolly from [employer]. Physical exam (Primary Care) Vital Signs: Last Vital Signs Temp 97.5 F 04/01/25 13:16 Pulse 56 04/01/25 13:16 Resp 16 04/01/25 13:16 BP 126/46 L 04/01/25 13:23 Pulse Ox 96 04/01/25 13:16 Oxygen Delivery Method Room Air 04/01/25 13:16 Tobacco/Smoking Status: Tobacco use Status Patient Tobacco Use Status Former Tobacco user 04/01/25 13:13 Coding Level of Care Code Est Pt Level 3 (27852) Complex EM visit Add On G2211 Diagnoses Primary hypertension I10 Hypertension type: primary hypertension Assessment & Plan Assessment & Plan (1) HTN (hypertension): Code(s): I10 - Essential (primary) hypertension Category: Medical Qualifiers: Hypertension type: primary hypertension Qualified Code(s): I10 - Essential (primary) hypertension Plan: Controlled in the office. Continue amlodipine, bisoprolol, and spironolactone. Low-sodium diet. Will evaluate renal function and potassium levels given addition of spironolactone Plan Follow-up in the office in 6 months as scheduled Orders: Orders Basic Metabolic Panel Today I10 - Essential (primary) hypertension
[2025-04-01 13:16] VITALS: BP 130/42; PULSE 56; RESP 16; TEMP 36.4; O2SAT 96
[2025-04-01 13:23] VITALS: BP 126/46
== END 2025-04-01 13:49 | disposition home or self-care (01) ==
LOC: HO.HMCHD 13:02
PROVIDERS: PCP Physician Assistant; Visit Provider Physician Assistant
DX: I10 Essential (primary) hypertension (principal)